=== PATIENT | male | born 1945 | race Caucasian/White ===

== ENCOUNTER 2016-05-03 15:50 | Observation (INO) | payer OTHER, MEDICARE ==
[~2016-05-03] VITALS: Ht 172.7 cm; Wt 98.0 kg
[~2016-05-03 15:50] MED LIST: ASPI81TA28 PO; ATOR10TA88 PO; CMBIN INH; GLIM2TAB PO; IBUP-1050 PO; LISI-725 PO; METF-383 PO; PRLSR20 PO
[2016-05-03] MEDS ORDERED: CLONIDINE HCL 0.1 MG TAB PO ONE (16:15)
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
[2016-05-03 16:49] LABS: BASO % 0.2 %; BASO ABS # 0.02 K/uL (0-0.2); COMPLETE YES; HEMATOCRIT 41.6 % (42-52); IG% 0.5 %; LYMPH % 19.6 %; LYMPH ABS # 1.94 K/uL (1.2-3.4); MEAN CELL VOLUME 91.8 fL (80-100); MEAN CORPUSCULAR HGB CONC 34.9 g/dl (32-36); MEAN PLATELET VOLUME 9.6 fL (7.4-10.4); MONO % 8.9 %; NEUT % 69.8 %; PLATELET COUNT 283 K/uL (130-400); RED BLOOD COUNT 4.53 M/uL (4.7-6.1)
--- NOTE | 2016-05-03 16:49 | DIAGNOSTIC IMAGING REPORT ---
CT HEAD WITHOUT CONTRAST (CT) CLINICAL HISTORY: Dizziness, hypertension. DIFFICULT WALKING COMPARISON STUDY: MRI the brain dated 06/10/2012 TECHNIQUE: Axial CT of the brain is performed from the vertex to the skull base. IV contrast was not administered for this examination. CT DOSE: 810.83 mGy.cm FINDINGS: No intra or extra-axial mass lesions are visualized. There is no CT evidence of acute cortical infarction. There is no evidence of midline shift. There is no acute hemorrhage. No calvarial fractures are visualized. There are patchy white matter hypodensities likely on a small vessel basis. There is an old left cerebellar infarct. There is an old infarct involving the anterior limb of the left internal capsule. There is an old right thalamic lacunar infarct. There is no evidence of pathologic ventricular dilatation. There is no evidence of acute sinusitis. There is deformity and calcification of the right globe. IMPRESSION: No acute intracranial findings Electronically signed by: Rhys Davidson M.D. 05/03/2016 4:47 PM Dictated Date/Time: 05/03/2016 4:46 PM
[2016-05-03 17:21] LABS: BLOOD UREA NITROGEN 25 mg/dl (7-18); BUN/CREATININE RATIO 13.9 (10-20); CALCIUM 9.7 mg/dl (8.5-10.1); CARBON DIOXIDE 25 mmol/L (21-32); CHLORIDE 102 mmol/L (98-107); GLUCOSE 55 mg/dl (70-99); SODIUM 138 mmol/L (136-145)
[2016-05-03] MEDS ORDERED: GADAVIST IV PRN (17:30)
--- NOTE | 2016-05-03 17:36 | DIAGNOSTIC IMAGING REPORT ---
MRI OF THE BRAIN WITHOUT AND WITH IV CONTRAST CLINICAL HISTORY: Dizziness, hypertension, difficulty walking. COMPARISON STUDY: CT scan dated 05/03/2016 TECHNIQUE: MRI of the brain was performed from the vertex to the skull base utilizing various T1 and T2 weighted sequences. Following the IV administration of 9 mL of Gadavist contrast, additional enhanced images were obtained. FINDINGS: Sagittal T1, axial diffusion, proton density and T2 weighted axial, coronal FLAIR, and pre and post axial T1-weighted images were acquired. These were supplemented with post gadolinium coronal T1 weighted images. No intra or extra-axial mass lesions are visualized. Axial diffusion-weighted images reveal no evidence of acute or subacute infarction. There is no evidence of ventricular dilatation. Proton density T2-weighted and FLAIR images reveal moderate scattered foci of increased T2 signal within the white matter, likely on a small vessel basis. There are scattered lacunar infarcts. There are foci of increased T2 signal within the lorie, likely on a chronic ischemic basis. There is an old left cerebellar infarct. There is an old lacunar infarct within the right thalamus There is a left maxillary sinus retention cyst. There is a deformity the right globe which is likely chronic. There are no abnormal flow voids. There is no evidence of pathologic enhancement. IMPRESSION: 1. No acute intracranial findings 2. White matter disease and scattered prior areas of infarction 3. No evidence of intracranial mass 4. No evidence of acute or subacute infarction. Electronically signed by: Rhys Davidson M.D. 05/03/2016 5:34 PM Dictated Date/Time: 05/03/2016 5:30 PM
--- NOTE | 2016-05-03 17:59 | DIAGNOSTIC IMAGING REPORT ---
CHEST ONE VIEW PORTABLE CLINICAL HISTORY: Hypertension, dizziness. Difficulty walking. COMPARISON STUDY: 02/12/2010 FINDINGS: The chest has an emphysematous configuration. The heart is the upper limits of normal in size. There is aortic tortuosity. There is enlargement central pulmonary arteries suggesting pulmonary arterial hypertension. There is no focal pulmonary consolidation. There are no pleural effusions.[ IMPRESSION: No active disease in the chest. Electronically signed by: Rhys Davidson M.D. 05/03/2016 5:57 PM Dictated Date/Time: 05/03/2016 5:57 PM
[2016-05-03] MEDS ORDERED: TRAZ50TA35 PO (18:28)
[2016-05-03] MEDS: SODIUM CHLORIDE 0.9% 1000ML 1,000 ML IV SCH ×2 (19:29→20:31)
[2016-05-03] MEDS ORDERED: NURSING VERBAL MED ORDER ONE (19:30)
[2016-05-03] MEDS ORDERED: SODIUM CHLORIDE 0.9% 1000ML 1,000 ML IV SCH (20:30)
[2016-05-03 21:06] LABS: MAGNESIUM 1.7 mg/dl (1.8-2.4); THYROID STIMULATING HORMONE 1.51 uIu/ml (0.300-4.500)
[2016-05-03] MEDS ORDERED: DEXTROSE 50% 50 ML SYR IV ONE (21:15)
[2016-05-03] MEDS ORDERED: MECLIZINE HCL 12.5 MG TAB PO ONE (21:46)
[2016-05-03] MEDS ORDERED: HYDROmorphone INJ 0.5 MG/0.5 ML SYR IV PRN (22:00)
[2016-05-03] MEDS ORDERED: GLUCOSE 40% GEL 15 GM TUBE PO PRN (22:00)
[2016-05-03] MEDS ORDERED: GLUCOSE 10 TABS/TUBE PO PRN (22:00)
[2016-05-03] MEDS ORDERED: DIAZEPAM 5MG TAB PO PRN (22:00)
[2016-05-03] MEDS ORDERED: GLUCAGON FOR INJ 1 MG VIAL SQ PRN (22:00)
[2016-05-03] MEDS ORDERED: ONDANSETRON INJ 2 MG/ML 2 ML VIAL IV PRN (22:00)
[2016-05-03] MEDS ORDERED: TRAMADOL HCL 50 MG TAB PO PRN (22:00)
[2016-05-03] MEDS ORDERED: ACETAMINOPHEN 325 MG TAB PO PRN (22:00)
[2016-05-03] MEDS ORDERED: DEXTROSE 50% 50 ML SYR IV PRN (22:00)
[2016-05-03] MEDS ORDERED: SODIUM CHLORIDE 0.9% 1000ML 1,000 ML IV ONE (22:15)
[2016-05-03 22:54] VITALS: BP 158/75; TEMP 36.8; O2SAT 92; Ht 172.7 cm; Wt 98.0 kg
[2016-05-03] MEDS ORDERED: MAGNESIUM SULFATE 1GM / D5W 1 GM in PREMIXED IN D5W 100 ML IV ONE (23:00)
[2016-05-03] MEDS ORDERED: IV FLUIDS COMPLETED PRN (23:00)
[2016-05-04] MEDS: SODIUM CHLORIDE 0.9% 1000ML 1,000 ML IV SCH (00:01)
[2016-05-04 00:08] VITALS: BP 162/77; PULSE 65; TEMP 36.5; O2SAT 92
[2016-05-04 01:49] VITALS: BP 136/76; PULSE 69
[2016-05-04 05:57] LABS: BASO % 0.2 %; BASO ABS # 0.02 K/uL (0-0.2); COMPLETE YES; EOS % 1.7 %; HEMATOCRIT 37.6 % (42-52); IG% 0.5 %; LYMPH % 25.2 %; LYMPH ABS # 2.02 K/uL (1.2-3.4); MEAN CORPUSCULAR HEMOGLOBIN 31.5 pg (25-34); MEAN CORPUSCULAR HGB CONC 34.6 g/dl (32-36); MEAN PLATELET VOLUME 9.1 fL (7.4-10.4); MONO % 13.6 %; NEUT % 58.8 %; PLATELET COUNT 232 K/uL (130-400); RED BLOOD COUNT 4.13 M/uL (4.7-6.1); WHITE BLOOD COUNT 8.03 K/uL (4.8-10.8)
[2016-05-04 06:03] LABS: PROTHROMBIN TIME (PATIENT) 11.1 SECONDS (9.0-12.0)
[2016-05-04] MEDS: HEPARIN SOD 5000 UNIT/0.5 ML CARP SQ SCH ×3 (06:25→20:47)
[2016-05-04 06:26] LABS: CREATININE 1.6 mg/dl (0.60-1.40); POTASSIUM 4.9 mmol/L (3.5-5.1)
[2016-05-04 07:25] VITALS: BP 131/70; PULSE 65; TEMP 36.4; O2SAT 91
[2016-05-04] MEDS ORDERED: DEXTROSE 50% 50 ML SYR IV ONE (07:45)
[2016-05-04 08:00] VITALS: O2SAT 91
[2016-05-04] MEDS: INSULIN ASPART 100 UNITS/ML 3 ML PEN SC SCH ×4 (08:41→20:43)
[2016-05-04] MEDS: PANTOprazole SOD 40 MG TAB PO SCH (08:43)
[2016-05-04] MEDS: ASPIRIN 81 MG ECTAB PO SCH (08:43)
[2016-05-04] MEDS: ATORVASTATIN 10 MG TAB PO SCH (08:43)
--- NOTE | 2016-05-04 09:33 | HISTORY & PHYSICAL EXAMINATION ---
DATE OF ADMISSION: 05/03/2016 PRIMARY CARE DOCTOR: Dr. Jamil. Hx obtained from px, px granddaughter and records. CHIEF COMPLAINT: Dizziness. HISTORY OF PRESENT ILLNESS: Medical history significant for hypertension, history of CVA, DM2 on oral meds, CRI (baseline creatinine 1.7 - 1.9), PVD sp surgery. Recent confinement January 2010 for complicated pneumonia. One week history of cold symptoms, congestion ff by few days history of dizziness described as whirling. worse with head movement. no hearing loss, tinnitus, headache. Some nausea. no vomiting. No chest pain, no shortness of breath. Intractable symptoms at the Emergency Room. SBP initially 200 at the ER currently 100 after clonidine admin. MEDICAL HISTORY: As above. SURGERIES: Carotid artery, AAA repair. HOME MEDICATIONS: Include aspirin, Lipitor, Amaryl, Zestril, Glucophage, Prilosec, trazodone. ALLERGIES: No known drug allergies. FAMILY HISTORY: History of hypertension and cancer. PERSONAL SOCIAL HISTORY: past tobacco use. No chronic intake of alcoholic beverages. REVIEW OF SYSTEMS: As per HPI, all other ROS negative. PHYSICAL EXAMINATION: VITAL SIGNS: Blood pressure initially 200/86 later 107/63, pulse rate 77, RR 16, temperature 36.8, sats 92 on room air. GENERAL: Noted to be slightly anxious, obese, no respiratory distress. SKIN : normal color HEAD, EYES, EARS, NOSE, AND THROAT: partial alopecia, pink palpebral conjunctivae. Dry mucosa. NECK: Short neck. LUNGS: Decreased breath sounds. HEART: Regular rate and rhythm. ABDOMEN: Soft. EXTREMITIES: No edema. no tenderness NEUROLOGIC: No gross focality. LABORATORY DATA: Hemoglobin 14, white cell count 10, platelets 280, sodium 140, chloride 100, CO2 of 20, BUN 25, creatinine 1.8, glucose was noted to be 55. MRI showed scattered areas of old infarction. February 2016 hemoglobin A1c was 6.2. ASSESSMENT AND PLAN: 1. Vertigo recent URTI, no sepsis. 2. Hypertensive urgency, improved after clonidine admin at the ER. 3. CRI, borderline hyperkalemia. 4. History of peripheral vascular disease, status post surgery 5. hx CVA 6. past tobacco abuse. 7. DM2 on oral meds, well controlled as of recent outpx HgA1c px hypoglycemic at the ER OBS F Symptomatic management for vertigo. IVF, Hold ALVIN inhibitor for now RE borderline potassium. hold home oral hypoglycemic, ISS BG goal 140-180, Dextrose prn hypoglycemia PT, OT eval. DVT prophylaxis, heparin subQ. DNR. Patient's daughter requesting for updates. Miss Michelle Michel at . MTDD
[2016-05-04 15:08] VITALS: BP 149/74; PULSE 68; TEMP 36.4; O2SAT 91
[2016-05-04] MEDS ORDERED: LISINOPRIL 20 MG TAB PO ONE (16:35)
--- NOTE | 2016-05-04 16:36 | Progress Note ---
Medicine Progress Note Date & Time of Visit: May 04, 2016 at 16:28. Subjective patient states he feels that his dizziness is improving no other neuro deficits denies headache, chest pain, dyspnea, palpitations no other symptoms Objective Last 8 Hrs Date Time Temp Pulse Resp B/P Pulse Ox O2 Delivery O2 Flow Rate FiO2 05/04/16 15:08 36.4 68 18 149/74 91 Room Air Physical Exam: General- oriented x 3, not in distress, speaks in sentences with no effort Head- atraumatic Eyes- EOMI, anicteric Neck- supple, no JVD Lungs- clear to auscultation bilaterally Heart- regular rhythm; no murmurs Abdomen- normal bowel sounds, soft, nontender Extremities- no pretibial edema, no calf tenderness Neuro- alert, oriented x 3; no gross deficits Skin- warm & dry Laboratory Results: Last 24 Hours Test 05/03/16 16:35 05/03/16 22:03 05/03/16 23:49 05/04/16 05:45 Influenza Type A Antigen Neg for Influ A Influenza Type B Antigen Neg for Influ B Bedside Glucose 84 mg/dl 65 mg/dl White Blood Count 8.03 K/uL Red Blood Count 4.13 M/uL Hemoglobin 13.0 g/dL Hematocrit 37.6 % Mean Corpuscular Volume 91.0 fL Mean Corpuscular Hemoglobin 31.5 pg Mean Corpuscular Hemoglobin Concent 34.6 g/dl Platelet Count 232 K/uL Mean Platelet Volume 9.1 fL Neutrophils (%) (Auto) 58.8 % Lymphocytes (%) (Auto) 25.2 % Monocytes (%) (Auto) 13.6 % Eosinophils (%) (Auto) 1.7 % Basophils (%) (Auto) 0.2 % Neutrophils # (Auto) 4.72 K/uL Lymphocytes # (Auto) 2.02 K/uL Monocytes # (Auto) 1.09 K/uL Eosinophils # (Auto) 0.14 K/uL Basophils # (Auto) 0.02 K/uL RDW Standard Deviation 39.8 fL RDW Coefficient of Variation 12.0 % Immature Granulocyte % (Auto) 0.5 % Immature Granulocyte # (Auto) 0.04 K/uL Prothrombin Time 11.1 SECONDS Prothromb Time International Ratio 1.0 Sodium Level 140 mmol/L Potassium Level 4.9 mmol/L Chloride Level 105 mmol/L Carbon Dioxide Level 27 mmol/L Anion Gap 8.0 mmol/L Blood Urea Nitrogen 24 mg/dl Creatinine 1.60 mg/dl Est Creatinine Clear Calc Drug Dose 49.4 ml/min Estimated GFR () 50.2 Estimated GFR (Non- 43.3 BUN/Creatinine Ratio 15.0 Random Glucose 68 mg/dl Calcium Level 9.0 mg/dl Magnesium Level 2.0 mg/dl Assessment & Plan 70 year old male with DM, HTN, CVA, CKD, PVD presenting with dizziness VERTIGO POSSIBLE LABYRINTHITIS - improving - MRI brain no CVA - PRN meclizine advised to avoid quick turning of the head HYPERTENSIVE URGENCY - resolved - usual Lisinopril 20mg daily ordered CKD - at baseline crea 1.7-1.9 DM - hold oral meds - on ISS CVA PVD - stable - on Aspirin, Statin DVT prophylaxis SCDS Disposition pending possible d/c home in AM Patient's daughter requesting for updates. Miss Michelle Michel at . Current Inpatient Medications: Current Inpatient Medications Medications (Trade) Dose Ordered Sig/Messi Route Start Time Stop Time Status Last Admin Dose Admin Gadobutrol (Gadavist) 9 mmol UD PRN IV 05/03/16 17:30 05/07/16 17:29 Heparin Sodium (Porcine) (Heparin Sq 5000 Unit/0.5ml) 5,000 unit Q8 SQ 05/04/16 06:30 06/03/16 06:29 05/04/16 14:33 5,000 UNIT Acetaminophen (Tylenol Tab) 650 mg Q4H PRN PO 05/03/16 22:00 06/02/16 21:59 Insulin Aspart (novoLOG ASPART) SLIDING SCALE If C... ACHS SC 05/04/16 06:30 06/03/16 06:59 Glucose (Glucose 40% Gel) 15-30 GRAMS 15 GRAMS... UD PRN PO 05/03/16 22:00 06/02/16 21:59 Glucose (Glucose Chew Tab) 4-8 Tablets 4 Tabl... UD PRN PO 05/03/16 22:00 06/02/16 21:59 Dextrose (Dextrose 50% 50ML Syringe) 25-50ML OF 50% DW IV FOR... UD PRN IV 1/20/17 22:00 06/02/16 21:59 Glucagon (Glucagon Inj) 1 mg UD PRN SQ 05/03/16 22:00 06/02/16 21:59 Hydromorphone HCl (Dilaudid Inj) 0.5 mg Q3H PRN IV 05/03/16 22:00 05/17/16 21:59 Tramadol HCl (Ultram Tab) 25 mg Q6H PRN PO 05/03/16 22:00 06/02/16 21:59 Meclizine HCl (Antivert Tab) 12.5 mg Q6H PRN PO 05/03/16 22:00 06/02/16 21:59 Diazepam (Valium Tab) 2.5 mg Q6H PRN PO 05/03/16 22:00 06/02/16 21:59 Ondansetron HCl (Zofran Inj) 4 mg Q6H PRN IV 05/03/16 22:00 06/02/16 21:59 Aspirin (Ecotrin Tab) 81 mg DAILY PO 05/04/16 08:00 06/03/16 08:59 05/04/16 08:43 81 MG Atorvastatin Calcium (Lipitor Tab) 10 mg DAILY PO 05/04/16 08:00 06/03/16 08:59 05/04/16 08:43 10 MG Trazodone HCl (Desyrel Tab) 50 mg HS PO 05/04/16 21:00 06/03/16 20:59 Pantoprazole Sodium (Protonix Tab) 40 mg DAILY PO 05/04/16 08:00 06/03/16 08:59 05/04/16 08:43 40 MG Miscellaneous (Iv Fluids Completed) 1 ea PRN PRN N/A 05/03/16 23:00 05/03/17 22:59 Lisinopril (Zestril Tab) 20 mg DAILY PO 05/05/16 08:00 06/04/16 07:59 UNV Lisinopril (Zestril Tab) 20 mg 1617 ONCE PO 05/04/16 16:17 05/04/16 16:18 UNV
[2016-05-04] MEDS: TRAZODONE HCL 50 MG TAB PO SCH (20:43)
[2016-05-04] MEDS: MECLIZINE HCL 12.5 MG TAB PO PRN (21:07)
[2016-05-05 00:01] VITALS: BP 174/67; PULSE 67; TEMP 36.5; O2SAT 92
[2016-05-05] MEDS ORDERED: LORAZEPAM 0.5 MG TAB PO ONE ×2 (02:00→23:15)
[2016-05-05] MEDS: HEPARIN SOD 5000 UNIT/0.5 ML CARP SQ SCH ×3 (05:32→21:01)
[2016-05-05] MEDS: MECLIZINE HCL 12.5 MG TAB PO PRN ×2 (05:40→17:56)
[2016-05-05 06:16] LABS: BASO % 0.3 %; BASO ABS # 0.02 K/uL (0-0.2); COMPLETE YES; EOS % 3.5 %; IG% 0.4 %; LYMPH % 27.8 %; LYMPH ABS # 2.16 K/uL (1.2-3.4); MEAN CELL VOLUME 91.1 fL (80-100); MEAN CORPUSCULAR HEMOGLOBIN 31.5 pg (25-34); MEAN CORPUSCULAR HGB CONC 34.6 g/dl (32-36); MEAN PLATELET VOLUME 9.5 fL (7.4-10.4); MONO % 13.6 %; NEUT % 54.4 %; PLATELET COUNT 248 K/uL (130-400); RED BLOOD COUNT 4.28 M/uL (4.7-6.1); WHITE BLOOD COUNT 7.78 K/uL (4.8-10.8)
[2016-05-05] MEDS: INSULIN ASPART 100 UNITS/ML 3 ML PEN SC SCH ×4 (06:30→20:21)
[2016-05-05 06:49] LABS: BUN/CREATININE RATIO 15.8 (10-20); CALCIUM 9.1 mg/dl (8.5-10.1); CREATININE 1.5 mg/dl (0.60-1.40); POTASSIUM 4.5 mmol/L (3.5-5.1)
[2016-05-05 07:25] VITALS: BP 135/79; PULSE 66; TEMP 36.4; O2SAT 92
[2016-05-05] MEDS: ATORVASTATIN 10 MG TAB PO SCH (07:43)
[2016-05-05] MEDS: PANTOprazole SOD 40 MG TAB PO SCH (07:43)
[2016-05-05] MEDS: LISINOPRIL 20 MG TAB PO SCH (07:43)
[2016-05-05] MEDS: ASPIRIN 81 MG ECTAB PO SCH (07:43)
[2016-05-05] MEDS ORDERED: ONDANSETRON INJ 6 MG in DEXTROSE 5% 50ML 50 ML IV PRN (15:00)
--- NOTE | 2016-05-05 15:00 | Progress Note ---
Medicine Progress Note Date & Time of Visit: May 05, 2016 at 14:57. Subjective states his dizziness is improved but still significant improves with meclizine no chest pain, dyspnea, palpitations, lightheadedness no other symptoms Objective Last 8 Hrs Date Time Temp Pulse Resp B/P Pulse Ox O2 Delivery O2 Flow Rate FiO2 05/05/16 08:00 Room Air 05/05/16 07:25 36.4 66 18 135/79 92 Room Air Physical Exam: General- oriented x 3, not in distress, speaks in sentences with no effort Eyes- anicteric Neck- no JVD Lungs- clear to auscultation bilaterally, no rales/wheeze Heart- regular rhythm; no murmurs, normal rate Abdomen- normal bowel sounds, soft, nontender Extremities- no pretibial edema, no calf tenderness Neuro- alert, oriented x 3; no gross deficits Skin- warm & dry Laboratory Results: Last 24 Hours Test 05/04/16 16:28 05/04/16 20:05 05/05/16 05:29 05/05/16 07:34 Bedside Glucose 114 mg/dl 143 mg/dl 85 mg/dl White Blood Count 7.78 K/uL Red Blood Count 4.28 M/uL Hemoglobin 13.5 g/dL Hematocrit 39.0 % Mean Corpuscular Volume 91.1 fL Mean Corpuscular Hemoglobin 31.5 pg Mean Corpuscular Hemoglobin Concent 34.6 g/dl Platelet Count 248 K/uL Mean Platelet Volume 9.5 fL Neutrophils (%) (Auto) 54.4 % Lymphocytes (%) (Auto) 27.8 % Monocytes (%) (Auto) 13.6 % Eosinophils (%) (Auto) 3.5 % Basophils (%) (Auto) 0.3 % Neutrophils # (Auto) 4.24 K/uL Lymphocytes # (Auto) 2.16 K/uL Monocytes # (Auto) 1.06 K/uL Eosinophils # (Auto) 0.27 K/uL Basophils # (Auto) 0.02 K/uL RDW Standard Deviation 40.8 fL RDW Coefficient of Variation 12.1 % Immature Granulocyte % (Auto) 0.4 % Immature Granulocyte # (Auto) 0.03 K/uL Sodium Level 140 mmol/L Potassium Level 4.5 mmol/L Chloride Level 104 mmol/L Carbon Dioxide Level 26 mmol/L Anion Gap 10.0 mmol/L Blood Urea Nitrogen 24 mg/dl Creatinine 1.50 mg/dl Est Creatinine Clear Calc Drug Dose 52.7 ml/min Estimated GFR () 54.3 Estimated GFR (Non- 46.8 BUN/Creatinine Ratio 15.8 Random Glucose 80 mg/dl Calcium Level 9.1 mg/dl Assessment & Plan 70 year old male with DM, HTN, CVA, CKD, PVD presenting with dizziness VERTIGO POSSIBLE LABYRINTHITIS - improving gradually - MRI brain no CVA - PRN meclizine add PRN Zofran advised to avoid quick turning of the head HYPERTENSIVE URGENCY - resolved - usual Lisinopril 20mg daily resumed BP stable CKD - at baseline crea 1.7-1.9 DM - hold oral meds - on ISS CVA PVD - stable - on Aspirin, Statin DVT prophylaxis SCDS Disposition pending possible d/c home in AM Patient's daughter requesting for updates. Miss Michelle Michel at . Current Inpatient Medications: Current Inpatient Medications Medications (Trade) Dose Ordered Sig/Messi Route Start Time Stop Time Status Last Admin Dose Admin Gadobutrol (Gadavist) 9 mmol UD PRN IV 05/03/16 17:30 05/07/16 17:29 Heparin Sodium (Porcine) (Heparin Sq 5000 Unit/0.5ml) 5,000 unit Q8 SQ 05/04/16 06:30 06/03/16 06:29 05/05/16 13:42 5,000 UNIT Acetaminophen (Tylenol Tab) 650 mg Q4H PRN PO 05/03/16 22:00 06/02/16 21:59 Insulin Aspart (novoLOG ASPART) SLIDING SCALE If C... ACHS SC 05/04/16 06:30 06/03/16 06:59 Glucose (Glucose 40% Gel) 15-30 GRAMS 15 GRAMS... UD PRN PO 05/03/16 22:00 06/02/16 21:59 Glucose (Glucose Chew Tab) 4-8 Tablets 4 Tabl... UD PRN PO 05/03/16 22:00 06/02/16 21:59 Dextrose (Dextrose 50% 50ML Syringe) 25-50ML OF 50% DW IV FOR... UD PRN IV 05/03/16 22:00 06/02/16 21:59 Glucagon (Glucagon Inj) 1 mg UD PRN SQ 05/03/16 22:00 06/02/16 21:59 Hydromorphone HCl (Dilaudid Inj) 0.5 mg Q3H PRN IV 05/03/16 22:00 05/17/16 21:59 Tramadol HCl (Ultram Tab) 25 mg Q6H PRN PO 05/03/16 22:00 06/02/16 21:59 Meclizine HCl (Antivert Tab) 12.5 mg Q6H PRN PO 05/03/16 22:00 06/02/16 21:59 05/05/16 05:40 12.5 MG Diazepam (Valium Tab) 2.5 mg Q6H PRN PO 05/03/16 22:00 06/02/16 21:59 Ondansetron HCl (Zofran Inj) 4 mg Q6H PRN IV 05/03/16 22:00 06/02/16 21:59 Aspirin (Ecotrin Tab) 81 mg DAILY PO 05/04/16 08:00 06/03/16 08:59 05/05/16 07:43 81 MG Atorvastatin Calcium (Lipitor Tab) 10 mg DAILY PO 05/04/16 08:00 06/03/16 08:59 05/05/16 07:43 10 MG Trazodone HCl (Desyrel Tab) 50 mg HS PO 05/04/16 21:00 06/03/16 20:59 05/04/16 20:43 50 MG Pantoprazole Sodium (Protonix Tab) 40 mg DAILY PO 05/04/16 08:00 06/03/16 08:59 05/05/16 07:43 40 MG Miscellaneous (Iv Fluids Completed) 1 ea PRN PRN N/A 05/03/16 23:00 05/03/17 22:59 Lisinopril (Zestril Tab) 20 mg DAILY PO 05/05/16 08:00 06/04/16 07:59 05/05/16 07:43 20 MG
[2016-05-05 15:36] VITALS: BP 126/70; PULSE 74; TEMP 36.2; O2SAT 91
[2016-05-05] MEDS: TRAZODONE HCL 50 MG TAB PO SCH (20:59)
[2016-05-06 00:12] VITALS: BP 157/76; PULSE 80; TEMP 36.7; O2SAT 93
[2016-05-06] MEDS: HEPARIN SOD 5000 UNIT/0.5 ML CARP SQ SCH (05:15)
[2016-05-06 07:44] VITALS: BP 135/80; PULSE 79; TEMP 36.4; O2SAT 94
[2016-05-06] MEDS: MECLIZINE HCL 12.5 MG TAB PO PRN (08:15)
[2016-05-06] MEDS: PANTOprazole SOD 40 MG TAB PO SCH (08:15)
[2016-05-06] MEDS: LISINOPRIL 20 MG TAB PO SCH (08:15)
[2016-05-06] MEDS: ATORVASTATIN 10 MG TAB PO SCH (08:16)
[2016-05-06] MEDS: INSULIN ASPART 100 UNITS/ML 3 ML PEN SC SCH ×2 (08:16→12:35)
[2016-05-06] MEDS: ASPIRIN 81 MG ECTAB PO SCH (08:16)
[2016-05-06 08:30] VITALS: O2SAT 94
--- NOTE | 2016-05-06 14:31 | Progress Note ---
Medicine Progress Note Date & Time of Visit: May 06, 2016 at 14:27. Subjective patient states he feels better overall dizziness is much better denies headache, chest pain, dyspnea, palpitations states he is ready and would like to go home today Objective Last 8 Hrs Date Time Temp Pulse Resp B/P Pulse Ox O2 Delivery O2 Flow Rate FiO2 05/06/16 08:30 94 Room Air 05/06/16 07:44 36.4 79 18 135/80 94 Room Air Physical Exam: General- oriented x 3, not in distress, speaks in sentences with no effort Lungs- clear breath sounds bilaterally, no rales/wheeze Heart- regular rhythm; no murmurs, normal rate Abdomen- normal bowel sounds, soft, nontender Extremities- no pretibial edema, no calf tenderness Neuro- alert, oriented x 3; no gross deficits Skin- warm & dry Laboratory Results: Last 24 Hours Test 05/05/16 16:38 05/05/16 19:58 Bedside Glucose 105 mg/dl 143 mg/dl Assessment & Plan 70 year old male with DM, HTN, CVA, CKD, PVD presenting with dizziness. VERTIGO POSSIBLE LABYRINTHITIS - preceded with upper respiratory tract infection symptoms - MRI brain no CVA - PRN meclizine given - PT/OT consulted gradually improved PRN Meclizine ff up with PCP in 3-5 days HYPERTENSIVE URGENCY - resolved - usual Lisinopril 20mg daily resumed BP stable monitor as outpatient CKD - at baseline crea 1.7-1.9 DM - resume usual oral medications CVA PVD - stable - on Aspirin, Statin DVT prophylaxis SCDS given Disposition d/c home today ff up with PCP in 3-5 days patient decline home health services at this time Current Inpatient Medications: Current Inpatient Medications Medications (Trade) Dose Ordered Sig/Messi Route Start Time Stop Time Status Last Admin Dose Admin Gadobutrol (Gadavist) 9 mmol UD PRN IV 05/03/16 17:30 05/07/16 17:29 Heparin Sodium (Porcine) (Heparin Sq 5000 Unit/0.5ml) 5,000 unit Q8 SQ 05/04/16 06:30 06/03/16 06:29 05/05/16 13:42 5,000 UNIT Acetaminophen (Tylenol Tab) 650 mg Q4H PRN PO 05/03/16 22:00 06/02/16 21:59 Insulin Aspart (novoLOG ASPART) SLIDING SCALE If C... ACHS SC 05/04/16 06:30 06/03/16 06:59 Glucose (Glucose 40% Gel) 15-30 GRAMS 15 GRAMS... UD PRN PO 05/03/16 22:00 06/02/16 21:59 Glucose (Glucose Chew Tab) 4-8 Tablets 4 Tabl... UD PRN PO 05/03/16 22:00 06/02/16 21:59 Dextrose (Dextrose 50% 50ML Syringe) 25-50ML OF 50% DW IV FOR... UD PRN IV 05/03/16 22:00 06/02/16 21:59 Glucagon (Glucagon Inj) 1 mg UD PRN SQ 05/03/16 22:00 06/02/16 21:59 Hydromorphone HCl (Dilaudid Inj) 0.5 mg Q3H PRN IV 05/03/16 22:00 05/17/16 21:59 Tramadol HCl (Ultram Tab) 25 mg Q6H PRN PO 05/03/16 22:00 06/02/16 21:59 Meclizine HCl (Antivert Tab) 12.5 mg Q6H PRN PO 05/03/16 22:00 06/02/16 21:59 05/06/16 08:15 12.5 MG Diazepam (Valium Tab) 2.5 mg Q6H PRN PO 05/03/16 22:00 06/02/16 21:59 Ondansetron HCl (Zofran Inj) 4 mg Q6H PRN IV 05/03/16 22:00 06/02/16 21:59 Aspirin (Ecotrin Tab) 81 mg DAILY PO 05/04/16 08:00 06/03/16 08:59 05/06/16 08:16 81 MG Atorvastatin Calcium (Lipitor Tab) 10 mg DAILY PO 05/04/16 08:00 06/03/16 08:59 05/06/16 08:16 10 MG Trazodone HCl (Desyrel Tab) 50 mg HS PO 05/04/16 21:00 06/03/16 20:59 05/05/16 20:59 50 MG Pantoprazole Sodium (Protonix Tab) 40 mg DAILY PO 05/04/16 08:00 06/03/16 08:59 05/06/16 08:15 40 MG Miscellaneous (Iv Fluids Completed) 1 ea PRN PRN N/A 05/03/16 23:00 05/03/17 22:59 Lisinopril 20 mg 20 mg DAILY PO 05/05/16 08:00 06/04/16 07:59 05/06/16 08:15 20 MG Ondansetron HCl/ Dextrose (Zofran Inj/D5 50ml) 53 ml @ 200 mls/hr Q8H PRN IV 05/05/16 15:00 06/04/16 14:59
[2016-05-06] MEDS ORDERED: ANT25 PO (14:37)
--- NOTE | 2016-05-06 14:47 | Discharge Instructions ---
Discharge Instructions Admission Reason for Admission: Vertigo Discharge Discharge Diagnosis / Problem: VERTIGO Discharge Goals Goal(s): Diagnostic testing, Therapeutic intervention Activity Recommendations Activity Limitations: as noted below (NO HEAVY EXERTION UNTIL RE-EVALUATED BY PRIMARY CARE PHYSICIAN) Driving or Machine Use: NO DRIVING UNTIL RE-EVALUATED BY PRIMARY CARE PHYSICIAN . Instructions / Follow-Up Instructions / Follow-Up PLEASE CALL YOUR PRIMARY CARE PHYSICIAN IF WITH RECURRENCE OR WORSENING OF SYMPTOMS. AVOID SUDDEN HEAD MOVEMENTS. ENSURE ADEQUATE DAILY FLUID INTAKE. FOLLOW UP WITH DR. LEWIS (ASSOCIATE OF DR. NAGY) ON 05/09/16 AT 9 :10AM. Current Hospital Diet Patient's current hospital diet: Diabetes Type 2 Diet, Low Potassium Diet (2g K) Discharge Diet Recommended Diet: AHA Diet (Heart Healthy), Diabetes Type 2 Diet Pending Studies Studies pending at discharge: no Medical Emergencies . Who to Call and When: Medical Emergencies: If at any time you feel your situation is an emergency, please call 911 immediately. . Non-Emergent Contact Non-Emergency issues call your: Primary Care Provider . Past History Medical & Surgical History: (1) HTN (hypertension) (2) PVD (peripheral vascular disease) (3) TIA (transient ischemic attack) (4) Cerebrovascular disease, arteriosclerotic, post-stroke (5) COPD, moderate (6) CKD (chronic kidney disease), stage III (7) DM type 2 (diabetes mellitus, type 2) (8) AAA (abdominal aortic aneurysm) (9) CAD (coronary artery disease) (10) History of Helicobacter pylori infection (11) PUD (peptic ulcer disease) (12) Blind right eye (13) S/P AAA repair (14) S/P carotid endarterectomy (15) H/O aorto-femoral bypass (16) History of incision and drainage (17) H/O colonoscopy with polypectomy (18) S/p thoracoscopy . "Provider Documentation" section prepared by Aman Cooper. VTE Core Measure Inpt VTE Proph given/why not?: Unfractionated heparin SQ
--- NOTE | 2016-05-06 14:51 | Discharge Summary ---
Discharge Summary Admission Date: May 03, 2016 at 21:27 Discharge Date: May 06, 2016 Discharge Disposition: Home Principal Diagnosis: VERTIGO POSSIBLE LABYRINTHITIS Secondary Diagnoses/Problems: PLEASE REFER TO HOSPITAL COURSE BELOW. Procedures: BRAIN MRI: 1. No acute intracranial findings 2. White matter disease and scattered prior areas of infarction 3. No evidence of intracranial mass 4. No evidence of acute or subacute infarction. Pending Studies/Follow-Up: PLEASE REFER TO HOSPITAL COURSE BELOW. Medication Reconciliation New Medications: Meclizine HCl (Meclizine HCl) 25 Mg Tab 12.5 MG PO Q6H PRN for dizziness, #15 TAB 2 Refills Continued Medications: Aspirin (Aspirin Ec) 81 Mg Tab 81 MG PO DAILY Atorvastatin (Lipitor) 10 Mg Tab 10 MG PO DAILY, TAB Glimepiride (Amaryl) 2 Mg Tab 2 MG PO QAM, TAB Lisinopril (Zestril) 20 Mg Tab 20 MG PO DAILY, TAB Metformin Hcl (Glucophage) 850 Mg Tab 850 MG PO BID, TAB Omeprazole (Prilosec) 20 Mg Capcr 20 MG PO DAILY, CAP Trazodone Hcl (Trazodone) 50 Mg Tab 50 MG PO HS, TAB Admission Information HPI (per Admitting provider): PRIMARY CARE DOCTOR: Dr. Nagy. Hx obtained from px, px granddaughter and records. CHIEF COMPLAINT: Dizziness. HISTORY OF PRESENT ILLNESS: Medical history significant for hypertension, history of CVA, DM2 on oral meds, CRI (baseline creatinine 1.7 - 1.9), PVD sp surgery. Recent confinement January 2010 for complicated pneumonia. One week history of cold symptoms, congestion ff by few days history of dizziness described as whirling. worse with head movement. no hearing loss, tinnitus, headache. Some nausea. no vomiting. No chest pain, no shortness of breath. Intractable symptoms at the Emergency Room. SBP initially 200 at the ER currently 100 after clonidine admin. Physical Exam (per Admitting): VITAL SIGNS: Blood pressure initially 200/86 later 107/63, pulse rate 77, RR 16, temperature 36.8, sats 92 on room air. GENERAL: Noted to be slightly anxious, obese, no respiratory distress. SKIN : normal color HEAD, EYES, EARS, NOSE, AND THROAT: partial alopecia, pink palpebral conjunctivae. Dry mucosa. NECK: Short neck. LUNGS: Decreased breath sounds. HEART: Regular rate and rhythm. ABDOMEN: Soft. EXTREMITIES: No edema. no tenderness NEUROLOGIC: No gross focality. Hospital Course 70 year old male with DM, HTN, CVA, CKD, PVD presenting with dizziness. VERTIGO POSSIBLE LABYRINTHITIS - preceded with upper respiratory tract infection symptoms - MRI brain no CVA - PRN meclizine given - PT/OT consulted gradually improved PRN Meclizine ff up with PCP in 3-5 days HYPERTENSIVE URGENCY - resolved - usual Lisinopril 20mg daily resumed BP stable monitor as outpatient CKD - at baseline crea 1.7-1.9 DM - resume usual oral medications CVA PVD - stable - on Aspirin, Statin DVT prophylaxis SCDS given Disposition d/c home ff up with PCP in 3-5 days patient decline home health services at this time Total time spent on discharge = 30 MINUTES This includes examination of the patient, discharge planning, medication reconciliation, and communication with other providers. Discharge Instructions Discharge Instructions Admission Reason for Admission: Vertigo Discharge Discharge Diagnosis / Problem: VERTIGO Discharge Goals Goal(s): Diagnostic testing, Therapeutic intervention Activity Recommendations Activity Limitations: as noted below (NO HEAVY EXERTION UNTIL RE-EVALUATED BY PRIMARY CARE PHYSICIAN) Driving or Machine Use: NO DRIVING UNTIL RE-EVALUATED BY PRIMARY CARE PHYSICIAN . Instructions / Follow-Up Instructions / Follow-Up PLEASE CALL YOUR PRIMARY CARE PHYSICIAN IF WITH RECURRENCE OR WORSENING OF SYMPTOMS. AVOID SUDDEN HEAD MOVEMENTS. ENSURE ADEQUATE DAILY FLUID INTAKE. FOLLOW UP WITH DR. LEWIS (ASSOCIATE OF DR. NAGY) ON 05/09/16 AT 9 :10AM. Current Hospital Diet Patient's current hospital diet: Diabetes Type 2 Diet, Low Potassium Diet (2g K) Discharge Diet Recommended Diet: AHA Diet (Heart Healthy), Diabetes Type 2 Diet Pending Studies Studies pending at discharge: no Medical Emergencies . Who to Call and When: Medical Emergencies: If at any time you feel your situation is an emergency, please call 911 immediately. . Non-Emergent Contact Non-Emergency issues call your: Primary Care Provider . Past History Medical & Surgical History: (1) HTN (hypertension) (2) PVD (peripheral vascular disease) (3) TIA (transient ischemic attack) (4) Cerebrovascular disease, arteriosclerotic, post-stroke (5) COPD, moderate (6) CKD (chronic kidney disease), stage III (7) DM type 2 (diabetes mellitus, type 2) (8) AAA (abdominal aortic aneurysm) (9) CAD (coronary artery disease) (10) History of Helicobacter pylori infection (11) PUD (peptic ulcer disease) (12) Blind right eye (13) S/P AAA repair (14) S/P carotid endarterectomy (15) H/O aorto-femoral bypass (16) History of incision and drainage (17) H/O colonoscopy with polypectomy (18) S/p thoracoscopy . "Provider Documentation" section prepared by Aman Cooper. VTE Core Measure Inpt VTE Proph given/why not?: Unfractionated heparin SQ
[2016-05-06] MEDS ORDERED: MECLIZINE HCL 12.5 MG TAB PO SCH (15:00)
[2016-05-06 15:19] VITALS: BP 168/63; PULSE 77; TEMP 36.9; O2SAT 94
[2016-05-06 15:37] VITALS: BP 168/63; PULSE 77; TEMP 36.9; O2SAT 94
[2016-11-12] MEDS ORDERED: ATOR-24 PO (10:26)
[2016-11-12] MEDS ORDERED: ASPI-428 PO (10:26)
[2016-11-12] MEDS ORDERED: MECL1TAB40 PO (10:26)
[2016-11-12] MEDS ORDERED: MELA10TA2 PO (10:26)
[2016-11-12] MEDS ORDERED: TRAZ1TAB16 PO (10:26)
== END 2016-05-06 16:30 | disposition home or self-care (01) ==
LOC: ENRESERVDT → ENRESERVTM → C.EDB 15:51 → C.4E 21:27
PROVIDERS: ADMIT Internal Medicine; ATTEND Internal Medicine
DX: R42 Dizziness and giddiness (principal); I12.9 Hypertensive chronic kidney disease with stage 1 through stage 4 chronic kidney disease, or unspecified chronic kidney disease; E11.649 Type 2 diabetes mellitus with hypoglycemia without coma; E87.5 Hyperkalemia; I73.9 Peripheral vascular disease, unspecified; I25.10 Atherosclerotic heart disease of native coronary artery without angina pectoris; I95.9 Hypotension, unspecified; J06.9 Acute upper respiratory infection, unspecified; N18.3 Chronic kidney disease, stage 3 (moderate); J43.9 Emphysema, unspecified; Z66 Do not resuscitate; Z86.73 Personal history of transient ischemic attack (TIA), and cerebral infarction without residual deficits; Z87.891 Personal history of nicotine dependence

== ENCOUNTER → 2016-11-21 | Day surgery (SDC) | payer OTHER, MEDICARE ==
[2016-11-12 10:29] VITALS: Ht 175.3 cm
[~2016-11-21] VITALS: Ht 175.3 cm
[~2016-11-21] MED LIST changes: +ASPI-428 PO; +ATOR-24 PO; -CMBIN INH; -IBUP-1050 PO; +LIDOCAINE HCL 2% 2 ML VIAL (20MG/ML) ONE; +MECL1TAB40 PO; +MELA10TA2 PO; +MIDAZOLAM HCL 1 MG/ML 2ML VIAL ONE; +PROPOFOL IV EMULSION 10 MG/ML 20 ML VIAL IV ONE; +SODIUM CHLORIDE 0.9% 500ML 500 ML IV ONE; +TRAZ1TAB16 PO
--- NOTE | 2016-11-21 09:41 | Endo History and Physical ---
History & Physical Date of Service: Nov 21, 2016. Chief Complaint: history of polyps Referring Physician: Dr. Isaak Jamil History of Present Illness History of polyps, for surveillance Past Medical History Diabetes, ASHD, High Cholesterol, Heart Disease, Hypertension, COPD, CVA/TIA, Other Past Surgical History Hx Cardiac Surgery: Yes (LT/RT CAROTID ENDARTERECTOMY) Hx Internal Defibrillator: No Hx Pacemaker: No Hx Abdominal Surgery: Yes (AAA REPAIR) Hx of Implantable Prosthesis: No Hx Post-Op Nausea and Vomiting: No Hx Cancer Surgery: No Hx Thoracic Surgery: Yes (CHEST TUBE 2010 S/P PNEUMONIA) Hx Orthopedic: No Hx Urinary Tract Surgery: No Family History None Social History Smoking Status: Former Smoker Hx Substance Use: No Hx Alcohol Use: Yes (QUIT 2001) Allergies Coded Allergies: No Known Allergies (Verified , 11/12/16) Current Medications Reported Home Medications Medications Dose Route/Sig Max Daily Dose Days Date Category Desyrel (Trazodone Hcl) 50 Mg Tab 50 Mg PO HS 11/12/16 Reported Meclizine Hcl 12.5 Mg Tab 1 Tab PO Q6H 11/12/16 Reported Ecotrin Low Strength (Aspirin) 81 Mg Tab 1 Tab PO QAM 11/12/16 Reported Lipitor (Atorvastatin Calcium) 10 Mg Tab 10 Mg PO QAM 09/17/13 Reported Prilosec (Omeprazole) 20 Mg Capcr 20 Mg PO QAM 09/17/13 Reported Glucophage (Metformin Hcl) 850 Mg Tab 850 Mg PO BID 09/17/13 Reported Amaryl (Glimepiride) 2 Mg Tab 2 Mg PO QAM 09/17/13 Reported Zestril (Lisinopril) 20 Mg Tab 20 Mg PO QAM 09/17/13 Reported Melatonin 10 Mg Tab 1 Tab PO HS 11/12/16 Reported Vital Signs Weight (Kilograms): 0 Height (Feet): 5 Height (Inches): 9 Date Time Temp Pulse Resp B/P (MAP) Pulse Ox O2 Delivery O2 Flow Rate FiO2 11/21/16 09:14 37 90 20 197/97 (130) 92 Room Air Physical Exam General Appearance: WD/WN, no apparent distress Respiratory/Chest: Auscultation: breath sounds normal, no wheezing Cardiovascular: Heart Auscultation: RRR, no murmurs Abdomen: Inspection & Palpation: soft, no tenderness, guarding & rebound Assessment and Plan Colonoscopy today.
--- NOTE | 2016-11-21 10:20 | GI REPORT ---
Procedure Date: 11/21/2016 9:42 AM Procedure: Colonoscopy Indications: High risk colon cancer surveillance: Personal history of colonic polyps Medicines: Propofol per Anesthesia Complications: No immediate complications. Estimated blood loss: None. Estimated Blood Loss: Estimated blood loss: none. Procedure: Pre-Anesthesia Assessment: - Prior to the procedure, a History and Physical was performed, and patient medications, allergies and sensitivities were reviewed. The patient's tolerance of previous anesthesia was reviewed. - ASA Grade Assessment: III - A patient with severe systemic disease. After I obtained informed consent, the scope was passed under direct vision. Throughout the procedure, the patient's blood pressure, pulse, and oxygen saturations were monitored continuously. The Scope was introduced through the anus and advanced to the terminal ileum, with identification of the appendiceal orifice and IC valve. The colonoscopy was performed with ease. The patient tolerated the procedure well. The quality of the bowel preparation was adequate to identify polyps. The bowel preparation used was split dose MIralax. Findings: A 2 mm polyp was found in the ascending colon. The polyp was sessile. The polyp was removed with a cold snare. Resection and retrieval were complete. Verification of patient identification for the specimen was done by the physician and nurse using the patient's name, date and medical record number. Impression: - One 2 mm polyp in the ascending colon, removed with a cold snare. Resected and retrieved. - The colon was otherwise normal to the terminal ileum with retroflexed views of the colon and terminal ileum. Recommendation: - Repeat colonoscopy in 3 - 5 years for surveillance based on pathology results. - Discharge patient to home (with escort). Luis Goldman M.D. Luis Goldman MD 11/21/2016 10:20:05 AM This report has been signed electronically. Note Initiated On: 11/21/2016 9:42 AM I attest to the content of the Intraoperative Record and orders documented therein, exceptions below
--- NOTE | 2016-11-21 10:21 | Discharge Instructions ---
Endoscopy Patient Instructions Date / Procedure(s) Performed Nov 21, 2016. Colonoscopy Allergy Information Coded Allergies: No Known Allergies (Verified , 11/12/16) Discharge Date / Findings Nov 21, 2016. Small polyp removed Medication Instructions Stopped Medication(s): stopped all meds on Friday Restart Stopped Medication(s): Restart all medications today Provider Instructions Activity Restrictions - No exercising or heavy lifting for 24 hours. - Do not drink alcohol the day of the procedure. - Do not drive a car or operate machinery until the day after the procedure. - Do not make any important decisions or sign important papers in 24 hours after the procedure. Following Day: - Return to full activity which may include returning to work/school. Diet Start your diet with liquids and light foods (jello, soup, juice, toast). Then eat your usual diet if not nauseated. Treatment For Common After Affects For mild abdominal pain, bloating, or excessive gas: - Rest - Eat lightly - Lie on right side Follow-Up Information Follow-up with Dr. Isaak Jamil as scheduled Anesthesia Information What You Should Know You have had a procedure that required some medicine to reduce anxiety and discomfort. This treatment is called moderate sedation. After receiving the treatment, you may be sleepy, but you will be able to breathe on your own. The effects of the treatment may last for several hours. Follow these instructions along with Activity/Diet recommendations noted above: * Do NOT do anything where dizziness or clumsiness would be dangerous. * Rest quietly at home today, then you can be up and about tomorrow. * Have a responsible person stay with you the rest of today. * You may have had an I.V. today. If so, you may take the dressing off later today. Recommendations Call your doctor if: * Trouble breathing * Continuous vomiting for more than 24 hours * Temperature above 101 degrees * Severe abdominal pain or bloating * Pain not relieved by pain medicine ordered * There is increased drainage or redness from any incision * A large amount of rectal bleeding greater than 2-3 tablespoons. (If you had a polyp/s removed or have hemorrhoids, a small amount of blood - from the rectum is to be expected.) * You have any unanswered questions or concerns. IN THE EVENT OF A SERIOUS EMERGENCY, GO TO THE NEAREST EMERGENCY ROOM Your discharge instructions were prepared by provider Luis Goldman. Patient Instructions Signature Page Kulwant Michel Patient (or Guardian) Signature/Date: I have read and understand the instructions given to me by my caregivers. Caregiver/RN/Doctor Signature/Date: The above-named patient and/or guardian has received patient instructions on this date. + Original Patient Signature Page (only) stays with chart. Please make copy for patient.
[2016-11-21 10:43] VITALS: BP 162/92; PULSE 69; O2SAT 94
--- NOTE | 2016-11-21 11:02 | Anesthesiology Progress Note ---
Anesthesia Post Op Note Date & Time Nov 21, 2016 at 11:02 Vital Signs Pain Intensity: 0 Vital Signs Past 12 Hours Date Time Temp Pulse Resp B/P (MAP) Pulse Ox O2 Delivery O2 Flow Rate FiO2 11/21/16 10:43 69 16 162/92 (115) 94 Room Air 11/21/16 10:28 70 16 168/65 (99) 92 Room Air 11/21/16 10:13 68 12 132/61 (84) 93 Nasal Cannula 3 11/21/16 09:14 37 90 20 197/97 (130) 92 Room Air Notes Mental Status: alert / awake / arousable, participated in evaluation Pt Amnestic to Procedure: Yes Nausea / Vomiting: adequately controlled Pain: adequately controlled Airway Patency, RR, SpO2: stable & adequate BP & HR: stable & adequate Hydration State: stable & adequate Anesthetic Complications: no major complications apparent
== END | disposition home or self-care (01) ==
LOC: C.GI 08:41
PROVIDERS: ATTEND Internal Medicine Gastroenterology
DX: Z12.11 Encounter for screening for malignant neoplasm of colon (principal); D12.2 Benign neoplasm of ascending colon; Z86.010 Personal history of colon polyps; E11.9 Type 2 diabetes mellitus without complications; I25.10 Atherosclerotic heart disease of native coronary artery without angina pectoris; I10 Essential (primary) hypertension; J44.9 Chronic obstructive pulmonary disease, unspecified; Z86.73 Personal history of transient ischemic attack (TIA), and cerebral infarction without residual deficits; Z87.891 Personal history of nicotine dependence; Z79.82 Long term (current) use of aspirin; Z79.84 Long term (current) use of oral hypoglycemic drugs; Z79.899 Other long term (current) drug therapy

== ENCOUNTER 2017-02-05 21:50 | Emergency (ER) | payer OTHER, MEDICARE ==
[~2017-02-05] VITALS: Ht 177.8 cm; Wt 102.4 kg
[~2017-02-05 21:50] MED LIST changes: -ASPI81TA28 PO; -ATOR-24 PO; +ATOR10TA82 PO; -ATOR10TA88 PO; -LIDOCAINE HCL 2% 2 ML VIAL (20MG/ML) ONE; -MIDAZOLAM HCL 1 MG/ML 2ML VIAL ONE; -PROPOFOL IV EMULSION 10 MG/ML 20 ML VIAL IV ONE; -SODIUM CHLORIDE 0.9% 500ML 500 ML IV ONE; +TRAZ-119 PO; -TRAZ1TAB16 PO
[2017-02-05 21:54] VITALS: TEMP 36.8; Ht 177.8 cm; Wt 102.4 kg
[2017-02-05] MEDS ORDERED: ATOR-24 PO (22:36)
[2017-02-05] MEDS ORDERED: TRAM-10 PO (22:36)
[2017-02-05] MEDS ORDERED: IBUP-1050 PO (22:36)
[2017-02-05] MEDS ORDERED: TRAZ50TA35 PO (22:36)
[2017-02-05] MEDS ORDERED: MoRPHine SULFATE 10 MG/ML CARP/VIAL IV STA (22:38)
[2017-02-05 23:12] LABS: BASO % 0.1 %; BASO ABS # 0.02 K/uL (0-0.2); COMPLETE YES; EOS % 0.6 %; IG% 0.8 %; LYMPH % 12.5 %; LYMPH ABS # 1.77 K/uL (1.2-3.4); MEAN CELL VOLUME 91.6 fL (80-100); MEAN CORPUSCULAR HEMOGLOBIN 32.4 pg (25-34); MEAN CORPUSCULAR HGB CONC 35.4 g/dl (32-36); MEAN PLATELET VOLUME 9.8 fL (7.4-10.4); MONO % 13.4 %; NEUT % 72.6 %; PLATELET COUNT 326 K/uL (130-400); RED BLOOD COUNT 5.24 M/uL (4.7-6.1); WHITE BLOOD COUNT 14.14 K/uL (4.8-10.8)
[2017-02-05 23:40] LABS: CALCIUM 9.9 mg/dl (8.5-10.1); CREATININE 1.75 mg/dl (0.60-1.40); POTASSIUM 4.4 mmol/L (3.5-5.1)
[2017-02-05 23:45] LABS: ALB/GLOB RATIO 0.8 (0.9-2)
[2017-02-05 23:55] VITALS: O2SAT 91
--- NOTE | 2017-02-06 00:40 | EMERGENCY ROOM VISIT NOTE ---
ED Visit Note First contact with patient: 22:03 I have seen and examined this patient with Bisi Elam and generally agree with the treatment plan as discussed. Problem List Medical Problems: (1) AAA (abdominal aortic aneurysm) Permanent Comment: s/p repair Status: Chronic (2) Blind right eye Status: Chronic (3) CAD (coronary artery disease) Status: Chronic (4) Cerebrovascular disease, arteriosclerotic, post-stroke Status: Chronic (5) CKD (chronic kidney disease), stage III Status: Chronic (6) COPD, moderate Status: Chronic (7) DM type 2 (diabetes mellitus, type 2) Status: Chronic (8) Dysphagia Status: Chronic (9) Hemiplegia Status: Chronic (10) History of Helicobacter pylori infection Status: Chronic (11) Hypertension Status: Chronic (12) PNA (pneumonia) Status: Resolved (13) PUD (peptic ulcer disease) Status: Chronic (14) PVD (peripheral vascular disease) Status: Chronic (15) Stroke Status: Resolved (16) TIA (transient ischemic attack) Status: Chronic Surgical Problems: (1) H/O aorto-femoral bypass Status: Chronic (2) H/O colonoscopy with polypectomy Status: Chronic (3) History of incision and drainage Permanent Comment: evacuation of the left neck postop hematoma () Status: Chronic (4) S/P AAA repair Status: Chronic (5) S/P carotid endarterectomy Permanent Comment: bilateral Status: Chronic (6) S/p thoracoscopy Permanent Comment: Right video assisted thorascopic surgery evacuation of pleural fluid biopsy right lower lobe partial decortication 02/07/10 Status: Chronic Current/Historical Medications Scheduled Aspirin (Ecotrin Low Strength), 1 TAB PO QAM Atorvastatin (Lipitor), 40 MG PO DAILY Glimepiride (Amaryl), 2 MG PO QAM Lisinopril (Zestril), 20 MG PO QAM Metformin Hcl (Glucophage), 850 MG PO QAM Omeprazole (Prilosec), 20 MG PO BID Trazodone Hcl (Trazodone), 50 MG PO HS Scheduled PRN Ibuprofen (Advil), 200 MG PO Q4 PRN for Headache or Pain Meclizine Hcl (Meclizine Hcl), 1 TAB PO Q6H PRN for Dizziness or Vertigo Tramadol (Ultram), 50 MG PO Q6 PRN for Pain Allergies Coded Allergies: No Known Allergies (Verified , 11/12/16) Vital Signs Date Time Temp Pulse Resp B/P (MAP) Pulse Ox O2 Delivery O2 Flow Rate FiO2 02/05/17 23:59 94 02/05/17 23:55 91 Nasal Cannula 6.0 02/05/17 23:54 93 18 127/86 86 Room Air 02/05/17 21:54 36.8 77 20 151/84 97 Room Air Laboratory Results 02/05/17 22:50 Red Blood Count 5.24, Mean Corpuscular Volume 91.6, Mean Corpuscular Hemoglobin 32.4, Mean Corpuscular Hemoglobin Concent 35.4, Mean Platelet Volume 9.8, Neutrophils (%) (Auto) 72.6, Lymphocytes (%) (Auto) 12.5, Monocytes (%) (Auto) 13.4, Eosinophils (%) (Auto) 0.6, Basophils (%) (Auto) 0.1, Neutrophils # (Auto ) 10.25, Lymphocytes # (Auto) 1.77, Monocytes # (Auto) 1.90, Eosinophils # (Auto ) 0.09, Basophils # (Auto) 0.02 02/05/17 22:50 Test 02/05/17 22:50 White Blood Count 14.14 K/uL (4.8-10.8) Red Blood Count 5.24 M/uL (4.7-6.1) Hemoglobin 17.0 g/dL (14.0-18.0) Hematocrit 48.0 % (42-52) Mean Corpuscular Volume 91.6 fL (80-100) Mean Corpuscular Hemoglobin 32.4 pg (25-34) Mean Corpuscular Hemoglobin Concent 35.4 g/dl (32-36) Platelet Count 326 K/uL (130-400) Mean Platelet Volume 9.8 fL (7.4-10.4) Neutrophils (%) (Auto) 72.6 % Lymphocytes (%) (Auto) 12.5 % Monocytes (%) (Auto) 13.4 % Eosinophils (%) (Auto) 0.6 % Basophils (%) (Auto) 0.1 % Neutrophils # (Auto) 10.25 K/uL (1.4-6.5) Lymphocytes # (Auto) 1.77 K/uL (1.2-3.4) Monocytes # (Auto) 1.90 K/uL (0.11-0.59) Eosinophils # (Auto) 0.09 K/uL (0-0.5) Basophils # (Auto) 0.02 K/uL (0-0.2) RDW Standard Deviation 41.3 fL (36.4-46.3) RDW Coefficient of Variation 12.4 % (11.5-14.5) Immature Granulocyte % (Auto) 0.8 % Immature Granulocyte # (Auto) 0.11 K/uL (0.00-0.02) Anion Gap 9.0 mmol/L (3-11) Est Creatinine Clear Calc Drug Dose 47.1 ml/min Estimated GFR () 44.7 Estimated GFR (Non- 38.6 BUN/Creatinine Ratio 18.0 (10-20) Calcium Level 9.9 mg/dl (8.5-10.1) Total Bilirubin 1.3 mg/dl (0.2-1) Aspartate Amino Transf (AST/SGOT) 17 U/L (15-37) Alanine Aminotransferase (ALT/SGPT) 20 U/L (12-78) Alkaline Phosphatase 114 U/L (45-117) Troponin I 0.039 ng/ml (0-0.045) Total Protein 9.4 gm/dl (6.4-8.2) Albumin 4.3 gm/dl (3.4-5.0) Globulin 5.1 gm/dl (2.5-4.0) Albumin/Globulin Ratio 0.8 (0.9-2) Medications Administered Medications (Trade) Dose Ordered Sig/Messi Route Start Time Stop Time Status Last Admin Dose Admin Morphine Sulfate (MoRPHine SULFATE INJ) 6 mg NOW STAT IV 02/05/17 22:38 02/05/17 22:39 DC 02/05/17 23:42 6 MG Departure Information Referrals Isaak Jamil, D.O. (PCP) Patient Instructions My [facility]
[2017-02-06] MEDS ORDERED: OXYCODONE IR HOME PACK PO ONE (00:45)
[2017-02-06] MEDS ORDERED: LIDODERM (LIDOCAINE) PATCH 5% TD STA (00:45)
[2017-02-06] MEDS ORDERED: OXYC1TAB3 PO (01:06)
--- NOTE | 2017-02-06 01:10 | EMERGENCY ROOM VISIT NOTE ---
History First contact with patient: 22:03 Chief Complaint: NECK PAIN Stated Complaint: NECK PAIN,DIZZINESS History of Present Illness The patient is a 71 year old male who presents to the Emergency Room with complaints of left-sided neck pain. The patient states that he woke up 3 days ago with pain in the left side of the neck. He denies any obvious injury, but believes he may have slept on the neck in an uncomfortable position. He states he has very limited range of motion of the neck due to pain. He denies any recent illness or fevers/chills. He reports some dizziness which he states is chronic for him and he takes medication for this daily. He denies any trauma. He denies any associated headache, nausea/vomiting or changes in vision. He denies any chest pain or shortness of breath. The patient denies any history of neck problems. He is a diabetic. He has used a heating pad at home, but states he feels this has actually worsened his symptoms. The patient reports a history of loss of vision in his right eye due to trauma as a child. Review of Systems A complete 10 point review of systems was reviewed with the patient with pertinent positives and negatives as per history of present illness. All else were negative. Past Medical/Surgical History Medical Problems: (1) AAA (abdominal aortic aneurysm) (2) Blind right eye (3) CAD (coronary artery disease) (4) Cancer (5) Cerebrovascular disease, arteriosclerotic, post-stroke (6) CKD (chronic kidney disease), stage III (7) COPD, moderate (8) DM type 2 (diabetes mellitus, type 2) (9) Dysphagia (10) Hemiplegia (11) History of Helicobacter pylori infection (12) Hypertension (13) PNA (pneumonia) (14) PUD (peptic ulcer disease) (15) PVD (peripheral vascular disease) (16) Stroke (17) TIA (transient ischemic attack) Surgical Problems: (1) H/O aorto-femoral bypass (2) H/O colonoscopy with polypectomy (3) History of incision and drainage (4) S/P AAA repair (5) S/P carotid endarterectomy (6) S/p thoracoscopy Family History Diabetes mellitus MOTHER FH: CAD (coronary artery disease) FATHER BROTHER FH: cancer Hypertension Social History Smoking Status: Former Smoker Alcohol Use: none Marital Status: Housing Status: lives alone Occupation Status: disabled Current/Historical Medications Scheduled Aspirin (Ecotrin Low Strength), 1 TAB PO QAM Atorvastatin (Lipitor), 40 MG PO DAILY Glimepiride (Amaryl), 2 MG PO QAM Lisinopril (Zestril), 20 MG PO QAM Metformin Hcl (Glucophage), 850 MG PO QAM Omeprazole (Prilosec), 20 MG PO BID Trazodone Hcl (Trazodone), 50 MG PO HS Scheduled PRN Ibuprofen (Advil), 200 MG PO Q4 PRN for Headache or Pain Meclizine Hcl (Meclizine Hcl), 1 TAB PO Q6H PRN for Dizziness or Vertigo Oxycodone Ir (Roxicodone Ir), 1 TAB PO Q4H PRN for Pain Tramadol (Ultram), 50 MG PO Q6 PRN for Pain Physical Exam Vital Signs Date Time Temp Pulse Resp B/P (MAP) Pulse Ox O2 Delivery O2 Flow Rate FiO2 02/06/17 01:32 91 18 175/99 90 02/05/17 23:59 94 02/05/17 23:55 91 Nasal Cannula 6.0 02/05/17 23:54 93 18 127/86 86 Room Air 02/05/17 21:54 36.8 77 20 151/84 97 Room Air Physical Exam VITALS: Vitals are noted on the nurse's note and reviewed by myself. Vital signs stable. GENERAL: This is a 71-year-old male, in no acute distress, nondiaphoretic, well- developed well-nourished. HEAD: Normocephalic atraumatic. EARS: External auditory canals clear, tympanic membranes pearly frank without erythema or effusion bilaterally. EYES: Left pupil equal, round and reactive to light and accommodation. The right cornea is hazy and the right eye is deviated laterally. EOMs intact. MOUTH: Mucous membranes moist. Tonsils are not enlarged. Pharynx without erythema or exudate. NECK: Supple without nuchal rigidity. There is tenderness to palpation from the left cervical paraspinous muscles to the left sternocleidomastoid muscle. There is no erythema or induration. Patient has limited range of motion secondary to discomfort. HEART: Regular rate and rhythm without murmurs gallops or rubs. LUNGS: Clear to auscultation bilaterally without wheezes, rales or rhonchi. MUSCULOSKELETAL: Full range of motion throughout. Strength 5/5 throughout. NEURO: Patient was alert and oriented to person place and time. Normal sensation to light and sharp touch. No focal neurological deficits. Medical Decision & Procedures ER Provider Diagnostic Interpretation: CT C SPINE: No evidence of fracture or malalignment. C5 to C6 left paracentral disc protrusion causes mild canal narrowing but may contact the ventral surface of the cord. C6 to C7, posterior disc/osteophyte bridge causes moderate canal stenosis and left sided uncovertebral osteophytes cause mild right greater than left foraminal narrowing. Ligamentous calcification posterior to the dens. Vascular Calcification. Emphysema. CT HEAD: No acute intracranial finding or significant interval change. Chronic left cerebellar infarct. Chronic lacunar infarct right thalamus. White matter hypodensities, most likely representing small vessel ischemic change. Global cerebral volume loss. Right phthisis bulbi. Left maxillary sinus partially calcified rounded lesion inferiorly, partially imaged, but likely retention cyst. Radiologist: Lance Medina MD Laboratory Results 02/05/17 22:50 Red Blood Count 5.24, Mean Corpuscular Volume 91.6, Mean Corpuscular Hemoglobin 32.4, Mean Corpuscular Hemoglobin Concent 35.4, Mean Platelet Volume 9.8, Neutrophils (%) (Auto) 72.6, Lymphocytes (%) (Auto) 12.5, Monocytes (%) (Auto) 13.4, Eosinophils (%) (Auto) 0.6, Basophils (%) (Auto) 0.1, Neutrophils # (Auto ) 10.25, Lymphocytes # (Auto) 1.77, Monocytes # (Auto) 1.90, Eosinophils # (Auto ) 0.09, Basophils # (Auto) 0.02 02/05/17 22:50 Test 02/05/17 22:50 White Blood Count 14.14 K/uL (4.8-10.8) Red Blood Count 5.24 M/uL (4.7-6.1) Hemoglobin 17.0 g/dL (14.0-18.0) Hematocrit 48.0 % (42-52) Mean Corpuscular Volume 91.6 fL (80-100) Mean Corpuscular Hemoglobin 32.4 pg (25-34) Mean Corpuscular Hemoglobin Concent 35.4 g/dl (32-36) Platelet Count 326 K/uL (130-400) Mean Platelet Volume 9.8 fL (7.4-10.4) Neutrophils (%) (Auto) 72.6 % Lymphocytes (%) (Auto) 12.5 % Monocytes (%) (Auto) 13.4 % Eosinophils (%) (Auto) 0.6 % Basophils (%) (Auto) 0.1 % Neutrophils # (Auto) 10.25 K/uL (1.4-6.5) Lymphocytes # (Auto) 1.77 K/uL (1.2-3.4) Monocytes # (Auto) 1.90 K/uL (0.11-0.59) Eosinophils # (Auto) 0.09 K/uL (0-0.5) Basophils # (Auto) 0.02 K/uL (0-0.2) RDW Standard Deviation 41.3 fL (36.4-46.3) RDW Coefficient of Variation 12.4 % (11.5-14.5) Immature Granulocyte % (Auto) 0.8 % Immature Granulocyte # (Auto) 0.11 K/uL (0.00-0.02) Anion Gap 9.0 mmol/L (3-11) Est Creatinine Clear Calc Drug Dose 47.1 ml/min Estimated GFR () 44.7 Estimated GFR (Non- 38.6 BUN/Creatinine Ratio 18.0 (10-20) Calcium Level 9.9 mg/dl (8.5-10.1) Total Bilirubin 1.3 mg/dl (0.2-1) Aspartate Amino Transf (AST/SGOT) 17 U/L (15-37) Alanine Aminotransferase (ALT/SGPT) 20 U/L (12-78) Alkaline Phosphatase 114 U/L (45-117) Troponin I 0.039 ng/ml (0-0.045) Total Protein 9.4 gm/dl (6.4-8.2) Albumin 4.3 gm/dl (3.4-5.0) Globulin 5.1 gm/dl (2.5-4.0) Albumin/Globulin Ratio 0.8 (0.9-2) Medications Administered Medications (Trade) Dose Ordered Sig/Messi Route Start Time Stop Time Status Last Admin Dose Admin Morphine Sulfate (MoRPHine SULFATE INJ) 6 mg NOW STAT IV 02/05/17 22:38 02/05/17 22:39 DC 02/05/17 23:42 6 MG Lidocaine (Lidoderm Patch 5%) 1 patch NOW STAT TD 02/06/17 00:45 02/06/17 00:46 DC 02/06/17 01:12 1 PATCH Oxycodone HCl (Roxicodone Immediate Rel 5MG Home Pack) 1 homepack UD ONCE PO 02/06/17 00:45 02/06/17 00:46 DC 02/06/17 01:10 1 HOMEPACK Medical Decision Differential diagnosis includes cervical radiculopathy, infection, muscular strain, CVA, TIA, among others. The patient is a 71-year-old male who presents today complaining of left-sided neck pain. Patient does have reproducible pain with palpation of the left paraspinous muscles. Labs revealed leukocytosis, possibly secondary to stress as there is no sign of infection on exam and patient is afebrile. Patient is slightly hyponatremic. Bilirubin is mildly elevated. Creatinine is just slightly elevated from patient's baseline. A CT of the head and neck was obtained and read by matheusrad. The head showed no acute findings. CT of the neck did show some degenerative disc disease and left-sided protrusion which is likely the cause of the patient's discomfort. He was treated with IV morphine with very good relief of his pain. On reevaluation, patient stated this was the best he has felt all week and requested discharge home. He will be given a short course of pain medication but was encouraged to follow-up very closely with his primary care provider and orthopedic spine surgery for further evaluation. The patient was independently evaluated by Dr. Manley, ED attending physician , who agreed with my assessment and treatment plan. Based on the patient's presentation and work up, I feel the patient is stable for outpatient treatment. The patient was educated to return to the emergency department for any worsening of their current condition or new/concerning symptoms. He will follow up with his PCP this week. [place] Drug Monitoring Program Search Results: patient reviewed within database, no issues identified Medication Reconcilliation Current Medication List: was personally reviewed by me Blood Pressure Screening Patient's blood pressure: Elevated blood pressure Blood pressure disposition: Elevated BP felt to be situational Impression Primary Impression: Cervical radiculopathy Departure Information Dispostion Home / Self-Care Condition GOOD Prescriptions Oxycodone Ir (Roxicodone Ir) 5 Mg Tab 1 TAB PO Q4H Y for Pain, #10 TAB For Initial Treatment Prov: Bisi Elam .RAVEN 02/06/17 Referrals Isaak Jamil D.O. (PCP) Kulwant Brand, DO Patient Instructions My [facility] Additional Instructions You have been treated in the Emergency Department for Neck Pain. You have received pain medicine in the emergency department which impairs your ability to operate a vehicle. It is illegal for you to drive after receiving these medicines. You have been prescribed Oxy IR to be used for pain control. This is a narcotic medication. You cannot drive or consume alcohol while on this medicine. This medicine should only be used for pain that cannot be controlled with over-the- counter pain medicines. You should be given by taking a half tablet at a time, and may increase to 1 tablet every 4-6 hours as needed. Follow-up with your primary care provider within 2-3 days. Follow-up with Dr. Brand, who is an orthopedic party supply specialist. Return to the Emergency Department if your current symptoms worsen despite treatment course outlined above, or if you develop any of the following symptoms : intractable pain despite aforementioned treatment course, numbness or weakness of the arm, chest pain, shortness of breath or any other new/ concerning symptoms.
[2017-02-06 01:32] VITALS: BP 175/99; PULSE 91; O2SAT 90
--- NOTE | 2017-02-06 06:36 | DIAGNOSTIC IMAGING REPORT ---
CERVICAL SPINE W/O CT DOSE: 1103.92 mGy.cm HISTORY: Pain. Neuropathy. headache, left neck pain TECHNIQUE: Multiaxial CT images of the cervical spine were performed and reformatted in the sagittal and coronal plane without the use of contrast. A dose lowering technique was utilized adhering to the principles of ALARA. COMPARISON: None. FINDINGS: Normal stature of the vertebral bodies. Mild degenerative disc changes throughout. Posterior elements are intact. Posterior bulging disc centrally at C3-C4. Mild disc bulge posteriorly C4-C5. Broad-based bulging disc C6-C7 and C7-T1. Bulk of the neuroforamina are patent bilaterally. IMPRESSION: 1. Mild degenerative intervertebral disc change. 2. Mild multilevel bulging disc components. 3. No acute process. The above report was generated using voice recognition software. It may contain grammatical, syntax or spelling errors. Electronically signed by: Ivan Lagos M.D. 02/06/2017 6:34 AM Dictated Date/Time: 02/06/2017 6:32 AM
--- NOTE | 2017-02-06 07:08 | DIAGNOSTIC IMAGING REPORT ---
CT SCAN OF THE BRAIN WITHOUT IV CONTRAST CLINICAL HISTORY: Headache. COMPARISON STUDY: CT of the brain dated 05/03/2016. TECHNIQUE: Unenhanced axial CT scan of the brain is performed from the vertex to the skull base. FINDINGS: Brain parenchyma: There are age-related involutional changes noting [id number] patchy subcortical and periventricular microangiopathic change. There is a chronic left cerebellar infarct. A chronic lacunar infarct is seen in the right thalamus. There is no hemorrhage, mass effect, or evidence of acute territorial ischemia by CT criteria. Loza-white matter is preserved. No extra-axial fluid collection is seen. Ventricles, sulci, cisterns: Prominent secondary to involutional change. Intracranial vasculature: There is atherosclerotic calcification of the cavernous carotid and vertebral arteries. Calvarium: Unremarkable. Sinuses and mastoids: There is a 2.2 cm retention cyst containing calcific debris seen in the left maxillary antrum. Trace mucosal thickening is seen in the right maxillary antrum. The remaining visualized paranasal sinuses are clear. The mastoid air cells are well pneumatized. Orbits: The bony orbits are grossly intact. There is chronic deformity and calcification of the right ocular globe. The right ocular lens is not visualized. IMPRESSION: There is no hemorrhage, mass effect, or evidence of acute territorial ischemia by CT criteria. Electronically signed by: Jesus Skelton M.D. 02/06/2017 7:07 AM Dictated Date/Time: 02/06/2017 7:03 AM
== END 2017-02-06 01:32 | disposition home or self-care (01) ==
LOC: C.EDB 21:52 → C.EDC 02-06 01:32
DX: M54.12 Radiculopathy, cervical region (principal); R42 Dizziness and giddiness; E11.9 Type 2 diabetes mellitus without complications; I25.10 Atherosclerotic heart disease of native coronary artery without angina pectoris; I10 Essential (primary) hypertension; J44.9 Chronic obstructive pulmonary disease, unspecified; Z86.73 Personal history of transient ischemic attack (TIA), and cerebral infarction without residual deficits; Z87.891 Personal history of nicotine dependence; Z79.82 Long term (current) use of aspirin; N18.3 Chronic kidney disease, stage 3 (moderate); Z79.899 Other long term (current) drug therapy

== ENCOUNTER 2018-11-07 19:29 | Inpatient (IN) ==
[2018-11-07] MEDS ORDERED: SODIUM CHLORIDE 0.9% 1000ML 1,000 ML IV ONE (19:34)
--- OUTSIDE RECORDS SUMMARY | 2018-11-07 19:34 | External Medical Summary | Continuity of Care Document ---
:1945 Author Name Bobbi Pavon Address Unavailable Unavailable , Care Team Providers Name Role Phone Carmen Christianson M.D. Unavailable [email or web address] HEADLEY Unavailable Unavailable Unavailable Unavailable Unavailable Problems Visual Impairment: - One Eye: Profound I mpairment; Other Eye: Normal Vision (369.69) Type 2 diabetes mellitus (250.00) (E11.9) Empyema (510.9) (J86.9) Benign paroxysmal positional vertigo (386.11) (H81.10) Hypertension (401.9) (I10) Cerebral atherosclerosis (437.0) (I67.2) Chronic obstructive pulmonary disease (496) (J44.9) Peripheral vascular disease (443.9) (I73.9) Vertigo (780.4) (R42) Dyslipidemia (272.4) (E78.5) Dysphagia (787.20) (R13.10) Costochondritis (733.6) (M94.0) Transient ischemic attack (435.9) (G45.9) Stroke syndrome Allergies and Adverse Reactions No Known Drug Allergies (Allergy) Medications Lisinopril 20 MG Oral Tablet; TAKE 1 TABLET DAILY. Refills: 0 Aspirin Low Dose 81 MG TABS; TAKE 1 TABLET DAILY. Refills: 0 Glimepiride 2 MG Oral Tablet; Take 1 tablet daily Refills: 0 Atorvastatin Calcium 10 MG Oral Tablet; TAKE 1 TABLET DAILY. Quantity: 90 Refills: 1 metFORMIN HCl - 500 MG Oral Tablet; Take 1 tablet daily Refills: 0 Ibuprofen 200 MG Oral Tablet Refills: 0 Omeprazole 20 MG Oral Capsule Delayed Release; TAKE 1 CAPSUL E DAILY. Quantity: 90 Refills: 3 Procedures History of Bypass Graft Using Vein Statu s: Completed History of Abdominal Aortic Aneurysm Repair For Dilation Or Status: Completed Occlusion History of Bypass Graft Using Vein Statu s: Completed History of Thoracoscopy (Therapeutic) St atus: Completed History of Colonoscopy (Fiberoptic) Stat us: Completed History of Diagnostic Esophagogastroduodenoscopy Status: Completed Immunizations Immunizations not documented Plan of Treatment Planned Observations Planned Goals not documented Results No Known Results Results not documented Encounters Appointment; Anthony Christianson M.D. 04-Aug-2012 14:45 Encounter Diagnosis: Problem not documented
[2018-11-07 20:04] LABS: Basophils # (auto) 0.03 K/uL (0-0.2); Basophils % (auto) 0.3 %; Eosinophils # (auto) 0.06 K/uL (0-0.5); Eosinophils % (auto) 0.6 %; Hematocrit (blood only) 44.5 % (42-52); Hemoglobin 15.5 g/dL (14.0-18.0); Immature Granulocytes # (auto) 0.07 K/uL (0.00-0.02); Immature Granulocytes % (auto) 0.7 %; Lymphocytes # (auto) 1.24 K/uL (1.2-3.4); Lymphocytes % (auto) 11.6 %; Mean Corpuscular Hgb Conc 34.8 g/dL (32-36); Mean Corpuscular Volume 90.8 fL (80-100); Mean Platelet Volume 10.3 fL (7.4-10.4); Monocytes # (auto) 0.91 K/uL (0.11-0.59); Monocytes % (auto) 8.5 %; Neutrophils # (auto) 8.39 K/uL (1.4-6.5); Neutrophils % (auto) 78.3 %; Platelet Count 270 K/uL (130-400); RDW Standard Deviation 39.8 fL (36.4-46.3)
[2018-11-07 20:11] LABS: iSTAT Creatinine 2.2 mg/dl (0.6-1.3); iSTAT Hemoglobin 16.3 g/dl (14.0-18.0); iSTAT Ionized Calcium 1.18 mmol/l (1.12-1.32); iSTAT Potassium 4.5 mEq/L (3.3-5.0)
--- NOTE | 2018-11-07 20:15 | XRay Report ---
XR chest 1V portable HISTORY: Atypical Chest Pain COMPARISON: Chest 05/03/2016. FINDINGS: No pneumothorax. No pleural effusions. The heart remains normal in size. There is a mildly tortuous thoracic aorta. No evidence for pulmonary edema. Mild emphysema. Increased markings at the l jesus bases. This may be due to vascular crowding from the emphysema. IMPRESSION: 1. Mild emphysema. 2. Increased markings at the lung bases favors vascular crowding from the emphysema. Otherwise, no fo renny lung consolidations to suggest pneumonia. Electronically signed by: Ethan Gilmore M.D. 11/07/2018 8:13 PM
--- NOTE | 2018-11-07 20:27 | CT Scan Report ---
HEAD CT NONCONTRAST CT DOSE: 614.27 mGy.cm HISTORY: Altered mental status. TECHNIQUE: Multiaxial CT images of the head were performed without the use of intravenous contrast. A utomated exposure control was utilized for this study. A dose lowering technique was utilized adheri ng to the principles of ALARA. Comparison: Head CT 02/05/2017. Findings: The paranasal sinuses and mastoid air cells are clear. Right globe calcifications are again noted. The calvarium and skull base are intact. There is no mass, hematoma, midline shift, acute inf arct. White matter hypodensity is nonspecific but suggestive of microvascular ischemic change. The ve ntricles and sulci demonstrate mild age-related involutional changes. Old small infarct within the le ft cerebellar hemisphere remains unchanged. There is also an old lacunar infarct within the right dorinda lamus, unchanged. Impression: No significant change compared to the prior study. No acute intracranial abnormality. Electronically signed by: Ethan Gilmore M.D. 11/07/2018 8:25 PM
[2018-11-07 20:35] LABS: Albumin Globulin Ratio 0.9 (0.9-2); Albumin Level 3.7 gm/dl (3.4-5.0); BUN Creatinine Ratio 13.4 (10-20); Bilirubin Direct 0.2 mg/dl (0-0.2); Bilirubin,Total 0.6 mg/dl (0.2-1); Calcium 9.7 mg/dl (8.5-10.1); Creatinine Clr Calc Pharmacy 30.1 ml/min; Est GFR (African American) 29.5; Est GFR (Non-African American) 25.5; Globulin 4.3 gm/dl (2.5-4.0); Magnesium 1.8 mg/dl (1.8-2.4); Phosphorus 3.5 mg/dl (2.5-4.9); Potassium 4.5 mmol/L (3.5-5.1); Troponin I 0.038 ng/ml (0-0.045)
[2018-11-07 20:49] LABS: Beta-Hydroxybutyrate 1.54 mg/dl (0.2-2.81)
[2018-11-07 20:50] LABS: Appearance Urine Clear (Clear); Bacteria Urine Automated Negative (Negative); Bilirubin Urine Negative (Negative); Blood Urine 1+ (Negative); Cast Urine Automated 0 /lpf (0-5); Color Urine Yellow; Epithelial Cell Urine Auto 0-5 /lpf (0-5); Glucose Urine UA 3+ (Negative); Ketones Urine Negative (Negative); Leukocyte Esterase Urine Negative (Negative); Nitrite Urine Negative (Negative); Protein Urine 1+ (Negative); RBC Urine Automated 0-4 /hpf (0-4); Specific Gravity Urine 1.031 (1.000-1.030); Urobilinogen Urine Negative (Negative); WBC Urine Automated 0 /hpf (0-5)
[2018-11-07] MEDS ORDERED: SODIUM CHLORIDE 0.9% 1000ML 1,000 ML IV STA (22:01)
[2018-11-07] MEDS ORDERED: INSULIN ASPART 100 UNITS/ML 3 ML PEN SC STA (22:06)
--- NOTE | 2018-11-07 22:12 | Emergency Department Note ---
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 Per the nursing staff, the patient had called EMS because she had noticed that patient has been acting weird all day. They state that the patient was outside all day. They report that the patient had high blood sugar and high blood pressure. They report that the daughter stated that the patient was not speaking clearly and was not walking straight. The patient states that he has had similar episodes like this in the past. He states that he feels like he is intoxicated, but is not. The patient denies any alcohol use today. He states that he has a history of diabetes mellitus that was diagnosed 3 years ago. He states that he had a stroke in 2001. The patient states that he feeling normal currently. Home Medications Home Medications Medication Instructions Recorded Confirmed Type aspirin [Aspir-81] 81 mg PO DAILY 11/07/18 11/07/18 History atorvastatin 40 mg PO DAILY 11/07/18 11/07/18 History doxycycline hyclate 100 mg PO DAILY 11/07/18 11/07/18 History empagliflozin [Jardiance] 25 mg PO DAILY 11/07/18 11/07/18 History glimepiride 2 mg PO QAM 11/07/18 11/07/18 History ibuprofen 200 mg PO Q4H PRN 11/07/18 11/07/18 History metformin 850 mg PO DAILY 11/07/18 11/07/18 History pantoprazole 40 mg PO DAILYBB 11/07/18 11/07/18 History trazodone 50 mg PO HS 11/07/18 11/07/18 History Allergies Allergy/AdvReac Type Severity Reaction Status Date / Time No Known Allergies Allergy Unknown Verified 11/07/18 20:02 Past Med/Surg History Medical History Diabetes (Chronic) Social History Preferred Language: Bulgarian Feels Safe at Home: Yes Smoking Status: Former smoker Review of Systems See HPI for pertinent positives & negatives. and A total of 10 systems reviewed and were otherwise negative Physical Exam Vital Signs Vital Signs - 24 hr 11/07/18 19:30 11/07/18 19:35 11/07/18 20:00 Temperature 37.0 C Temperature Source Oral Sepsis Recent Fever Within 48 Hours No Sepsis New/Unexplained Change in Mental Status Yes Sepsis Action Taken by Nursing No Action Required Oxygen Flow Rate - Titration 2 Pulse Oximetry Post Tiitration 93 Pulse Rate 102 H Pulse Rate [Apical] 98 H Respiratory Rate 26 H 20 Respiratory Depth Normal Blood Pressure 231/119 H Blood Pressure [Right Arm] 198/103 H Blood Pressure Mean 156 Blood Pressure Mean [Right Arm] 134 Pulse Oximetry 87 L 87 L 91 Oxygen Delivery Method Room Air Nasal Cannula Oxygen Flow Rate 0 2 11/07/18 20:42 11/07/18 21:00 11/07/18 22:01 Temperature Temperature Source Sepsis Recent Fever Within 48 Hours Sepsis New/Unexplained Change in Mental Status Sepsis Action Taken by Nursing Oxygen Flow Rate - Titration Pulse Oximetry Post Tiitration Pulse Rate Pulse Rate [Apical] 91 H 92 H 92 H Respiratory Rate 19 19 16 Respiratory Depth Blood Pressure Blood Pressure [Right Arm] 229/115 H 211/127 H 230/112 H Blood Pressure Mean Blood Pressure Mean [Right Arm] 153 155 151 Pulse Oximetry 91 93 95 Oxygen Delivery Method Nasal Cannula Nasal Cannula Nasal Cannula Oxygen Flow Rate 2 2 2 11/07/18 22:31 11/07/18 23:23 11/08/18 00:30 Temperature Temperature Source Sepsis Recent Fever Within 48 Hours Sepsis New/Unexplained Change in Mental Status Sepsis Action Taken by Nursing Oxygen Flow Rate - Titration Pulse Oximetry Post Tiitration Pulse Rate Pulse Rate [Apical] 92 H 95 H 82 Respiratory Rate 22 23 18 Respiratory Depth Blood Pressure Blood Pressure [Right Arm] 219/113 H 237/131 H 217/120 H Blood Pressure Mean Blood Pressure Mean [Right Arm] 148 166 152 Pulse Oximetry 94 93 93 Oxygen Delivery Method Nasal Cannula Nasal Cannula Nasal Cannula Oxygen Flow Rate 2 2 2 GENERAL: Awake, alert, fatigued and drowsy appearing, no distress HENT: Normocephalic, atraumatic. TM's normal. Oropharynx with dry mucous membranes and otherwise unremarkable. EYES: EOMI. Normal conjunctiva. Sclera non-icteric. Chronic mild injection of the right sclera. NECK: Supple. No nuchal rigidity. FROM. No JVD or bruit. RESPIRATORY: CTAB CARDIAC: RRR. ABDOMEN: Soft, non distended. No tenderness to palpation. No rebound or guarding. No masses. RECTAL: Deferred. MUSCULOSKELETAL: Unremarkable. No edema. No discoloration. Gross motor strength symmetric. NEURO: Normal sensorium. No sensory or motor deficits noted. Subtle word finding difficulties, but otherwise speech is fluent. Cerebellar function intact, including finger to nose, alternating palms. 5/5 strength and SILT x4 extremities. SKIN: No rash or jaundice noted. LYMPH: No adenopathy Course 1950: The patient was evaluated in room C6, and a complete history and physical examination were performed. 2210: Case was discussed with Dr. Freed, [facility] hospitalist, who will evaluate the patient for admission. Administered Medications Sodium Chloride (Nss 1000ml) 1,000 mls @ 250 mls/hr IV .Q4H STA Stop: 11/08/18 02:00 Last Admin: 11/07/18 22:14 Dose: 250 mls/hr Documented by: [id number] Nitroglycerin (Nitro-Bid 2%) 1 inch EXT Q6H ROBERT Stop: 12/08/18 00:38 Last Admin: 11/08/18 00:49 Dose: 1 inch Documented by: [id number] Discontinued Medications Sodium Chloride (Nss 1000ml) 1,000 mls @ 999 mls/hr IV .Q1H1M ONE Stop: 11/07/18 20:34 Last Infusion: 11/07/18 20:59 Dose: 0 mls/hr Documented by: [id number] Admin: 11/07/18 19:59 Dose: 999 mls/hr Documented by: [id number] Lorazepam (Ativan) 1 mg in 2 mls @ 2 mls/min IV NOW STA Stop: 11/08/18 00:40 Last Admin: 11/08/18 00:47 Dose: 1 mls/min Documented by: [id number] Insulin Aspart (Novolog Flexpen) 8 units SC NOW STA Stop: 11/07/18 22:07 Last Admin: 11/07/18 22:14 Dose: 8 units Documented by: [id number] Cosigned by: [id number] Insulin Human Regular (Novolin R U-100 Per Unit) 4 units IV NOW STA Stop: 11/08/18 00:40 Last Admin: 11/08/18 00:51 Dose: 4 units Documented by: [id number] Cosigned by: [id number] Labetalol HCl (Normodyne) 10 mg IV NOW STA Stop: 11/07/18 23:34 Last Admin: 11/07/18 23:38 Dose: 10 mg Documented by: [id number] Cosigned by: [id number] Medical Decision Making Differential Diagnosis Differential diagnosis: Etiologies such as metabolic, infection, hypo/hyperglycemia, electrolyte abnormalities, cardiac sources, intracerebral event, toxicologic, neurologic, stroke, as well as others were entertained. Medical Records Attestation: I reviewed the patient's medical records. Home Medications Current Medication List: was personally reviewed by me Laboratory Data Attestation: I reviewed the patient's lab results. Result diagrams: 11/07/18 19:49 11/07/18 19:49 Lab Results 11/07/18 11/07/18 11/07/18 Range/Units 19:36 19:49 19:49 WBC 10.70 (4.8-10.8) K/uL RBC 4.90 (4.7-6.1) M/uL Hgb 15.5 (14.0-18.0) g/dL POC Hgb (14.0-18.0) g/dl Hct 44.5 (42-52) % POC Hct (42-52) % MCV 90.8 (80-100) fL MCH 31.6 (25-34) pg MCHC 34.8 (32-36) g/dL RDW Std Deviation 39.8 (36.4-46.3) fL RDW Coeff of Sadaf 12.0 (11.5-14.5) % Plt Count 270 (130-400) K/uL MPV 10.3 (7.4-10.4) fL Immature Gran % (Auto) 0.7 % Neut % (Auto) 78.3 % Lymph % (Auto) 11.6 % [place] % (Auto) 8.5 % Eos % (Auto) 0.6 % Baso % (Auto) 0.3 % Immature Gran # (Auto) 0.07 H (0.00-0.02) K/uL Neut # (Auto) 8.39 H (1.4-6.5) K/uL Lymph # (Auto) 1.24 (1.2-3.4) K/uL [place] # (Auto) 0.91 H (0.11-0.59) K/uL Eos # (Auto) 0.06 (0-0.5) K/uL Baso # (Auto) 0.03 (0-0.2) K/uL POC Sodium (135-144) mEq/L Sodium 135 L (136-145) mmol/L POC Potassium (3.3-5.0) mEq/L Potassium 4.5 (3.5-5.1) mmol/L POC Chloride (101-112) mEq/L Chloride 98 (98-107) mmol/L Carbon Dioxide 29 (21-32) mmol/L POC Total CO2 (24-31) mEq/l Anion Gap 8.0 (3-11) POC Anion Gap (16-25) mmol/L POC BUN (7-18) mg/dl BUN 33 H (7-18) mg/dl Creatinine 2.44 H (0.6-1.4) mg/dl POC Creatinine (0.6-1.3) mg/dl Est Cr Clr Drug Dosing 30.1 ml/min Est GFR ( Amer) 29.5 Est GFR (Non-Af Amer) 25.5 BUN/Creatinine Ratio 13.4 (10-20) Glucose 496 H* (70-99) mg/dl POC Glucose 495 H* (70-99) POC Glucose (other) (70-99) mg/dl Osmolality (280-300) mOsm/kg Calcium 9.7 (8.5-10.1) mg/dl POC Ioniz Calcium Mary (1.12-1.32) mmol/l Phosphorus 3.5 (2.5-4.9) mg/dl Magnesium 1.8 (1.8-2.4) mg/dl Total Bilirubin 0.6 (0.2-1) mg/dl Direct Bilirubin 0.2 (0-0.2) mg/dl AST 14 L (15-37) U/L ALT 23 (12-78) U/L Alkaline Phosphatase 165 H (45-117) U/L Troponin I 0.038 (0-0.045) ng/ml Total Protein 8.0 (6.4-8.2) gm/dl Albumin 3.7 (3.4-5.0) gm/dl Globulin 4.3 H (2.5-4.0) gm/dl Albumin/Globulin Ratio 0.9 (0.9-2) Lipase 196 (73-393) U/L Beta-Hydroxybutyric Acd 1.54 (0.2-2.81) mg/dl TSH 1.150 (0.300-4.500) uIu/ml Urine Color Urine Appearance (Clear) Urine pH (4.5-7.5) Ur Specific [place] (1.000-1.030) Urine Protein (Negative) Urine Glucose (UA) (Negative) Urine Ketones (Negative) Urine Blood (Negative) Urine Nitrite (Negative) Urine Bilirubin (Negative) Urine Urobilinogen (Negative) Ur Leukocyte Esterase (Negative) Urine WBC (Auto) (0-5) /hpf Urine RBC (Auto) (0-4) /hpf U Hyaline Cast (Auto) (0-5) /lpf U Epithel Cells (Auto) (0-5) /lpf Urine Bacteria (Auto) (Negative) Ethyl Alcohol mg/dL (0-3) mg/dl 11/07/18 11/07/18 11/07/18 Range/Units 19:49 19:54 19:54 WBC (4.8-10.8) K/uL RBC (4.7-6.1) M/uL Hgb (14.0-18.0) g/dL POC Hgb 16.3 (14.0-18.0) g/dl Hct (42-52) % POC Hct 48 (42-52) % MCV (80-100) fL MCH (25-34) pg MCHC (32-36) g/dL RDW Std Deviation (36.4-46.3) fL RDW Coeff of Sadaf (11.5-14.5) % Plt Count (130-400) K/uL MPV (7.4-10.4) fL Immature Gran % (Auto) % Neut % (Auto) % Lymph % (Auto) % [place] % (Auto) % Eos % (Auto) % Baso % (Auto) % Immature Gran # (Auto) (0.00-0.02) K/uL Neut # (Auto) (1.4-6.5) K/uL Lymph # (Auto) (1.2-3.4) K/uL [place] # (Auto) (0.11-0.59) K/uL Eos # (Auto) (0-0.5) K/uL Baso # (Auto) (0-0.2) K/uL POC Sodium 135 (135-144) mEq/L Sodium (136-145) mmol/L POC Potassium 4.5 (3.3-5.0) mEq/L Potassium (3.5-5.1) mmol/L POC Chloride 96 L (101-112) mEq/L Chloride (98-107) mmol/L Carbon Dioxide (21-32) mmol/L POC Total CO2 26 (24-31) mEq/l Anion Gap (3-11) POC Anion Gap 19.0 (16-25) mmol/L POC BUN 35 H (7-18) mg/dl BUN (7-18) mg/dl Creatinine (0.6-1.4) mg/dl POC Creatinine 2.2 H (0.6-1.3) mg/dl Est Cr Clr Drug Dosing ml/min Est GFR ( Amer) Est GFR (Non-Af Amer) BUN/Creatinine Ratio (10-20) Glucose (70-99) mg/dl POC Glucose (70-99) POC Glucose (other) 513 H* (70-99) mg/dl Osmolality 319 H (280-300) mOsm/kg Calcium (8.5-10.1) mg/dl POC Ioniz Calcium Mary 1.18 (1.12-1.32) mmol/l Phosphorus (2.5-4.9) mg/dl Magnesium (1.8-2.4) mg/dl Total Bilirubin (0.2-1) mg/dl Direct Bilirubin (0-0.2) mg/dl AST (15-37) U/L ALT (12-78) U/L Alkaline Phosphatase (45-117) U/L Troponin I (0-0.045) ng/ml Total Protein (6.4-8.2) gm/dl Albumin (3.4-5.0) gm/dl Globulin (2.5-4.0) gm/dl Albumin/Globulin Ratio (0.9-2) Lipase (73-393) U/L Beta-Hydroxybutyric Acd (0.2-2.81) mg/dl TSH (0.300-4.500) uIu/ml Urine Color Urine Appearance (Clear) Urine pH (4.5-7.5) Ur Specific [place] (1.000-1.030) Urine Protein (Negative) Urine Glucose (UA) (Negative) Urine Ketones (Negative) Urine Blood (Negative) Urine Nitrite (Negative) Urine Bilirubin (Negative) Urine Urobilinogen (Negative) Ur Leukocyte Esterase (Negative) Urine WBC (Auto) (0-5) /hpf Urine RBC (Auto) (0-4) /hpf U Hyaline Cast (Auto) (0-5) /lpf U Epithel Cells (Auto) (0-5) /lpf Urine Bacteria (Auto) (Negative) Ethyl Alcohol mg/dL < 3.0 (0-3) mg/dl 11/07/18 11/07/18 11/07/18 Range/Units 20:35 21:57 23:21 WBC (4.8-10.8) K/uL RBC (4.7-6.1) M/uL Hgb (14.0-18.0) g/dL POC Hgb (14.0-18.0) g/dl Hct (42-52) % POC Hct (42-52) % MCV (80-100) fL MCH (25-34) pg MCHC (32-36) g/dL RDW Std Deviation (36.4-46.3) fL RDW Coeff of Sadaf (11.5-14.5) % Plt Count (130-400) K/uL MPV (7.4-10.4) fL Immature Gran % (Auto) % Neut % (Auto) % Lymph % (Auto) % [place] % (Auto) % Eos % (Auto) % Baso % (Auto) % Immature Gran # (Auto) (0.00-0.02) K/uL Neut # (Auto) (1.4-6.5) K/uL Lymph # (Auto) (1.2-3.4) K/uL [place] # (Auto) (0.11-0.59) K/uL Eos # (Auto) (0-0.5) K/uL Baso # (Auto) (0-0.2) K/uL POC Sodium (135-144) mEq/L Sodium (136-145) mmol/L POC Potassium (3.3-5.0) mEq/L Potassium (3.5-5.1) mmol/L POC Chloride (101-112) mEq/L Chloride (98-107) mmol/L Carbon Dioxide (21-32) mmol/L POC Total CO2 (24-31) mEq/l Anion Gap (3-11) POC Anion Gap (16-25) mmol/L POC BUN (7-18) mg/dl BUN (7-18) mg/dl Creatinine (0.6-1.4) mg/dl POC Creatinine (0.6-1.3) mg/dl Est Cr Clr Drug Dosing ml/min Est GFR ( Amer) Est GFR (Non-Af Amer) BUN/Creatinine Ratio (10-20) Glucose (70-99) mg/dl POC Glucose 388 H* 364 H* (70-99) POC Glucose (other) (70-99) mg/dl Osmolality (280-300) mOsm/kg Calcium (8.5-10.1) mg/dl POC Ioniz Calcium Mary (1.12-1.32) mmol/l Phosphorus (2.5-4.9) mg/dl Magnesium (1.8-2.4) mg/dl Total Bilirubin (0.2-1) mg/dl Direct Bilirubin (0-0.2) mg/dl AST (15-37) U/L ALT (12-78) U/L Alkaline Phosphatase (45-117) U/L Troponin I (0-0.045) ng/ml Total Protein (6.4-8.2) gm/dl Albumin (3.4-5.0) gm/dl Globulin (2.5-4.0) gm/dl Albumin/Globulin Ratio (0.9-2) Lipase (73-393) U/L Beta-Hydroxybutyric Acd (0.2-2.81) mg/dl TSH (0.300-4.500) uIu/ml Urine Color Yellow Urine Appearance Clear (Clear) Urine pH 5.0 (4.5-7.5) Ur Specific [place] 1.031 H (1.000-1.030) Urine Protein 1+ H (Negative) Urine Glucose (UA) 3+ H (Negative) Urine Ketones Negative (Negative) Urine Blood 1+ H (Negative) Urine Nitrite Negative (Negative) Urine Bilirubin Negative (Negative) Urine Urobilinogen Negative (Negative) Ur Leukocyte Esterase Negative (Negative) Urine WBC (Auto) 0 (0-5) /hpf Urine RBC (Auto) 0-4 (0-4) /hpf U Hyaline Cast (Auto) 0 (0-5) /lpf U Epithel Cells (Auto) 0-5 (0-5) /lpf Urine Bacteria (Auto) Negative (Negative) Ethyl Alcohol mg/dL (0-3) mg/dl 11/08/18 Range/Units 00:50 WBC (4.8-10.8) K/uL RBC (4.7-6.1) M/uL Hgb (14.0-18.0) g/dL POC Hgb (14.0-18.0) g/dl Hct (42-52) % POC Hct (42-52) % MCV (80-100) fL MCH (25-34) pg MCHC (32-36) g/dL RDW Std Deviation (36.4-46.3) fL RDW Coeff of Sadaf (11.5-14.5) % Plt Count (130-400) K/uL MPV (7.4-10.4) fL Immature Gran % (Auto) % Neut % (Auto) % Lymph % (Auto) % [place] % (Auto) % Eos % (Auto) % Baso % (Auto) % Immature Gran # (Auto) (0.00-0.02) K/uL Neut # (Auto) (1.4-6.5) K/uL Lymph # (Auto) (1.2-3.4) K/uL [place] # (Auto) (0.11-0.59) K/uL Eos # (Auto) (0-0.5) K/uL Baso # (Auto) (0-0.2) K/uL POC Sodium (135-144) mEq/L Sodium (136-145) mmol/L POC Potassium (3.3-5.0) mEq/L Potassium (3.5-5.1) mmol/L POC Chloride (101-112) mEq/L Chloride (98-107) mmol/L Carbon Dioxide (21-32) mmol/L POC Total CO2 (24-31) mEq/l Anion Gap (3-11) POC Anion Gap (16-25) mmol/L POC BUN (7-18) mg/dl BUN (7-18) mg/dl Creatinine (0.6-1.4) mg/dl POC Creatinine (0.6-1.3) mg/dl Est Cr Clr Drug Dosing ml/min Est GFR ( Amer) Est GFR (Non-Af Amer) BUN/Creatinine Ratio (10-20) Glucose (70-99) mg/dl POC Glucose 308 H* (70-99) POC Glucose (other) (70-99) mg/dl Osmolality (280-300) mOsm/kg Calcium (8.5-10.1) mg/dl POC Ioniz Calcium Mary (1.12-1.32) mmol/l Phosphorus (2.5-4.9) mg/dl Magnesium (1.8-2.4) mg/dl Total Bilirubin (0.2-1) mg/dl Direct Bilirubin (0-0.2) mg/dl AST (15-37) U/L ALT (12-78) U/L Alkaline Phosphatase (45-117) U/L Troponin I (0-0.045) ng/ml Total Protein (6.4-8.2) gm/dl Albumin (3.4-5.0) gm/dl Globulin (2.5-4.0) gm/dl Albumin/Globulin Ratio (0.9-2) Lipase (73-393) U/L Beta-Hydroxybutyric Acd (0.2-2.81) mg/dl TSH (0.300-4.500) uIu/ml Urine Color Urine Appearance (Clear) Urine pH (4.5-7.5) Ur Specific [place] (1.000-1.030) Urine Protein (Negative) Urine Glucose (UA) (Negative) Urine Ketones (Negative) Urine Blood (Negative) Urine Nitrite (Negative) Urine Bilirubin (Negative) Urine Urobilinogen (Negative) Ur Leukocyte Esterase (Negative) Urine WBC (Auto) (0-5) /hpf Urine RBC (Auto) (0-4) /hpf U Hyaline Cast (Auto) (0-5) /lpf U Epithel Cells (Auto) (0-5) /lpf Urine Bacteria (Auto) (Negative) Ethyl Alcohol mg/dL (0-3) mg/dl Imaging Data Radiologist's Impression: Radiology results as stated below per my review and the radiologist's interpretation: XR chest 1V portable HISTORY: Atypical Chest Pain COMPARISON: Chest 05/03/2016. FINDINGS: No pneumothorax. No pleural effusions. The heart remains normal in size. There is a mildly tortuous thoracic aorta. No evidence for pulmonary edema. Mild emphysema. Increased markings at the lung bases. This may be due to vascular crowding from the emphysema. IMPRESSION: 1. Mild emphysema. 2. Increased markings at the lung bases favors vascular crowding from the emphysema. Otherwise, no focal lung consolidations to suggest pneumonia. Electronically signed by: Ethan Gilmore M.D. 11/07/2018 8:[address]AST CT DOSE: 614.27 mGy.cm HISTORY: Altered mental status. TECHNIQUE: Multiaxial CT images of the head were performed without the use of intravenous contrast. Automated exposure control was utilized for this study. A dose lowering technique was utilized adhering to the principles of ALARA. Comparison: Head CT 02/05/2017. Findings: The paranasal sinuses and mastoid air cells are clear. Right globe calcifications are again noted. The calvarium and skull base are intact. There is no mass, hematoma, midline shift, acute infarct. White matter hypodensity is nonspecific but suggestive of microvascular ischemic change. The ventricles and sulci demonstrate mild age-related involutional changes. Old small infarct within the left cerebellar hemisphere remains unchanged. There is also an old lacunar infarct within the right thalamus, unchanged. Impression: No significant change compared to the prior study. No acute intracranial abnormality. Electronically signed by: Ethan Gilmore M.D. 11/07/2018 8:25 PM ECG Data Attestation: I personally reviewed and interpreted this ECG as follows: Indication: weakness Rate (beats per minute): 101 Rhythm: sinus tachycardia Findings: + other (normal axis); no acute ischemic change Blood Pressure Blood Pressure Findings: Elevated blood pressure MDM Narrative The patient is a pleasant 73-year-old gentleman with a past medical history of CVA, diabetes, AAA repair who presents emergency department for confusion and report of difficulty with ambulation and slurred speech after he was seen at a family reunion earlier today at 10m however he refused medical care at that time but upon returning home, which he was able to do and was an hour drive, a neighbor was asked to look after him and apparently observed him stumbling into his home and found the patient's car still on and in reverse (though unclear why the car did not move) per hpi. I did receive the med command call from EMS upon their encounter with the patient who was refusing to be transported however given his glucose was in the 500s with found hypertension with systolic blood pressure in the 230s over 110s it was explained the patient was required to come in to exclude any medical process that could be impairing his judgment. Patient ultimately was agreeable and is cooperative and pleasant in the emergency department. On exam patient appears clinically dry. He does exhibit some slight word finding difficulty but otherwise shows no focal neuro deficits with fluent speech and symmetric motor strength. The patient does exhibit some components of medical decision-making capacity able to express that we would be concerned about heart attack or stroke though he is limited in his full understanding and ability to communicate our concerns as when discussing how he left his car on he is unable to repeat back to me this particular concern and goes on about how the car works and has been trying to get it fixed. The patient's ex- did arrive at the bedside and further endorses the patient is not at his baseline and we agree that he does not appear to be thinking clearly. She is in close contact with the with her daughter who would be the next of kin and will be decision-maker. EKG without overt acute ischemia. Chest x-ray without focal infiltrates. CT head negative for ICH or gross infarct. WBC, H/H, platelets wnl. Glucose 480s and Chemistry without acidosis. OSM 318. Glc improved to 380s with IVF hydration alone. LFTs and electrolytes unremarkable. Troponin wnl at 0.038. Cr. 2.4 up from 1.7 preiously. UA negative for infection. Etoh negative. Given the patient's altered mental status/encephalopathy which may be related to his hypertension versus his uncontrolled diabetes with the additional possibility of stroke (though he is outside of the window for TPA, and less likely a endovascular candidate given unclear onset of symptoms/lkw and challenge in obtaining vascular studies due to his acute on chronic renal kendra lure), unable to admit the patient for further management. Case was discussed with Dr. Freed, [facility] hospitalist, who will evaluate the patient for admission. Impression & Plan Altered mental status, Hypertensive urgency, Hyperglycemia due to type 2 diabetes mellitus Discharge Plan Visit Data Chief Complaint: Neuro Symptoms/Deficit Stated Complaint: HTN, HYPERGYLCEMIA, ED Provider: Colin Mullins Discharge Problem: Altered mental status, Hypertensive urgency, Hyperglycemia due to type 2 diabetes mellitus Forms Stand Alone Forms: My [facility] Prescriptions Prescriptions: No Action atorvastatin 40 mg Tablet 40 mg PO DAILY RF: 0 trazodone 50 mg Tablet 50 mg PO HS RF: 0 metformin 850 mg Tablet 850 mg PO DAILY RF: 0 aspirin [Aspir-81] 81 mg Tablet,Delayed Release (Dr/Ec) 81 mg PO DAILY RF: 0 glimepiride 2 mg Tablet 2 mg PO QAM RF: 0 pantoprazole 40 mg Tablet,Delayed Release (Dr/Ec) 40 mg PO DAILYBB RF: 0 ibuprofen 200 mg Tablet 200 mg PO Q4H PRN (Reason: Pain) RF: 0 doxycycline hyclate 100 mg Tablet 100 mg PO DAILY RF: 0 Jardiance 25 mg Tablet 25 mg PO DAILY RF: 0 Referrals Referrals: Isaak Jamil DO [Primary Care Provider] - Discharge Problem: Altered mental status Qualifiers: Altered mental status type: disorientation Qualified Code(s): R41.0 - Disorientation, unspecified Hyperglycemia due to type 2 diabetes mellitus Qualifiers: Diabetes mellitus emt intermediate insulin use: without emt intermediate use Qualified Code(s): E11.65 - Type 2 diabetes mellitus with hyperglycemia The scribe's documentation has been prepared under my direction and personally reviewed by me in its entirety. I confirm that the note above accurately reflects all work, treatment, procedures, and medical decision making performed by me.
[2018-11-07] MEDS ORDERED: LABETALOL HCL IV 5 MG/ML 20ML IV STA (23:33)
[2018-11-08] MEDS ORDERED: LORazepam 1 MG/2 ML VIAL IV STA (00:39)
[2018-11-08] MEDS ORDERED: NovoLIN-R INSULIN PER UNIT CHARGE IV STA (00:39)
[2018-11-08] MEDS: NITROGLYCERIN 2% OINTMENT 30GM TUBE EXT SCH ×3 (00:49→11:31)
[2018-11-08] MEDS ORDERED: ACETAMINOPHEN 325 MG TAB PO PRN (01:59)
[2018-11-08] MEDS ORDERED: POLYETHYLENE (MIRALAX) 17 GM PACK PO PRN (01:59)
[2018-11-08] MEDS ORDERED: ONDANSETRON INJ 2 MG/ML 2 ML VIAL IV PRN (01:59)
[2018-11-08] MEDS ORDERED: INSULIN GLARGINE SOLOSTAR 100 UNITS/ML 3 ML PEN SC SCH (01:59)
[2018-11-08] MEDS ORDERED: PHARMACIST DISCHARGE MED REC CONSULT PRN (01:59)
[2018-11-08] MEDS ORDERED: NITROGLYCERIN SL 0.4 MG/TAB TAB SL PRN (01:59)
[2018-11-08] MEDS ORDERED: PHARMACY GLYCEMIC MGMT CONSULT PRN (02:05)
[2018-11-08] MEDS: SODIUM CHLORIDE 0.9% 1000ML 1,000 ML IV SCH ×3 (02:13→21:56)
[2018-11-08] MEDS ORDERED: GLUCAGON FOR INJ 1 MG VIAL SQ PRN (02:15)
[2018-11-08] MEDS ORDERED: GLUCOSE 40% GEL 15 GM TUBE PO PRN (02:15)
[2018-11-08] MEDS ORDERED: GLUCOSE 10 TABS/TUBE PO PRN (02:15)
[2018-11-08] MEDS ORDERED: DEXTROSE 50% 50 ML SYRINGE IV PRN (02:15)
[2018-11-08] MEDS ORDERED: CARBOHYDRATES FOR HYPOGLYCEMIA PO PRN (02:15)
[2018-11-08] MEDS ORDERED: INSULIN GLARGINE SOLOSTAR 100 UNITS/ML 3 ML PEN SC ONE ×3 (02:15→21:00)
[2018-11-08] MEDS ORDERED: INSULIN ASPART 100 UNITS/ML 3 ML PEN SC SCH (04:00)
[2018-11-08] MEDS: LABETALOL HCL IV 5 MG/ML 20ML IV PRN ×2 (04:20→11:37)
[2018-11-08] MEDS: INSULIN ASPART 100 UNITS/ML 3 ML PEN SC SCH ×6 (04:21→21:54)
--- NOTE | 2018-11-08 04:54 | History and Physical Report ---
DATE OF ADMISSION: 11/08/2018 CHIEF COMPLAINT: Stroke-like symptoms. 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 The patient was having a family get together, his daughter took him to the [employer] together. The patient seemed somewhat imbalanced and somewhat slurred speech and somewhat confused, but he did not want to come to the hospital. It was around 10:00 a.m. in the morning on 11/07/2018. During the family get together, he did not talk to anyone. Then he drove back himself for a 1-hour drive and his daughter called the neighbor to check on him. It looked like he kept his car door open and the car engine was still running and his front door was open and he seemed confused. Then he was brought in here. His ex- is in the room. The patient currently is alert and awake, oriented to name and place and he knows that it is October, knows his date of .But he is adamantly refusing to stay in the hospital. Says he is doing fine and wanted to go home even though his daughter talked on the phone and his ex- talked to him he still wanted to go home, but because his blood pressure was very high with systolic blood pressure in 230s, because of his possible confusion and possible stroke, there was question of competence and his daughter who is the power of insurance attorney wants to keep him in the hospital. Patient denies any headache, no blurred visions. Denies any earache, sore throat, or difficulty swallowing. Denies any chest pain or shortness of breath, has some occasional cough, no nausea, no abdominal pain. He says his bowels are moving all right and he is micturating fine. No swelling in the legs. Apparently, the patient was with his ex- last for a picnic and states there were some imbalance issues, he was doing okay at that time. His sugars were also running high in the ER. He does not check his blood pressure or sugars at home. ALLERGIES: No known drug allergies. PAST MEDICAL HISTORY: As mentioned above. PAST SURGICAL HISTORY: Abdominal aortic aneurysm repair, left carotid endarterectomy, colonoscopy with polypectomy of hyperplastic polyp, EGDs, incision and drainage of the left neck postoperative hematoma, thoracoscopy with lung biopsy, aortofemoral venous bypass. MEDICATIONS: The patient is on doxycycline 100 mg p.o. daily, glimepiride 2 mg p.o. daily, metformin 850 mg p.o. daily, Protonix 40 mg p.o. daily, Jardiance 25 mg p.o. daily, atorvastatin 40 mg p.o. daily, trazodone 50 mg p.o. at bedtime, aspirin 81 mg p.o. daily, ibuprofen 200 mg every 4-6 hours p.r.n. FAMILY HISTORY: Significant for mother of accident at 66. Father had SC. SOCIAL HISTORY: Lives alone, retired and disabled, . Former smoker, quit in 2005, smoked 1 pack a day for 45 years, heavy drinker in the past, quit in 2001. No drug use. REVIEW OF SYMPTOMS: As per HPI. Rest of review of systems negative. PHYSICAL EXAMINATION: GENERAL: The patient is obese, not in acute distress currently. VITAL SIGNS: Temperature 37, pulse 82, respiratory rate 18, blood pressure 217/120, oxygen 93% on 2 liters. HEENT: No pallor, no icterus. Right eye is wet and no vision. NECK: No JVD, no neck masses, no carotid bruits. CARDIOVASCULAR: S1, S2 heard, regular rate and rhythm, no murmur, no gallop. RESPIRATORY SYSTEM: Normal AP diameter. No accessory muscle use. No wheezing, no crackles. ABDOMEN: Soft, bowel sounds present, nontender. No distention. CENTRAL NERVOUS SYSTEM: Alert and awake, oriented to name and place and today's month. Remote memory intact. Power 5/5 in all extremities. Sensation is intact, position sense intact. No pronator drift. Coordination of movements normal. Yspavq-hb-zzek test normal. EXTREMITIES: No edema, no erythema. LABORATORY DATA: WBC 10.7, hemoglobin 15.5, hematocrit 44.5, platelets 270. Sodium 135, potassium 4.5, chloride 98, CO2 of 29, BUN 36, creatinine 2.4, serum glucose 406 when he came in, currently 364, osmolality 319, calcium 9.7, phosphorus 3.5, magnesium 1.8, total bilirubin 0.6, direct bilirubin 0.2, AST 14, ALT 23, alkaline phosphatase 165. Troponin I 0.038. Lipase 196. Beta hydroxybutyric acid 1.54. TSH 1.15. Urinalysis positive for +3 glucose. Ethyl alcohol less than 3. IMAGING DATA: CT of the head, no significant change compared to prior study, no acute intracranial abnormalities seen. Chest x-ray, mild emphysema. EKG: Sinus tachycardia at a rate of 101, possible left atrial enlargement, no significant change. ASSESSMENT AND PLAN: This is a 73-year-old male who presents with stroke-like symptoms. 1. Stroke-like symptoms. Patient has history of CVA in the past, history of diabetes and blood pressure is running high. The patient is refusing to stay, but question of competence. Daughter is the medical power of insurance attorney and wants him to stay in the hospital. We will give IV Ativan. CT of the head was negative. We will do stroke workup with MRI scan and echocardiogram, carotid Doppler. PT and OT. Continue home aspirin and home Lipitor for now and follow fasting lipid profile in the a.m. Neuro consult in the a.m. Closely monitor in the tele floor. Symptoms started around 10:00 a.m., out of the window for TPA. Currently, patient's speech is clear and he is alert and oriented. 2. Hypertensive urgency. The patient's systolic blood pressure is in the 230s. Not on any blood pressure medication at home. We will allow for permissive hypertension. We will place him on nitro paste and IV labetalol p.r.n. for systolic blood pressure greater than 180. Follow echocardiogram. Monitor the blood pressure. 3. History of diabetes. Will hold his home p.o. medications of glimepiride, metformin, and Jardiance. Sugars running high. We will give him one small dose of IV insulin. We will place him on Lantus and sliding scale. Follow the HbA1c level. Follow the blood sugars. pharmacy consult and diabetic education consult. 4.TIMOTHY on CKD 3 . Baseline Cr 1.5. Presented with Cr 2.4. On IV fluids. Follow labs in am. 5. History of cerebrovascular accident in the past, on statin and aspirin. 6. Gastroesophageal reflux disease, on Protonix. 7. History of tobacco abuse, history of chronic obstructive pulmonary disease but not on any inhalers. We will monitor. 8. History of abdominal aortic aneurysm repair, history of carotid endarterectomy, on aspirin and statin. 9. Deep vein thrombosis prophylaxis, sequential compression devices for now. 10. Disposition: Closely monitor in tele floor. Level 1 full code. MTDD
[2018-11-08] MEDS: PANTOprazole 40 MG TAB PO SCH ×2 (05:50→11:33)
[2018-11-08 07:00] LABS: Basophils # (auto) 0.03 K/uL (0-0.2); Basophils % (auto) 0.3 %; Eosinophils # (auto) 0.11 K/uL (0-0.5); Eosinophils % (auto) 1.1 %; Hematocrit (blood only) 40.2 % (42-52); Hemoglobin 13.8 g/dL (14.0-18.0); Immature Granulocytes # (auto) 0.05 K/uL (0.00-0.02); Immature Granulocytes % (auto) 0.5 %; Lymphocytes # (auto) 1.65 K/uL (1.2-3.4); Lymphocytes % (auto) 16.3 %; Mean Corpuscular Hgb Conc 34.3 g/dL (32-36); Mean Corpuscular Volume 90.5 fL (80-100); Mean Platelet Volume 10.1 fL (7.4-10.4); Monocytes # (auto) 0.88 K/uL (0.11-0.59); Monocytes % (auto) 8.7 %; Neutrophils # (auto) 7.39 K/uL (1.4-6.5); Neutrophils % (auto) 73.1 %; Platelet Count 219 K/uL (130-400); RDW Coefficient of Variation 11.9 % (11.5-14.5); RDW Standard Deviation 39.3 fL (36.4-46.3); Red Blood Count 4.44 M/uL (4.7-6.1); White Blood Count 10.11 K/uL (4.8-10.8)
[2018-11-08 07:42] LABS: BUN Creatinine Ratio 18.2 (10-20); Calcium 8.4 mg/dl (8.5-10.1); Creatinine Clr Calc Pharmacy 48.9 ml/min; Est GFR (African American) 53.1; Est GFR (Non-African American) 45.9; Potassium 3.7 mmol/L (3.5-5.1)
[2018-11-08] MEDS: ASPIRIN 81 MG ECTAB PO SCH ×3 (08:13→11:32)
[2018-11-08] MEDS: ATORVASTATIN 40 MG TAB PO SCH ×3 (08:13→11:32)
[2018-11-08] MEDS: DOXYCYCLINE HYCLATE 100 MG CAP PO SCH ×3 (08:13→11:33)
--- NOTE | 2018-11-08 08:30 | Hospitalist Progress Note ---
Date of Service November 08, 2018 Assessment & Plan (1) Hypertensive urgency: Patient is a 73-year-old male with past medical history of diabetes type 2, hyperlipidemia, hypertension, COPD, history of CVA, GERD, right eye blindness from childhood trauma, tobacco abuse, status post abdominal aortic aneurysm repair, comes with strokelike symptoms-somewhat imbalance, slurred speech, confusion. STROKE LIKE SYMPTOMS, PROBABLY TIA vs Stroke Per daughter, patient was at [facility] when he started behaving wierd- Fumbling, not talking much, gait imbalance, left his car door open, was found naked at home by neighbor after returning back from [facility]- didnt make much sense. Baseline: No dementia per daughter. Independent with ADLs with no issues, drives -Prior hx of stroke, HTN -Unable to evaluate as sedated due to IV Ativan -On aspirin, Statin as at home. Will consider Plavix. Awaiting MRI -Work up- CT head- No significant change, MRI ordered, Echo ordered, Lipid panel- LDL 38. -Consult neurology as concerned about TIA, rule out stroke HTN URGENCY Systolic blood pressure in 230s on admission, now improving. Not on any blood pressure medications at home. Unable Nitro paste and IV labetalol as needed ordered - Permissive HTN till Stroke ruled out Echocardiogram ordered Monitor blood pressure TIMOTHY on CKD III - Improving Baseline creatinine 1.5, presented with creatinine 2.4, now trending down -Continue with IV Fluids- decreased rate -Monitor trend Diabetes mellitus type 2 Hold home medications of glimepiride, metformin, Jardiance Insulin sliding scale, Lantus started Hemoglobin A1c Pharmacy consulted for glycemic control Diabetic education consult placed History of CVA in the past with no residual deficits Continue with statin and aspirin GERD Continue with Protonix Tobacco abuse disorder COPD No signs of exacerbation next linecontinue with inhalers as needed History of abdominal aortic aneurysm repair History of carotid endarterectomy Continue with aspirin and statin DVT prophylaxis SCDs Full code Disposition Medical management in progress To be determined PT/OT ordered Updated daughter on phone and took detailed history Subjective Patient is sedated likely secondary to IV Ativan he received overnight. Per RN, no other overnight events On 2 L of oxygen Physical Exam Physical Exam: GENERAL- Sedated secondary to Ativan LUNGS- Air entry bilaterally decreased. No wheezing HEART- Regular rate and rhythm. No murmurs ABDOMEN- Soft, non tender, non distended, Bowel sounds heard. EXTREMITIES- Good peripheral pulses, no edema NEUROMUSCULAR-unable to evaluatecurrently sedated due to Ativan Results & Data Vital Signs (Past 12 Hours) Vital Signs Temp Pulse Pulse Pulse Resp BP BP 11/08/18 07:11 36.4 C L 73 21 187/82 H 11/08/18 03:26 36.9 C 79 18 212/106 H 11/08/18 02:00 36.9 C 86 17 214/101 H 11/08/18 01:59 11/08/18 01:45 85 20 235/121 H 11/08/18 01:00 81 19 225/106 H 11/08/18 00:30 82 18 217/120 H 11/07/18 23:23 95 H 23 237/131 H 11/07/18 22:31 92 H 22 219/113 H 11/07/18 22:01 92 H 16 230/112 H 11/07/18 21:00 92 H 19 211/127 H 11/07/18 20:42 91 H 19 229/115 H Pulse Ox Pulse Ox 11/08/18 07:11 92 11/08/18 03:26 98 11/08/18 02:00 95 11/08/18 01:59 92 11/08/18 01:45 91 11/08/18 01:00 92 11/08/18 00:30 93 11/07/18 23:23 93 11/07/18 22:31 94 11/07/18 22:01 95 11/07/18 21:00 93 11/07/18 20:42 91
--- NOTE | 2018-11-08 13:32 | Pharmacy Report ---
Glycemic Control Consultation - Date of Service November 08, 2018 - Scope Scope: Glycemic Pharmacist consulted by Dr Freed on 11/08/18 for glycemic control and to write orders per [facility] inpatient glycemic control protocol - Objective Weight: 91.4 kg Accuchecks BSG (last 24hrs): 11/07/18 11/07/18 11/07/18 19:36 19:49 19:54 Glucose 496 H* POC Glucose 495 H* POC Glucose (other) 513 H* 11/07/18 11/07/18 11/08/18 21:57 23:21 00:50 Glucose POC Glucose 388 H* 364 H* 308 H* POC Glucose (other) 11/08/18 11/08/18 11/08/18 02:08 04:09 06:16 Glucose 242 H POC Glucose 263 H 273 H POC Glucose (other) 11/08/18 11/08/18 07:09 11:16 Glucose POC Glucose 230 H 198 H POC Glucose (other) Laboratory Data (last 24hrs): 11/07/18 11/07/18 11/08/18 19:49 19:49 06:16 Potassium 4.5 3.7 D Carbon Dioxide 29 27 Anion Gap 8.0 7.0 Creatinine 2.44 H 1.50 H D Est Cr Clr Drug Dosing 30.1 48.9 Osmolality 319 H Beta-Hydroxybutyric Acd 1.54 HbA1c: Pending for 11/09/18 - Recent Pertinent Medications Outpatient Anti-diabetic Regimen: * Amaryl 2mg PO daily * Metformin 850mg Daily - Assessment & Plan Assessment & Plan: ASSESSMENT: * 73yo T2DM male admitted for HTN urgency, r/o stroke * Degree of outpatient glycemic control unknown - A1c pending for tomorrow * Pt is maintained on oral antidiabetic agents as an outpatient * Oral agents are not recommended for inpatient use d/t drug interactions, changing PO intake, and difficulty titrating for acute hyper/hypoglycemia. ADA recommends re-initiating outpatient oral agents 1-2 days prior to discharge if/when appropriate if they were held on admission. * Will hold oral agents for admission and utilize SQ basal bolus insulin regimen which is the recommended regimen for inpatient glycemic control. * Will initiate weight based insulin dosing for insulin sarika patient and titrate based on BSG trends. * Pt very lethargic, no verbal response. No PO intake today - will dose insulin conservatively PLAN FOR INPATIENT GLYCEMIC CONTROL: * Holding outpatient oral diabetes medications * Basal insulin * Lantus 15 units SQ x 1 dose given this morning * BSGs elevated today but trending downwards, conservative dose of Lantus for HS if needed for hyperglycemia * Lantus 5 units this evening if BSG >180 mg/dl * Bolus insulin * NovoLog per scale ACHS & Q4hrs overnight * Goal Range: Low 120 mg/dL - High 160 mg/dL * Correction Factor: 20 mg/dL/unit * Nutritional / Prandial insulin per carb ratio of 1 unit per 7 grams CHO consumed * Please note that the plan above was derived based on current level of insulin resistance and hospital stress. These recommendations are appropriate for inpatient admission only. Plan of care upon discharge will need to be reassessed to avoid potential outpatient hypo/hyperglycemia. Thank you.
--- NOTE | 2018-11-08 14:00 | Magnetic Resonance Report ---
MRI OF THE BRAIN WITHOUT IV CONTRAST CLINICAL HISTORY: Dizziness and confusion. COMPARISON STUDY: CT of the brain dated 11/07/2018. MRI of the brain dated 05/03/2016. TECHNIQUE: MRI of the brain was performed utilizing various T1 and T2-weighted sequences in the axial , sagittal, and coronal planes. IV contrast was not administered for this examination. FINDINGS: Brain parenchyma: There is age-related involutional change noting mild subcortical and periventricula r microangiopathic disease. Small chronic infarcts are noted in the brainstem, cerebellum, and bilate ral thalami. There is no hemorrhage or mass effect. There is no restricted diffusion to suggest acute ischemia. Loza-white matter differentiation is preserved. No extra-axial fluid collection is seen. T he cerebellar tonsils are normal in configuration. Ventricles, sulci, and cisterns: Prominent secondary to involutional change. Pituitary and sella: Partially empty sella is incidentally noted. Intracranial vasculature: Normal flow voids are maintained at the skull base. Orbits: The bony orbits are grossly intact. Chronic calcification and deformity of the right globe is similar to previous. The left globe is normal as imaged. Sinuses and mastoids: Clear. Calvarium: Unremarkable. Cervical cord: Partially visualized cervical spinal cord is normal in morphology and signal intensity . IMPRESSION: No acute intracranial abnormality. Electronically signed by: Jesus Skelton M.D. 11/08/2018 1:59 PM
--- NOTE | 2018-11-08 14:11 | Ultrasound Report ---
ULTRASOUND OF THE CAROTID ARTERIES CLINICAL HISTORY: Dizziness. Confusion. COMPARISON STUDY: No priors. TECHNIQUE: Real-time, grayscale, and color Doppler sonography of the carotid arteries is performed. I mages are reviewed in the transverse and longitudinal planes. FINDINGS: Blood pressures were assessed due to the presence of IV catheters. The carotid arteries are patent bilaterally and demonstrate antegrade flow. There is mild to moderate atherosclerotic plaque seen bilaterally. Normal doppler arterial waveforms are seen throughout. [facility] measurements are listed below. Common carotid peak systolic velocity (cm/sec): RIGHT: 78 LEFT: 97 ICA proximal peak systolic velocity (cm/sec): RIGHT: 73 LEFT: 76 ICA mid peak systolic velocity (cm/sec): RIGHT: 58 LEFT: 71 ICA distal peak systolic velocity (cm/sec): RIGHT: 67 LEFT: 62 ICA/CC peak systolic ratio: RIGHT: 0.9 LEFT: 0.8 Antegrade flow was shown in the vertebral arteries. The external carotid arteries are patent. IMPRESSION: 1. Atherosclerotic plaque with no sonographic evidence of hemodynamically significant stenosis in the right or left carotid arterial system. 2. Antegrade flow is shown in the vertebral arteries. Electronically signed by: Jesus Skelton M.D. 11/08/2018 2:10 PM
--- NOTE | 2018-11-08 15:45 | Consultation Report ---
DATE OF CONSULTATION: 11/08/2018 REASON FOR CONSULTATION: Confusion, dysarthria, gait instability. HISTORY OF PRESENT ILLNESS: A 73-year-old male with diabetes, hyperlipidemia, hypertension, COPD, history of a right hemispheric stroke with no residual left hemiparesis, reflux, childhood blindness in the right eye. The patient was in his usual state of health, was at a family reunion, was acting strangely, fumbling, not talking much and had gait instability. He drove home an hour and apparently left his car home, left his car door open, was found naked at home by a neighbor. . The patient does not really recall much of that, although does recall being at the reunion. He indicates that he has been in his usual state of health. He has had some ongoing weight loss. Did not have any chest pain, palpitation, headache. None of his medicines were new or changed in dose. He does not routinely monitor his home blood sugar. His labs on admission were most notable for CBC showing a left shift, blood sugar of approximately 500 on admission and severe hypertension, 230/112. The patient was agitated overnight, needed to be sedated, but fortunately he was awake enough to interview. He had no real complaints. CT of the head noncontrast shows bilateral chronic ischemic changes. Carotid ultrasound showed atherosclerotic plaque without high-grade stenosis, antegrade flow in the vert. EKG, sinus tachycardia, possible left atrial enlargement. PAST MEDICAL HISTORY: As above. Additionally, COPD, tobacco abuse. PAST SURGICAL HISTORY: Abdominal aortic aneurysm repair, bilateral carotid endarterectomy, thoracoscopy with lung biopsy, aortofemoral venous bypass. MEDICATIONS: On admission, doxycycline, glimepiride, metformin, Protonix, Jardiance, atorvastatin, trazodone, aspirin, ibuprofen. No recent changes in medications. FAMILY HISTORY: Mother at an accident, 66. Father had an NM. SOCIAL HISTORY: The patient lives alone, does his own bill paying, stopped smoking in 2005. No recent drug use. PHYSICAL EXAMINATION: GENERAL: The patient is mildly sleepy, but arousable, mildly dysarthric consistent with his sleepiness, oriented x3, no right/left confusion. NECK: There are no carotid bruits. HEART: No heart murmurs. Heart is regular rate and rhythm. MUSCULOSKELETAL: No evidence of spinal injury or tenderness is noted. NEUROLOGIC: His head is normocephalic, atraumatic. There is a corneal opacity on the right. The left pupil is miotic, but reactive. I could not reliably visualize the optic nerve. The motility was abnormal consistent with the blindness in the right eye. Deng are full in the left eye. There is a slight flattening of the left nasolabial fold and tongue is midline. Motor 5/5, no drift. Normal rapid alternating movements. Increased reflexes on the left. Absent ankle jerks, downgoing toes. Vibration appreciated at the knees and upper level of the calf level to temperature. Hfdgeg-nm-zpmp and ecin-ee-eepq are normal. Gait was not tested. IMPRESSION: Transient ischemic attack versus effect of multiple metabolic abnormalities including hyperglycemia and severe hypertension. PLAN: MRI brain, carotid ultrasound, echo, telemetric monitoring, gradual reduction in blood pressure. No change in antiplatelet therapy at present, depending on the results of the imaging. MERCEDEZ
[2018-11-08] MEDS: AMLODIPINE BESYLATE 5 MG TAB PO SCH (16:44)
[2018-11-08] MEDS: LISINOPRIL 10 MG TAB PO SCH (19:33)
[2018-11-08] MEDS ORDERED: TRAZODONE HCL 50 MG TAB PO SCH (21:00)
[2018-11-08] MEDS ORDERED: PNEUMOCOCCAL ADMINISTRATION CHARGE ONE (22:00)
[2018-11-08] MEDS ORDERED: PNEUMOCOCCAL POLYSACCHARIDES 25 MCG/0.5 ML VIAL/SYR IM ONE (22:00)
[2018-11-08] MEDS: HydrALAZINE HCL 20 MG/ML VIAL IV PRN (23:26)
[2018-11-09] MEDS: INSULIN ASPART 100 UNITS/ML 3 ML PEN SC SCH ×5 (00:11→16:58)
[2018-11-09 06:16] LABS: Estimated Average Glucose 303 mg/dl; Hemoglobin A1C 12.2 % (4.5-5.6)
[2018-11-09 06:59] LABS: Basophils # (auto) 0.03 K/uL (0-0.2); Basophils % (auto) 0.2 %; Eosinophils # (auto) 0.53 K/uL (0-0.5); Eosinophils % (auto) 4.3 %; Hematocrit (blood only) 42.4 % (42-52); Hemoglobin 14.6 g/dL (14.0-18.0); Immature Granulocytes # (auto) 0.06 K/uL (0.00-0.02); Immature Granulocytes % (auto) 0.5 %; Lymphocytes # (auto) 1.96 K/uL (1.2-3.4); Mean Corpuscular Hgb Conc 34.4 g/dL (32-36); Mean Corpuscular Volume 93.2 fL (80-100); Mean Platelet Volume 10.2 fL (7.4-10.4); Monocytes # (auto) 1.06 K/uL (0.11-0.59); Monocytes % (auto) 8.7 %; Neutrophils # (auto) 8.59 K/uL (1.4-6.5); Neutrophils % (auto) 70.3 %; Platelet Count 256 K/uL (130-400); RDW Coefficient of Variation 12.2 % (11.5-14.5); RDW Standard Deviation 41.7 fL (36.4-46.3); Red Blood Count 4.55 M/uL (4.7-6.1); White Blood Count 12.23 K/uL (4.8-10.8)
[2018-11-09 07:30] LABS: Calcium 8.6 mg/dl (8.5-10.1); Creatinine Clr Calc Pharmacy 57.8 ml/min; Est GFR (Non-African American) 56.1; Potassium 3.7 mmol/L (3.5-5.1)
[2018-11-09] MEDS: ATORVASTATIN 40 MG TAB PO SCH (08:05)
[2018-11-09] MEDS: LISINOPRIL 10 MG TAB PO SCH (08:05)
[2018-11-09] MEDS: ASPIRIN 81 MG ECTAB PO SCH (08:05)
[2018-11-09] MEDS: DOXYCYCLINE HYCLATE 100 MG CAP PO SCH (08:05)
[2018-11-09] MEDS: AMLODIPINE BESYLATE 5 MG TAB PO SCH (08:05)
[2018-11-09] MEDS ORDERED: INSULIN GLARGINE SOLOSTAR 100 UNITS/ML 3 ML PEN SC SCH (09:00)
[2018-11-09] MEDS: HydrALAZINE HCL 20 MG/ML VIAL IV PRN ×2 (09:20→15:51)
--- NOTE | 2018-11-09 13:17 | Hospitalist Progress Note ---
Date of Service November 09, 2018 Assessment & Plan (1) Hypertensive urgency: Patient is a 73-year-old male with past medical history of diabetes type 2, hyperlipidemia, hypertension, COPD, history of CVA, GERD, right eye blindness from childhood trauma, tobacco abuse, status post abdominal aortic aneurysm repair, comes with strokelike symptoms-somewhat imbalance, slurred speech, confusion. STROKE LIKE SYMPTOMS D/D - TIA vs possibly a combination of metabolic/hypertensive encephalopathy Per daughter, patient was at [facility] when he started behaving wierd- Fumbling, not talking much, gait imbalance, left his car door open, was found naked at home by neighbor after returning back from [facility]. BGS was 495 on admission, BP up to 203/99 Baseline: No dementia per daughter. Independent with ADLs with no issues, drives -Prior hx of stroke, HTN -MRI Brain- Stroke ruled out -On aspirin, Statin as at home. -Work up- CT head- No significant change, US carotid- Neg for significant stenosis, Echo- EF 55-60% , Gd I diastolic dysfunction, Mild MR, moderate to severe LVH HTN URGENCY Systolic blood pressure in 230s on admission, now improving. BP 164/72 Not on any blood pressure medications at home. Nitro paste and IV labetalol as needed ordered - Newly started on Lisinopril 10 mg, amlodipine 10 mg daily. IV hydralazine PRN Echocardiogram shows moderate to severe LVH Monitor BP TIMOTHY on CKD III - Resolved Baseline creatinine 1.5, presented with creatinine 2.4, now trending down to 1.27 -Ok to discontinue IV Fluids Diabetes mellitus type 2, Uncontolled Hold home medications of glimepiride, metformin, Jardiance Insulin sliding scale, Lantus started Hemoglobin A1c - 12.2 Pharmacy consulted for glycemic control Diabetic education consult placed History of CVA in the past with no residual deficits Continue with statin and aspirin -Slight flattening of left naso labial fold GERD Continue with Protonix Tobacco abuse disorder Counseling done COPD No signs of exacerbation next linecontinue with inhalers as needed History of abdominal aortic aneurysm repair History of carotid endarterectomy Continue with aspirin and statin DVT prophylaxis SCDs Full code Disposition Likely discharge today evening after neurology re evaluation and PT/OT -Updated daughter over phone Subjective Patient is awake, alert, oriented x3 today. Vaguely remembers the events which brought him to ED Denies any headache, nausea, vomiting, localized weakness. No slurred speech, fever, chills Physical Exam Physical Exam: GENERAL-awake, alert, oriented x3, not in acute distress LUNGS- Air entry bilaterally decreased. No wheezing HEART- Regular rate and rhythm. No murmurs ABDOMEN- Soft, non tender, non distended, Bowel sounds heard. EXTREMITIES- Good peripheral pulses, no edema NEUROMUSCULAR-awake, alert, oriented x3. Power5/5 all extremities, does have mild flattening of left nasolabial fold likely from his prior stroke Results & Data Vital Signs (Past 12 Hours) Vital Signs Temp Pulse Pulse Resp BP BP Pulse Ox 11/09/18 12:32 11/09/18 11:49 36.9 C 88 20 164/72 H 90 11/09/18 10:01 164/73 H 11/09/18 09:20 194/87 H 211/100 H 11/09/18 08:00 101 H 11/09/18 07:21 37.0 C 69 20 162/75 H 96 11/09/18 03:45 36.5 C 84 18 178/83 H 97 Pulse Ox Pulse Ox Pulse Ox 11/09/18 12:32 90 88 L 90 11/09/18 11:49 11/09/18 10:01 11/09/18 09:20 11/09/18 08:00 11/09/18 07:21 11/09/18 03:45
--- NOTE | 2018-11-09 13:40 | Pharmacy Report ---
Pharmacy Glycemic Short Note 2 - Date of Service November 09, 2018 - Glycemic Short BSG Results (Last 24 hours): 11/08/18 11/08/18 11/08/18 16:37 20:50 23:55 Glucose POC Glucose 234 H 207 H 192 H 11/09/18 11/09/18 11/09/18 03:54 06:22 07:06 Glucose 154 H POC Glucose 166 H 140 H 11/09/18 11:24 Glucose POC Glucose 165 H OUTPATIENT ANTIDIABETIC REGIMEN: * Amaryl, Metformin, Jardiance ASSESSMENT: * Mr. Michel's BSGs are much improved since initiation of insulin. Today's A1C of 12.2% certainly warrants initiation of insulin. Spoke w Dr. Barnes, he is to be d/c'd this evening after neurology signs off. Please see my d/c recs below PLAN FOR DISCHARGE: * Given his marcovascular co-morbidities I would continue his metformin, he currently takes 850mg QD. I would titrate up as tolerated to a max daily dose of 2550mg. Potentially start with 500mg BIDM or 1g BIDM * Continue his Jardiance given it's proven benefits in CKD and HF * Add Lantus 20u QAM * discontinue his amaryl 2mg QAM
[2018-11-09] MEDS: SODIUM CHLORIDE 0.9% 1000ML 1,000 ML IV SCH (15:16)
--- NOTE | 2018-11-09 16:09 | Discharge Summary ---
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 The patient was having a family get together, his daughter took him to the get together. The patient seemed somewhat imbalanced and somewhat slurred speech and somewhat confused, but he did not want to come to the hospital. It was around 10:00 a.m. in the morning on 11/07/2018. During the family get together, he did not talk to anyone. Then he drove back himself for a 1-hour drive and his daughter called the neighbor to check on him. It looked like he kept his car door open and the car engine was still running and his front door was open and he seemed confused. Then he was brought in here. His ex- is in the room. The patient currently is alert and awake, oriented to name and place and he knows that it is October, knows his date of .But he is adamantly refusing to stay in the hospital. Says he is doing fine and wanted to go home even though his daughter talked on the phone and his ex- talked to him he still wanted to go home, but because his blood pressure was very high with systolic blood pressure in 230s, because of his possible confusion and possible stroke, there was question of competence and his daughter who is the power of sketch liner wants to keep him in the hospital. Patient denies any headache, no blurred visions. Denies any earache, sore throat, or difficulty swallowing. Denies any chest pain or shortness of breath, has some occasional cough, no nausea, no abdominal pain. He says his bowels are moving all right and he is micturating fine. No swelling in the legs. Apparently, the patient was with his ex- last for a picnic and states there were some imbalance issues, he was doing okay at that time. His sugars were also running high in the ER. He does not check his blood pressure or sugars at home. Principal Diagnosis 1. Confusion, possibly a combination of metabolic/hypertensive encephalopathy, stroke ruled out 2. Hypertensive urgency 3. Acute kidney injury on chronic kidney disease 3 4. Uncontrolled diabetes mellitus Secondary diagnoses on discharge 1. History of CVA 2. GERD 3. Tobacco abuse disorder 4. COPD 5. History of abdominal aortic aneurysm repair 6. History of carotid endarterectomy Discharge Exam GENERAL-awake, alert, oriented x3, not in acute distress LUNGS- Air entry bilaterally decreased. No wheezing HEART- Regular rate and rhythm. No murmurs ABDOMEN- Soft, non tender, non distended, Bowel sounds heard. EXTREMITIES- Good peripheral pulses, no edema NEUROMUSCULAR-awake, alert, oriented x3. Power5/5 all extremities, does have mild flattening of left nasolabial fold likely from his prior stroke Discharge Data Allergies Allergy/AdvReac Type Severity Reaction Status Date / Time No Known Allergies Allergy Unknown Verified 11/07/18 20:02 Consultations 11/07/18 22:01 ED Decision to Admit Stat 11/08/18 01:59 Consult Case Management - Discharge Planning Routine Consult Case Management - Discharge Planning Routine 11/08/18 08:00 Consult Neurology Routine 11/08/18 10:58 Consult Neurology Routine Ordered Studies 11/07/18 19:59 CT head/brain wo con Stat 11/08/18 01:59 US carotid doppler BI Routine 11/08/18 06:07 MR brain wo con Urgent Hospital Course (1) Hypertensive urgency: Patient is a 73-year-old male with past medical history of diabetes type 2, hyperlipidemia, hypertension, COPD, history of CVA, GERD, right eye blindness from childhood trauma, tobacco abuse, status post abdominal aortic aneurysm repair, comes with strokelike symptoms-somewhat imbalance, slurred speech, confusion. STROKE LIKE SYMPTOMS Possibly a combination of Metabolic/hypertensive encephalopathy Discussed with neurology- less likely to be TIA. Stroke ruled out by negative MRI Per daughter, patient was at [facility] when he started behaving wierd- Fumbling, not talking much, gait imbalance, left his car door open, was found naked at home by neighbor after returning back from [facility]. BGS was 495 on admission, BP up to 203/99 Baseline: No dementia per daughter. Independent with ADLs with no issues, drives -Prior hx of stroke, HTN -On aspirin, Statin as at home. -Work up- MRI brain- No stroke, CT head- No significant change, US carotid- Neg for significant stenosis, Echo- EF 55-60% , Gd I diastolic dysfunction, Mild MR, moderate to severe LVH, Tele - No events. HTN URGENCY - BP improved Systolic blood pressure in 230s on admission, now improving. BP 164/72 Not on any blood pressure medications at home. - Newly started on Lisinopril 10 mg--> Increase to 20 mg daily as BP still high, amlodipine 10 mg daily. IV hydralazine PRN Echocardiogram shows moderate to severe LVH as above Monitor BP closely outpatient TIMOTHY on CKD III - Resolved Baseline creatinine 1.5, presented with creatinine 2.4, now trending down to 1.27 -Discontinued IV Fluids Diabetes mellitus type 2, Uncontrolled Hold home medications of glimepiride, metformin, Jardiance -To be discharged on - Lantus 20 units q AM, Increase Metformn from 850 mg twice daily to 1 g twice daily. Discontinue Amaryl. Continue with Jardiance Hemoglobin A1c - 12.2 Pharmacy consulted for glycemic control Diabetic education consult placed-insulin teaching done -Monitor blood glucose closely outpatient History of CVA in the past with no residual deficits Continue with statin and aspirin -Slight flattening of left naso labial fold GERD Continue with Protonix Tobacco abuse disorder Counseling done COPD No signs of exacerbation next linecontinue with inhalers as needed History of abdominal aortic aneurysm repair History of carotid endarterectomy Continue with aspirin and statin DVT prophylaxis SCDs Full code Disposition Likely discharge today evening after neurology re evaluation and PT/OT -Updated daughter over phone Total Time Total Time Spent Total Time Spent (In Minutes): 40 minutes Discharge Plan Discharge Items Patient Disposition: Home - Self-Care Reason For Visit: STROKE LIKE SYMPTOMS Discharge Diagnosis: 1. Stroke likely symptoms likely secondary to uncontrolled BP / Hyperglycemia 2. Uncontrolled diabetes mellitus 3. Hypertensive urgency Discharge Goals: Improve disease control Specific Goals: Blood pressure and sugar control Activity: Resume your previous activity Non-emergency contact: Primary Care Provider Call non-emergency contact if: your symptoms worsen Follow-up/Referrals: Isaak Jamil DO [Primary Care Provider] - 11/13/18 1:05 pm Diet: Carb Consistent or DM2, Low Fat and Low Sodium (2gm) Addtl Provider Instructions: You were admitted to the hospital for strokelike symptoms. Tests done during this hospitalization includes MRI brainstroke ruled out, echocardiogram, CT scan head, ultrasound carotid duplex which did not show any new significant abnormalities. Your diabetes was found to be very uncontrolled with hemoglobin A1c of 12.2. You will be newly started on insulin during this admission. MEDICATION CHANGES 1. New Medication-insulin Lantus 20 units in the morning as instructed 2. Increase metformin to thousand milligrams twice a day from 850 mg daily 3. Discontinue Amaryl 4. New medicationlisinopril 20 mg daily for blood pressure control 5. New medicationamlodipine 10 mg daily for blood pressure control MONITOR AT HOME 1. Blood glucose monitoring as instructed by certified adapted physical educator 2. Blood pressure monitoring Do write down the readings of both in a diary and take it to your primary care physician office during next appointment Prescriptions: New amlodipine [Norvasc] 10 mg tablet 10 mg PO QAM 30 Days Qty: 30 RF: 0 lisinopril 10 mg Tablet 20 mg PO QAM 30 Days Qty: 60 RF: 0 Lantus Solostar U-100 Insulin 100 unit/mL (3 mL) Insulin Pen 20 unit SC DAILY 30 Days Qty: 6 RF: 0 Accu-Chek Guide strip .ROUTE .MEDSUPPLY Qty: 100 RF: 0 lancets [Accu-Chek Fastclix Lancet Drum] misc .ROUTE .MEDSUPPLY Qty: 100 RF: 0 pen needle, diabetic [Pen Needle] 32 gauge x 5/32" needle .ROUTE .MEDSUPPLY Qty: 100 RF: 0 Continued atorvastatin 40 mg Tablet 40 mg PO DAILY RF: 0 trazodone 50 mg Tablet 50 mg PO HS RF: 0 metformin 850 mg Tablet 850 mg PO DAILY RF: 0 aspirin [Aspir-81] 81 mg Tablet,Delayed Release (Dr/Ec) 81 mg PO DAILY RF: 0 glimepiride 2 mg Tablet 2 mg PO QAM RF: 0 pantoprazole 40 mg Tablet,Delayed Release (Dr/Ec) 40 mg PO DAILYBB RF: 0 ibuprofen 200 mg Tablet 200 mg PO Q4H PRN (Reason: Pain) RF: 0 doxycycline hyclate 100 mg Tablet 100 mg PO DAILY RF: 0 Jardiance 25 mg Tablet 25 mg PO DAILY RF: 0 Stand-Alone Forms: [employer] [facility]/Other Patient Handouts: Log Blood Sugar, Diabetes Heart Disease, Diabetes Grid Trimmer Complications, Hyperglycemia, Hypoglycemia, Diabetes Resources, Diabetes Type 2 Coping, Blood Sugar Check, Insulin Injected, Diabetes Type 2 Oral Meds, Insulin Types, Diabetes Healthy Meals, Diabetes Carbs, Diabetes Exercise Benefits, Diabetes Activity Tips, Diabetes Driving Issues, Diabetes Manage A1C Test, Diabetes Meal Planning Discharge Orders: Discharge Order (Routine); Ordered 11/09/18 Ordered By: Mariangel Barnes Admission Data Admit Date/Time: 11/08/18 00:39 Attending Provider: Mariangel Barnes Admit Provider: Александр Freed Primary Care Provider: Isaak Jamil Other Providers: Александр Freed ; Jesisca Ayala ; Kulwant Griffith ; Jessica Biggs ; Gennaro Hill Service: Telemetry
[2018-11-09] MEDS ORDERED: STROKE PATIENT DISCHARGE STA (17:00)
--- NOTE | 2018-11-09 19:36 | Procedure Note ---
EEG Procedure Note Date of Service November 09, 2018 Start / End Times Start Time: 1008 End Time: 1028 Referring Physician Jessica Biggs MD History Confusional state with hypertension and hyperglycemia Home Medication List Home Medications Medication Instructions Recorded Confirmed Type Jardiance 25 mg PO DAILY 11/07/18 11/07/18 History aspirin [Aspir-81] 81 mg PO DAILY 11/07/18 11/07/18 History atorvastatin 40 mg PO DAILY 11/07/18 11/07/18 History doxycycline hyclate 100 mg PO DAILY 11/07/18 11/07/18 History glimepiride 2 mg PO QAM 11/07/18 11/07/18 History ibuprofen 200 mg PO Q4H PRN 11/07/18 11/07/18 History metformin 850 mg PO DAILY 11/07/18 11/07/18 History pantoprazole 40 mg PO DAILYBB 11/07/18 11/07/18 History trazodone 50 mg PO HS 11/07/18 11/07/18 History amlodipine [Norvasc] 10 mg PO QAM 30 Days #30 tab 11/09/18 Rx blood sugar diagnostic [Accu-Chek #100 ea 11/09/18 Rx Guide] insulin glargine [Lantus Solostar 20 unit SC DAILY 30 Days #6 ml 11/09/18 Rx U-100 Insulin] lancets [Accu-Chek Fastclix Lancet #100 ea 11/09/18 Rx Drum] lisinopril 20 mg PO QAM 30 Days #60 tab 11/09/18 Rx pen needle, diabetic [Pen Needle] #100 ea 11/09/18 Rx Inpatient Medication List Discontinued Medications Amlodipine Besylate (Norvasc) 10 mg PO QAM [facility] Stop: 12/08/18 15:44 Last Admin: 11/09/18 08:05 Dose: 10 mg Documented by: [id number] Admin: 11/08/18 16:44 Dose: 10 mg Documented by: [id number] Aspirin (Ecotrin Ectab) 81 mg PO DAILY [facility] Stop: 12/08/18 08:59 Last Admin: 11/09/18 08:05 Dose: 81 mg Documented by: [id number] Admin: 11/08/18 11:32 Dose: 81 mg Documented by: [id number] Atorvastatin Calcium (Lipitor) 40 mg PO DAILY [facility] Stop: 12/08/18 08:59 Last Admin: 11/09/18 08:05 Dose: 40 mg Documented by: [id number] Admin: 11/08/18 11:32 Dose: 40 mg Documented by: [id number] Doxycycline Hyclate (Vibramycin) 100 mg PO DAILY [facility] Stop: 12/08/18 08:59 Last Admin: 11/09/18 08:05 Dose: 100 mg Documented by: [id number] Admin: 11/08/18 11:33 Dose: 100 mg Documented by: [id number] Hydralazine HCl (Hydralazine Hcl) 10 mg IV Q8 PRN PRN Reason: FOR SBP >180 Stop: 12/08/18 15:44 Last Admin: 11/09/18 15:51 Dose: 10 mg Documented by: [id number] Admin: 11/09/18 09:20 Dose: 10 mg Documented by: [id number] Admin: 11/08/18 23:26 Dose: 10 mg Documented by: [id number] Sodium Chloride (Nss 1000ml) 1,000 mls @ 999 mls/hr IV .Q1H1M ONE Stop: 11/07/18 20:34 Last Infusion: 11/07/18 20:59 Dose: 0 mls/hr Documented by: [id number] Admin: 11/07/18 19:59 Dose: 999 mls/hr Documented by: [id number] Sodium Chloride (Nss 1000ml) 1,000 mls @ 250 mls/hr IV .Q4H STA Stop: 11/08/18 02:00 Last Infusion: 11/08/18 02:17 Dose: 0 mls/hr Documented by: [id number] Admin: 11/07/18 22:14 Dose: 250 mls/hr Documented by: [id number] Sodium Chloride (Nss 1000ml) 1,000 mls @ 80 mls/hr IV .[id number] [facility] Stop: 12/08/18 00:44 Last Admin: 11/09/18 15:16 Dose: Not Given Documented by: [id number] Infusion: 11/09/18 13:35 Dose: 0 mls/hr Documented by: [id number] Admin: 11/08/18 21:56 Dose: 125 mls/hr Documented by: [id number] Infusion: 11/08/18 17:12 Dose: 125 mls/hr Documented by: [id number] Admin: 11/08/18 09:12 Dose: 125 mls/hr Documented by: [id number] Infusion: 11/08/18 09:12 Dose: 125 mls/hr Documented by: [id number] Admin: 11/08/18 02:13 Dose: 125 mls/hr Documented by: [id number] Lorazepam (Ativan) 1 mg in 2 mls @ 2 mls/min IV NOW STA Stop: 11/08/18 00:40 Last Admin: 11/08/18 00:47 Dose: 1 mls/min Documented by: [id number] Insulin Aspart (Novolog Flexpen) 8 units SC NOW STA Stop: 11/07/18 22:07 Last Admin: 11/07/18 22:14 Dose: 8 units Documented by: [id number] Cosigned by: [id number] Insulin Aspart (Novolog Flexpen) 0 units SC ACHS [facility] Stop: 12/08/18 07:29 Last Admin: 11/09/18 16:58 Dose: 2 units Documented by: [id number] Cosigned by: [id number] Admin: 11/09/18 12:06 Dose: 7 units Documented by: [id number] Cosigned by: [id number] Admin: 11/09/18 08:02 Dose: 1 units Documented by: [id number] Cosigned by: [id number] Admin: 11/08/18 21:54 Dose: 3 units Documented by: [id number] Cosigned by: [id number] Admin: 11/08/18 16:46 Dose: 8 units Documented by: [id number] Cosigned by: [id number] Admin: 11/08/18 11:30 Dose: 2 units Documented by: [id number] Cosigned by: [id number] Admin: 11/08/18 08:11 Dose: 4 units Documented by: [id number] Cosigned by: [id number] Insulin Aspart (Novolog Flexpen) 0 units SC 0400 [facility] Stop: 11/08/18 04:01 Last Admin: 11/08/18 04:35 Dose: 5 units Documented by: [id number] Cosigned by: [id number] Insulin Aspart (Novolog Flexpen) 0 units SC TODAY@0000,0400 [facility] Stop: 11/09/18 04:01 Last Admin: 11/09/18 04:43 Dose: 1 units Documented by: [id number] Cosigned by: [id number] Admin: 11/09/18 00:11 Dose: 2 units Documented by: [id number] Cosigned by: [id number] Insulin Glargine (Lantus Solostar Pen) 15 units SC NOW ONE Stop: 11/08/18 02:16 Last Admin: 11/08/18 03:04 Dose: 15 units Documented by: [id number] Cosigned by: [id number] Insulin Glargine (Lantus Solostar Pen) 20 units SC DAILY [facility] Stop: 12/09/18 08:59 Last Admin: 11/09/18 08:04 Dose: 20 units Documented by: [id number] Cosigned by: [id number] Insulin Glargine (Lantus Solostar Pen) 0 units SC HS ONE; Protocol Stop: 11/08/18 21:01 Last Admin: 11/08/18 21:54 Dose: 5 units Documented by: [id number] Cosigned by: [id number] Insulin Human Regular (Novolin R U-100 Per Unit) 4 units IV NOW STA Stop: 11/08/18 00:40 Last Admin: 11/08/18 00:51 Dose: 4 units Documented by: [id number] Cosigned by: [id number] Labetalol HCl (Normodyne) 10 mg IV NOW STA Stop: 11/07/18 23:34 Last Admin: 11/07/18 23:38 Dose: 10 mg Documented by: [id number] Cosigned by: [id number] Labetalol HCl (Normodyne) 10 mg IV Q4H PRN PRN Reason: Hypertension Stop: 12/08/18 00:38 Last Admin: 11/08/18 11:37 Dose: 10 mg Documented by: [id number] Cosigned by: [id number] Admin: 11/08/18 04:20 Dose: 10 mg Documented by: [id number] Cosigned by: [id number] Lisinopril (Zestril) 10 mg PO QAM [facility] Stop: 12/08/18 18:59 Last Admin: 11/09/18 08:05 Dose: 10 mg Documented by: [id number] Admin: 11/08/18 19:33 Dose: 10 mg Documented by: [id number] Nitroglycerin (Nitro-Bid 2%) 1 inch EXT Q6H [facility] Stop: 12/08/18 00:38 Last Admin: 11/08/18 11:31 Dose: 1 inch Documented by: [id number] Admin: 11/08/18 05:54 Dose: 1 inch Documented by: [id number] Admin: 11/08/18 00:49 Dose: 1 inch Documented by: [id number] Pantoprazole Sodium (Protonix) 40 mg PO DAILYBB [facility] Stop: 12/08/18 06:29 Last Admin: 11/08/18 11:33 Dose: 40 mg Documented by: [id number] Admin: 11/08/18 05:50 Dose: Not Given Documented by: [id number] Pneumococcal Polyvalent Vaccine (Pneumovax-23) 25 mcg IM .ONCE ONE Stop: 11/08/18 22:01 Last Admin: 11/09/18 17:07 Dose: 25 mcg Documented by: [id number] Trazodone HCl (Desyrel) 50 mg PO HS [facility] Stop: 12/08/18 20:59 Last Admin: 11/08/18 21:53 Dose: 50 mg Documented by: [id number] Description This is a 21 electrode EEG with a single channel dedicated to limited EKG. The electrodes were placed in accordance with the International 10-20 system. This EEG was done as a bedside recording with simultaneous video analysis during which the patient appeared to be drowsy most of the time Under these conditions there is evidence for a background rhythm in the upper theta range of up to 7 Hz and maximum frequency and about 230 V maximum amplitude. This activity is maximum and posterior head regions and bilaterally symmetrical. Polymorphic mid frequency moderate voltage theta activity in the lower range is seen over the central regions in a symmetrical fashion. Occasional isolated waveforms in the delta range are seen. Beta activity is seen bifrontally. Photic stimulation provokes a modest driving response without any p hotoparoxysmal or photo myogenic components At no time during the waking tracing is or evidence for potentially epileptogenic activity states Interpretation Mildly diffusely abnormal EEG with evidence of excessive slow-wave activity in theta range and an absence of normal alpha rhythm. Clinical Correlation This is a mildly abnormal EEG revealing a highly nonspecific nonlateralizing encephalopathy without accompanying potentially epileptogenic pattern and could correlate with any 1 of a number of issues including a toxic metabolic encephalopathy, hypertensive encephalopathy etc. there is no evidence for nonconvulsive status epilepticus or any other paroxysmal disorder Kulwant Griffith MD
== END 2018-11-09 19:18 | disposition home or self-care (01) | DRG 682 ==
LOC: ED 19:29 → 2S 11-08 00:39
DX: N17.9 Acute kidney failure, unspecified; H54.7 Unspecified visual loss; E78.5 Hyperlipidemia, unspecified; I10 Essential (primary) hypertension; G93.41 Metabolic encephalopathy; Z86.73 Personal history of transient ischemic attack (TIA), and cerebral infarction without residual deficits; Z87.891 Personal history of nicotine dependence; K21.9 Gastro-esophageal reflux disease without esophagitis; E11.9 Type 2 diabetes mellitus without complications; J44.9 Chronic obstructive pulmonary disease, unspecified; I16.0 Hypertensive urgency; Z79.82 Long term (current) use of aspirin; I67.4 Hypertensive encephalopathy

== ENCOUNTER 2018-12-15 10:12 | Inpatient (IN) ==
[2018-12-15 10:43] LABS: Basophils # (auto) 0.06 K/uL (0-0.2); Basophils % (auto) 0.5 %; Eosinophils # (auto) 0.09 K/uL (0-0.5); Eosinophils % (auto) 0.7 %; Hematocrit (blood only) 38.4 % (42-52); Hemoglobin 13.1 g/dL (14.0-18.0); Immature Granulocytes # (auto) 0.07 K/uL (0.00-0.02); Immature Granulocytes % (auto) 0.6 %; Lymphocytes # (auto) 1.44 K/uL (1.2-3.4); Lymphocytes % (auto) 11.4 %; Mean Corpuscular Hemoglobin 31.2 pg (25-34); Mean Corpuscular Hgb Conc 34.1 g/dL (32-36); Mean Corpuscular Volume 91.4 fL (80-100); Mean Platelet Volume 10.3 fL (7.4-10.4); Monocytes # (auto) 1.14 K/uL (0.11-0.59); Neutrophils # (auto) 9.83 K/uL (1.4-6.5); Neutrophils % (auto) 77.8 %; Platelet Count 285 K/uL (130-400); RDW Coefficient of Variation 12.7 % (11.5-14.5); RDW Standard Deviation 42.3 fL (36.4-46.3); White Blood Count 12.63 K/uL (4.8-10.8)
[2018-12-15] MEDS ORDERED: SODIUM CHLORIDE 0.9% 1000ML 1,000 ML IV SCH ×2 (10:45→16:03)
--- NOTE | 2018-12-15 11:05 | XRay Report ---
SINGLE VIEW CHEST CLINICAL HISTORY: Lightheadedness. Dizziness. FINDINGS: An AP, portable, upright chest radiograph is compared to study dated 11/07/2018 and correlat ed with chest CT dated 02/02/2010. The examination is degraded by portable technique, apical lordotic positioning, and patient rotation. The heart is mildly enlarged and there is atherosclerotic calcifi cation of the thoracic aorta. Advanced emphysema and chronic interstitial thickening are similar to p revious. Chronic opacities at the right lung base are unchanged. There is no evidence of airspace con solidation or large pleural effusion. No pneumothorax is seen. The skeletal structures are osteopenic . The bony thorax is grossly intact. IMPRESSION: Cardiomegaly and emphysema with no acute cardiopulmonary abnormality. Electronically signed by: Jesus Skelton M.D. 12/15/2018 11:03 AM
[2018-12-15 11:09] LABS: Prothrombin Time 10.3 Seconds (9.0-12.0)
[2018-12-15 11:17] LABS: Alanine Aminotransferase 20 U/L (12-78); Albumin Globulin Ratio 1.1 (0.9-2); Albumin Level 3.9 gm/dl (3.4-5.0); Alkaline Phosphatase 106 U/L (45-117); Aspartate Aminotransferase 14 U/L (15-37); BUN Creatinine Ratio 15.3 (10-20); Bilirubin,Total 0.7 mg/dl (0.2-1); Blood Urea Nitrogen 70 mg/dl (7-18); Calcium 9.1 mg/dl (8.5-10.1); Carbon Dioxide 25 mmol/L (21-32); Chloride 98 mmol/L (98-107); Creatinine Clr Calc Pharmacy 15.9 ml/min; Est GFR (African American) 13.7; Est GFR (Non-African American) 11.8; Globulin 3.7 gm/dl (2.5-4.0); Glucose 237 mg/dl (70-99); Potassium 5.1 mmol/L (3.5-5.1); Sodium 133 mmol/L (136-145); Total Protein 7.6 gm/dl (6.4-8.2); Troponin I < 0.015 ng/ml (0-0.045)
--- NOTE | 2018-12-15 12:24 | Emergency Department Note ---
Entered by Jasbir Calderón acting as a scribe for History of Present Illness General Chief complaint: Dizziness Time Seen by Provider: 12/15/18 10:18 Source: patient History of Present Illness Provider complaint: Dizziness Onset (ago): hour(s) (Just prior to arrival) Location: head Pain Consistency: + intermittent Relieved By: + none Exacerbated By: + none Associated symptoms: + other (Positive hypotension) The patient is a 73 year old male who presents to the Emergency Room with complaints of constant dizziness that started this morning while at a follow up doctors appointment. The patient states that one week ago he had a nose bleed that was constant until 4 days ago when he had a Rhino Rocket inserted here in the ED. The patient notes that over the weekend he knocked out the Rhino Rocket by accident but he still went to his follow up appointment today. The patient states that while at the appointment he developed his dizziness. Moreover, the patient was hypotensive at the office and staff was concerned that he was dehydrated. As a result he was sent to the ED for a further work up. The jey jennings's nose is not actively bleeding. Home Medications Home Medications Medication Instructions Recorded Confirmed Type atorvastatin 40 mg PO QPM 11/07/18 12/15/18 History metformin 850 mg PO QAM 11/07/18 12/15/18 History pantoprazole 40 mg PO DAILYBB 11/07/18 12/15/18 History empagliflozin [Jardiance] 25 mg PO DAILY 12/12/18 12/15/18 History glimepiride 2 mg PO QAM 12/12/18 12/15/18 History hydroxyzine HCl 25 mg PO QAM 12/12/18 12/15/18 History amoxicillin 500 mg PO BID 10 Days #20 cap 12/13/18 12/15/18 Rx hydrocodone-acetaminophen [[place]] 1 tab PO Q6H PRN #10 tab 12/13/18 12/15/18 Rx amlodipine 10 mg PO QAM 12/15/18 12/15/18 History insulin glargine [Basaglar KwikPen 20 unit SUBCUT DAILY 12/15/18 12/15/18 History U-100 Insulin] lisinopril 10 mg PO BID 12/15/18 12/15/18 History zolpidem 5 mg PO HS 12/15/18 12/15/18 History Allergies Allergy/AdvReac Type Severity Reaction Status Date / Time No Known Allergies Allergy Verified 12/15/18 11:19 Past Med/Surg History Medical History Diabetes (Chronic) Family History Other Family history non-contributory Social History Preferred Language: Mosotho Communication Ability: Effective Beliefs That Will Affect Care: None Current Living Situation: Alone Other Information That Helps Us Care for You: No Feels Safe at Home: Yes Safety Concerns: Feels Safe At This Time Smoking Status: Former smoker Hx Alcohol Use: No (unknown pt responsive to stimuli only) Hx Substance Use: No (unknown pt responsive to stimuli only) Review of Systems See HPI for pertinent positives & negatives. and A total of 10 systems reviewed and were otherwise negative Physical Exam Vital Signs Vital Signs - 24 hr 12/15/18 10:31 12/15/18 10:41 12/15/18 11:53 Temperature 36.5 C Temperature Source Oral Sepsis Recent Fever Within 48 Hours No Sepsis New/Unexplained Change in Mental Status No Sepsis Action Taken by Nursing No Action Required Pulse Rate - Lying 72 Pulse Rate - Sitting 78 Pulse Rate - Standing 90 Pulse Rate 81 Pulse Rate [Finger] 71 Respiratory Rate 18 20 Respiratory Effort / Characteristics Non-Labored Respiratory Depth Normal Respiratory Pattern Blood Pressure - Lying 116/54 L Blood Pressure - Sitting 118/51 L Blood Pressure- Standing 75/57 L Blood Pressure 120/49 L Blood Pressure [Right Arm] 124/58 L Blood Pressure Mean 72 Blood Pressure Mean [Right Arm] 80 Pulse Oximetry 92 92 97 Oxygen Delivery Method Room Air Room Air Nasal Cannula Oxygen Flow Rate 2 12/15/18 12:03 Temperature Temperature Source Sepsis Recent Fever Within 48 Hours Sepsis New/Unexplained Change in Mental Status Sepsis Action Taken by Nursing Pulse Rate - Lying Pulse Rate - Sitting Pulse Rate - Standing Pulse Rate Pulse Rate [Finger] Respiratory Rate Respiratory Effort / Characteristics Non-Labored Spontaneous Respiratory Depth Normal Respiratory Pattern Regular Blood Pressure - Lying Blood Pressure - Sitting Blood Pressure- Standing Blood Pressure Blood Pressure [Right Arm] Blood Pressure Mean Blood Pressure Mean [Right Arm] Pulse Oximetry Oxygen Delivery Method Nasal Cannula Oxygen Flow Rate 2 CONSTITUTIONAL/VITAL SIGNS: Reviewed / noted above. GENERAL: Non-toxic in appearance. INTEGUMENTARY: Warm, dry, and [place]. HEAD: Normocephalic. EYES: without scleral icterus or trauma. ENT/OROPHARYNX: clear and moist. Dry blood in left nares, no active bleeding. LYMPHADENOPATHY/NECK: Is supple without lymphadenopathy or meningismus. RESPIRATORY: Lungs clear and equal. CARDIOVASCULAR: Regular rate and rhythm. GI/ABDOMEN: Soft and nontender. No organomegaly or pulsatile mass. No rebound or guarding. Normal bowel sounds. EXTREMITIES: Warm and well perfused. BACK: No CVA tenderness. NEUROLOGICAL: Intact without focal deficits. PSYCHIATRIC: normal affect. MUSCULOSKELETAL: Normally developed with good muscle tone. Course 1026: Past medical records reviewed. The patient was evaluated in room B11B, and a complete history and physical examination were performed. 1143: I reevaluated and updated the patient on results. We also discussed the treatment plan and he is agreeable. 1210: I spoke to Dr. Arianne Oliver [facility] Hospitalist about the patient's case. She is going to accept the patient for further evaluation. Consultations Consultation #1: I spoke to Dr. Arianne Oliver [facility] Hospitalist about the patient's case. She is going to accept the patient for further evaluation. Time: 12:23 Administered Medications Discontinued Medications Sodium Chloride (Nss 1000ml) 1,000 mls @ 999 mls/hr IV .Q1H1M ROBERT Stop: 12/15/18 11:45 Last Infusion: 12/15/18 11:51 Dose: 0 mls/hr Documented by: [id number] Admin: 12/15/18 10:45 Dose: 999 mls/hr Documented by: [id number] Medical Decision Making Differential Diagnosis Differential diagnosis includes etiologies such as benign positional vertigo, dehydration, hypovolemia, anemia, tumor, infection, hypoglycemia, electrolyte abnormalities, cardiac sources, intracerebral event, toxicologic, neurologic, as well as others were entertained. Medical Records Attestation: I reviewed the patient's medical records. Home Medications Current Medication List: was personally reviewed by me Laboratory Data Attestation: I reviewed the patient's lab results. Result diagrams: 12/15/18 09:51 12/15/18 09:51 Lab Results 12/15/18 12/15/18 12/15/18 Range/Units 09:51 09:51 09:51 WBC 12.63 H (4.8-10.8) K/uL RBC 4.20 L (4.7-6.1) M/uL Hgb 13.1 L (14.0-18.0) g/dL Hct 38.4 L (42-52) % MCV 91.4 (80-100) fL MCH 31.2 (25-34) pg MCHC 34.1 (32-36) g/dL RDW Std Deviation 42.3 (36.4-46.3) fL RDW Coeff of Sadaf 12.7 (11.5-14.5) % Plt Count 285 (130-400) K/uL MPV 10.3 (7.4-10.4) fL Immature Gran % (Auto) 0.6 % Neut % (Auto) 77.8 % Lymph % (Auto) 11.4 % Garland % (Auto) 9.0 % Eos % (Auto) 0.7 % Baso % (Auto) 0.5 % Immature Gran # (Auto) 0.07 H (0.00-0.02) K/uL Neut # (Auto) 9.83 H (1.4-6.5) K/uL Lymph # (Auto) 1.44 (1.2-3.4) K/uL Garland # (Auto) 1.14 H (0.11-0.59) K/uL Eos # (Auto) 0.09 (0-0.5) K/uL Baso # (Auto) 0.06 (0-0.2) K/uL PT 10.3 (9.0-12.0) Seconds INR 1.0 (0.9-1.1) Sodium 133 L (136-145) mmol/L Potassium 5.1 (3.5-5.1) mmol/L Chloride 98 (98-107) mmol/L Carbon Dioxide 25 (21-32) mmol/L Anion Gap 10.0 (3-11) BUN 70 H (7-18) mg/dl Creatinine 4.60 H* (0.6-1.4) mg/dl Est Cr Clr Drug Dosing 15.9 ml/min Est GFR ( Amer) 13.7 Est GFR (Non-Af Amer) 11.8 BUN/Creatinine Ratio 15.3 (10-20) Glucose 237 H (70-99) mg/dl Calcium 9.1 (8.5-10.1) mg/dl Total Bilirubin 0.7 (0.2-1) mg/dl AST 14 L (15-37) U/L ALT 20 (12-78) U/L Alkaline Phosphatase 106 (45-117) U/L Troponin I < 0.015 (0-0.045) ng/ml Total Protein 7.6 (6.4-8.2) gm/dl Albumin 3.9 (3.4-5.0) gm/dl Globulin 3.7 (2.5-4.0) gm/dl Albumin/Globulin Ratio 1.1 (0.9-2) 12/15/18 Range/Units 09:51 WBC (4.8-10.8) K/uL RBC (4.7-6.1) M/uL Hgb (14.0-18.0) g/dL Hct (42-52) % MCV (80-100) fL MCH (25-34) pg MCHC (32-36) g/dL RDW Std Deviation (36.4-46.3) fL RDW Coeff of Sadaf (11.5-14.5) % Plt Count (130-400) K/uL MPV (7.4-10.4) fL Immature Gran % (Auto) % Neut % (Auto) % Lymph % (Auto) % Garland % (Auto) % Eos % (Auto) % Baso % (Auto) % Immature Gran # (Auto) (0.00-0.02) K/uL Neut # (Auto) (1.4-6.5) K/uL Lymph # (Auto) (1.2-3.4) K/uL Garland # (Auto) (0.11-0.59) K/uL Eos # (Auto) (0-0.5) K/uL Baso # (Auto) (0-0.2) K/uL PT (9.0-12.0) Seconds INR (0.9-1.1) Sodium (136-145) mmol/L Potassium (3.5-5.1) mmol/L Chloride (98-107) mmol/L Carbon Dioxide (21-32) mmol/L Anion Gap (3-11) BUN (7-18) mg/dl Creatinine (0.6-1.4) mg/dl Est Cr Clr Drug Dosing ml/min Est GFR ( Amer) Est GFR (Non-Af Amer) BUN/Creatinine Ratio (10-20) Glucose (70-99) mg/dl Calcium (8.5-10.1) mg/dl Total Bilirubin (0.2-1) mg/dl AST (15-37) U/L ALT (12-78) U/L Alkaline Phosphatase (45-117) U/L Troponin I Cancelled (0-0.045) ng/ml Total Protein (6.4-8.2) gm/dl Albumin (3.4-5.0) gm/dl Globulin (2.5-4.0) gm/dl Albumin/Globulin Ratio (0.9-2) Imaging Data Radiologist's Impression: Radiology results as stated below per my review and the radiologist's interpretation: SINGLE VIEW CHEST CLINICAL HISTORY: Lightheadedness. Dizziness. FINDINGS: An AP, portable, upright chest radiograph is compared to study dated 11/07/2018 and correlated with chest CT dated 02/02/2010. The examination is degraded by portable technique, apical lordotic positioning, and patient rotation. The heart is mildly enlarged and there is atherosclerotic renny cification of the thoracic aorta. Advanced emphysema and chronic interstitial thickening are similar to previous. Chronic opacities at the right lung base are unchanged. There is no evidence of airspace consolidation or large pleural effusion. No pneumothorax is seen. The skeletal structures are osteopenic. The bony thorax is grossly intact. IMPRESSION: Cardiomegaly and emphysema with no acute cardiopulmonary abnormality. Electronically signed by: Jesus Skelton M.D. 12/15/2018 11:03 AM Blood Pressure Blood Pressure Findings: Low blood pressure Blood Pressure Disposition: Referred to patients primary care provider MDM Narrative The patient is a 73-year-old male who presents to the ED with a chief complaint of low blood pressure. The patient states that he has had some recent nosebleeds. He states that he followed up with [facility] for routine outpatient follow-up and his blood pressure was noted to be low. He does report lightheadedness with standing. The patient has positive orthostatic vital signs here with his blood pressure dropping to 75/57 with standing. Twelve-lead EKG shows a normal sinus rhythm without ischemic changes at a rate of 76. Patient's BUN is 70 and the creatinine is 4.6. This is above his baseline of around 2 4 creatinine. Chemistry panel was unremarkable. The patient was treated with 2 L normal saline IV. He remained stable in the emergency department with normal blood pressures with lying down. EMS also provided the patient with some IV Zofran for nausea. The patient will be seen by the hospitalist for further evaluation and care. Impression & Plan Acute renal failure, Orthostatic hypotension, Dehydration Discharge Plan Visit Data Chief Complaint: Dizziness Other Complaint: Hypotension Nausea ED Provider: Darwin Reyez Discharge Problem: Acute renal failure, Orthostatic hypotension, Dehydration Patient Disposition: Being Evaluated by Hospitalist Forms Stand Alone Forms: My [facility] Prescriptions Prescriptions: No Action glimepiride 2 mg Tablet 2 mg PO QAM RF: 0 hydroxyzine HCl 25 mg tablet 25 mg PO QAM RF: 0 Jardiance 25 mg tablet 25 mg PO DAILY RF: 0 hydrocodone-acetaminophen [[place]] 5-325 mg tablet 1 tab PO Q6H PRN (Reason: pain) Qty: 10 RF: 0 amoxicillin 500 mg capsule 500 mg PO BID 10 Days Qty: 20 RF: 0 amlodipine 10 mg tablet 10 mg PO QAM RF: 0 zolpidem 5 mg tablet 5 mg PO HS RF: 0 lisinopril 10 mg tablet 10 mg PO BID RF: 0 Basaglar KwikPen U-100 Insulin 100 unit/mL (3 mL) insulin pen 20 unit subcut DAILY RF: 0 atorvastatin 40 mg Tablet 40 mg PO QPM RF: 0 metformin 850 mg Tablet 850 mg PO QAM RF: 0 pantoprazole 40 mg Tablet,Delayed Release (Dr/Ec) 40 mg PO DAILYBB RF: 0 Referrals Referrals: Breann Orr MD [Primary Care Provider] - Discharge Problem: Acute renal failure Qualifiers: Acute renal failure type: unspecified Qualified Code(s): N17.9 - Acute kidney failure, unspecified The scribe's documentation has been prepared under my direction and personally reviewed by me in its entirety. I confirm that the note above accurately reflects all work, treatment, procedures, and medical decision making performed by me.
[2018-12-15] MEDS ORDERED: POLYETHYLENE (MIRALAX) 17 GM PACK PO PRN (16:03)
[2018-12-15] MEDS ORDERED: DEXTROSE 50% 50 ML SYRINGE IV PRN (16:03)
[2018-12-15] MEDS ORDERED: CARBOHYDRATES FOR HYPOGLYCEMIA PO PRN (16:03)
[2018-12-15] MEDS ORDERED: GLUCAGON FOR INJ 1 MG VIAL SQ PRN (16:03)
[2018-12-15] MEDS ORDERED: GLUCOSE 40% GEL 15 GM TUBE PO PRN (16:03)
[2018-12-15] MEDS ORDERED: ACETAMINOPHEN 325 MG TAB PO PRN (16:03)
[2018-12-15] MEDS ORDERED: GLUCOSE 10 TABS/TUBE PO PRN (16:03)
[2018-12-15] MEDS ORDERED: PHARMACY GLYCEMIC MGMT CONSULT PRN (16:13)
[2018-12-15] MEDS: INSULIN ASPART 100 UNITS/ML 3 ML PEN SC SCH ×2 (17:50→20:48)
[2018-12-15] MEDS: ATORVASTATIN 40 MG TAB PO SCH (20:37)
[2018-12-15] MEDS: ZOLPIDEM TARTRATE 5 MG TAB PO PRN (23:33)
--- NOTE | 2018-12-16 00:22 | History & Physical Report ---
Date of Service December 16, 2018 Assessment & Plan (1) Orthostatic hypotension: Admits to inpatient on telemetry Vital signs every 4 hours Follow closely CBC CMP Monitor electrolytes and replenish as needed Orthostatics every 8 hours Physical therapy Hold antihypertensive medication while patient hypotensive Continue searching for possible causes of hypotension Patient does not appear septic but has elevated white blood cell count ENT consult placed Patient was on amoxicillin p.o. twice daily for 10 days for prophylaxis We will start empirically Zosyn for elevated blood blood cells. DVT prophylaxis contraindicated since patient had recent nosebleed. SCDs for now Full code Present on Admission?: Yes (2) Acute renal failure: Avoid nephrotoxic agents Gentle IV fluid hydration Recheck creatinine creatinine and GFR BUN in a.m. for acute kidney insufficiency and dehydration Watch carefully for volume overload Present on Admission?: Yes (3) Epistaxis: Epistaxis appears to be stable now, patient will still need ENT follow-up. Present on Admission?: Yes (4) Dehydration: As above Present on Admission?: Yes (5) Hypertension: Hold antihypertensive agents while patient blood pressure is around 100/60. Restart as soon as blood pressure returns to normal or above 120/80 Present on Admission?: Yes History of Present Illness Chief Complaint: Patient is 8 years old male past medical history of epistaxis, hypertension, COPD, diabetes type 2, abdominal aortic aneurysm, coronary artery disease, peptic ulcer disease, who presents to the emergency with a complaint of constant dizziness that started for couple of days and per patient narrative it was exacerbated by epistaxis that occurred several times in the past week and last one being 4 days ago when he had placed a Rhino Rocket in the emergency room. Patient said that accidentally he dislodged with a Rhino Rocket last night. Patient states he says that he is increasingly dizzy and and dehydrated. Patient denies fever chills headache current bleeding from the nose chest pain abdominal pain frequency urgency hemoptysis hematuria melena. Labs were reviewed and it shows white blood cell of 12.63, red blood cell of 4.2, hemoglobin 13.1, hematocrit 38.4, platelets 285, PT of 10.3, INR 1 sodium 133, potassium 5.1, chloride of 98, anion gap of 10, BUN of 70, creatinine 4.6, GFR of 11.8 glucose of 116, bilirubin of 0.7, AST of 14, ALT of 20, alkaline phosphatase of 106, albumin 3.9. Chest x-ray shows cardiomegaly and emphysema with no acute cardiopulmonary abnormality. Decision was made to admit patient to the to the floor on telemetry for dehydration and acute kidney insufficiency. Primary Care Provider: Breann Orr MD Allergies Allergy/AdvReac Type Severity Reaction Status Date / Time No Known Allergies Allergy Verified 12/15/18 11:19 Home Medications Home Medications Medication Instructions Recorded Confirmed Type atorvastatin 40 mg PO QPM 11/07/18 12/15/18 History metformin 850 mg PO QAM 11/07/18 12/15/18 History pantoprazole 40 mg PO DAILYBB 11/07/18 12/15/18 History empagliflozin [[place]ard[place]] 25 mg PO DAILY 12/12/18 12/15/18 History glimepiride 2 mg PO QAM 12/12/18 12/15/18 History hydroxyzine HCl 25 mg PO QAM 12/12/18 12/15/18 History amoxicillin 500 mg PO BID 10 Days #20 cap 12/13/18 12/15/18 Rx hydrocodone-acetaminophen [[place]] 1 tab PO Q6H PRN #10 tab 12/13/18 12/15/18 Rx amlodipine 10 mg PO QAM 12/15/18 12/15/18 History insulin glargine [Basaglar KwikPen 20 unit SUBCUT DAILY 12/15/18 12/15/18 History U-100 Insulin] lisinopril 10 mg PO BID 12/15/18 12/15/18 History zolpidem 5 mg PO HS 12/15/18 12/15/18 History Past Med/Surg History Medical History Diabetes (Chronic) Family History Other Family history non-contributory Social History Preferred Language: British Communication Ability: Effective Beliefs That Will Affect Care: None Current Living Situation: Alone Other Information That Helps Us Care for You: No Feels Safe at Home: Yes Safety Concerns: Feels Safe At This Time Smoking Status: Former smoker Hx Alcohol Use: No (unknown pt responsive to stimuli only) Hx Substance Use: No (unknown pt responsive to stimuli only) Review of Systems Review of Systems: All systems reviewed & are unremarkable except as noted in HPI & below Physical Exam Constitutional: WD/WN, vitals as above well developed Eyes: PERRL, conjunctivae normal, anicteric sclerae ENMT: Nose: + nasal discharge (Some dark discharge from the nose dry and appears to be old blood. No new bleeding noted noted from the nose. Rrocket absent) and + dry nasal mucous membranes Cardiovascular: Heart Sounds: normal S1 and normal S2 Palpation: normal PMI Vessels: popliteal pulses present Extremities: + edema Gastrointestinal (Abdomen): normal bowel sounds, soft, nontender, no hepatosplenomegaly Musculoskeletal: no cyanosis or clubbing, extremities motor strength 5/5 Skin: + dry skin Neurologic: patellar DTR's 2+ bilat, sensation intact Psychiatric: A+Ox3, euthymic affect Lymphatic: no cervical or axillary lymphadenopathy Results & Data Vital Signs (Past 12 Hours) Vital Signs Temp Pulse Pulse Resp BP BP Pulse Ox 12/15/18 20:18 36.6 C 76 18 106/61 90 12/15/18 15:00 56 L 12 114/50 L 99 12/15/18 14:29 65 18 121/51 L 100 12/15/18 13:24 93 12/15/18 13:22 75 16 114/61 87 L Code Status & VTE Plan Code Status Full code VTE Prophylaxis Plan VTE Prophylaxis will be ordered: No PG Care Time/CCT Total # of Minutes Spent Total Time Spent with Patient: Total time spent is greater than 50% in coordination of care (as documented) at patient's floor/unit and/or counseling patient: (1) Acute renal failure Acute renal failure type: unspecified Qualified Code(s): N17.9 - Acute kidney failure, unspecified
[2018-12-16] MEDS ORDERED: PIPERACILL/TAZOBAC CONSULT ACTIVE PRN (00:23)
[2018-12-16] MEDS ORDERED: PIPERACILLIN/TAZOBACTAM 3.375 GM in DEXTROSE 5% 100 ML IV ONE (00:30)
[2018-12-16] MEDS ORDERED: SODIUM CHLORIDE 0.9% 1000ML 1,000 ML IV SCH (00:30)
[2018-12-16] MEDS ORDERED: INSULIN ASPART 100 UNITS/ML 3 ML PEN SC SCH (02:00)
[2018-12-16] MEDS ORDERED: Nursing to Pharmacy Communication ONE (02:03)
[2018-12-16] MEDS ORDERED: PIPERACILLIN/TAZOBACTAM 3.375 GM in DEXTROSE 5% 100 ML IV SCH ×2 (06:00→10:00)
[2018-12-16 07:49] LABS: Basophils # (auto) 0.03 K/uL (0-0.2); Basophils % (auto) 0.4 %; Eosinophils # (auto) 0.17 K/uL (0-0.5); Eosinophils % (auto) 2.1 %; Hematocrit (blood only) 32.1 % (42-52); Immature Granulocytes # (auto) 0.05 K/uL (0.00-0.02); Immature Granulocytes % (auto) 0.6 %; Lymphocytes # (auto) 1.82 K/uL (1.2-3.4); Lymphocytes % (auto) 22.3 %; Mean Corpuscular Hgb Conc 34.3 g/dL (32-36); Mean Corpuscular Volume 93.3 fL (80-100); Mean Platelet Volume 9.2 fL (7.4-10.4); Monocytes # (auto) 0.68 K/uL (0.11-0.59); Monocytes % (auto) 8.3 %; Neutrophils # (auto) 5.41 K/uL (1.4-6.5); Neutrophils % (auto) 66.3 %; Platelet Count 228 K/uL (130-400); RDW Coefficient of Variation 12.7 % (11.5-14.5); RDW Standard Deviation 43.6 fL (36.4-46.3); Red Blood Count 3.44 M/uL (4.7-6.1); White Blood Count 8.16 K/uL (4.8-10.8)
[2018-12-16 08:20] LABS: BUN Creatinine Ratio 18.9 (10-20); Calcium 8.1 mg/dl (8.5-10.1); Creatinine Clr Calc Pharmacy 20.4 ml/min; Est GFR (African American) 18.3; Est GFR (Non-African American) 15.8; Potassium 5.3 mmol/L (3.5-5.1)
[2018-12-16 08:32] LABS: Albumin Globulin Ratio 0.9 (0.9-2); Bilirubin,Total 0.6 mg/dl (0.2-1); Globulin 3.3 gm/dl (2.5-4.0); Total Protein 6.3 gm/dl (6.4-8.2)
[2018-12-16] MEDS: INSULIN ASPART 100 UNITS/ML 3 ML PEN SC SCH ×4 (08:33→20:57)
[2018-12-16] MEDS ORDERED: INSULIN GLARGINE SOLOSTAR 100 UNITS/ML 3 ML PEN SC SCH (09:00)
[2018-12-16 09:11] LABS: Estimated Average Glucose 232 mg/dl; Hemoglobin A1C 9.7 % (4.5-5.6)
--- NOTE | 2018-12-16 15:22 | Pharmacy Report ---
Glycemic Control Consultation - Date of Service December 16, 2018 - Scope Scope: Glycemic Pharmacist consulted by Dr Acuña on 12/16 for glycemic control and to write orders per [facility] inpatient glycemic control protocol - Objective Weight: 89.6 kg Accuchecks BSG (last 24hrs): 12/15/18 12/15/18 12/16/18 16:54 20:37 01:54 Glucose POC Glucose 81 116 H 88 12/16/18 12/16/18 12/16/18 07:23 07:42 11:46 Glucose 90 POC Glucose 94 133 H Laboratory Data (last 24hrs): 12/16/18 07:23 Potassium 5.3 H Carbon Dioxide 25 Anion Gap 6.0 Creatinine 3.63 H D Est Cr Clr Drug Dosing 20.4 HbA1c: Hemoglobin A1c 9.7 % (4.5-5.6) H 12/16/18 07:23 - Recent Pertinent Medications Outpatient Anti-diabetic Regimen: * Jardiance 25 daily, glimepiride 2 mg daily, metformin 850 daily, basaglar 20 units daily * A1c = 9.7 % [12/16/18] Risk Factors for Insulin Resistance: * Diet: T2DM - Assessment & Plan Assessment & Plan: ASSESSMENT: * 73 year old male admitted with dizziness/nose bleed. PMHx significant for htn, COPD, CAD. Of note, patient legally blind. Type2 diabetic - per coding educator notes, has home nurse that helps to draw up insulin * A1C improving from 05/2018 visit from 12.2 to 9.7& * BSGs on admission on lower end [phone] - will hold on basal insulin this AM on 12/16, may add scale for HS if BSGs trending up PLAN FOR INPATIENT GLYCEMIC CONTROL: * Holding outpatient oral diabetes medications * Basal insulin * Lantus HS per scale (0 for BSG <120, 10 for BSG 120-180, 15 for BSG >180) * Bolus insulin * NovoLog per scale ACHS or Q6hrs while NPO * Goal Range: Low 110 mg/dL - High 140 mg/dL * Correction Factor: 25 mg/dL/unit * Nutritional / Prandial insulin per carb ratio of 1 unit per 9 grams CHO consumed * Please note that the plan above was derived based on current level of insulin resistance and hospital stress. These recommendations are appropriate for inpatient admission only. Plan of care upon discharge will need to be reassessed to avoid potential outpatient hypo/hyperglycemia. Thank you.
--- NOTE | 2018-12-16 16:16 | History & Physical Bridge Note ---
Date of Service December 16, 2018 History & Physical Bridge Note Patient seen and examined this morning. No further nose bleeding. His hgb did fall from 13 -> 11 though. His Cr is normally ~1.3, now 3.6, though improved. Unclear cause other than possible mild dehydration or even ATN from low BP. - Trend hgb - Trend Ct - ENT consult not presently needed in the hospital as his nose bleed has stopped; will get quick outpatient follow up for the nose bleeding.
[2018-12-16] MEDS: ZOLPIDEM TARTRATE 5 MG TAB PO PRN (20:55)
[2018-12-16] MEDS: ATORVASTATIN 40 MG TAB PO SCH (20:57)
[2018-12-16] MEDS: INSULIN GLARGINE SOLOSTAR 100 UNITS/ML 3 ML PEN SC SCH (20:58)
[2018-12-17 08:33] LABS: Basophils # (auto) 0.04 K/uL (0-0.2); Basophils % (auto) 0.6 %; Eosinophils # (auto) 0.21 K/uL (0-0.5); Eosinophils % (auto) 3.1 %; Hematocrit (blood only) 34.7 % (42-52); Hemoglobin 11.9 g/dL (14.0-18.0); Immature Granulocytes # (auto) 0.04 K/uL (0.00-0.02); Immature Granulocytes % (auto) 0.6 %; Lymphocytes # (auto) 1.26 K/uL (1.2-3.4); Lymphocytes % (auto) 18.4 %; Mean Corpuscular Hemoglobin 31.6 pg (25-34); Mean Corpuscular Hgb Conc 34.3 g/dL (32-36); Mean Platelet Volume 9.7 fL (7.4-10.4); Monocytes # (auto) 0.73 K/uL (0.11-0.59); Monocytes % (auto) 10.7 %; Neutrophils # (auto) 4.57 K/uL (1.4-6.5); Neutrophils % (auto) 66.6 %; Platelet Count 252 K/uL (130-400); RDW Coefficient of Variation 12.6 % (11.5-14.5); RDW Standard Deviation 42.8 fL (36.4-46.3); Red Blood Count 3.77 M/uL (4.7-6.1); White Blood Count 6.85 K/uL (4.8-10.8)
[2018-12-17 09:06] LABS: Albumin Level 3.5 gm/dl (3.4-5.0); BUN Creatinine Ratio 24.4 (10-20); Creatinine Clr Calc Pharmacy 35.4 ml/min; Est GFR (African American) 35.6; Est GFR (Non-African American) 30.7; Potassium 5.1 mmol/L (3.5-5.1)
[2018-12-17 09:09] LABS: Bilirubin,Total 0.6 mg/dl (0.2-1); Globulin 3.6 gm/dl (2.5-4.0); Total Protein 7.1 gm/dl (6.4-8.2)
[2018-12-17] MEDS: INSULIN ASPART 100 UNITS/ML 3 ML PEN SC SCH ×4 (09:55→21:14)
--- NOTE | 2018-12-17 15:52 | Hospitalist Progress Note ---
Date of Service December 17, 2018 Assessment & Plan (1) Dizziness: Per admission H&P, this was largely his presenting complaint along with weakness and nose bleed. - Mentioned to PT/OT during evals on 12/17 - Unclear etiology as his orthostatics are normal and he is now hypertensive instead of having any orthostatic hypotension (2) Acute renal failure: Baseline Cr ~1.3, with eGFR of 55. - On presentation, his Cr was 4.6. Likely pre-renal as his Cr has come down quickly with IV fluids - Avoid nephrotoxic agents (3) Epistaxis: Had several days of epistaxis prior to presentation. - Appears to be stable now - Patient has outpatient ENT follow-up scheduled (4) Dehydration: As above (5) Hypertension: BP as low as 100/60 on admission. - Held BP meds initially. - By 12/17, BP is 170/70. - Restarted amlodipine at lower dose given his low BP on presentation. - Will consider holding ACEi (6) DM type 2 (diabetes mellitus, type 2): A1c was 9.7% this admission; >12% on a prior read. His hyperglycemia is certainly worsening his dehydration and likely contributing to his TIMOTHY. - Sliding scale insulin - Glycemic pharmacist consult (7) CAD (coronary artery disease): No chest pain at present. - Continue statin - Hold ASA for nose bleeding (8) Cerebrovascular disease, arteriosclerotic, post-stroke: No residual strokes. - Continue statin - Hold ASA for nose bleeding (9) DVT prophylaxis: SCDs - Holding chemoprophylaxis for epistaxis Subjective No further nose bleeds in the last few days. Still feels better. Review of Systems Review of Systems: All systems reviewed & are unremarkable except as noted in HPI & below Physical Exam Constitutional: WD/WN, vitals as above Eyes: EOM intact bilaterally; no conjunctival abnormality ENMT: external ear and nose normal, oropharynx normal Neck: trachea midline, no thyromegaly normal visual inspection Respiratory: normal respiratory effort, lungs clear to auscultation no respiratory distress Cardiovascular: RRR, no murmur, no edema Gastrointestinal (Abdomen): Inspection/Auscultation: abdomen normal to inspection; abdomen not distended Musculoskeletal: no cyanosis or clubbing, extremities motor strength 5/5 Skin: no rashes, warm and dry Neurologic: moves all extremities and awake Psychiatric: Orientation: alert, oriented to person and cooperative Results & Data Vital Signs (Past 12 Hours) Vital Signs Temp Pulse Resp BP BP Pulse Ox 12/17/18 15:11 36.7 C 82 20 172/70 H 93 12/17/18 11:44 36.4 C L 70 18 160/72 H 94 12/17/18 07:26 36.6 C 82 18 161/75 H 94 PG Care Time/CCT Total # of Minutes Spent Total Time Spent with Patient: Total time spent is greater than 50% in coordination of care (as documented) at patient's floor/unit and/or counseling patient: (1) Acute renal failure Acute renal failure type: unspecified Qualified Code(s): N17.9 - Acute kidney failure, unspecified
[2018-12-17] MEDS: AMLODIPINE BESYLATE 5 MG TAB PO SCH (17:01)
[2018-12-17] MEDS: ATORVASTATIN 40 MG TAB PO SCH (21:10)
[2018-12-17] MEDS: SODIUM CHLORIDE 0.65% NA SOLN 45 ML (OCEAN) NAE SCH (21:12)
[2018-12-17] MEDS: INSULIN GLARGINE SOLOSTAR 100 UNITS/ML 3 ML PEN SC SCH (21:15)
[2018-12-17] MEDS: ZOLPIDEM TARTRATE 5 MG TAB PO PRN (22:29)
[2018-12-18 07:44] LABS: Basophils # (auto) 0.03 K/uL (0-0.2); Basophils % (auto) 0.3 %; Eosinophils # (auto) 0.23 K/uL (0-0.5); Eosinophils % (auto) 2.6 %; Hematocrit (blood only) 34.9 % (42-52); Hemoglobin 12.2 g/dL (14.0-18.0); Immature Granulocytes # (auto) 0.04 K/uL (0.00-0.02); Immature Granulocytes % (auto) 0.5 %; Lymphocytes # (auto) 2.19 K/uL (1.2-3.4); Lymphocytes % (auto) 24.8 %; Mean Corpuscular Hemoglobin 32.3 pg (25-34); Mean Corpuscular Volume 92.3 fL (80-100); Mean Platelet Volume 9.6 fL (7.4-10.4); Monocytes % (auto) 10.2 %; Neutrophils # (auto) 5.43 K/uL (1.4-6.5); Neutrophils % (auto) 61.6 %; Platelet Count 274 K/uL (130-400); RDW Coefficient of Variation 12.6 % (11.5-14.5); RDW Standard Deviation 42.7 fL (36.4-46.3); Red Blood Count 3.78 M/uL (4.7-6.1); White Blood Count 8.82 K/uL (4.8-10.8)
[2018-12-18] MEDS: INSULIN ASPART 100 UNITS/ML 3 ML PEN SC SCH ×2 (08:07→12:09)
[2018-12-18] MEDS: AMLODIPINE BESYLATE 5 MG TAB PO SCH (08:08)
[2018-12-18] MEDS: SODIUM CHLORIDE 0.65% NA SOLN 45 ML (OCEAN) NAE SCH ×2 (08:08→14:21)
[2018-12-18 08:13] LABS: BUN Creatinine Ratio 22.5 (10-20); Calcium 9.3 mg/dl (8.5-10.1); Creatinine Clr Calc Pharmacy 41.7 ml/min; Est GFR (African American) 44.1; Est GFR (Non-African American) 38.1; Potassium 4.9 mmol/L (3.5-5.1)
--- NOTE | 2018-12-18 09:03 | Pharmacy Report ---
Pharmacy Glycemic Short Note 2 - Date of Service December 18, 2018 - Glycemic Short BSG Results (Last 24 hours): 12/17/18 12/17/18 12/17/18 08:02 11:33 16:18 Glucose 100 H POC Glucose 113 H 102 H 12/17/18 12/18/18 12/18/18 20:47 07:05 07:12 Glucose 92 POC Glucose 152 H 98 Outpatient Anti-diabetic Regimen: * Jardiance 25 daily, glimepiride 2 mg daily, metformin 850 daily, basaglar 20 units daily (only takes 2-3x/wk when administered by ex- or home RN) * A1c = 9.7 % 12/16/18 Risk Factors for Insulin Resistance: * Diet: T2DM ASSESSMENT: 12/18/18 * Blood sugars at goal, patient required 24 units of insulin yesterday, 10 units basal. Fasting BSG 98mg/dl. * Decrease Lantus dose slightly to prevent hypoglycemia. No other changes nec essary. * Continue to hold home oral medications, ARF - SCr improving 4.6 --> 1.75mg/dl today. Baseline 1.27mg/dl. 12/16/18 * 73 year old male admitted with dizziness/nose bleed. PMHx significant for htn, COPD, CAD. Of note, patient legally blind. Type2 diabetic - per certified adaptive physical educator notes, has home nurse that helps to draw up insulin * A1C improving from 05/2018 visit from 12.2 to 9.7& * BSGs on admission on lower end [phone] - will hold on basal insulin this AM on 12/16, may add scale for HS if BSGs trending up PLAN FOR INPATIENT GLYCEMIC CONTROL: * Holding outpatient oral diabetes medications * Basal insulin -decrease * Lantus HS per scale (0units for BSG <120, 7units for BSG 120-180, 10units for BSG >180) * Bolus insulin * NovoLog per scale ACHS or Q6hrs while NPO * Goal Range: Low 110 mg/dL - High 140 mg/dL * Correction Factor: 25 mg/dL/unit * Nutritional / Prandial insulin per carb ratio of 1 unit per 9 grams CHO consumed PLAN FOR DISCHARGE: * A1c 9.7% - patient only requiring 24 unit of insulin daily as inpatient, patient only taking his insulin (glargine 20 units) 2-3x/wk at home when he has someone to administer it for him. Consider recommending that caregivers draw up doses and keep in refrigerator for days that he is unable to have them there for him to administer to himself? Unsure if this is an option with patient's blindness. * Monitor renal function to avoid ADR with oral antidiabetic medications (metformin, glimepiride, and januvia).
[2018-12-18 11:31] VITALS: O2SAT 94
[2018-12-18 16:21] VITALS: BP 125/70; PULSE 75; TEMP 98.2
--- NOTE | 2018-12-18 18:07 | Discharge Summary ---
Date of Service December 18, 2018 Principal Diagnosis Dizziness, epistaxis, TIMOTHY Discharge Exam Constitutional WD/WN, vitals as above Eyes EOM intact bilaterally; no conjunctival abnormality ENMT external ear and nose normal, oropharynx normal Neck trachea midline, no thyromegaly normal visual inspection Respiratory normal respiratory effort, lungs clear to auscultation no respiratory distress Cardiovascular RRR, no murmur, no edema Gastrointestinal (Abdomen) Inspection/Auscultation: abdomen normal to inspection; abdomen not distended Musculoskeletal no cyanosis or clubbing, extremities motor strength 5/5 Skin no rashes, warm and dry Neurologic moves all extremities and awake Psychiatric Orientation: alert, oriented to person and cooperative Discharge Data Allergies Allergy/AdvReac Type Severity Reaction Status Date / Time No Known Allergies Allergy Verified 12/15/18 11:19 Consultations 12/15/18 11:42 ED Decision to Admit Stat Hospital Course (1) Dizziness: Per admission H&P, this was largely his presenting complaint along with weakness and nose bleed. - Mentioned to PT/OT during evals on 12/17 - Unclear etiology as his orthostatics are normal and he is now hypertensive instead of having any orthostatic hypotension - On the day of discharge, the patient noted that he has been dizzy for over a decade, does not expect us to fix it, and does not want to do PT to help with his dizziness. I said this was his choice, but that home PT could maybe lessen the dizziness. He was unsure if he would allow home PT to come, even though it was arranged by the director case. He will determine this when they come on Friday, I guess. (2) Acute renal failure: Baseline Cr ~1.3, with eGFR of 55. - On presentation, his Cr was 4.6. Likely pre-renal as his Cr has come down quickly with IV fluids. - By discharge, his Cr was down to 1.75. He can get a follow up BMP with his PCP at the next visit. Unclear cause other than the dehydration as above. Counseled good PO intake. (3) Epistaxis: Had several days of epistaxis prior to presentation. - Did not have any bleeding in the hospital. - Patient has outpatient ENT follow-up scheduled for Friday. His ex- Anahi will take him. I discussed the date, time, and address with her. Encouraged saline nasal sprays, though he did not like them and seemed unwilling to do this at home. (4) Dehydration: As above (5) Hypertension: BP as low as 100/60 on admission. - Held BP meds initially. - By 12/17, BP was 170/70. - Restarted amlodipine at lower dose given his low BP on presentation. His BP was normal all throughout the day on the lower dose. BP was ~135/55. - Held his ACEi on discharge to allow further time for his kidneys to heal. He can be restarted by his PCP if needed. (6) DM type 2 (diabetes mellitus, type 2): A1c was 9.7% this admission; >12% on a prior read. His hyperglycemia is certainly worsening his dehydration and likely contributing to his TIMOTHY. - Sliding scale insulin - Glycemic pharmacist consult -> On discharge, he can return to his home regimen. He seems to be doing better with his sugars as his A1c fell considerably. Will need to work with his PCP. (7) CAD (coronary artery disease): No chest pain at present. - Continue statin - Hold ASA for nose bleeding until seen by ENT. (8) Cerebrovascular disease, arteriosclerotic, post-stroke: No residual strokes. - Continue statin - Hold ASA for nose bleeding (9) DVT prophylaxis: SCDs - Holding chemoprophylaxis for epistaxis Total Time Total Time Spent Total Time Spent (In Minutes): 35 Discharge Plan Discharge Items Patient Disposition: Home - Home Health Services Reason For Visit: ACUTE TO CHRONIC RENAL FAILURE, SEVERE DEHYDRATION Discharge Diagnosis: Dehydration, dizziness, kidney injury Discharge Goals: Decrease discomfort, Diagnostic testing and Improve function Activity: Resume your previous activity Non-emergency contact: Primary Care Provider and Surgeon Call non-emergency contact if: your symptoms worsen Follow-up/Referrals: Breann Orr MD [Primary Care Provider] - 12/21/18 11:30 am (Please, follow up at [facility] with Dr. Orr on FridayDecember 21 at 11:30 am. *If you need to change this appointment, call the office at [phone].) Gissel Kohli MD [Surgeon] - 12/21/18 2:00 pm (Please, follow up with Eye, Ears, Nose, and Throat Specialist (ENT), Dr. Kohli, on FridayDecember 21 at 2:00 pm. *The office is located at [facility] in [place]. If you need to change this appointment, call the office at [phone].) Diet: Carb Consistent or DM2 Addtl Provider Instructions: You were admitted for two issues: 1) Dizziness, and 2) Nose bleed. Your nose bleed went away on its own. We encourage you to keep using the nasal spray to help keep your nostrils moist. This will help prevent more nose bleeding. Hold your aspirin for now until you see the ENT doctor on Friday. For your dizziness, we did some physical therapy and your blood pressure stayed stable, but you still felt dizzy. This has been ongoing for years, and we would like you to see the ENT doctor about this as well as work with the PT folks who will come to your home. Because your blood pressure was a bit low, we have held one of your blood pressure medications. Please only take this one until you see your PCP next week. He will order a kidney function test as well to help be sure your kidneys are back on track. Prescriptions: New sodium chloride [Saline Mist] 0.65 % Aerosol,Tatum 2 spry WOODROW TID Qty: 50 RF: 0 amlodipine 5 mg tablet 5 mg PO DAILY Qty: 30 RF: 0 Continued glimepiride 2 mg Tablet 2 mg PO QAM RF: 0 hydroxyzine HCl 25 mg tablet 25 mg PO QAM RF: 0 Jardiance 25 mg tablet 25 mg PO DAILY RF: 0 hydrocodone-acetaminophen [[place]] 5-325 mg tablet 1 tab PO Q6H PRN (Reason: pain) Qty: 10 RF: 0 zolpidem 5 mg tablet 5 mg PO HS RF: 0 Basaglar KwikPen U-100 Insulin 100 unit/mL (3 mL) insulin pen 20 unit subcut DAILY RF: 0 atorvastatin 40 mg Tablet 40 mg PO QPM RF: 0 metformin 850 mg Tablet 850 mg PO QAM RF: 0 pantoprazole 40 mg Tablet,Delayed Release (Dr/Ec) 40 mg PO DAILYBB RF: 0 Discontinued amoxicillin 500 mg capsule 500 mg PO BID 10 Days Qty: 20 RF: 0 lisinopril 10 mg tablet 10 mg PO BID RF: 0 Stand-Alone Forms: [facility] Discharge Orders: Discharge Order (Routine); Ordered 12/18/18 Ordered By: Puneet Valente Admission Data Admit Date/Time: 12/15/18 14:55 Attending Provider: Puneet Valente Admit Provider: Margarita Acuña Primary Care Provider: Breann Orr Other Providers: Puneet Valente ; [facility] Service: Telemetry Medical Other Interventions: Discharge Summary Assessment (RN) Last Done: 12/18/18 16:41 DC Date/Time DO NOT enter until pt leaves facility: 12/18/18 17:27
== END 2018-12-18 17:27 | disposition home health service (06) | DRG 684 ==
LOC: ED 10:12 → 2N 14:55 → SUATTDRO 14:55 → 2N 15:19

== ENCOUNTER 2019-02-20 14:25 | Inpatient (IN) ==
[2019-02-20] MEDS ORDERED: SODIUM CHLORIDE 0.9% 500 ML IV SCH (15:00)
--- NOTE | 2019-02-20 15:09 | XRay Report ---
XR chest 1V portable CLINICAL HISTORY: Hypoxia COMPARISON STUDY: 12/15/2018 FINDINGS: The cardiac and mediastinal contours remain stable. There is suspected underlying pulmonary emphysema. There are subtle right basilar airspace opacities, pneumonia versus atelectasis. Clinical and radiographic follow-up is recommended.[ IMPRESSION: Subtle right basilar opacities, atelectasis versus pneumonia. Clinical and radiographic f ollow-up is recommended Electronically signed by: Rhys Davidson M.D. 02/20/2019 3:08 PM
[2019-02-20 15:21] LABS: Hematocrit (blood only) 54.4 % (42-52); Hemoglobin 18.9 g/dL (14.0-18.0); Mean Corpuscular Hemoglobin 31.4 pg (25-34); Mean Corpuscular Hgb Conc 34.7 g/dL (32-36); Mean Corpuscular Volume 90.5 fL (80-100); Mean Platelet Volume 10.7 fL (7.4-10.4); Platelet Count 296 K/uL (130-400); RDW Coefficient of Variation 12.7 % (11.5-14.5); RDW Standard Deviation 41.6 fL (36.4-46.3); Red Blood Count 6.01 M/uL (4.7-6.1)
[2019-02-20] MEDS ORDERED: PIPERACILL/TAZOBAC CONSULT ACTIVE PRN ×2 (15:29→18:59)
[2019-02-20] MEDS ORDERED: PIPERACILLIN/TAZOBACTAM 4.5 GM/120 ML BAG IV ONE (15:29)
[2019-02-20 15:30] LABS: INR 1.1 (0.9-1.1); Prothrombin Time 11.4 Seconds (9.0-12.0)
[2019-02-20 15:40] LABS: Albumin Level 3.9 gm/dl (3.4-5.0); BUN Creatinine Ratio 23.1 (10-20); Calcium 9.5 mg/dl (8.5-10.1); Creatinine Clr Calc Pharmacy 18.8 ml/min; Est GFR (African American) 18.7; Est GFR (Non-African American) 16.1; Magnesium 2.5 mg/dl (1.8-2.4); Potassium 4.5 mmol/L (3.5-5.1)
--- NOTE | 2019-02-20 15:48 | CT Scan Report ---
CT head/brain wo con CLINICAL HISTORY: Head pain status post trauma. Confusion. COMPARISON STUDY: Head CT dated 11/07/2018, MRI the brain dated 11/08/2018 TECHNIQUE: Axial CT of the brain is performed from the vertex to the skull base. IV contrast was not administered for this examination. A dose lowering technique was utilized adhering to the principles of ALARA. CT DOSE: FINDINGS: No intra or extra-axial mass lesions are visualized. There is no CT evidence of acute cortical infarc tion. There is no evidence of midline shift. There is no acute hemorrhage. No calvarial fractures ar e visualized. There are patchy white matter hypodensities likely on a small vessel basis. 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 There is mild ventricular prominence a finding which is felt to be secondary to volume loss There is a chronic left max sinus retention cyst. There is calcification of the right globe. IMPRESSION: No acute intracranial findings Electronically signed by: Rhys Davidson M.D. 02/20/2019 3:47 PM
--- NOTE | 2019-02-20 15:52 | CT Scan Report ---
CT OF THE CERVICAL SPINE CLINICAL HISTORY: Neck pain status post trauma COMPARISON STUDY: January 2017 CT DOSE: TECHNIQUE: CT scan of the cervical spine was performed from the skull base to the thoracic inlet. Jennifer ges are reviewed in the axial, sagittal, and coronal planes. IV contrast was not administered for thi s examination. A dose lowering technique was utilized adhering to the principles of ALARA. FINDINGS: The visualized portions of the lung apices reveal no evidence of pneumothorax. There are tiny droplets of air below the foramen magnum, likely representing iatrogenic venous gas. The prevertebral soft tissues are normal. No fractures or subluxations are visualized. There are multilevel degenerative changes IMPRESSION: No evidence of acute fracture or traumatic subluxation. Electronically signed by: Rhys Davidson M.D. 02/20/2019 3:51 PM
--- NOTE | 2019-02-20 16:02 | CT Scan Report ---
CT SCAN OF THE ABDOMEN AND PELVIS WITHOUT CONTRAST CLINICAL HISTORY: Left lower quadrant abdominal pain COMPARISON STUDY: January 2010 TECHNIQUE: CT scan of the abdomen and pelvis was performed from the lung bases to the proximal femurs . Images are reviewed in the axial, sagittal, and coronal planes. IV contrast was not administered fo r this examination. A dose lowering technique was utilized adhering to the principles of ALARA. CT DOSE: 2647.96 mGy.cm FINDINGS: Lower chest: There are basilar atelectatic changes. Liver: There is mild hepatic steatosis. Gallbladder: Mildly distended. No calculi identified. Spleen: Normal in size and attenuation. Pancreas: Unremarkable. Adrenal glands: Unremarkable. Kidneys: There is left renal atrophy. There are bilateral vascular calcifications. There is no hydron ephrosis. No ureteral calculi or bladder calculi are visualized. Bowel: There are no transition zones indicate bowel obstruction. There is no evidence of acute divert iculitis. There is no evidence of acute appendicitis. Peritoneum: There is no intraperitoneal free air or abdominal ascites. Vasculature: There is a 4.1 cm abdominal aortic aneurysm extending to the level of the renal arteries . There are extensive atheromatous changes present within the superior mesenteric artery and left grayson al artery. There is soft tissue thickening surrounding the infrarenal abdominal aorta, a finding slig htly progressive when compared the prior study. 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 Adenopathy: None. Pelvic viscera: The bladder, and pelvic viscera are unremarkable. Skeletal structures: No destructive osseous lesions are seen. IMPRESSION: 1. No evidence of bowel obstruction. No evidence of free air 2. Interval development of left renal atrophy 3. No evidence of renal obstruction. No ureteral or bladder calculi identified 4. Extensive vascular atherosclerotic disease 5. 41 mm abdominal aortic aneurysm 6. Slight progression in the soft tissue thickening surrounding infrarenal abdominal aorta. The findi ngs are likely secondary to either a chronic aortitis or retroperitoneal fibrosis. 7. No evidence of acute diverticulitis. Evidence of acute appendicitis. Electronically signed by: Rhys Davidson M.D. 02/20/2019 4:00 PM
--- NOTE | 2019-02-20 16:02 | XRay Report ---
XR hip LT 2V w pelvis CLINICAL HISTORY: Left hip pain status post trauma COMPARISON: None. DISCUSSION: There are moderately extensive vascular calcifications present. No acute fractures or dis locations are visualized. IMPRESSION: No acute fractures or dislocations identified. Electronically signed by: Rhys Davidson M.D. 02/20/2019 4:01 PM
--- NOTE | 2019-02-20 16:03 | XRay Report ---
XR femur LT 2V routine CLINICAL HISTORY: Left femur pain status post trauma COMPARISON: None. DISCUSSION: No acute fractures or dislocations are visualized. There are moderate vascular calcificat ions. IMPRESSION: No acute fractures or dislocations identified. Electronically signed by: Rhys Davidson M.D. 02/20/2019 4:02 PM
[2019-02-20] MEDS ORDERED: SODIUM CHLORIDE 0.9% 1000ML 500 ML IV ONE (16:08)
[2019-02-20 16:13] LABS: Albumin Globulin Ratio 0.8 (0.9-2); Bilirubin,Total 1.2 mg/dl (0.2-1); Globulin 4.6 gm/dl (2.5-4.0); Total Protein 8.5 gm/dl (6.4-8.2); Troponin I 0.144 ng/ml (0-0.045)
[2019-02-20] MEDS ORDERED: BACITRACIN OINT 15 GM TUBE EXT ONE (16:23)
[2019-02-20 16:27] LABS: Partial Thromboplastin Time 26.2 Seconds (21.0-31.0)
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
[2019-02-20 16:29] LABS: Basophils # (auto) 0.01 K/uL (0-0.2); Immature Granulocytes # (auto) 0.11 K/uL (0.00-0.02); Immature Granulocytes % (auto) 0.5 %; Lymphocytes # (auto) 1.86 K/uL (1.2-3.4); Lymphocytes % (auto) 8.3 %; Monocytes # (auto) 1.27 K/uL (0.11-0.59); Monocytes % (auto) 5.7 %; Neutrophils # (auto) 19.15 K/uL (1.4-6.5); Neutrophils % (auto) 85.5 %
--- NOTE | 2019-02-20 17:03 | Emergency Department Note ---
Entered by Nhi Nevarez acting as a scribe for History of Present Illness General Chief complaint: Fall Stated complaint: lethargic/confuses Source: patient and family (ex-, daughter) Mode of arrival: EMS Limitations: no limitations History of Present Illness Provider complaint: Fall Onset (ago): day(s) (last night) Location: foot (toe) and left Pain Consistency: + other (episode) Quality: + other (fall) Associated symptoms: + headaches (now resolved) and + other (Additional symptoms: back pain (now resolved). Denies: toe pain, abdominal pain, hematochezia, melena, hip pain); no chest pain and no shortness of breath Treatments prior to arrival: none The patient is a 73 year old male with a history of type 2 diabetes, hypertension, CAD, cancer, PVD, TIA, CVA, COPD, stage III CKD, AAA repair, PUD, and a bilateral carotid endarterectomy who presents to the Emergency Room with complaints of an episode of a fall occurring last night. The patient's family reports that the patient lives alone in a trailer and that they found him today wedged between his bed and the trailer wall. They state that they last checked on the patient 5 days ago and that they believe he fell last night. They note t hat it did not appear like the patient ate and drank any time recently. They add that the patient's left great toe nail was ripped off. The patient reports that he does not remember falling. He currently does not endorse any pain, although he mentions that he had a headache about a week ago and that his back hurt a while ago. He denies any toe pain, chest pain or discomfort, shortness of breath, abdominal pain, hematochezia, melena, and hip pain. He indicates that he last urinated 12 hours ago. He also states that he has been taking his medications as prescribed, although he did not take them this morning. Per family, the patient's stroke in 2001 mildly affected his left side, but he can still walk and drive. They deny any history of heart failure and note that the patient's PCP is Dr. Orr. Home Medications Home Medications Medication Instructions Recorded Confirmed Type atorvastatin 40 mg PO QPM 11/07/18 02/20/19 History metformin 850 mg PO QAM 11/07/18 02/20/19 History pantoprazole 40 mg PO DAILYBB 11/07/18 02/20/19 History Jardiance 25 mg PO DAILY 12/12/18 02/20/19 History glimepiride 2 mg PO QAM 12/12/18 02/20/19 History hydroxyzine HCl 25 mg PO QAM 12/12/18 02/20/19 History Basagldae VasquezPen U-100 Insulin 20 unit SUBCUT DAILY 12/15/18 02/20/19 History zolpidem 5 mg PO HS 12/15/18 02/20/19 History amlodipine 5 mg tablet 5 mg PO DAILY #30 tab 02/04/19 02/20/19 Rx sodium chloride [Saline Mist] 2 spry WOODROW TID PRN 02/20/19 02/20/19 History Allergies Allergy/AdvReac Type Severity Reaction Status Date / Time No Known Allergies Allergy Verified 12/15/18 11:19 Past Med/Surg History Medical History Sleep disturbance (Chronic) Cancer Hypertension (Chronic) PVD (peripheral vascular disease) (Chronic) TIA (transient ischemic attack) (Chronic) Cerebrovascular disease, arteriosclerotic, post-stroke (Chronic) Dysphagia (Chronic) Hemiplegia (Chronic) COPD, moderate (Chronic) CKD (chronic kidney disease), stage III (Chronic) DM type 2 (diabetes mellitus, type 2) (Chronic) AAA (abdominal aortic aneurysm) (Chronic) "s/p repair" CAD (coronary artery disease) (Chronic) History of Helicobacter pylori infection (Chronic) PUD (peptic ulcer disease) (Chronic) Blind right eye (Chronic) Diabetes (Chronic) Surgical History S/P AAA repair (Chronic) S/P carotid endarterectomy (Chronic) "bilateral" H/O aorto-femoral bypass (Chronic) History of incision and drainage (Chronic) "evacuation of the left neck postop hematoma ()" H/O colonoscopy with polypectomy (Chronic) Family History Other Family history non-contributory Social History Preferred Language: Bruneian Communication Ability: Effective Visual Impairment: Partially Limited Beliefs That Will Affect Care: None marital status: Current Living Situation: Alone current occupational status: retired Feels Safe at Home: Yes Smoking Status: Former smoker Hx Alcohol Use: No (unknown pt responsive to stimuli only) Hx Substance Use: No (unknown pt responsive to stimuli only) Review of Systems See HPI for pertinent positives & negatives. and A total of 10 systems reviewed and were otherwise negative Physical Exam Vital Signs Vital Signs - 24 hr 02/20/19 14:32 02/20/19 14:35 02/20/19 14:36 Temperature 36.5 C Temperature Source Oral Sepsis Recent Fever Within 48 Hours No Sepsis Action Taken by Nursing No Action Required Oxygen Flow Rate - Titration Pulse Oximetry Post Tiitration Pulse Rate 94 H 89 93 H Pulse Rate [Apical] Pulse Rate from SpO2 Sensor 89 Pulse Rhythm Respiratory Rate 21 20 16 Respiratory Effort / Characteristics Non-Labored Spontaneous Respiratory Depth Normal Respiratory Pattern Regular Blood Pressure 191/105 H 191/105 H Blood Pressure [Right Arm] Blood Pressure Mean 133 133 Blood Pressure Mean [Right Arm] Pulse Oximetry 90 89 L Oxygen Delivery Method Room Air Oxygen Flow Rate 02/20/19 14:45 02/20/19 15:00 02/20/19 15:12 Temperature Temperature Source Sepsis Recent Fever Within 48 Hours Sepsis Action Taken by Nursing Oxygen Flow Rate - Titration 3 Pulse Oximetry Post Tiitration 91 Pulse Rate 96 H 100 H 91 H Pulse Rate [Apical] Pulse Rate from SpO2 Sensor 95 H 102 H Pulse Rhythm Regular Respiratory Rate 16 16 16 Respiratory Effort / Characteristics Respiratory Depth Respiratory Pattern Blood Pressure 168/116 H Blood Pressure [Right Arm] Blood Pressure Mean 133 Blood Pressure Mean [Right Arm] Pulse Oximetry 90 88 L 86 L Oxygen Delivery Method Nasal Cannula Oxygen Flow Rate 0 02/20/19 15:13 02/20/19 15:14 02/20/19 15:15 Temperature Temperature Source Sepsis Recent Fever Within 48 Hours Sepsis Action Taken by Nursing Oxygen Flow Rate - Titration Pulse Oximetry Post Tiitration Pulse Rate 94 H 91 H Pulse Rate [Apical] 91 H Pulse Rate from SpO2 Sensor 94 H 92 H Pulse Rhythm Respiratory Rate 16 20 18 Respiratory Effort / Characteristics Non-Labored Spontaneous Respiratory Depth Normal Respiratory Pattern Regular Blood Pressure 199/114 H 194/109 H Blood Pressure [Right Arm] 194/109 H Blood Pressure Mean 142 137 Blood Pressure Mean [Right Arm] 137 Pulse Oximetry 97 96 97 Oxygen Delivery Method Nasal Cannula Oxygen Flow Rate 2 02/20/19 15:17 Temperature Temperature Source Sepsis Recent Fever Within 48 Hours Sepsis Action Taken by Nursing Oxygen Flow Rate - Titration Pulse Oximetry Post Tiitration Pulse Rate 86 Pulse Rate [Apical] Pulse Rate from SpO2 Sensor 87 Pulse Rhythm Respiratory Rate 18 Respiratory Effort / Characteristics Respiratory Depth Respiratory Pattern Blood Pressure Blood Pressure [Right Arm] Blood Pressure Mean Blood Pressure Mean [Right Arm] Pulse Oximetry 97 Oxygen Delivery Method Oxygen Flow Rate Constitutional: Vital signs reviewed. Eyes: Conjunctiva are noninjected. Right eye is enucleated. Left pupils is equal round reactive to light. ENT: Pharynx is clear without erythema or exudate. Mucous membranes are moist. Neck supple without meningeal signs. Respiratory: Clear to auscultation bilaterally. Breath sounds are equal bilaterally. Cardiovascular: Regular rate and rhythm. No rubs or gallops. GI: Soft and nondistended. Bowel sounds are present. Left lower abdominal tenderness. Musculoskeletal: Point tenderness to the midfemur without swelling or deformity. Abrasions to both knees and left ankle. Avulsion of the left great toe toenail. No midline tenderness to the cervical spine. No rib tenderness. Integumentary: No cyanosis. Neurological: The patient is awake and alert. No focal deficits. Psychiatric: Normal affect. Course 1438: The patient was evaluated in room A12B, and a complete history and physical examination were performed. 1410: I reassessed the patient and his SpO2 was 86% on room air, so he was placed on supplemental oxygen. I discussed his test results with him and his family. I will order additional fluids. 1613: I reviewed the patient's case with Dr. Minor - [place], Herbie Adams. Dr. Minor will evaluate the patient for further management. 1645: I reassessed the patient. He is being evaluated by Herbie Adams at this time. Consultations Consultation #1: I reviewed the patient's case with Dr. Iván Johnston, Herbie Adams. Dr. Minor will evaluate the patient for further management. Time: 16:13 Administered Medications Discontinued Medications Sodium Chloride (Nss) 500 mls @ 999 mls/hr IV .Q31M ROBERT Stop: 02/20/19 15:30 Last Infusion: 02/20/19 15:41 Dose: 0 mls/hr Documented by: [id number] Admin: 02/20/19 15:10 Dose: 999 mls/hr Documented by: [id number] Piperacillin Sod/Tazobactam Sod (Zosyn) 4.5 gm in 120 mls @ 240 mls/hr IV NOW ONE Stop: 02/20/19 15:58 Last Admin: 02/20/19 16:28 Dose: 240 mls/hr Documented by: [id number] Sodium Chloride (Nss 1000ml) 500 mls @ 999 mls/hr IV .Q31M ONE Stop: 02/20/19 16:38 Last Admin: 02/20/19 16:28 Dose: 999 mls/hr Documented by: [id number] Medical Decision Making Differential Diagnosis Differential diagnosis includes: TIMOTHY, dehydration, ICH, rhabdomyolysis, fall, pneumonia, UTI. Medical Records Attestation: I reviewed the patient's medical records. I did perform a limited focused review of portions of the patient's old chart on the electronic medical record. The patient was admitted on December 15 for dizziness and weakness, although his dizziness had been ongoing for over a decade. His creatinine was 4.06 upon admission. Home Medications Current Medication List: was personally reviewed by me Laboratory Data Attestation: I reviewed the patient's lab results. Result diagrams: 02/20/19 15:11 02/20/19 15:11 Lab Results 02/20/19 02/20/19 02/20/19 Range/Units 15:11 15:11 15:11 WBC 22.40 H (4.8-10.8) K/uL RBC 6.01 (4.7-6.1) M/uL Hgb 18.9 H (14.0-18.0) g/dL Hct 54.4 H (42-52) % MCV 90.5 (80-100) fL MCH 31.4 (25-34) pg MCHC 34.7 (32-36) g/dL RDW Std Deviation 41.6 (36.4-46.3) fL RDW Coeff of Sadaf 12.7 (11.5-14.5) % Plt Count 296 (130-400) K/uL MPV 10.7 H (7.4-10.4) fL Immature Gran % (Auto) 0.5 % Neut % (Auto) 85.5 % Lymph % (Auto) 8.3 % Barren % (Auto) 5.7 % Eos % (Auto) 0.0 % Baso % (Auto) 0.0 % Immature Gran # (Auto) 0.11 H (0.00-0.02) K/uL Neut # (Auto) 19.15 H (1.4-6.5) K/uL Lymph # (Auto) 1.86 (1.2-3.4) K/uL Barren # (Auto) 1.27 H (0.11-0.59) K/uL Eos # (Auto) 0.00 (0-0.5) K/uL Baso # (Auto) 0.01 (0-0.2) K/uL PT 11.4 (9.0-12.0) Seconds INR 1.1 (0.9-1.1) APTT (21.0-31.0) Seconds PTT Ratio Sodium 133 L (136-145) mmol/L Potassium 4.5 (3.5-5.1) mmol/L Chloride 91 L (98-107) mmol/L Carbon Dioxide 26 (21-32) mmol/L Anion Gap 16.0 H (3-11) BUN 82 H (7-18) mg/dl Creatinine 3.56 H (0.6-1.4) mg/dl Est Cr Clr Drug Dosing 18.8 ml/min Est GFR ( Amer) 18.7 Est GFR (Non-Af Amer) 16.1 BUN/Creatinine Ratio 23.1 H (10-20) Glucose 240 H (70-99) mg/dl POC Glucose (70-99) Calcium 9.5 (8.5-10.1) mg/dl Magnesium 2.5 H (1.8-2.4) mg/dl Total Bilirubin 1.2 H (0.2-1) mg/dl AST 382 H (15-37) U/L ALT 155 H (12-78) U/L Alkaline Phosphatase 160 H (45-117) U/L Total Creatine Kinase 8352 H (39-308) U/L Troponin I 0.144 H* (0-0.045) ng/ml Total Protein 8.5 H (6.4-8.2) gm/dl Albumin 3.9 (3.4-5.0) gm/dl Globulin 4.6 H (2.5-4.0) gm/dl Albumin/Globulin Ratio 0.8 L (0.9-2) 02/20/19 02/20/19 Range/Units 15:11 15:15 WBC (4.8-10.8) K/uL RBC (4.7-6.1) M/uL Hgb (14.0-18.0) g/dL Hct (42-52) % MCV (80-100) fL MCH (25-34) pg MCHC (32-36) g/dL RDW Std Deviation (36.4-46.3) fL RDW Coeff of Sadaf (11.5-14.5) % Plt Count (130-400) K/uL MPV (7.4-10.4) fL Immature Gran % (Auto) % Neut % (Auto) % Lymph % (Auto) % Barren % (Auto) % Eos % (Auto) % Baso % (Auto) % Immature Gran # (Auto) (0.00-0.02) K/uL Neut # (Auto) (1.4-6.5) K/uL Lymph # (Auto) (1.2-3.4) K/uL Barren # (Auto) (0.11-0.59) K/uL Eos # (Auto) (0-0.5) K/uL Baso # (Auto) (0-0.2) K/uL PT (9.0-12.0) Seconds INR (0.9-1.1) APTT 26.2 (21.0-31.0) Seconds PTT Ratio 1.0 Sodium (136-145) mmol/L Potassium (3.5-5.1) mmol/L Chloride (98-107) mmol/L Carbon Dioxide (21-32) mmol/L Anion Gap (3-11) BUN (7-18) mg/dl Creatinine (0.6-1.4) mg/dl Est Cr Clr Drug Dosing ml/min Est GFR ( Amer) Est GFR (Non-Af Amer) BUN/Creatinine Ratio (10-20) Glucose (70-99) mg/dl POC Glucose 228 H (70-99) Calcium (8.5-10.1) mg/dl Magnesium (1.8-2.4) mg/dl Total Bilirubin (0.2-1) mg/dl AST (15-37) U/L ALT (12-78) U/L Alkaline Phosphatase (45-117) U/L Total Creatine Kinase (39-308) U/L Troponin I (0-0.045) ng/ml Total Protein (6.4-8.2) gm/dl Albumin (3.4-5.0) gm/dl Globulin (2.5-4.0) gm/dl Albumin/Globulin Ratio (0.9-2) Imaging Data Radiologist's Impression: Radiology results as stated below per my review and the radiologist's interpretation: XR chest 1V portable CLINICAL HISTORY: Hypoxia COMPARISON STUDY: 12/15/2018 FINDINGS: The cardiac and mediastinal contours remain stable. There is suspected underlying pulmonary emphysema. There are subtle right basilar airspace opacities, pneumonia versus atelectasis. Clinical and radiographic follow-up is recommended.[ IMPRESSION: Subtle right basilar opacities, atelectasis versus pneumonia. Clinical and radiographic follow-up is recommended Electronically signed by: Rhys Davidson M.D. 02/20/2019 3:08 PM XR hip LT 2V w pelvis CLINICAL HISTORY: Left hip pain status post trauma COMPARISON: None. DISCUSSION: There are moderately extensive vascular calcifications present. No acute fractures or dislocations are visualized. IMPRESSION: No acute fractures or dislocations identified. Electronically signed by: Rhys Davidson M.D. 02/20/2019 4:01 PM XR femur LT 2V routine CLINICAL HISTORY: Left femur pain status post trauma COMPARISON: None. DISCUSSION: No acute fractures or dislocations are visualized. There are moderate vascular calcifications. IMPRESSION: No acute fractures or dislocations identified. Electronically signed by: Rhys Davidson M.D. 02/20/2019 4:[address] SCAN OF THE ABDOMEN AND PELVIS WITHOUT CONTRAST CLINICAL HISTORY: Left lower quadrant abdominal pain COMPARISON STUDY: January 2010 TECHNIQUE: CT scan of the abdomen and pelvis was performed from the lung bases to the proximal femurs. Images are reviewed in the axial, sagittal, and coronal planes. IV contrast was not administered for this examination. A dose lowering technique was utilized adhering to the principles of ALARA. CT DOSE: 2647.96 mGy.cm FINDINGS: Lower chest: There are basilar atelectatic changes. Liver: There is mild hepatic steatosis. Gallbladder: Mildly distended. No calculi identified. Spleen: Normal in size and attenuation. Pancreas: Unremarkable. Adrenal glands: Unremarkable. Kidneys: There is left renal atrophy. There are bilateral vascular calcifications. There is no hydronephrosis. No ureteral calculi or bladder calculi are visualized. Bowel: There are no transition zones indicate bowel obstruction. There is no evidence of acute diverticulitis. There is no evidence of acute appendicitis. Peritoneum: There is no intraperitoneal free air or abdominal ascites. Vasculature: There is a 4.1 cm abdominal aortic aneurysm extending to the level of the renal arteries. There are extensive atheromatous changes present within the superior mesenteric artery and left renal artery. There is soft tissue thickening surrounding the infrarenal abdominal aorta, a finding slightly progressive when compared the prior study. 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 Adenopathy: None. Pelvic viscera: The bladder, and pelvic viscera are unremarkable. Skeletal structures: No destructive osseous lesions are seen. IMPRESSION: 1. No evidence of bowel obstruction. No evidence of free air 2. Interval development of left renal atrophy 3. No evidence of renal obstruction. No ureteral or bladder calculi identified 4. Extensive vascular atherosclerotic disease 5. 41 mm abdominal aortic aneurysm 6. Slight progression in the soft tissue thickening surrounding infrarenal abdominal aorta. The findings are likely secondary to either a chronic aortitis or retroperitoneal fibrosis. 7. No evidence of acute diverticulitis. Evidence of acute appendicitis. Electronically signed by: Rhys Davidson M.D. 02/20/2019 4:[address] OF THE CERVICAL SPINE CLINICAL HISTORY: Neck pain status post trauma COMPARISON STUDY: January 2017 CT DOSE: TECHNIQUE: CT scan of the cervical spine was performed from the skull base to the thoracic inlet. Images are reviewed in the axial, sagittal, and coronal planes. IV contrast was not administered for this examination. A dose lowering technique was utilized adhering to the principles of ALARA. FINDINGS: The visualized portions of the lung apices reveal no evidence of pneumothorax. There are tiny droplets of air below the foramen magnum, likely representing iatrogenic venous gas. The prevertebral soft tissues are normal. No fractures or subluxations are visualized. There are multilevel degenerative changes IMPRESSION: No evidence of acute fracture or traumatic subluxation. Electronically signed by: Rhys Davidson M.D. 02/20/2019 3:[address] head/brain wo con CLINICAL HISTORY: Head pain status post trauma. Confusion. COMPARISON STUDY: Head CT dated 11/07/2018, MRI the brain dated 11/08/2018 TECHNIQUE: Axial CT of the brain is performed from the vertex to the skull base. IV contrast was not administered for this examination. A dose lowering technique was utilized adhering to the principles of ALARA. CT DOSE: FINDINGS: No intra or extra-axial mass lesions are visualized. There is no CT evidence of acute cortical infarction. There is no evidence of midline shift. There is no acute hemorrhage. No calvarial fractures are visualized. There are patchy white matter hypodensities likely on a small vessel basis. There is an old right thalamic lacunar infarct. There is mild ventricular prominence a finding which is felt to be secondary to volume loss There is a chronic left max sinus retention cyst. There is calcification of the right globe. IMPRESSION: No acute intracranial findings Electronically signed by: Rhys Davidson M.D. 02/20/2019 3:47 PM ECG Data Attestation: I personally reviewed and interpreted this ECG as follows: Indication: + other (fall) Rate (beats per minute): 96 Rhythm: + normal sinus ECG ST segments: + T-wave inversions (Lateral, high lateral); no ST elevation ECG Findings: + Other (QRS is 94); no PVCs Comparison ECG Date: from (02/14/19) Change: the following changes noted (T-wave inversions are new) Blood Pressure Blood Pressure Findings: Elevated blood pressure Blood Pressure Disposition: further management by hospitalist Head Trauma GCS Score: 15 MDM Narrative I did evaluate the patient as noted above. The patient has baseline confusion and memory issues. He does not remember falling but he was found between the bed in the trailer wall by his family today. They believe he was likely there for a number of hours as he normally has a routine where he turns on the TV in the morning and it was not on. Judging by his physical examination he does have abrasions that look like they are hours old. He does appear clinically dehydrated and has a history of TIMOTHY on his last admission. IV access was established. I did start him on IV fluids with normal saline 500 cc. I did not wish to fluid overload him or caused him flash pulmonary edema. The patient was placed on a continuous automobile drivers. He has hypoxemia with a pulse ox in the 80s on room air. He was given supplemental oxygen via nasal cannula. I did order and personally review the patient's 12-lead EKG as described above. He does have T wave inversions in the lateral and high lateral leads which are new since December. He continues to deny having any chest discomfort or shortness of breath. I did order and personally reviewed the images of the patient's chest and other x-rays as described above. He does have a right lower lobe infiltrate. He has no fracture dislocation. I did order a urine analysis but he has not been able to provide us with a sample. I did give him another bolus of normal saline IV at 500 cc. He was also given oral hydration. I did order blood cultures as well as Zosyn IV. I did order and review the patient's blood work as noted in the electronic medical record. His white count is over 22,000. Lactate is elevated. Creatinine is over 3 consistent with TIMOTHY. Potassium is normal. Hemoglobin is 19 consistent with hemoconcentration. Creatinine is over 8000. Troponin is 0.14. It is unclear whether or not he had an end STEMI or this may be partially secondary to his TIMOTHY and rhabdomyolysis. He is hyperglycemic and his LFTs are elevated. I did order a CT of the head, cervical spine, abdomen and pelvis. I did review the images myself as well as the radiology report as described above. There is no evidence of acute process. I did reassess the patient and discussed test results with him and his family. He will be admitted for fluid hydration, repeat cardiac enzymes, cardiac consultation and continued care. I did discuss the case with the hospitalist and welfare case worker. Impression & Plan Hypoxia, RLL pneumonia, Rhabdomyolysis, TIMOTHY (acute kidney injury), Elevated troponin, Abnormal ECG, Acute dehydration, Fall, Head injury, Injury of left leg, Avulsion of toenail of left foot, Hyperglycemia, Abnormal LFTs Critical Care Time Critical Care Time: Yes Total Critical Care Time: 35 I have personally spent approximately 35 minutes of critical care time in the direct management of this patient. This includes bedside care, interpretation of diagnostic studies, and testing, discussion with consultants, patient, and family members, and other required patient management activities. This 35 minutes is in excess of all separately billable procedures. Discharge Plan Visit Data Chief Complaint: Fall Stated Complaint: lethargic/confuses ED Provider: Yuan Delacruz Discharge Problem: Hypoxia, RLL pneumonia, Rhabdomyolysis, TIMOTHY (acute kidney injury), Elevated troponin, Abnormal ECG, Acute dehydration, Fall, Head injury, Injury of left leg, Avulsion of toenail of left foot, Hyperglycemia, Abnormal LFTs Patient Disposition: Admitted As Inpatient Forms Stand Alone Forms: My [facility] Prescriptions Prescriptions: No Action amlodipine 5 mg tablet 5 mg PO DAILY Qty: 30 RF: 0 glimepiride 2 mg Tablet 2 mg PO QAM RF: 0 hydroxyzine HCl 25 mg tablet 25 mg PO QAM RF: 0 Jardiance 25 mg tablet 25 mg PO DAILY RF: 0 zolpidem 5 mg tablet 5 mg PO HS RF: 0 Basaglar KwikPen U-100 Insulin 100 unit/mL (3 mL) insulin pen 20 unit subcut DAILY RF: 0 atorvastatin 40 mg Tablet 40 mg PO QPM RF: 0 metformin 850 mg Tablet 850 mg PO QAM RF: 0 pantoprazole 40 mg Tablet,Delayed Release (Dr/Ec) 40 mg PO DAILYBB RF: 0 sodium chloride [Saline Mist] 0.65 % aerosol,spray 2 spry WOODROW TID PRN (Reason: Nasal Congestion) RF: 0 Referrals Referrals: Breann Orr MD [Primary Care Provider] - Discharge Problem: RLL pneumonia Qualifiers: Pneumonia type: due to unspecified organism Qualified Code(s): J18.1 - Lobar pneumonia, unspecified organism Rhabdomyolysis Qualifiers: Rhabdomyolysis type: non-traumatic Qualified Code(s): M62.82 - Rhabdomyolysis Fall Qualifiers: Encounter type: initial encounter Qualified Code(s): W19.XXXA - Unspecified fal l, initial encounter Head injury Qualifiers: Encounter type: initial encounter Qualified Code(s): S09.90XA - Unspecified injury of head, initial encounter Injury of left leg Qualifiers: Encounter type: initial encounter Qualified Code(s): S89.92XA - Unspecified injury of left lower leg, initial encounter The scribe's documentation has been prepared under my direction and personally reviewed by me in its entirety. I confirm that the note above accurately reflects all work, treatment, procedures, and medical decision making performed by me.
[2019-02-20] MEDS ORDERED: GLUCOSE 40% GEL 15 GM TUBE PO PRN (18:59)
[2019-02-20] MEDS ORDERED: PHARMACIST DISCHARGE MED REC CONSULT PRN (18:59)
[2019-02-20] MEDS ORDERED: DEXTROSE 50% 50 ML SYRINGE IV PRN (18:59)
[2019-02-20] MEDS ORDERED: GLUCAGON FOR INJ 1 MG VIAL SQ PRN (18:59)
[2019-02-20] MEDS ORDERED: ACETAMINOPHEN 325 MG TAB PO PRN (18:59)
[2019-02-20] MEDS ORDERED: GLUCOSE 10 TABS/TUBE PO PRN (18:59)
[2019-02-20] MEDS ORDERED: CARBOHYDRATES FOR HYPOGLYCEMIA PO PRN (18:59)
[2019-02-20] MEDS ORDERED: SODIUM CHLORIDE 0.65% NA SOLN 45 ML (OCEAN) NAE PRN (18:59)
[2019-02-20] MEDS ORDERED: PIPERACILLIN/TAZOBACTAM 4.5 GM in DEXTROSE 5% 100 ML IV SCH (18:59)
[2019-02-20] MEDS ORDERED: ONDANSETRON INJ 2 MG/ML 2 ML VIAL IV PRN (18:59)
[2019-02-20] MEDS: SODIUM CHLORIDE 0.9% 1000ML 1,000 ML IV SCH (19:23)
[2019-02-20 19:52] LABS: Alanine Aminotransferase 141 U/L (12-78); Albumin Level 3.5 gm/dl (3.4-5.0); Alkaline Phosphatase 137 U/L (45-117); Aspartate Aminotransferase 321 U/L (15-37); Bilirubin Direct 0.4 mg/dl (0-0.2); Bilirubin,Total 1.3 mg/dl (0.2-1); Total Protein 7.7 gm/dl (6.4-8.2); Troponin I 0.152 ng/ml (0-0.045)
[2019-02-20] MEDS: INSULIN ASPART 100 UNITS/ML 3 ML PEN SC SCH (20:53)
[2019-02-20] MEDS: ZOLPIDEM TARTRATE 5 MG TAB PO SCH (20:56)
[2019-02-20] MEDS: BACITRACIN OINT 15 GM TUBE EXT SCH (20:56)
[2019-02-20] MEDS ORDERED: ATORVASTATIN 40 MG TAB PO SCH (21:00)
[2019-02-20] MEDS: HEPARIN SOD 5,000 UNIT/0.5 ML VIAL SQ SCH (21:19)
[2019-02-20] MEDS ORDERED: QUETIAPINE FUMARATE 25 MG TABLET PO STA (21:37)
[2019-02-20] MEDS ORDERED: PNEUMOCOCCAL POLYSACCHARIDES 25 MCG/0.5 ML VIAL/SYR IM ONE (22:00)
[2019-02-20] MEDS ORDERED: INFLUENZA ADMINISTRATION CHARGE ONE (22:00)
[2019-02-20] MEDS ORDERED: PNEUMOCOCCAL ADMINISTRATION CHARGE ONE (22:00)
[2019-02-20] MEDS ORDERED: INFLUENZA VACCINE HIGH DOSE 65+ 0.5 ML SYR IM ONE (22:00)
[2019-02-20] MEDS: PIPERACILLIN/TAZOBACTAM 3.375 GM in DEXTROSE 5% 100 ML IV SCH (23:18)
[2019-02-21 00:23] LABS: Blood Urea Nitrogen 91 mg/dl (7-18); Calcium 8.9 mg/dl (8.5-10.1); Chloride 99 mmol/L (98-107); Chol HDL Ratio 5; Cholesterol 152 mg/dl (0-200); Creatinine Clr Calc Pharmacy 17.6 ml/min; Est GFR (African American) 17.3; Glucose 233 mg/dl (70-99); HDL Cholesterol 29 mg/dl; LDL Cholesterol Calculated 62 mg/dl; Sodium 137 mmol/L (136-145); Triglycerides 303 mg/dl (0-150); VLDL Cholesterol 61 mg/dl
[2019-02-21 00:24] LABS: Globulin 4.2 gm/dl (2.5-4.0); Potassium 5.2 mmol/L (3.5-5.1)
[2019-02-21 00:25] LABS: Albumin Globulin Ratio 0.8 (0.9-2)
[2019-02-21 03:05] LABS: Hematocrit (blood only) 47.2 % (42-52); Mean Corpuscular Hemoglobin 32.1 pg (25-34); Mean Corpuscular Volume 89.2 fL (80-100); Mean Platelet Volume 10.3 fL (7.4-10.4); Platelet Count 235 K/uL (130-400); RDW Coefficient of Variation 12.5 % (11.5-14.5); RDW Standard Deviation 40.3 fL (36.4-46.3); Red Blood Count 5.29 M/uL (4.7-6.1); White Blood Count 19.46 K/uL (4.8-10.8)
[2019-02-21] MEDS: SODIUM CHLORIDE 0.9% 1000ML 1,000 ML IV SCH ×3 (03:20→19:13)
[2019-02-21] MEDS: PANTOprazole 40 MG TAB PO SCH (05:34)
[2019-02-21] MEDS: HEPARIN SOD 5,000 UNIT/0.5 ML VIAL SQ SCH ×3 (05:34→20:47)
--- NOTE | 2019-02-21 08:25 | Neurology Consultation ---
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 # Altered mental status: likely multifactorial in the setting of TIMOTHY on CKD, uremia (BUN 91), suspected pneumonia, multiple electrolyte abnormalities, rhabdomyolysis, transaminitis and profound hypertension. He does have significant SVID and prior infarcts that in the setting of illness/metabolic abnormalities, could cause recrudescence of old stroke symptoms (particularly the old thalamic stroke could cause confusion). - obtain MRI brain when able to r/o new stroke, though think this is less likely a cause of his AMS given multiple other metabolic/infectious abnormalities - obtain an ammonia level - treat underlying metabolic/infectious conditions and monitor for improvement - delirium precautions, lights on during day/off at night, frequent reorientation, out of bed as tolerated/safe, avoid sedating medications/anticholinergics/opiates/benzos - if no improvement in symptoms after resolution of above abnormalities, would consider EEG +/- LP at that time - family's concern of worsening dementia symptoms would be better addressed in the outpatient setting when his acute issues have resolved. Can send B12 and TSH now as part of workup and to r/o any other potential cause of worsening mental status Thank you for this interesting consult. Please text or call with questions. 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 Unknown last seen well (family saw him on 02/15, landlord saw him on 02/18 or 02/19). In the ED, he was found to have leukocytosis w/ neutrophilic predominance, Plts 235, INR 1.1, Na 137, K 5.2, AG 20, Cr 3.79, BUN 91, glucose 233, lactate 3.2, Mg 2.5, mildly elevated bilirubin, AST 321, ALT 141, CPK 8352, troponin 0.133, LDL 62. CTH showed no hemorrhage or hypodensity, SVID (per my read). CXR notable for RLL pneumonia. He was noted to be profoundly hypertensive with systolics in the 190s. Per family report, he has been increasingly confused since his stroke-like episode in October 2018. At that time, MRI brain did not show any acute infarct, did show moderate SVID and chronic L cerebellar infarct. He is unable to provide any further history as last thing he remembers was being at home. Denied any chest pain, SOB, fevers, chills, new numbness or weakness. Allergies Allergy/AdvReac Type Severity Reaction Status Date / Time No Known Allergies Allergy Verified 12/15/18 11:19 Home Medications Home Medications Medication Instructions Recorded Confirmed Type atorvastatin 40 mg PO QPM 11/07/18 02/20/19 History metformin 850 mg PO QAM 11/07/18 02/20/19 History pantoprazole 40 mg PO DAILYBB 11/07/18 02/20/19 History Jardiance 25 mg PO DAILY 12/12/18 02/20/19 History glimepiride 2 mg PO QAM 12/12/18 02/20/19 History hydroxyzine HCl 25 mg PO QAM 12/12/18 02/20/19 History Basaglar KwikPen U-100 Insulin 20 unit SUBCUT DAILY 12/15/18 02/20/19 History zolpidem 5 mg PO HS 12/15/18 02/20/19 History amlodipine 5 mg tablet 5 mg PO DAILY #30 tab 02/04/19 02/20/19 Rx sodium chloride [Saline Mist] 2 spry WOODROW TID PRN 02/20/19 02/20/19 History Patient History Medical History Sleep disturbance (Chronic) Cancer Hypertension (Chronic) PVD (peripheral vascular disease) (Chronic) TIA (transient ischemic attack) (Chronic) Cerebrovascular disease, arteriosclerotic, post-stroke (Chronic) Dysphagia (Chronic) Hemiplegia (Chronic) COPD, moderate (Chronic) CKD (chronic kidney disease), stage III (Chronic) DM type 2 (diabetes mellitus, type 2) (Chronic) AAA (abdominal aortic aneurysm) (Chronic) "s/p repair" CAD (coronary artery disease) (Chronic) History of Helicobacter pylori infection (Chronic) PUD (peptic ulcer disease) (Chronic) Blind right eye (Chronic) Diabetes (Chronic) Surgical History S/P AAA repair (Chronic) S/P carotid endarterectomy (Chronic) "bilateral" H/O aorto-femoral bypass (Chronic) History of incision and drainage (Chronic) "evacuation of the left neck postop hematoma ()" H/O colonoscopy with polypectomy (Chronic) Family History Other Family history non-contributory Social History Preferred Language: Ghanaian Communication Ability: Effective Visual Impairment: Partially Limited Beliefs That Will Affect Care: None marital status: Current Living Situation: Alone current occupational status: retired Other Information That Helps Us Care for You: No Feels Safe at Home: Yes Safety Concerns: Feels Safe At This Time Smoking Status: Former smoker Hx Alcohol Use: No (unknown pt responsive to stimuli only) Hx Substance Use: No (unknown pt responsive to stimuli only) Review of Systems Review of Systems: Unobtainable due to cognitive status Physical Exam Physical Exam: General Exam: GEN: NAD, lying in bed. HEENT: No conjunctival injection, no rhinorrhea. CV: RRR, no peripheral edema PULM: Nonlabored respirations on room air. Neuro Exam: MS: Awake and Alert. Oriented to self and being in a hospital, not month or year. Speech fluent though sparse, no dysarthria or paraphasic errors. Language intact including naming, comprehension, repetition. Cognition and memory grossly impaired. Inattentive. No clear neglect. CN: Visual mirza full in left eye (baseline blindness in right eye). No optic disc edema on fundoscopic exam. PERRLA OS. EOMI without nystagmus. Facial se nsation intact to LT. Flattening of left nasolabial fold. Hearing intact to conversation. Uvula midline with symmetric palatal elevation. Shoulder shrug normal. Tongue midline. MOTOR: Normal bulk and tone. + pronator drift in LUE. BUEs antigravity with drift noted in LUE. BLEs antigravity with slow drift to bed (>5 seconds). REFLEXES: 1+ at biceps, triceps, brachioradialis, unable to assess patellar reflexes 2/2 wounds and absent Achilles bilaterally.Toes mute bilaterally. SENSORY: Intact to LT without extinction to double simultaneous stimuli. Pinprick intact throughout. Vibration diminished in the BLEs up to the hips. COORDINATION: No dysmetria or ataxia on [id number] bilaterally. Slow speed, decreased amplitude of Alysha bilaterally. GAIT: Unable to assess 2/2 mental and clinical status. Results & Data Vital Signs (Past 12 Hours) Vital Signs Temp Pulse Pulse Resp BP BP Pulse Ox 02/21/19 07:59 36.4 C L 88 18 186/95 H 93 02/21/19 04:30 184/90 H 02/21/19 04:00 36.2 C L 84 19 217/109 H 210/106 H 94 02/21/19 00:29 87 02/20/19 23:52 182/102 H 02/20/19 23:50 223/98 H 02/20/19 23:00 36.4 C L 89 20 235/120 H 96 02/20/19 21:52 95 H PG Care Time/CCT Total # of Minutes Spent Total Time Spent with Patient: Total time spent is greater than 50% in coordination of care (as documented) at patient's floor/unit and/or counseling patient: (1) Rhabdomyolysis Rhabdomyolysis type: non-traumatic Qualified Code(s): M62.82 - Rhabdomyolysis (2) Altered mental status Altered mental status type: disorientation Qualified Code(s): R41.0 - Disorientation, unspecified (3) RLL pneumonia Pneumonia type: due to unspecified organism Qualified Code(s): J18.1 - Lobar pneumonia, unspecified organism
[2019-02-21] MEDS: INSULIN ASPART 100 UNITS/ML 3 ML PEN SC SCH ×4 (08:58→20:46)
[2019-02-21] MEDS: BACITRACIN OINT 15 GM TUBE EXT SCH ×2 (08:58→20:45)
[2019-02-21] MEDS: INSULIN GLARGINE SOLOSTAR 100 UNITS/ML 3 ML PEN SQ SCH (08:59)
[2019-02-21] MEDS: ASPIRIN 81 MG ECTAB PO SCH (08:59)
[2019-02-21] MEDS ORDERED: AMLODIPINE BESYLATE 5 MG TAB PO SCH (09:00)
[2019-02-21 10:02] LABS: Basophils # (auto) 0.02 K/uL (0-0.2); Basophils % (auto) 0.1 %; Hematocrit (blood only) 44.1 % (42-52); Hemoglobin 15.4 g/dL (14.0-18.0); Immature Granulocytes # (auto) 0.07 K/uL (0.00-0.02); Immature Granulocytes % (auto) 0.4 %; Lymphocytes # (auto) 0.99 K/uL (1.2-3.4); Lymphocytes % (auto) 5.9 %; Mean Corpuscular Hemoglobin 31.7 pg (25-34); Mean Corpuscular Hgb Conc 34.9 g/dL (32-36); Mean Corpuscular Volume 90.7 fL (80-100); Mean Platelet Volume 10.2 fL (7.4-10.4); Monocytes # (auto) 2.08 K/uL (0.11-0.59); Monocytes % (auto) 12.4 %; Neutrophils # (auto) 13.57 K/uL (1.4-6.5); Neutrophils % (auto) 81.2 %; Platelet Count 227 K/uL (130-400); RDW Coefficient of Variation 12.7 % (11.5-14.5); RDW Standard Deviation 41.7 fL (36.4-46.3); Red Blood Count 4.86 M/uL (4.7-6.1); White Blood Count 16.73 K/uL (4.8-10.8)
[2019-02-21 10:30] LABS: Albumin Level 3.1 gm/dl (3.4-5.0); BUN Creatinine Ratio 25.1 (10-20); Calcium 8.1 mg/dl (8.5-10.1); Creatinine Clr Calc Pharmacy 19.4 ml/min; Est GFR (African American) 19.4; Est GFR (Non-African American) 16.8
[2019-02-21 10:32] LABS: Albumin Globulin Ratio 0.8 (0.9-2); Bilirubin,Total 1.3 mg/dl (0.2-1); Globulin 3.9 gm/dl (2.5-4.0)
--- NOTE | 2019-02-21 11:20 | Hospitalist Progress Note ---
Date of Service February 21, 2019 Assessment & Plan (1) Status post fall: 73 year old male with past medical history of HTN, DMII, AAA, CAD s/p CABG, acute renal failure with baseline (cr. 1.3) lives alone with last visit from family 5 days prior, but pamella came by 1-2 days prior, found to have elevated white count with concern for pneumonia, elevated transaminases, elevated downtrending troponin, elevated CK, and elevated Cr. S/P fall unclear cause, down for approx. 1 day. - Hip, Femur, and Cervical spine imaging negative for fracture - CT head: No acute intracranial findings - patient has no memory of the event - PT OT order placed - Care management order placed AMS concern for TIA vs. encephalopathy - patients mentation has improved, was oriented and had goal directed conversation - family not present today, but ex-'s name is Anahi and Daughter's name is Michelle and they may provide collateral information to establish patients baseline - consulted neurology and appreciate recs - consider MRI tomorrow - continue to monitor BMP w/ AM labs - given concern for delirium ordered Seroquel PRN for agitation overnight Concern for pneumonia CXR right basilar opacity - Zosyn started, pharmacy consulted for dosing given cr. clearance of 20 - currently afebrile and normal heart rate, oxygen saturation 94 % on 2L this morning - WBC downtrending - continue to monitor Temp, and WBC w/ AM labs Elevated transaminase level - normal prior to admission, could be secondary to Rhabdomyolysis vs. HTN w/ end organ damage, less likely due to severe hypotension due to dehydration; rule out hepatitis - AST: 321 ALT: 141 - no reported alcohol use, GGT ordered with AM labs - Hep B, C serology ordered - continue to monitor w/ AM CMP DMII - ISS while inpatient - ordered A1C Acute on chronic kidney disease in setting of rhabdomyolysis - baseline Cr. 1.3, has been >4 in the past - currently cr. 3.45 and downtrending over the day - continue fluids, continue to monitor - ordered intake and output and daily weight Rhabdomyolysis - elevated CK, downtrending - continue fluids HTN - >200 systolic improved through the day - increased Amlodipine to 10 mg daily - Started Hydralazine prn for BP >170 DVT: Heparin Code: DNR Diet: minced Fluids: 125mL/hr NS (2) Elevated transaminase level: (3) Hypoxia: (4) Rhabdomyolysis: (5) RLL pneumonia: (6) TIMOTHY (acute kidney injury): (7) Elevated troponin: (8) Abnormal ECG: (9) Acute dehydration: (10) Head injury: (11) Injury of left leg: (12) Avulsion of toenail of left foot: (13) Hyperglycemia: (14) Abnormal LFTs: (15) DVT prophylaxis: (16) Acute renal failure: (17) Dehydration: (18) Sleep disturbance: (19) Altered mental status: (20) Hypertensive urgency: (21) Hyperglycemia due to type 2 diabetes mellitus: Supervising Physician Co-Signing Physician Notes Patient seen and examined with PGY-1 Dr. Velasquez. Agree with history, exam findings, assessment and plan of care as outlined. In brief, Mr. Michel is a 73 year old male with hx of prior TIA, CAD, CKD, DM, with prior AAA repair, CEA, and aortofemoral bypass surgery admitted after being found in his home confused and his home in general disarray. He reports vague upper abdominal pain. Not worse with food or drink. Denies nausea. Denies diarrhea. Denies dyspnea. VS reviewed. Hypertensive. No tenderness over the epigastric region or the RUQ. 1. altered mental status. Unclear on baseline, but answers questions appropriately today, although slowly. Checking labs for underlying organic etiology. There may be some component of dehydration given his renal function (see below). ?new CVA vs recrudescence of prior area of stroke. Unable to have IV dye for CTA that was originally ordered. Consider MRI brain if he is able to lie in the MRI machine without getting agitated. 2. TIMOTHY, prerenal. Cr 3.79. NS at maint rate. Monitor Cr and lytes. Monitor I/O's. 3. Elevated CK. May be contributing to his TIMOTHY. CK trending down. Continue with fluids. 4. Elevated lactate. [place] down 3.2-->1.5 5. Elevated LFTs. This is new this admission. Maybe due to low perfusion prior to admission vs acute hepatitis (prior hep C negative) vs ETOH consumption. CT Abd/Pelvis with mild hepatic steatosis and a mildly distended gallbladder. However, clinically seems less likely to be related to gallbladder given lack of RUQ tenderness today. 6. ?PNA. Consolidation on CXR. On Zosyn. He did not urinate until about lunch time today and the urine was not sent. Do not think this will make a difference since he was already on antibiotics. Blood cx negative. 7. Hx of agitation/delirium. Received seroquel overnight for severe agitation. Delirium precautions in an attempt to keep patient oriented. Has PRN 1:1. PT and OT have been consulted. May need short term SNF placement. Dispo: Pending clinical improvement. Subjective Doing okay today. He does not have any memory of falling. He stated that he lives alone in a trailer in [place], [place]. 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 He has not drank alcohol since 2001, does not pick mushrooms, and has not been recently exposed to any chemicals. He does not use any recreational drugs. Review of Systems Constitutional: no fever and no chills Respiratory: no cough denies shortness of breath Cardiovascular: + chest pain; no palpitations Gastrointestinal: no nausea and no vomiting Neurologic: no headache(s) Physical Exam Physical Exam: Constitutional: lying in bed, when moving appeared to be in pain Neuro: CN II-XII intact, right eye partially blind MSK: 5/5 symmetric bilaterally in the upper and lower extremity CV: RRR, s1 s2 nl, no m/r/g Resp: CTAB Abd: soft nTTP skin: warm moist intact Ext: calf nTTP, Homans negative Results & Data Vital Signs (Past 12 Hours) Vital Signs Temp Pulse Pulse Resp BP BP Pulse Ox 02/21/19 10:29 87 02/21/19 07:59 36.4 C L 88 18 186/95 H 93 02/21/19 04:30 184/90 H 02/21/19 04:00 36.2 C L 84 19 217/109 H 210/106 H 94 02/21/19 00:29 87 02/20/19 23:52 182/102 H 02/20/19 23:50 223/98 H Resident Activity Tracking Resident Involvement: Resident Care Provided Care Provided: Adult Hospital Medicine (1) Hyperglycemia due to type 2 diabetes mellitus 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 insulin use: without mcfp use Qualified Code(s): E11.65 - Type 2 diabetes mellitus with hyperglycemia (2) Acute renal failure Acute renal failure type: unspecified Qualified Code(s): N17.9 - Acute kidney failure, unspecified (3) Rhabdomyolysis Rhabdomyolysis type: non-traumatic Qualified Code(s): M62.82 - Rhabdomyolysis (4) Altered mental status Altered mental status type: disorientation Qualified Code(s): R41.0 - Disorientation, unspecified (5) Head injury Encounter type: initial encounter Qualified Code(s): S09.90XA - Unspecified injury of head, initial encounter (6) RLL pneumonia Pneumonia type: due to unspecified organism Qualified Code(s): J18.1 - Lobar pneumonia, unspecified organism (7) Injury of left leg Encounter type: initial encounter Qualified Code(s): S89.92XA - Unspecified injury of left lower leg, initial encounter
[2019-02-21] MEDS ORDERED: AMLODIPINE BESYLATE 5 MG TAB PO ONE (12:30)
[2019-02-21] MEDS: PIPERACILLIN/TAZOBACTAM 3.375 GM in DEXTROSE 5% 100 ML IV SCH ×2 (12:50→23:42)
[2019-02-21 12:52] LABS: Albumin Level 3.1 gm/dl (3.4-5.0); BUN Creatinine Ratio 26.3 (10-20); Calcium 7.9 mg/dl (8.5-10.1); Creatinine Clr Calc Pharmacy 20.1 ml/min; Est GFR (African American) 20.3; Est GFR (Non-African American) 17.5; Potassium 4.3 mmol/L (3.5-5.1)
[2019-02-21 13:09] LABS: Albumin Globulin Ratio 0.8 (0.9-2); Bilirubin,Total 1.2 mg/dl (0.2-1); Globulin 3.8 gm/dl (2.5-4.0); Thyroid Stimulating Hormone 1.14 uIu/ml (0.300-4.500); Total Protein 6.9 gm/dl (6.4-8.2); Troponin I 0.103 ng/ml (0-0.045)
[2019-02-21] MEDS ORDERED: CONSULT PHARMACY STA (14:57)
[2019-02-21] MEDS ORDERED: QUETIAPINE FUMARATE 25 MG TABLET PO PRN (17:50)
[2019-02-21] MEDS: ZOLPIDEM TARTRATE 5 MG TAB PO SCH (20:49)
[2019-02-22] MEDS: HydrALAZINE 10 MG TAB PO PRN ×3 (00:03→16:42)
[2019-02-22] MEDS: SODIUM CHLORIDE 0.9% 1000ML 1,000 ML IV SCH ×3 (03:34→19:40)
[2019-02-22] MEDS: HEPARIN SOD 5,000 UNIT/0.5 ML VIAL SQ SCH ×3 (05:30→21:28)
[2019-02-22] MEDS: PANTOprazole 40 MG TAB PO SCH (05:30)
[2019-02-22 06:04] LABS: Hematocrit (blood only) 41.1 % (42-52); Hemoglobin 14.3 g/dL (14.0-18.0); Mean Corpuscular Hemoglobin 31.6 pg (25-34); Mean Corpuscular Hgb Conc 34.8 g/dL (32-36); Mean Corpuscular Volume 90.7 fL (80-100); Mean Platelet Volume 10.5 fL (7.4-10.4); Platelet Count 218 K/uL (130-400); RDW Coefficient of Variation 12.6 % (11.5-14.5); RDW Standard Deviation 41.9 fL (36.4-46.3); Red Blood Count 4.53 M/uL (4.7-6.1); White Blood Count 16.47 K/uL (4.8-10.8)
[2019-02-22 06:47] LABS: Albumin Level 2.8 gm/dl (3.4-5.0); BUN Creatinine Ratio 29.1 (10-20); Calcium 8.1 mg/dl (8.5-10.1); Creatinine Clr Calc Pharmacy 23.4 ml/min; Est GFR (African American) 24.5; Est GFR (Non-African American) 21.1
[2019-02-22 06:54] LABS: Albumin Globulin Ratio 0.8 (0.9-2); Bilirubin,Total 0.9 mg/dl (0.2-1); Globulin 3.6 gm/dl (2.5-4.0); Phosphorus 4.2 mg/dl (2.5-4.9); Potassium 3.6 mmol/L (3.5-5.1); Total Protein 6.4 gm/dl (6.4-8.2)
[2019-02-22 07:31] LABS: Estimated Average Glucose 166 mg/dl; Hemoglobin A1C 7.4 % (4.5-5.6)
[2019-02-22] MEDS: AMLODIPINE BESYLATE 5 MG TAB PO SCH (08:11)
[2019-02-22] MEDS: ASPIRIN 81 MG ECTAB PO SCH (08:11)
[2019-02-22] MEDS: BACITRACIN OINT 15 GM TUBE EXT SCH ×2 (08:15→21:28)
[2019-02-22] MEDS: INSULIN GLARGINE SOLOSTAR 100 UNITS/ML 3 ML PEN SQ SCH (08:16)
[2019-02-22] MEDS: INSULIN ASPART 100 UNITS/ML 3 ML PEN SC SCH ×4 (08:19→21:29)
[2019-02-22 08:47] LABS: Hepatitis B Surface Antigen Neg (Neg)
[2019-02-22] MEDS ORDERED: PIPERACILLIN/TAZOBACTAM 3.375 GM in DEXTROSE 5% 100 ML IV SCH (09:00)
[2019-02-22 09:16] LABS: Hepatitis C IgG 13Yrs+Old_Rflx Neg (Neg)
--- NOTE | 2019-02-22 13:32 | Hospitalist Progress Note ---
Date of Service February 22, 2019 Assessment & Plan (1) Status post fall: 73 year old male with past medical history of HTN, DMII, AAA, CAD s/p CABG, acute renal failure with baseline (cr. 1.3) lives alone with last visit from family 5 days prior, but mailman came by 1-2 days prior, found to have elevated white count with concern for pneumonia, elevated transaminases, elevated downtrending troponin, elevated CK, and elevated Cr. S/P fall unclear cause, down for approx. 1 day. - Hip, Femur, and Cervical spine imaging negative for fracture - CT head: No acute intracranial findings - patient has no memory of the event - PT OT order placed - Care management order placed AMS concern for TIA vs. encephalopathy - patients mentation has improved, was oriented and had goal directed conversation - family not present today, but ex-'s name is Anahi and Daughter's name is Michelle and they may provide collateral information to establish patients baseline - consulted neurology: consider MRI/EEG - continue to monitor BMP w/ AM labs - given concern for delirium ordered Seroquel PRN for agitation overnight Concern for pneumonia CXR right basilar opacity - discontinued Zosyn, started on Unasyn - pharmacy consulted for dosing given cr. clearance of 20 - currently afebrile and normal heart rate, oxygen saturation 95 % on room air this morning - WBC downtrending - continue to monitor Temp, and WBC w/ AM labs Elevated transaminase level - normal prior to admission, could be secondary to Rhabdomyolysis vs. HTN w/ end organ damage, less likely due to severe hypotension due to dehydration; rule out hepatitis - AST: 321 ALT: 141 - no reported alcohol use, GGT ordered with AM labs - Hep B, C serology ordered - continue to monitor w/ AM CMP DMII - ISS while inpatient Acute on chronic kidney disease in setting of rhabdomyolysis - baseline Cr. 1.3, has been >4 in the past - currently cr. 3.45 and downtrending over the day - continue fluids, continue to monitor - ordered intake and output and daily weight Rhabdomyolysis - elevated CK, downtrending - continue fluids HTN - >200 systolic improved through the day - increased Amlodipine to 10 mg daily - Started Hydralazine prn for BP >170 DVT: Heparin Code: DNR Diet: minced (2) Elevated transaminase level: (3) Hypoxia: (4) Rhabdomyolysis: (5) RLL pneumonia: (6) TIMOTHY (acute kidney injury): (7) Elevated troponin: (8) Abnormal ECG: (9) Acute dehydration: (10) Head injury: (11) Injury of left leg: (12) Avulsion of toenail of left foot: (13) Hyperglycemia: (14) Abnormal LFTs: (15) DVT prophylaxis: (16) Acute renal failure: (17) Dehydration: (18) Sleep disturbance: (19) Altered mental status: (20) Hypertensive urgency: (21) Hyperglycemia due to type 2 diabetes mellitus: Supervising Physician Co-Signing Physician Notes I personally examined the patient and verified all alvarez points of history and exam, discussed case, and agree with decision making with Dr Moffett. Feeling better. Breathing better. No significant shortness of breath. Does admit to being weak on his feet. Vitals noted, in general he is awake and alert and pleasant. He is not really sure where he is at but is aware he is in hospital, does not really know what happened leading up to it. HEENT normocephalic atraumatic mucous membranes moist. 98% on 1/2 L. Lungs quiet but clear no rales rhonchi or wheezes with good effort. Skin shows no rashes no pallor or icterus. 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 Fallconcern of stroke led to the fall seems reasonable. MRI brain. Secondary risk reduction as possible. Altered mental statusappears to be delirium (metabolic encephalopathy related to pneumonia and/or rhabdomyolysis/dehydration) versus dementia, versus elements of both. Continue to treat underlying causes for delirium, continue supportive care and reorientation. Pneumoniagiven that he was down and may have had a stroke certainly we have concern about aspiration pneumonia. He does not seem to carry much risk for nosocomial pathogens, agree with de-escalating Zosyn to Unasyn. Continue supportive care otherwise. Dispositionright now he is stable on medical, anticipate the need for transfer to SNF level of rehab for ongoing supportive care and safety given his mental status and weakness. Subjective Doing okay today. He does not have any memory of falling. He stated that he lives alone in a trailer, and daughter and ex- sporadically contact him but not sure how often they would be available or around him. Review of Systems Constitutional: no fever, no chills and no sweats Respiratory: no cough, no dyspnea and no wheezing Cardiovascular: no chest pain, no palpitations and no edema Gastrointestinal: no nausea, no vomiting and no change in bowel habits Physical Exam Respiratory: normal respiratory effort, lungs clear to auscultation Cardiovascular: RRR, no murmur, no edema Neurologic: patellar DTR's 2+ bilat, sensation intact and PERRL, EOMI, accommodation nl, no face palsy, no dysarthria no focal motor deficits Psychiatric: Orientation: alert, oriented to person and cooperative; + not oriented to place and + not oriented to time Results & Data Vital Signs (Past 12 Hours) Vital Signs Temp Pulse Pulse Resp BP BP Pulse Ox 02/22/19 11:20 36.6 C 75 16 174/80 H 95 02/22/19 09:26 81 178/79 H 02/22/19 07:17 71 02/22/19 07:00 36.9 C 70 16 195/92 H 93 02/22/19 03:09 36.7 C 77 18 189/87 H 95 Laboratory Results 02/22/19 02/22/19 02/22/19 Range/Units 11:13 07:25 05:32 WBC (4.8-10.8) K/uL RBC (4.7-6.1) M/uL Hgb (14.0-18.0) g/dL Hct (42-52) % MCV (80-100) fL MCH (25-34) pg MCHC (32-36) g/dL RDW Std Deviation (36.4-46.3) fL RDW Coeff of Sadaf (11.5-14.5) % Plt Count (130-400) K/uL MPV (7.4-10.4) fL Sodium (136-145) mmol/L Potassium (3.5-5.1) mmol/L Chloride (98-107) mmol/L Carbon Dioxide (21-32) mmol/L Anion Gap (3-11) BUN (7-18) mg/dl Creatinine (0.6-1.4) mg/dl Est Cr Clr Drug Dosing ml/min Est GFR ( Amer) Est GFR (Non-Af Amer) BUN/Creatinine Ratio (10-20) Glucose (70-99) mg/dl POC Glucose 252 H 158 H (70-99) Estimat Average Glucose mg/dl Hemoglobin A1c (4.5-5.6) % Lactate (0.4-2.0) mmol/L Calcium (8.5-10.1) mg/dl Phosphorus (2.5-4.9) mg/dl Magnesium (1.8-2.4) mg/dl Total Bilirubin (0.2-1) mg/dl GGT Pending AST (15-37) U/L ALT (12-78) U/L Alkaline Phosphatase (45-117) U/L Total Protein (6.4-8.2) gm/dl Albumin (3.4-5.0) gm/dl Globulin (2.5-4.0) gm/dl Albumin/Globulin Ratio (0.9-2) Hepatitis A IgM Ab Hep Bs Antigen (Neg) Hep B Core IgM Ab Hepatitis C Antibody (Neg) 02/22/19 02/22/19 02/22/19 Range/Units 05:32 05:32 05:32 WBC (4.8-10.8) K/uL RBC (4.7-6.1) M/uL Hgb (14.0-18.0) g/dL Hct (42-52) % MCV (80-100) fL MCH (25-34) pg MCHC (32-36) g/dL RDW Std Deviation (36.4-46.3) fL RDW Coeff of Sadaf (11.5-14.5) % Plt Count (130-400) K/uL MPV (7.4-10.4) fL Sodium 138 (136-145) mmol/L Potassium 3.6 D (3.5-5.1) mmol/L Chloride 102 (98-107) mmol/L Carbon Dioxide 26 (21-32) mmol/L Anion Gap 10.0 (3-11) BUN 83 H (7-18) mg/dl Creatinine 2.85 H D (0.6-1.4) mg/dl Est Cr Clr Drug Dosing 23.4 ml/min Est GFR ( Amer) 24.5 Est GFR (Non-Af Amer) 21.1 BUN/Creatinine Ratio 29.1 H (10-20) Glucose 152 H (70-99) mg/dl POC Glucose (70-99) Estimat Average Glucose mg/dl Hemoglobin A1c (4.5-5.6) % Lactate (0.4-2.0) mmol/L Calcium 8.1 L (8.5-10.1) mg/dl Phosphorus 4.2 (2.5-4.9) mg/dl Magnesium 2.0 (1.8-2.4) mg/dl Total Bilirubin 0.9 (0.2-1) mg/dl GGT AST 150 H (15-37) U/L ALT 101 H (12-78) U/L Alkaline Phosphatase 101 (45-117) U/L Total Protein 6.4 (6.4-8.2) gm/dl Albumin 2.8 L (3.4-5.0) gm/dl Globulin 3.6 (2.5-4.0) gm/dl Albumin/Globulin Ratio 0.8 L (0.9-2) Hepatitis A IgM Ab Pending Hep Bs Antigen Neg (Neg) Hep B Core IgM Ab Pending Hepatitis C Antibody Neg (Neg) 02/22/19 02/21/19 02/21/19 Range/Units 05:32 20:30 16:47 WBC 16.47 H (4.8-10.8) K/uL RBC 4.53 L (4.7-6.1) M/uL Hgb 14.3 (14.0-18.0) g/dL Hct 41.1 L (42-52) % MCV 90.7 (80-100) fL MCH 31.6 (25-34) pg MCHC 34.8 (32-36) g/dL RDW Std Deviation 41.9 (36.4-46.3) fL RDW Coeff of Sadaf 12.6 (11.5-14.5) % Plt Count 218 (130-400) K/uL MPV 10.5 H (7.4-10.4) fL Sodium (136-145) mmol/L Potassium (3.5-5.1) mmol/L Chloride (98-107) mmol/L Carbon Dioxide (21-32) mmol/L Anion Gap (3-11) BUN (7-18) mg/dl Creatinine (0.6-1.4) mg/dl Est Cr Clr Drug Dosing ml/min Est GFR ( Amer) Est GFR (Non-Af Amer) BUN/Creatinine Ratio (10-20) Glucose (70-99) mg/dl POC Glucose 183 H 210 H (70-99) Estimat Average Glucose mg/dl Hemoglobin A1c (4.5-5.6) % Lactate (0.4-2.0) mmol/L Calcium (8.5-10.1) mg/dl Phosphorus (2.5-4.9) mg/dl Magnesium (1.8-2.4) mg/dl Total Bilirubin (0.2-1) mg/dl GGT AST (15-37) U/L ALT (12-78) U/L Alkaline Phosphatase (45-117) U/L Total Protein (6.4-8.2) gm/dl Albumin (3.4-5.0) gm/dl Globulin (2.5-4.0) gm/dl Albumin/Globulin Ratio (0.9-2) Hepatitis A IgM Ab Hep Bs Antigen (Neg) Hep B Core IgM Ab Hepatitis C Antibody (Neg) 02/21/19 02/21/19 Range/Units 15:06 02:56 WBC (4.8-10.8) K/uL RBC (4.7-6.1) M/uL Hgb (14.0-18.0) g/dL Hct (42-52) % MCV (80-100) fL MCH (25-34) pg MCHC (32-36) g/dL RDW Std Deviation (36.4-46.3) fL RDW Coeff of Sadaf (11.5-14.5) % Plt Count (130-400) K/uL MPV (7.4-10.4) fL Sodium (136-145) mmol/L Potassium (3.5-5.1) mmol/L Chloride (98-107) mmol/L Carbon Dioxide (21-32) mmol/L Anion Gap (3-11) BUN (7-18) mg/dl Creatinine (0.6-1.4) mg/dl Est Cr Clr Drug Dosing ml/min Est GFR ( Amer) Est GFR (Non-Af Amer) BUN/Creatinine Ratio (10-20) Glucose (70-99) mg/dl POC Glucose (70-99) Estimat Average Glucose 166 mg/dl Hemoglobin A1c 7.4 H (4.5-5.6) % Lactate 1.5 (0.4-2.0) mmol/L Calcium (8.5-10.1) mg/dl Phosphorus (2.5-4.9) mg/dl Magnesium (1.8-2.4) mg/dl Total Bilirubin (0.2-1) mg/dl GGT AST (15-37) U/L ALT (12-78) U/L Alkaline Phosphatase (45-117) U/L Total Protein (6.4-8.2) gm/dl Albumin (3.4-5.0) gm/dl Globulin (2.5-4.0) gm/dl Albumin/Globulin Ratio (0.9-2) Hepatitis A IgM Ab Hep Bs Antigen (Neg) Hep B Core IgM Ab Hepatitis C Antibody (Neg) Medications Administered Current Inpatient Medications [facility] Bes[facility] [place]: 03/24/19 08:59 Last Admin: 02/22/19 08:11 Dose: 10 mg Documented by: Aspirin (Ecotrin Ectab) [facility] [place] Stop: 03/23/19 08:59 Last Admin: 02/22/19 08:11 Dose: 81 mg Documented by: Bacitracin (Bacitracin) 1 appln EXT BID [facility] Stop: 03/22/19 20:59 Last Admin: 02/22/19 08:15 Dose: 1 appln Documented by: Dextrose (Dextrose 50%) 25 - 50 ml IV UD PRN; Protocol PRN Reason: Hypoglycemia Protocol Stop: 03/22/19 18:58 Glucagon (Glucagen) 1 mg SQ UD PRN; Protocol PRN Reason: Hypoglycemia Protocol Stop: 03/22/19 18:58 Glucose (Glucose 40%) 15 - 30 gm PO UD PRN; Protocol PRN Reason: Hypoglycemia Protocol Stop: 03/22/19 18:58 Glucose (Dex4 Glucose) 4 - 8 tabs PO UD PRN; Protocol PRN Reason: Hypoglycemia Protocol Stop: 03/22/19 18:58 Heparin Sodium (Porcine) (Heparin Sodium (Porcine)) 5,000 units SQ Q8 [facility] Stop: 03/22/19 21:59 Last Admin: 02/22/19 05:30 Dose: 5,000 units Documented by: Hydralazine HCl (Apresoline) 10 mg PO Q6H PRN PRN Reason: Hypertension Stop: 03/23/19 18:46 Last Admin: 02/22/19 08:11 Dose: 10 mg Documented by: Sodium Chloride (Nss 1000ml) 1,000 mls @ 125 mls/hr IV .Q8H [facility] Stop: 03/22/19 18:58 Last Admin: 02/22/19 11:40 Dose: 125 mls/hr Documented by: Ampicillin Sodium/Sulbactam Sodium 3,000 mg/ Sodium Chloride 108 mls @ 200 mls/hr IV Q12H [facility]; Protocol Stop: 03/01/19 15:59 Insulin Aspart (Novolog Flexpen) 0 units SC ACHS [facility] Stop: 03/22/19 20:59 Last Admin: 02/22/19 12:10 Dose: 8 units Documented by: Insulin Glargine (Lantus Solostar Pen) 10 units SQ DAILY [facility] Stop: 03/23/19 08:59 Last Admin: 02/22/19 08:16 Dose: 10 units Documented by: Miscellaneous (Carbohydrates For Hypoglycemia) 15 - 30 gm PO UD PRN PRN Reason: Hypoglycemia Protocol Stop: 03/22/19 18:58 Miscellaneous Information (Pharmacist Discharge Med Rec Consult) 1 ea N/A UD PRN PRN Reason: Consult Stop: 03/22/19 18:58 Ondansetron HCl (Zofran) 4 mg IV Q4H PRN PRN Reason: Nausea And Vomiting Stop: 03/22/19 18:58 Pantoprazole Sodium (Protonix) 40 mg PO DAILYBB [facility] Stop: 03/23/19 06:29 Last Admin: 02/22/19 05:30 Dose: 40 mg Documented by: Quetiapine Fumarate (Seroquel) 25 mg PO BID PRN PRN Reason: Agitation Stop: 03/23/19 17:49 Sodium Chloride (Trilla Nasal) 2 sprays [place] TID PRN PRN Reason: Nasal Congestion Stop: 03/22/19 18:58 Zolpidem Tartrate (Ambien) 5 mg PO HS [facility] Stop: 03/22/19 20:59 Last Admin: 02/21/19 20:49 Dose: 5 mg Documented by: Resident Activity Tracking Resident Involvement: Resident Care Provided Care Provided: Adult Hospital Medicine (1) Hyperglycemia due to type 2 diabetes mellitus Diabetes mellitus exterminator termite insulin use: without exterminator termite use Qualified Code(s): E11.65 - Type 2 diabetes mellitus with hyperglycemia (2) Acute renal failure Acute renal failure type: unspecified Qualified Code(s): N17.9 - Acute kidney failure, unspecified (3) Rhabdomyolysis Rhabdomyolysis type: non-traumatic Qualified Code(s): M62.82 - Rhabdomyolysis (4) Altered mental status Altered mental status type: disorientation Qualified Code(s): R41.0 - Disorientation, unspecified (5) Head injury Encounter type: initial encounter Qualified Code(s): S09.90XA - Unspecified injury of head, initial encounter (6) RLL pneumonia Pneumonia type: due to unspecified organism Qualified Code(s): J18.1 - Lobar pneumonia, unspecified organism (7) Injury of left leg Encounter type: initial encounter Qualified Code(s): S89.92XA - Unspecified injury of left lower leg, initial encounter
[2019-02-22] MEDS: AMPICILLIN/SULBACTAM SOD 3,000 MG in 0.9 % SODIUM CHLORIDE 100 ML IV SCH (16:05)
--- NOTE | 2019-02-22 18:30 | Billing Data ---
Coding Level of Care Code 44169 Subseq Hosp Care Lvl 3
[2019-02-22] MEDS: ZOLPIDEM TARTRATE 5 MG TAB PO SCH (21:28)
--- NOTE | 2019-02-22 22:09 | Magnetic Resonance Report ---
MRI OF THE BRAIN WITHOUT CONTRAST CLINICAL HISTORY: s/p fall, unknown time down COMPARISON STUDY: MRI of the brain November 08, 2018. Head CT February 20, 2019. TECHNIQUE: Utilizing a 1.5 Beth magnet and dedicated coil, multiplanar, multiecho imaging of the bra in was performed without IV contrast. FINDINGS: There are no foci of restricted diffusion to suggest acute infarct. No acute intracranial h emorrhage, midline shift or mass effect is present. Moderate atrophy is noted. There are multiple old lacunar infarcts within the bilateral cerebellar hemispheres. Suspected pontine infarcts are noted. These are chronic. Bilateral thalamic lacunar infarcts are unchanged. Ventricular system is stable. T he basilar cisterns are patent. There are no extra axial collections. Moderate white matter T2 hyperi ntense foci suggest small vessel disease. This is similar to MRI of November 08, 2018. Calvarial signal i s maintained. No intracranial masses are identified on this unenhanced exam. IMPRESSION: 1. No acute intracranial findings. 2. No significant change since MRI of November 08, 2018. Multiple lacunar infarcts with moderate atrophy and small vessel disease. Electronically signed by: Dewey Diaz M.D. 02/22/2019 10:07 PM
[2019-02-23] MEDS: HydrALAZINE 10 MG TAB PO PRN ×3 (00:04→17:29)
[2019-02-23] MEDS: AMPICILLIN/SULBACTAM SOD 3,000 MG in 0.9 % SODIUM CHLORIDE 100 ML IV SCH (03:50)
[2019-02-23 04:45] LABS: Hepatitis A Antibody IgM NON-REACTIVE (NON-REACTIVE); Hepatitis B Core Antibody IgM NON-REACTIVE (NON-REACTIVE)
[2019-02-23] MEDS: SODIUM CHLORIDE 0.9% 1000ML 1,000 ML IV SCH ×3 (05:07→19:40)
[2019-02-23] MEDS: HEPARIN SOD 5,000 UNIT/0.5 ML VIAL SQ SCH ×3 (06:01→21:10)
[2019-02-23] MEDS: PANTOprazole 40 MG TAB PO SCH (06:02)
[2019-02-23 06:47] LABS: Hematocrit (blood only) 39.9 % (42-52); Hemoglobin 13.8 g/dL (14.0-18.0); Mean Corpuscular Hemoglobin 31.2 pg (25-34); Mean Corpuscular Hgb Conc 34.6 g/dL (32-36); Mean Corpuscular Volume 90.3 fL (80-100); Mean Platelet Volume 10.4 fL (7.4-10.4); Platelet Count 235 K/uL (130-400); RDW Coefficient of Variation 12.5 % (11.5-14.5); RDW Standard Deviation 41.6 fL (36.4-46.3); Red Blood Count 4.42 M/uL (4.7-6.1); White Blood Count 10.83 K/uL (4.8-10.8)
[2019-02-23] MEDS ORDERED: LISINOPRIL 20 MG TAB PO STA (07:00)
[2019-02-23 07:29] LABS: Albumin Globulin Ratio 0.7 (0.9-2); Albumin Level 2.8 gm/dl (3.4-5.0); BUN Creatinine Ratio 27.4 (10-20); Bilirubin,Total 0.8 mg/dl (0.2-1); Calcium 8.7 mg/dl (8.5-10.1); Creatinine Clr Calc Pharmacy 30.8 ml/min; Est GFR (Non-African American) 29.3; Globulin 3.8 gm/dl (2.5-4.0); Potassium 3.8 mmol/L (3.5-5.1); Total Protein 6.6 gm/dl (6.4-8.2)
[2019-02-23] MEDS: ASPIRIN 81 MG ECTAB PO SCH (07:34)
[2019-02-23] MEDS: AMLODIPINE BESYLATE 5 MG TAB PO SCH (07:34)
[2019-02-23] MEDS: BACITRACIN OINT 15 GM TUBE EXT SCH ×2 (07:34→21:04)
[2019-02-23] MEDS: INSULIN GLARGINE SOLOSTAR 100 UNITS/ML 3 ML PEN SQ SCH (08:50)
[2019-02-23] MEDS: INSULIN ASPART 100 UNITS/ML 3 ML PEN SC SCH ×4 (08:50→21:10)
[2019-02-23] MEDS: carvediloL 6.25 MG TAB PO SCH ×2 (08:50→21:04)
--- NOTE | 2019-02-23 10:41 | Electroencephalogram ---
EEG Procedure Note Date of Service February 23, 2019 Start / End Times Start Time: 8:13 AM End Time: 8:33 AM Referring Physician Darrian Moffett MD History Altered mental status, delirium, rule out seizures Home Medication List Home Medications Medication Instructions Recorded Confirmed Type atorvastatin 40 mg PO QPM 11/07/18 02/20/19 History metformin 850 mg PO QAM 11/07/18 02/20/19 History pantoprazole 40 mg PO DAILYBB 11/07/18 02/20/19 History Jardiance 25 mg PO DAILY 12/12/18 02/20/19 History glimepiride 2 mg PO QAM 12/12/18 02/20/19 History hydroxyzine HCl 25 mg PO QAM 12/12/18 02/20/19 History Basaglar KwikPen U-100 Insulin 20 unit SUBCUT DAILY 12/15/18 02/20/19 History zolpidem 5 mg PO HS 12/15/18 02/20/19 History amlodipine 5 mg tablet 5 mg PO DAILY #30 tab 02/04/19 02/20/19 Rx sodium chloride [Saline Mist] 2 spry [place] TID PRN 02/20/19 02/20/19 History Inpatient Medication List Amlodipine Besylate (Norvasc) 10 mg PO QAM [facility] Stop: 03/24/19 08:59 Last Admin: 02/23/19 07:34 Dose: 10 mg Documented by: [id number] Admin: 02/22/19 08:11 Dose: 10 mg Documented by: [id number] Aspirin (Ecotrin Ectab) 81 mg PO QAM [facility] Stop: 03/23/19 08:59 Last Admin: 02/23/19 07:34 Dose: 81 mg Documented by: [id number] Admin: 02/22/19 08:11 Dose: 81 mg Documented by: [id number] Admin: 02/21/19 08:59 Dose: 81 mg Documented by: [id number] Bacitracin (Bacitracin) 1 appln EXT BID [facility] Stop: 03/22/19 20:59 Last Admin: 02/23/19 07:34 Dose: 1 appln Documented by: [id number] Admin: 02/22/19 21:28 Dose: 1 appln Documented by: [id number] Admin: 02/22/19 08:15 Dose: 1 appln Documented by: [id number] Admin: 02/21/19 20:45 Dose: 1 appln Documented by: [id number] Admin: 02/21/19 08:58 Dose: 1 appln Documented by: [id number] Admin: 02/20/19 20:56 Dose: 1 appln Documented by: [id number] Carvedilol (Coreg) 6.25 mg PO BID [facility] Stop: 03/25/19 08:59 Last Admin: 02/23/19 08:50 Dose: 6.25 mg Documented by: [id number] Heparin Sodium (Porcine) (Heparin Sodium (Porcine)) 5,000 units SQ Q8 [facility] Stop: 03/22/19 21:59 Last Admin: 02/23/19 06:01 Dose: 5,000 units Documented by: [id number] Cosigned by: [id number] Admin: 02/22/19 21:28 Dose: 5,000 units Documented by: [id number] Cosigned by: [id number] Admin: 02/22/19 14:28 Dose: 5,000 units Documented by: [id number] Cosigned by: [id number] Admin: 02/22/19 05:30 Dose: 5,000 units Documented by: [id number] Cosigned by: [id number] Admin: 02/21/19 20:47 Dose: 5,000 units Documented by: [id number] Cosigned by: [id number] Admin: 02/21/19 12:47 Dose: 5,000 units Documented by: [id number] Cosigned by: [id number] Admin: 02/21/19 05:34 Dose: 5,000 units Documented by: [id number] Cosigned by: [id number] Admin: 02/20/19 21:19 Dose: 5,000 units Documented by: [id number] Cosigned by: [id number] Hydralazine HCl (Apresoline) 10 mg PO Q6H PRN PRN Reason: Hypertension Stop: 03/23/19 18:46 Last Admin: 02/23/19 07:34 Dose: 10 mg Documented by: [id number] Admin: 02/23/19 00:04 Dose: 10 mg Documented by: [id number] Admin: 02/22/19 16:42 Dose: 10 mg Documented by: [id number] Admin: 02/22/19 08:11 Dose: 10 mg Documented by: [id number] Admin: 02/22/19 00:03 Dose: 10 mg Documented by: [id number] Sodium Chloride (Nss 1000ml) 1,000 mls @ 125 mls/hr IV .Q8H [facility] Stop: 03/22/19 18:58 Last Admin: 02/23/19 05:07 Dose: 125 mls/hr Documented by: [id number] Infusion: 02/23/19 04:56 Dose: 125 mls/hr Documented by: [id number] Infusion: 02/22/19 22:01 Dose: 125 mls/hr Documented by: [id number] Infusion: 02/22/19 20:45 Dose: 0 mls/hr Documented by: [id number] Admin: 02/22/19 19:40 Dose: 125 mls/hr Documented by: [id number] Infusion: 02/22/19 19:40 Dose: 125 mls/hr Documented by: [id number] Admin: 02/22/19 11:40 Dose: 125 mls/hr Documented by: [id number] Infusion: 02/22/19 11:34 Dose: 125 mls/hr Documented by: [id number] Admin: 02/22/19 03:34 Dose: 125 mls/hr Documented by: [id number] Infusion: 02/22/19 03:13 Dose: 125 mls/hr Documented by: [id number] Admin: 02/21/19 19:13 Dose: 125 mls/hr Documented by: [id number] Infusion: 02/21/19 18:28 Dose: 125 mls/hr Documented by: [id number] Admin: 02/21/19 10:28 Dose: 125 mls/hr Documented by: [id number] Infusion: 02/21/19 10:28 Dose: 125 mls/hr Documented by: [id number] Admin: 02/21/19 03:20 Dose: 125 mls/hr Documented by: [id number] Infusion: 02/21/19 03:20 Dose: 125 mls/hr Documented by: [id number] Infusion: 02/20/19 22:18 Dose: 125 mls/hr Documented by: [id number] Infusion: 02/20/19 21:28 Dose: 0 mls/hr Documented by: [id number] Admin: 02/20/19 19:23 Dose: 125 mls/hr Documented by: [id number] Ampicillin Sodium/Sulbactam Sodium 3,000 mg/ Sodium Chloride 108 mls @ 200 mls/hr IV Q12H [facility]; Protocol Stop: 03/01/19 15:59 Last Infusion: 02/23/19 04:25 Dose: 0 mls/hr Documented by: [id number] Admin: 02/23/19 03:50 Dose: 200 mls/hr Documented by: [id number] Infusion: 02/22/19 16:38 Dose: 0 mls/hr Documented by: [id number] Admin: 02/22/19 16:05 Dose: 200 mls/hr Documented by: [id number] Insulin Aspart (Novolog Flexpen) 0 units SC ACHS [facility] Stop: 03/22/19 20:59 Last Admin: 02/23/19 08:50 Dose: Not Given Documented by: [id number] Cosigned by: [id number] Admin: 02/22/19 21:29 Dose: 1 units Documented by: [id number] Cosigned by: [id number] Admin: 02/22/19 17:23 Dose: Not Given Documented by: [id number] Cosigned by: [id number] Admin: 02/22/19 12:10 Dose: 8 units Documented by: [id number] Cosigned by: [id number] Admin: 02/22/19 08:19 Dose: 5 units Documented by: [id number] Cosigned by: [id number] Admin: 02/21/19 20:46 Dose: 1 units Documented by: [id number] Cosigned by: [id number] Admin: 02/21/19 18:07 Dose: 6 units Documented by: [id number] Cosigned by: [id number] Admin: 02/21/19 12:49 Dose: 4 units Documented by: [id number] Cosigned by: [id number] Admin: 02/21/19 08:58 Dose: 1 units Documented by: [id number] Cosigned by: [id number] Admin: 02/20/19 20:53 Dose: 3 units Documented by: [id number] Cosigned by: [id number] Insulin Glargine (Lantus Solostar Pen) 10 units SQ DAILY [facility] Stop: 03/23/19 08:59 Last Admin: 02/23/19 08:50 Dose: 10 units Documented by: [id number] Cosigned by: [id number] Admin: 02/22/19 08:16 Dose: 10 units Documented by: [id number] Cosigned by: [id number] Admin: 02/21/19 08:59 Dose: 10 units Documented by: [id number] Cosigned by: [id number] Pantoprazole Sodium (Protonix) 40 mg PO DAILYBB [facility] Stop: 03/23/19 06:29 Last Admin: 02/23/19 06:02 Dose: 40 mg Documented by: [id number] Admin: 02/22/19 05:30 Dose: 40 mg Documented by: [id number] Admin: 02/21/19 05:34 Dose: 40 mg Documented by: [id number] Zolpidem Tartrate (Ambien) 5 mg PO HS [facility] Stop: 03/22/19 20:59 Last Admin: 02/22/19 21:28 Dose: 5 mg Documented by: [id number] Admin: 02/21/19 20:49 Dose: 5 mg Documented by: [id number] Admin: 02/20/19 20:56 Dose: 5 mg Documented by: [id number] Discontinued Medications Amlodipine Besylate (Norvasc) 5 mg PO DAILY [facility] Stop: 03/23/19 08:59 Last Admin: 02/21/19 08:59 Dose: 5 mg Documented by: [id number] Amlodipine Besylate (Norvasc) 5 mg PO NOW ONE Stop: 02/21/19 12:31 Last Admin: 02/21/19 12:47 Dose: 5 mg Documented by: [id number] Bacitracin (Bacitracin) 1 appln EXT NOW ONE Stop: 02/20/19 16:24 Last Admin: 02/20/19 16:52 Dose: 1 appln Documented by: [id number] Sodium Chloride (Nss) 500 mls @ 999 mls/hr IV .Q31M [facility] Stop: 02/20/19 15:30 Last Infusion: 02/20/19 15:41 Dose: 0 mls/hr Documented by: [id number] Admin: 02/20/19 15:10 Dose: 999 mls/hr Documented by: [id number] Piperacillin Sod/Tazobactam Sod (Zosyn) 4.5 gm in 120 mls @ 240 mls/hr IV NOW ONE Stop: 02/20/19 15:58 Last Infusion: 02/20/19 16:58 Dose: 0 mls/hr Documented by: [id number] Admin: 02/20/19 16:28 Dose: 240 mls/hr Documented by: [id number] Sodium Chloride (Nss 1000ml) 500 mls @ 999 mls/hr IV .Q31M [facility] Stop: 02/20/19 16:38 Last Infusion: 02/20/19 16:59 Dose: 0 mls/hr Documented by: [id number] Admin: 02/20/19 16:28 Dose: 999 mls/hr Documented by: [id number] Piperacillin Sod/Tazobactam (Sod 3.375 gm/ Dextrose) 115 mls @ 28.75 mls/hr IV Q12H [facility]; Protocol Stop: 02/28/19 00:00 Last Infusion: 02/22/19 04:01 Dose: 0 mls/hr Documented by: [id number] Admin: 02/21/19 23:42 Dose: 28.8 mls/hr Documented by: [id number] Infusion: 02/21/19 16:56 Dose: 0 mls/hr Documented by: [id number] Admin: 02/21/19 12:50 Dose: 29 mls/hr Documented by: [id number] Infusion: 02/21/19 03:11 Dose: 0 mls/hr Documented by: [id number] Admin: 02/20/19 23:18 Dose: 28.8 mls/hr Documented by: [id number] Piperacillin Sod/Tazobactam (Sod 3.375 gm/ Dextrose) 115 mls @ 28.75 mls/hr IV Q8H [facility]; Protocol Stop: 02/28/19 00:00 Last Infusion: 02/22/19 13:09 Dose: 0 mls/hr Documented by: [id number] Admin: 02/22/19 09:09 Dose: 28.8 mls/hr Documented by: [id number] Influenza Virus Vaccine (Fluzone High-Dose Pf) 0.5 ml IM .ONCE ONE Stop: 02/20/19 22:01 Last Admin: 02/21/19 08:57 Dose: Not Given Documented by: [id number] Lisinopril (Zestril) 20 mg PO NOW STA Stop: 02/23/19 07:01 Last Admin: 02/23/19 07:34 Dose: 20 mg Documented by: [id number] Pneumococcal Polyvalent Vaccine (Pneumovax-23) 25 mcg IM .ONCE ONE Stop: 02/20/19 22:01 Last Admin: 02/21/19 08:57 Dose: Not Given Documented by: [id number] Quetiapine Fumarate (Seroquel) 25 mg PO ONCE [facility] Stop: 02/20/19 21:38 Last Admin: 02/20/19 23:11 Dose: Not Given Documented by: [id number] Description This is a 21 electrode EEG with a single channel dedicated to limited EKG. The electrodes were placed in accordance with the International 10-20 system. There predominant background rhythm consists of a mix of generalized polymorphic theta activity superimposed on an 11 Hz posterior dominant rhythm. Photic stimulation is unremarkable. Hyperventilation is not performed. There is no focal or lateralized slowing. No epileptiform abnormalities observed. Interpretation This awake, drowsy EEG reveals findings suggestive of a nonspecific mild to moderate encephalopathy. Clinical Correlation Mild to moderate nonspecific encephalopathy. No evidence for subclinical seizure activity. [facility] EEG Procedure Codes Indication for Procedure (1) Altered mental status: (2) Delirium: Neurology Neurology: 59441 EEG include record awake & drowsy
[2019-02-23] MEDS ORDERED: AMPICILLIN/SULBACTAM SOD 3,000 MG in 0.9 % SODIUM CHLORIDE 100 ML IV SCH (11:00)
[2019-02-23] MEDS: AMOXICILLIN/CLAVULANATE 875 MG TAB PO SCH (16:23)
--- NOTE | 2019-02-23 17:28 | Hospitalist Progress Note ---
Date of Service February 23, 2019 Assessment & Plan (1) Status post fall: 73 year old male with past medical history of HTN, DMII, AAA, CAD s/p CABG, acute renal failure with baseline (cr. 1.3) lives alone with last visit from family 5 days prior, but mailman came by 1-2 days prior, found to have elevated white count with concern for pneumonia, elevated transaminases, elevated downtrending troponin, elevated CK, and elevated Cr. S/P fall unclear cause, down for approx. 1 day. - Hip, Femur, and Cervical spine imaging negative for fracture - CT head: No acute intracranial findings - MRI did not demonstrate any acute intracranial abnormalities - patient has no memory of the event - PT OT order placed - Care management order placed AMS concern for TIA vs. encephalopathy - patients mentation has improved, was oriented and had goal directed conversation - family not present today, but ex-'s name is Anahi and Daughter's name is Michelle and they may provide collateral information to establish patients baseline - consulted neurology: MRI did not demonstrate any acute intracranial abnormalities - continue to monitor BMP w/ AM labs - given concern for delirium ordered Seroquel PRN for agitation overnight Concern for pneumonia CXR right basilar opacity - switched to PO Augmentin - pharmacy consulted for dosing given cr. clearance of 20 - currently afebrile and normal heart rate, oxygen saturation 95 % on room air this morning - WBC downtrending Elevated transaminase level - normal prior to admission, could be secondary to Rhabdomyolysis vs. HTN w/ end organ damage, less likely due to severe hypotension due to dehydration; rule out hepatitis - AST: 321 ALT: 141 - no reported alcohol use, GGT ordered with AM labs - Hep B, C serology ordered - continue to monitor DMII - ISS while inpatient Acute on chronic kidney disease in setting of rhabdomyolysis - baseline Cr. 1.3, has been >4 in the past - currently cr. 2.17 and downtrending over the day - continue fluids, continue to monitor - ordered intake and output and daily weight Rhabdomyolysis - elevated CK, downtrending - continue fluids HTN - >200 systolic improved through the day - increased Amlodipine to 10 mg daily - Started Hydralazine prn for BP >170 DVT: Heparin Code: DNR Diet: minced (2) Elevated transaminase level: (3) Hypoxia: (4) Rhabdomyolysis: (5) RLL pneumonia: (6) TIMOTHY (acute kidney injury): (7) Elevated troponin: (8) Abnormal ECG: (9) Acute dehydration: (10) Head injury: (11) Injury of left leg: (12) Avulsion of toenail of left foot: (13) Hyperglycemia: (14) Abnormal LFTs: (15) DVT prophylaxis: (16) Acute renal failure: (17) Dehydration: (18) Sleep disturbance: (19) Altered mental status: (20) Hypertensive urgency: (21) Hyperglycemia due to type 2 diabetes mellitus: Supervising Physician Co-Signing Physician Notes I personally examined the patient and verified all alvarez points of history and exam, discussed case, and agree with decision making with Dr Moffett. feeling ok. no new complaints other than feeling a little sore upper abdomen lower chest. Vitals noted, in general he is awake and alert and pleasant. HEENT normocephalic atraumatic mucous membranes moist. 96% with NC intermediate out of his nose. lungs unlabored no accessory muscle use. Skin shows no rashes no pallor or icterus. 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 mild epigastric tenderness no guarding no rebound Fallfortunately no new stroke. 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 Altered mental statusappears to be delirium (metabolic encephalopathy related to pneumonia and/or rhabdomyolysis/dehydration) versus dementia, versus elements of both. Continue to treat underlying causes for delirium, continue supportive care and reorientation. MRI brain with significant chronic vascular disease does plead heavily towards at least a strong picture of chronicity upper abdominal pain - ?nonspecific - ?mild indigestion. watchful waiting/serial exams Pneumoniagiven that he was down and may have had a stroke certainly we have concern about aspiration pneumonia. improving - finish out course of antibiotics - unasyn for now, anticipate change to augmentin in near future Dispositionfor SNF once bed available. Subjective Doing okay today. Had the one incident overnight where he felt increasingly off balance, did not lose consciousness, fall, or hit head. After this incident, he acknowledges that he should go to short term nursing rehabilitation in order to get him stronger on his feet. Review of Systems Review of Systems: Unobtainable due to cognitive status Physical Exam Respiratory: normal respiratory effort, lungs clear to auscultation Cardiovascular: RRR, no murmur, no edema Neurologic: patellar DTR's 2+ bilat, sensation intact and PERRL, EOMI, accommodation nl, no face palsy, no dysarthria no focal motor deficits Psychiatric: A+Ox3, euthymic affect Orientation: alert, oriented to person and cooperative; + not oriented to place and + not oriented to time Results & Data Vital Signs (Past 12 Hours) Vital Signs Temp Pulse Pulse Pulse Resp BP BP 02/23/19 16:40 78 02/23/19 15:24 36.4 C L 70 19 172/70 H 02/23/19 11:30 36.7 C 61 18 157/80 H 02/23/19 08:52 82 160/68 H 02/23/19 08:23 79 02/23/19 07:00 36.7 C 76 20 201/76 H 222/100 H Pulse Ox 02/23/19 16:40 02/23/19 15:24 96 02/23/19 11:30 94 02/23/19 08:52 02/23/19 08:23 02/23/19 07:00 96 Laboratory Results 02/23/19 02/23/19 02/23/19 Range/Units 16:39 11:40 07:45 WBC (4.8-10.8) K/uL RBC (4.7-6.1) M/uL Hgb (14.0-18.0) g/dL Hct (42-52) % MCV (80-100) fL MCH (25-34) pg MCHC (32-36) g/dL RDW Std Deviation (36.4-46.3) fL RDW Coeff of Sadaf (11.5-14.5) % Plt Count (130-400) K/uL MPV (7.4-10.4) fL Sodium (136-145) mmol/L Potassium (3.5-5.1) mmol/L Chloride (98-107) mmol/L Carbon Dioxide (21-32) mmol/L Anion Gap (3-11) BUN (7-18) mg/dl Creatinine (0.6-1.4) mg/dl Est Cr Clr Drug Dosing ml/min Est GFR ( Amer) Est GFR (Non-Af Amer) BUN/Creatinine Ratio (10-20) Glucose (70-99) mg/dl POC Glucose 118 H 194 H 111 H (70-99) Calcium (8.5-10.1) mg/dl Total Bilirubin (0.2-1) mg/dl GGT (3-70) U/L AST (15-37) U/L ALT (12-78) U/L Alkaline Phosphatase (45-117) U/L Total Protein (6.4-8.2) gm/dl Albumin (3.4-5.0) gm/dl Globulin (2.5-4.0) gm/dl Albumin/Globulin Ratio (0.9-2) Specimen Hemolysis Hepatitis A IgM Ab (NON-REACTIVE) Hep B Core IgM Ab (NON-REACTIVE) 02/23/19 02/23/19 02/22/19 Range/Units 06:11 06:11 21:29 WBC 10.83 H (4.8-10.8) K/uL RBC 4.42 L (4.7-6.1) M/uL Hgb 13.8 L (14.0-18.0) g/dL Hct 39.9 L (42-52) % MCV 90.3 (80-100) fL MCH 31.2 (25-34) pg MCHC 34.6 (32-36) g/dL RDW Std Deviation 41.6 (36.4-46.3) fL RDW Coeff of Sadaf 12.5 (11.5-14.5) % Plt Count 235 (130-400) K/uL MPV 10.4 (7.4-10.4) fL Sodium 139 (136-145) mmol/L Potassium 3.8 (3.5-5.1) mmol/L Chloride 102 (98-107) mmol/L Carbon Dioxide 31 (21-32) mmol/L Anion Gap 6.0 (3-11) BUN 59 H (7-18) mg/dl Creatinine 2.17 H D (0.6-1.4) mg/dl Est Cr Clr Drug Dosing 30.8 ml/min Est GFR ( Amer) 34.0 Est GFR (Non-Af Amer) 29.3 BUN/Creatinine Ratio 27.4 H (10-20) Glucose 130 H (70-99) mg/dl POC Glucose 176 H (70-99) Calcium 8.7 (8.5-10.1) mg/dl Total Bilirubin 0.8 (0.2-1) mg/dl GGT (3-70) U/L AST 141 H (15-37) U/L ALT 107 H (12-78) U/L Alkaline Phosphatase 95 (45-117) U/L Total Protein 6.6 (6.4-8.2) gm/dl Albumin 2.8 L (3.4-5.0) gm/dl Globulin 3.8 (2.5-4.0) gm/dl Albumin/Globulin Ratio 0.7 L (0.9-2) Specimen Hemolysis Hepatitis A IgM Ab (NON-REACTIVE) Hep B Core IgM Ab (NON-REACTIVE) 02/22/19 02/22/19 Range/Units 05:32 05:32 WBC (4.8-10.8) K/uL RBC (4.7-6.1) M/uL Hgb (14.0-18.0) g/dL Hct (42-52) % MCV (80-100) fL MCH (25-34) pg MCHC (32-36) g/dL RDW Std Deviation (36.4-46.3) fL RDW Coeff of Sadaf (11.5-14.5) % Plt Count (130-400) K/uL MPV (7.4-10.4) fL Sodium (136-145) mmol/L Potassium (3.5-5.1) mmol/L Chloride (98-107) mmol/L Carbon Dioxide (21-32) mmol/L Anion Gap (3-11) BUN (7-18) mg/dl Creatinine (0.6-1.4) mg/dl Est Cr Clr Drug Dosing ml/min Est GFR ( Amer) Est GFR (Non-Af Amer) BUN/Creatinine Ratio (10-20) Glucose (70-99) mg/dl POC Glucose (70-99) Calcium (8.5-10.1) mg/dl Total Bilirubin (0.2-1) mg/dl GGT 15 (3-70) U/L AST (15-37) U/L ALT (12-78) U/L Alkaline Phosphatase (45-117) U/L Total Protein (6.4-8.2) gm/dl Albumin (3.4-5.0) gm/dl Globulin (2.5-4.0) gm/dl Albumin/Globulin Ratio (0.9-2) Specimen Hemolysis Hepatitis A IgM Ab NON-REACTIVE (NON-REACTIVE) Hep B Core IgM Ab NON-REACTIVE (NON-REACTIVE) Medications Administered Current Inpatient Medications Amlodipine Besylate (Norvasc) 10 mg PO QAM [facility] Stop: 03/24/19 08:59 Last Admin: 02/23/19 07:34 Dose: 10 mg Documented by: Amoxicillin/Clavulanate Potassium (Augmentin 875mg) 1 tab PO BIDM [facility] Stop: 03/01/19 16:59 Last Admin: 02/23/19 16:23 Dose: 1 tab Documented by: Aspirin (Ecotrin Ectab) 81 mg PO QAM [facility] Stop: 03/23/19 08:59 Last Admin: 02/23/19 07:34 Dose: 81 mg Documented by: Bacitracin (Bacitracin) 1 appln EXT BID [facility] Stop: 03/22/19 20:59 Last Admin: 02/23/19 07:34 Dose: 1 appln Documented by: Carvedilol (Coreg) 6.25 mg PO BID [facility] Stop: 03/25/19 08:59 Last Admin: 02/23/19 08:50 Dose: 6.25 mg Documented by: Dextrose (Dextrose 50%) 25 - 50 ml IV UD PRN; Protocol PRN Reason: Hypoglycemia Protocol Stop: 03/22/19 18:58 Glucagon (Glucagen) 1 mg SQ UD PRN; Protocol PRN Reason: Hypoglycemia Protocol Stop: 03/22/19 18:58 Glucose (Glucose 40%) 15 - 30 gm PO UD PRN; Protocol PRN Reason: Hypoglycemia Protocol Stop: 03/22/19 18:58 Glucose (Dex4 Glucose) 4 - 8 tabs PO UD PRN; Protocol PRN Reason: Hypoglycemia Protocol Stop: 03/22/19 18:58 Heparin Sodium (Porcine) (Heparin Sodium (Porcine)) 5,000 units SQ Q8 [facility] Stop: 03/22/19 21:59 Last Admin: 02/23/19 14:45 Dose: 5,000 units Documented by: Hydralazine HCl (Apresoline) 10 mg PO Q6H PRN PRN Reason: Hypertension Stop: 03/23/19 18:46 Last Admin: 02/23/19 07:34 Dose: 10 mg Documented by: Sodium Chloride (Nss 1000ml) 1,000 mls @ 125 mls/hr IV .Q8H [facility] Stop: 03/22/19 18:58 Last Admin: 02/23/19 11:04 Dose: 125 mls/hr Documented by: Insulin Aspart (Novolog Flexpen) 0 units SC ACHS [facility] Stop: 03/22/19 20:59 Last Admin: 02/23/19 12:02 Dose: 5 units Documented by: Insulin Glargine (Lantus Solostar Pen) 10 units SQ DAILY [facility] Stop: 03/23/19 08:59 Last Admin: 02/23/19 08:50 Dose: 10 units Documented by: Miscellaneous (Carbohydrates For Hypoglycemia) 15 - 30 gm PO UD PRN PRN Reason: Hypoglycemia Protocol Stop: 03/22/19 18:58 Miscellaneous Information (Pharmacist Discharge Med Rec Consult) 1 ea N/A UD PRN PRN Reason: Consult Stop: 03/22/19 18:58 Ondansetron HCl (Zofran) 4 mg IV Q4H PRN PRN Reason: Nausea And Vomiting Stop: 03/22/19 18:58 Pantoprazole Sodium (Protonix) 40 mg PO DAILYBB [facility] Stop: 03/23/19 06:29 Last Admin: 02/23/19 06:02 Dose: 40 mg Documented by: Quetiapine Fumarate (Seroquel) 25 mg PO BID PRN PRN Reason: Agitation Stop: 03/23/19 17:49 Sodium Chloride ([place] Nasal) 2 sprays [place] TID PRN PRN Reason: Nasal Congestion Stop: 03/22/19 18:58 Zolpidem Tartrate (Ambien) 5 mg PO HS [facility] Stop: 03/22/19 20:59 Last Admin: 02/22/19 21:28 Dose: 5 mg Documented by: Resident Activity Tracking Resident Involvement: Resident Care Provided Care Provided: Adult Hospital Medicine (1) Hyperglycemia due to type 2 diabetes mellitus 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 use: without computer terminal operator use Qualified Code(s): E11.65 - Type 2 diabetes mellitus with hyperglycemia (2) Acute renal failure Acute renal failure type: unspecified Qualified Code(s): N17.9 - Acute kidney failure, unspecified (3) Rhabdomyolysis Rhabdomyolysis type: non-traumatic Qualified Code(s): M62.82 - Rhabdomyolysis (4) Altered mental status Altered mental status type: disorientation Qualified Code(s): R41.0 - Disorientation, unspecified (5) Head injury Encounter type: initial encounter Qualified Code(s): S09.90XA - Unspecified injury of head, initial encounter (6) RLL pneumonia Pneumonia type: due to unspecified organism Qualified Code(s): J18.1 - Lobar pneumonia, unspecified organism (7) Injury of left leg Encounter type: initial encounter Qualified Code(s): S89.92XA - Unspecified injury of left lower leg, initial encounter
--- NOTE | 2019-02-23 18:35 | Billing Data ---
Coding Level of Care Code 21574 Subseq Hosp Care Lvl 2
[2019-02-23] MEDS: ZOLPIDEM TARTRATE 5 MG TAB PO SCH (21:04)
[2019-02-24] MEDS: HydrALAZINE 10 MG TAB PO PRN (01:52)
[2019-02-24 06:11] LABS: Basophils # (auto) 0.03 K/uL (0-0.2); Basophils % (auto) 0.3 %; Eosinophils # (auto) 0.29 K/uL (0-0.5); Eosinophils % (auto) 2.9 %; Hematocrit (blood only) 41.8 % (42-52); Hemoglobin 14.4 g/dL (14.0-18.0); Immature Granulocytes # (auto) 0.06 K/uL (0.00-0.02); Immature Granulocytes % (auto) 0.6 %; Lymphocytes # (auto) 0.98 K/uL (1.2-3.4); Lymphocytes % (auto) 9.7 %; Mean Corpuscular Hemoglobin 31.3 pg (25-34); Mean Corpuscular Hgb Conc 34.4 g/dL (32-36); Mean Corpuscular Volume 90.9 fL (80-100); Monocytes # (auto) 1.09 K/uL (0.11-0.59); Monocytes % (auto) 10.8 %; Neutrophils # (auto) 7.63 K/uL (1.4-6.5); Neutrophils % (auto) 75.7 %; Platelet Count 243 K/uL (130-400); RDW Coefficient of Variation 12.5 % (11.5-14.5); RDW Standard Deviation 41.5 fL (36.4-46.3); White Blood Count 10.08 K/uL (4.8-10.8)
[2019-02-24] MEDS: HEPARIN SOD 5,000 UNIT/0.5 ML VIAL SQ SCH ×3 (06:11→13:33)
[2019-02-24] MEDS: PANTOprazole 40 MG TAB PO SCH (06:12)
[2019-02-24 06:33] LABS: Calcium 9.3 mg/dl (8.5-10.1); Creatinine Clr Calc Pharmacy 37.5 ml/min; Est GFR (African American) 43.2; Est GFR (Non-African American) 37.3; Potassium 3.7 mmol/L (3.5-5.1)
[2019-02-24] MEDS ORDERED: CHLORTHALIDONE 25 MG TAB PO STA (07:27)
[2019-02-24] MEDS: carvediloL 6.25 MG TAB PO SCH (08:02)
[2019-02-24] MEDS: AMOXICILLIN/CLAVULANATE 875 MG TAB PO SCH (08:02)
[2019-02-24] MEDS: AMLODIPINE BESYLATE 5 MG TAB PO SCH (08:03)
[2019-02-24] MEDS: ASPIRIN 81 MG ECTAB PO SCH (08:03)
[2019-02-24] MEDS: BACITRACIN OINT 15 GM TUBE EXT SCH (08:05)
[2019-02-24] MEDS: INSULIN GLARGINE SOLOSTAR 100 UNITS/ML 3 ML PEN SQ SCH (08:08)
[2019-02-24] MEDS: INSULIN ASPART 100 UNITS/ML 3 ML PEN SC SCH ×2 (08:11→13:32)
[2019-02-24] MEDS ORDERED: carvediloL 12.5 MG TAB PO SCH (09:00)
--- NOTE | 2019-02-24 15:51 | Discharge Summary ---
Date of Service February 24, 2019 Admission HPI Per Admitting Provider This is a 73 yo M with PMHx of CAD, AAA, hx of HTN, HLD, DM II, CKD stage III, COPD, cerebrovascular disease, s/p stroke and dementia who presents from home after family found the patient at home wedged between bed and wall. It is unknown as far as the amount of time the patient has been in this position. Family, daughter and ex- at bedside, last saw the patient on Friday. He reports that his landlord saw him to get the mail either yesterday or the to the day before but they cannot confirm. Today they decided to go over and visit him, where they found him naked lying on the bedroom floor with his head and one arm senior care under the bed. His head was wrapped up in a blanket as if he could not get it off of himself. They also note that he lives in a small trailer, and that the kitchen table was pushed way out of place, a heater was in a different room, and the blanket which was wrapped around his head, is normally hanging in a doorway to prevent cold drafts into the other end of his home. They note that since he had a CVA event in October this past summer, he has had worsening dementia-like symptoms where he does not make sense and is easily forgetful occasionally. He was agitated at that time, and even became combative with his confusion during his hospital stay then. At baseline he functions very independently as he lives at home alone, is able to manage all his medications by himself, and able to participate in ADLs without difficulty. He currently is unable to answer my questions in regards to events because he cannot recall anything. When asked if anything hurts, he answers with "My pride." He denies any other acute complaints. Pt found to be in acute rhabdomyolysis, TIMOTHY, and with elevated troponin, WBC and LFTs upon arrival. CT of the head is negative. Other imaging results are negative for acute trauma/fractures. Principal Diagnosis Altered Mental Status Discharge Exam Respiratory normal respiratory effort, lungs clear to auscultation Cardiovascular RRR, no murmur, no edema Neurologic patellar DTR's 2+ bilat, sensation intact and PERRL, EOMI, accommodation nl, no face palsy, no dysarthria no focal motor deficits Psychiatric Orientation: alert, oriented to person and cooperative; + not oriented to place and + not oriented to time Discharge Data Allergies Allergy/AdvReac Type Severity Reaction Status Date / Time No Known Allergies Allergy Verified 12/15/18 11:19 Consultations 02/20/19 16:08 ED Decision to Admit Stat 02/20/19 18:59 Consult Case Management - Discharge Planning Routine Consult Neurology Routine Ordered Studies 02/20/19 14:47 CT abd pelvis wo con Stat CT cervical spine wo con Stat CT head/brain wo con Stat 02/22/19 18:12 MR brain wo con Routine Hospital Course (1) Status post fall: 73 year old male with past medical history of HTN, DMII, AAA, CAD s/p CABG, acute renal failure with baseline (cr. 1.3) lives alone with last visit from family 5 days prior, but mailman came by 1-2 days prior, found to have elevated white count with concern for pneumonia, elevated transaminases, elevated downtrending troponin, elevated CK, and elevated Cr. S/P fall unclear cause, down for approx. 1 day. - Hip, Femur, and Cervical spine imaging negative for fracture - CT head: No acute intracranial findings - MRI did not demonstrate any acute intracranial abnormalities - patient has no memory of the event AMS concern for TIA vs. encephalopathy - patients mentation has improved, was oriented and had goal directed conversation - consulted neurology: MRI did not demonstrate any acute intracranial abnormalities Concern for pneumonia CXR right basilar opacity - complete course of PO Augmentin - pharmacy consulted for dosing given cr. clearance of 20 - currently afebrile and normal heart rate, oxygen saturation 95 % on room air this morning - WBC downtrending Elevated transaminase level - normal prior to admission, could be secondary to Rhabdomyolysis vs. HTN w/ end organ damage - AST: 321 ALT: 141 - no reported alcohol use DMII - ISS while inpatient Acute on chronic kidney disease in setting of rhabdomyolysis - baseline Cr. 1.3, has been >4 in the past - currently cr. 2.17 and downtrending over the day - continue fluids, continue to monitor - ordered intake and output and daily weight Rhabdomyolysis - elevated CK, downtrending - continue fluids HTN - >200 systolic improved through the day - continue Amlodipine 10mg daily - continue Chlorthalidone 12.5mg daily (2) Elevated transaminase level: (3) Hypoxia: (4) Rhabdomyolysis: (5) RLL pneumonia: (6) TIMOTHY (acute kidney injury): (7) Elevated troponin: (8) Abnormal ECG: (9) Acute dehydration: (10) Head injury: (11) Injury of left leg: (12) Avulsion of toenail of left foot: (13) Hyperglycemia: (14) Abnormal LFTs: (15) DVT prophylaxis: (16) Acute renal failure: (17) Dehydration: (18) Sleep disturbance: (19) Altered mental status: (20) Hypertensive urgency: (21) Hyperglycemia due to type 2 diabetes mellitus: Total Time Total Time Spent Total Time Spent (In Minutes): <30 minutes Discharge Plan Discharge Items Patient Disposition: Transfer Correction Fac Reason For Visit: RHABDOMYOLYSIS, TIMOTHY Discharge Diagnosis: Altered Mental Status Activity: Per Instructions section Non-emergency contact: Primary Care Provider Call non-emergency contact if: your symptoms worsen Follow-up/Referrals: Breann Orr MD [Primary Care Provider] - Diet: Carb Consistent or DM2 Addtl Attending Provider Instructions: You were admitted following an unknown period of time being down in your home, and have had continued decreased knowledge of where you are and your surroundings while in the hospital. In order to best provide care for you given the concern for fall, in talks with your family the decision was made to transfer for you to [facility] for better care of your needs at this time. It is important that the course of antibiotics be completed, and you are being sent with a prescription for the final three days needed for treatment. Additionally, you have an increased dose of your Norvasc, and a new medicine called Chlorthalidone, which together should help improve your blood pressure control. Pending Studies at Discharge: No Stand-Alone Forms: My [facility] Skilled Items Patient informed of condition?: Yes DNR: Yes Discharge Level of Care: Skilled Communicable Disease: No Discharge Prognosis: Stable Lines: None Urinary Catheter: No Medications and DC Order Prescriptions: New amoxicillin-pot clavulanate 875-125 mg Tablet 1 tab PO BIDM 3 Days Qty: 6 RF: 0 amlodipine [Norvasc] 5 mg Tablet 10 mg PO QAM 30 Days Qty: 60 RF: 0 chlorthalidone 25 mg tablet 12.5 mg PO DAILY 30 Days Qty: 15 RF: 0 Continued glimepiride 2 mg Tablet 2 mg PO QAM RF: 0 hydroxyzine HCl 25 mg tablet 25 mg PO QAM RF: 0 Jardiance 25 mg tablet 25 mg PO DAILY RF: 0 zolpidem 5 mg tablet 5 mg PO HS RF: 0 Basagldae VasquezPen U-100 Insulin 100 unit/mL (3 mL) insulin pen 20 unit subcut DAILY RF: 0 atorvastatin 40 mg Tablet 40 mg PO QPM RF: 0 metformin 850 mg Tablet 850 mg PO QAM RF: 0 pantoprazole 40 mg Tablet,Delayed Release (Dr/Ec) 40 mg PO DAILYBB RF: 0 sodium chloride [Saline Mist] 0.65 % aerosol,spray 2 spry WOODROW TID PRN (Reason: Nasal Congestion) RF: 0 Discontinued amlodipine 5 mg tablet 5 mg PO DAILY Qty: 30 RF: 0 Discharge Orders: Discharge Order (Routine); Ordered 02/24/19 Ordered By: Darrian Moffett Admission Data Admit Date/Time: 02/20/19 17:06 Attending Provider: Theron Gaviria Admit Provider: Leanne Minor Primary Care Provider: Breann Orr Other Providers: Leanne Minor ; Denise Scott ; Carolynn Prieto ; Stefano, ; Jeromy Genao at [place] Other Interventions: Discharge Summary Assessment (RN) Last Done: 02/24/19 14:54 DC Date/Time DO NOT enter until pt leaves facility: 02/24/19 16:26 Supervising Physician Co-Signing Physician Notes I personally examined the patient and verified all alvarez points of history and exam, discussed case, and agree with decision making with Dr Moffett. feeling ok. no new complaints, a little more confused today wonders when he's going to get oil delivered. Vitals noted, in general he is awake and alert and pleasant. HEENT normocephalic atraumatic mucous membranes moist. breathing unlabored no accessory muscle use. Skin shows no rashes no pallor or icterus. 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 Fallfortunately no new stroke. 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 Altered mental statusappears to be delirium (metabolic encephalopathy related to pneumonia and/or rhabdomyolysis/dehydration) versus dementia, versus elements of both. Continue to treat underlying causes for delirium, continue supportive care and reorientation. MRI brain with significant chronic vascular disease does plead heavily towards at least a strong picture of chronicity Pneumoniagiven that he was down and may have had a stroke certainly we have concern about aspiration pneumonia. improving - finish out course of antibiotics with augmentin Dispositionfor SNF. Resident Activity Tracking Resident Involvement: Resident Care Provided Care Provided: Adult Hospital Medicine
--- NOTE | 2019-02-24 19:25 | Billing Data ---
Coding Level of Care Code D/C Day Management <30 mins
== END 2019-02-24 16:26 | DRG 193 ==
LOC: ED 14:25 → SUATTDRO 17:06 → 2N 17:06

== ENCOUNTER 2021-03-04 11:56 | Inpatient (IN) ==
[2021-03-04 13:58] LABS: Basophils # (auto) 0.01 K/uL (0-0.2); Basophils % (auto) 0.1 %; Hematocrit (blood only) 43.3 % (42-52); Immature Granulocytes # (auto) 0.05 K/uL (0.00-0.02); Immature Granulocytes % (auto) 0.5 %; Lymphocytes # (auto) 0.78 K/uL (1.2-3.4); Lymphocytes % (auto) 7.6 %; Mean Corpuscular Hemoglobin 32.4 pg (25-34); Mean Corpuscular Hgb Conc 34.6 g/dL (32-36); Mean Corpuscular Volume 93.5 fL (80-100); Mean Platelet Volume 11.1 fL (7.4-10.4); Monocytes # (auto) 1.47 K/uL (0.11-0.59); Monocytes % (auto) 14.3 %; Neutrophils # (auto) 7.99 K/uL (1.4-6.5); Neutrophils % (auto) 77.5 %; Platelet Count 162 K/uL (130-400); RDW Coefficient of Variation 13.3 % (11.5-14.5); RDW Standard Deviation 45.6 fL (36.4-46.3); Red Blood Count 4.63 M/uL (4.7-6.1)
[2021-03-04] MEDS: SODIUM CHLORIDE 0.9% 1000ML 1,000 ML IV SCH ×2 (14:03→22:07)
--- NOTE | 2021-03-04 14:33 | XRay Report ---
XR chest 1V portable HISTORY: 75 years-old Male cough, hypoxia acute cough with hypoxia COMPARISON: Chest radiograph 02/20/2019 TECHNIQUE: Portable AP view of the chest FINDINGS: Cardiac silhouette is enlarged. Right greater left bibasilar and right midlung interstitial coarsenin g. No pneumothorax, pleural effusion or lobar airspace consolidation. Degenerative changes of the anthony ulders and spine. IMPRESSION: Right greater than left bibasilar predominant interstitial coarsening is suspicious for a n infectious or inflammatory pneumonitis. ACT 112: Negative or not required by law. The above report was generated using voice recognition software. It may contain grammatical, syntax o r spelling errors. Electronically signed by: Jalil Martin M.D. 03/04/2021 2:31 PM
[2021-03-04 14:34] LABS: Albumin Globulin Ratio 0.7 (0.9-2); Albumin Level 3.1 gm/dl (3.4-5.0); Bilirubin,Total 0.7 mg/dl (0.2-1); Calcium 8.3 mg/dl (8.5-10.1); Creatinine Clr Calc Pharmacy 13.6 ml/min; Est GFR (African American) 12.1 ml/min; Est GFR (Non-African American) 10.4 ml/min; Globulin 4.5 gm/dl (2.5-4.0); Magnesium 1.4 mg/dl (1.8-2.4); Potassium 5.9 mmol/L (3.5-5.1); Total Protein 7.6 gm/dl (6.4-8.2); Troponin I 0.047 ng/ml (0-0.045)
[2021-03-04] MEDS ORDERED: CALCIUM GLUCONATE 1,000 MG/60 ML BAG IV STA (14:36)
[2021-03-04] MEDS ORDERED: ALBUT/IPRATROP 3MG/0.5MG NEB 3 ML VIAL NEB STA (14:36)
[2021-03-04] MEDS: MAGNESIUM SULFATE / D5W 1 GM/100 ML BAG IV SCH ×2 (14:50→15:06)
--- NOTE | 2021-03-04 15:55 | Emergency Department Note ---
History of Present Illness General Chief complaint: Illness Time Seen by Provider: 03/04/21 12:56 Source: patient Mode of arrival: ambulatory Limitations: no limitations History of Present Illness Provider complaint: weakness, cough, diarrhea Onset (ago): day(s) 1 Maximum Pain Intensity: 4 Treatments prior to arrival: none This is a 75 yo presents emerge department via EMS after family states he was weak, with diarrhea, and a cough, and fell in the bathroom last night. Patient denies any fall, does admit to cough and diarrhea which began yesterday. Patient denies syncopal event although states he has been feeling weak and more fatigued. Patient denies any known sick contact, states he does live with family. Patient denies any recent change in medication. Patient denies vomiting. Does state he has intermittent right upper quadrant and epigastric abdominal pain. He denies any black or bloody stools. He denies fevers or chills. Patient states he is a reformed smoker, denies use of oxygen at home. Patient states he has had prior strokes. EMS reports he was hypoxic on their arrival 88%, was placed on 2 L via nasal cannula and did improve. Pt seen during a time of high acuity and national emergency pandemic while wearing PPE. Home Medications Medication Instructions Recorded Confirmed Type potassium chloride 20 mEq 20 meq PO DAILY #90 tab 04/17/20 02/08/21 Rx tablet,extended release furosemide 20 mg tablet 20 mg PO DAILY #30 tab 07/24/20 03/04/21 Rx eszopiclone 2 mg tablet See Rx Instructions .ROUTE 09/25/20 02/08/21 Rx .COMPLEX #30 tablet empagliflozin 25 mg tablet 25 mg PO DAILY #90 tab 10/16/20 03/04/21 Rx (Jardiance) amlodipine 10 mg tablet 10 mg PO DAILY #90 tab 10/23/20 03/04/21 Rx atorvastatin 40 mg tablet 40 mg PO QPM #90 tab 10/23/20 03/04/21 Rx glimepiride 2 mg tablet 4 mg PO QAM #180 tab 10/23/20 03/04/21 Rx lisinopril 40 mg tablet 40 mg PO DAILY #90 tab 10/23/20 03/04/21 Rx pantoprazole 40 mg tablet,delayed 40 mg PO DAILY #90 tab 10/23/20 03/04/21 Rx release Allergies Allergy/AdvReac Type Severity Reaction Status Date / Time No Known Allergies Allergy Verified 02/08/21 15:09 Past Med/Surg History Medical History AAA (abdominal aortic aneurysm) "s/p repair" Blind right eye CAD (coronary artery disease) Cancer Cerebrovascular disease, arteriosclerotic, post-stroke CKD (chronic kidney disease), stage III COPD, moderate Diabetes DM type 2 (diabetes mellitus, type 2) Dysphagia Hemiplegia History of Helicobacter pylori infection Hypertension PUD (peptic ulcer disease) PVD (peripheral vascular disease) Sleep disturbance TIA (transient ischemic attack) Urinary symptom or sign Surgical History H/O aorto-femoral bypass H/O colonoscopy with polypectomy History of esophagogastroduodenoscopy diagnostic History of incision and drainage "evacuation of the left neck postop hematoma ()" S/P AAA repair S/P carotid endarterectomy "bilateral" Family History Other Family history non-contributory No pertinent family history Denies family history of Ovarian cancer Prostate cancer Myocardial infarction Breast cancer Colorectal cancer Social History Smoking Status: Never smoker Second Hand Exposure: No; Hx Alcohol Use: No Hx Substance Use: No Preferred Language: Latvian Communication Ability: Effective Visual Impairment: Partially Limited Environmental Health And Safety Intern Required: No Beliefs That Will Affect Care: None marital status: Current Living Situation: Alone current occupational status: retired How many Children do You have: 2 Feels Safe at Home: Yes Childhood Exposure to Second-Hand Smoke: No caffeine: Yes Dental Care, Regularly: No Physical Activity Frequency: Does not Exercise Seatbelt Use: always Sunscreen Use: No Assistive Devices: Oxygen - Continuous Review of Systems A total of 10 systems reviewed and were otherwise negative All systems reviewed & are unremarkable except as noted in HPI & below Physical Exam Vital Signs Vital Signs - 24 hr 03/04/21 12:14 03/04/21 12:25 03/04/21 12:30 Temperature 37.0 C Temperature Source Oral Pulse Rate 94 H 87 96 H Pulse Rate [Right Finger] Pulse Rate from SpO2 Sensor 94 H Pulse Rhythm Regular Pulse Strength Normal Respiratory Rate 21 20 24 Respiratory Effort / Characteristics Non-Labored Respiratory Depth Normal Blood Pressure 167/86 H 167/86 H Blood Pressure Mean 113 113 Blood Pressure Position Sitting Pulse Oximetry 97 96 Oxygen Delivery Method Nasal Cannula Oxygen Flow Rate 3 Sepsis Recent Fever Within 48 Hours No Sepsis New/Unexplained Change in Mental Status N/A Sepsis Action Taken by Nursing No Action Required 03/04/21 13:00 03/04/21 13:33 03/04/21 13:34 Temperature Temperature Source Pulse Rate 96 H Pulse Rate [Right Finger] Pulse Rate from SpO2 Sensor 96 H Pulse Rhythm Pulse Strength Respiratory Rate 23 24 Respiratory Effort / Characteristics Respiratory Depth Blood Pressure Blood Pressure Mean Blood Pressure Position Pulse Oximetry 94 89 L 92 Oxygen Delivery Method Nasal Cannula Nasal Cannula Oxygen Flow Rate 2 6 Sepsis Recent Fever Within 48 Hours Sepsis New/Unexplained Change in Mental Status Sepsis Action Taken by Nursing 03/04/21 14:00 03/04/21 14:30 03/04/21 14:48 Temperature Temperature Source Pulse Rate 97 H 101 H Pulse Rate [Right Finger] 97 H Pulse Rate from SpO2 Sensor 98 H Pulse Rhythm Pulse Strength Respiratory Rate 21 26 H 22 Respiratory Effort / Characteristics Spontaneous Respiratory Depth Blood Pressure Blood Pressure Mean Blood Pressure Position Pulse Oximetry 92 93 Oxygen Delivery Method Nasal Cannula Oxygen Flow Rate 6 4 Sepsis Recent Fever Within 48 Hours Sepsis New/Unexplained Change in Mental Status Sepsis Action Taken by Nursing 03/04/21 15:00 03/04/21 15:30 03/04/21 16:00 Temperature Temperature Source Pulse Rate 98 H 100 H 99 H Pulse Rate [Right Finger] Pulse Rate from SpO2 Sensor 99 H 99 H 98 H Pulse Rhythm Pulse Strength Respiratory Rate 28 H 27 H 18 Respiratory Effort / Characteristics Respiratory Depth Blood Pressure 165/84 H Blood Pressure Mean 111 Blood Pressure Position Pulse Oximetry 91 92 91 Oxygen Delivery Method Oxygen Flow Rate 6 Sepsis Recent Fever Within 48 Hours Sepsis New/Unexplained Change in Mental Status Sepsis Action Taken by Nursing GENERAL: alert, ill appearing, well nourished, no distress, non-toxic, pt sitting in a chair trying to use urinal EYE EXAM: normal conjunctiva, PERRL and EOM's grossly intact OROPHARYNX: no exudate, no erythema, lips, buccal mucosa, and tongue normal and mucous membranes are moist NECK: supple, no nuchal rigidity, no adenopathy, non-tender LUNGS: Decreased to auscultation. Normal chest wall mechanics, no w/r/r, no tachypnea or retractions HEART: no murmurs, S1 normal and S2 normal ABDOMEN: abdomen soft, non-tender, normo-active bowel sounds, no masses, no rebound or guarding. BACK: Back is symmetrical on inspection and there is no deformity, no midline tenderness, no CVA tenderness. SKIN: no rashes and no bruising UPPER EXTREMITIES: upper extremities are grossly normal. FROM, nml pulses b/l. LOWER EXTREMITIES: No pitting edema. FROM, nml pulses b/l. Dried fecal material noted to the distal right lower extremity. NEURO EXAM: Normal sensorium, cranial nerves II-XII grossly intact, normal speech, no gross weakness of arms, no gross weakness of legs. Gross sensation intact. Course Administered Medications Amlodipine Besylate (Amlodipine Besylate 5 Mg Tab) 10 mg PO DAILY ROBERT Stop: 04/04/21 08:59 Last Admin: 03/06/21 08:22 Dose: 10 mg Documented by: [id number] Admin: 03/05/21 08:50 Dose: 10 mg Documented by: [id number] Atorvastatin Calcium (Atorvastatin 40 Mg Tab) 40 mg PO QPM ROBERT Stop: 04/03/21 21:59 Last Admin: 03/05/21 21:52 Dose: 40 mg Documented by: [id number] Admin: 03/04/21 22:38 Dose: 40 mg Documented by: [id number] Heparin Sodium (Porcine) (Heparin Sod 5,000 Unit/0.5 Ml Vial) 5,000 units SQ Q12 ROBERT Stop: 04/03/21 21:59 Last Admin: 03/06/21 08:22 Dose: 5,000 units Documented by: [id number] Admin: 03/05/21 21:52 Dose: 5,000 units Documented by: [id number] Admin: 03/05/21 08:52 Dose: 5,000 units Documented by: [id number] Admin: 03/04/21 22:37 Dose: 5,000 units Documented by: [id number] Dexamethasone 6 mg/ Syringe 1.5 mls @ 1 mls/min IV Q24H ROBERT Stop: 04/04/21 08:59 Last Admin: 03/06/21 08:35 Dose: 1 mls/min Documented by: [id number] Admin: 03/05/21 08:52 Dose: 1 mls/min Documented by: [id number] Remdesivir 100 mg/ Sodium (Chloride) 250 mls @ 250 mls/hr IV Q24H [facility]; Protocol Stop: 03/08/21 12:59 Last Infusion: 03/05/21 15:45 Dose: 0 mls/hr Documented by: [id number] Admin: 03/05/21 13:30 Dose: 250 mls/hr Documented by: [id number] Insulin Aspart (Insulin Aspart 100 Units/Ml 3 Ml Pen) 0 units SC ACHS [facility] Stop: 04/03/21 21:29 Last Admin: 03/06/21 08:28 Dose: Not Given Documented by: [id number] Cosigned by: [id number] Admin: 03/05/21 21:16 Dose: 4 units Documented by: [id number] Cosigned by: [id number] Admin: 03/05/21 17:30 Dose: 3 units Documented by: [id number] Cosigned by: [id number] Admin: 03/05/21 12:45 Dose: 4 units Documented by: [id number] Cosigned by: [id number] Admin: 03/05/21 08:50 Dose: 1 units Documented by: [id number] Cosigned by: [id number] Admin: 03/04/21 22:27 Dose: 3 units Documented by: [id number] Cosigned by: [id number] Insulin Glargine (Insulin Glargine Solostar 100 Units/Ml 3 Ml Pen) 10 units SC BID [facility] Stop: 04/03/21 21:59 Last Admin: 03/06/21 08:28 Dose: 10 units Documented by: [id number] Cosigned by: [id number] Admin: 03/05/21 21:16 Dose: 10 units Documented by: [id number] Cosigned by: [id number] Admin: 03/05/21 08:50 Dose: 10 units Documented by: [id number] Cosigned by: [id number] Admin: 03/04/21 22:27 Dose: 10 units Documented by: [id number] Cosigned by: [id number] Insulin Human NPH (Insulin Human Nph) 18 units SC DAILY [facility] Stop: 04/04/21 08:59 Last Admin: 03/06/21 08:33 Dose: Not Given Documented by: [id number] Admin: 03/05/21 08:50 Dose: 18 units Documented by: [id number] Cosigned by: [id number] Pantoprazole Sodium (Pantoprazole 40 Mg Tab) 40 mg PO DAILY ROBERT Stop: 04/04/21 08:59 Last Admin: 03/06/21 08:23 Dose: 40 mg Documented by: [id number] Admin: 03/05/21 08:50 Dose: 40 mg Documented by: [id number] Patiromer (Patiromer Calcium Sorbitex 8.4 Gm Pack) 8.4 gm PO DAILY@1500 ROBERT Stop: 04/04/21 14:59 Last Admin: 03/05/21 16:30 Dose: 8.4 gm Documented by: [id number] Quetiapine Fumarate (Quetiapine Fumarate 25 Mg Tablet) 25 mg PO HS ROBERT Stop: 04/03/21 21:59 Last Admin: 03/05/21 21:52 Dose: 25 mg Documented by: [id number] Admin: 03/04/21 22:38 Dose: 25 mg Documented by: [id number] Sodium Chloride (Sodium Chloride 0.9% 10ml Flush) 30 ml IV DAILY@1200 ROBERT Stop: 03/08/21 12:01 Last Admin: 03/05/21 15:30 Dose: 30 ml Documented by: [id number] Admin: 03/04/21 22:07 Dose: Not Given Documented by: [id number] Discontinued Medications Albuterol (Albut/Ipratrop 3mg/0.5mg Neb 3 Ml Vial) 3 ml NEB NOW STA Stop: 03/04/21 14:37 Last Admin: 03/04/21 14:45 Dose: 3 ml Documented by: [id number] Dexamethasone (Dexamethasone Sod Inj 4 Mg/Ml Vial) Confirm Administered Dose 8 mg .ROUTE .STK-MED ONE Stop: 03/04/21 16:22 Last Admin: 03/04/21 17:29 Dose: Not Given Documented by: [id number] Sodium Chloride (Nss 1000ml) 1,000 mls @ 125 mls/hr IV .Q8H ROBERT Stop: 04/03/21 13:29 Last Admin: 03/04/21 22:07 Dose: Not Given Documented by: [id number] Infusion: 03/04/21 20:17 Dose: 0 mls/hr Documented by: [id number] Admin: 03/04/21 14:03 Dose: 125 mls/hr Documented by: [id number] Magnesium Sulfate/Dextrose (Magnesium Sulfate / D5w) 1 gm in 100 mls @ 100 mls/hr IV Q1H ROBERT Stop: 03/04/21 16:35 Last Infusion: 03/04/21 16:06 Dose: 0 mls/hr Documented by: [id number] Admin: 03/04/21 15:06 Dose: 100 mls/hr Documented by: [id number] Infusion: 03/04/21 15:06 Dose: 100 mls/hr Documented by: [id number] Admin: 03/04/21 14:50 Dose: 100 mls/hr Documented by: [id number] Calcium Gluconate () 1,000 mg in 60 mls @ 240 mls/hr IV NOW STA Stop: 03/04/21 14:50 Last Infusion: 03/04/21 15:05 Dose: 0 mls/hr Documented by: [id number] Admin: 03/04/21 14:50 Dose: 240 mls/hr Documented by: [id number] Dexamethasone 6 mg/ Syringe 1.5 mls @ 1 mls/min IV ONE ONE Stop: 03/04/21 16:08 Last Admin: 03/04/21 17:35 Dose: 1 mls/min Documented by: [id number] Remdesivir 200 mg/ Sodium (Chloride) 250 mls @ 125 mls/hr IV ONE STA; Protocol Stop: 03/04/21 18:26 Last Infusion: 03/04/21 19:39 Dose: 0 mls/hr Documented by: [id number] Admin: 03/04/21 17:35 Dose: 125 mls/hr Documented by: [id number] Lactated Ringer's (Lr) 1,000 mls @ 80 mls/hr IV .[id number] ROBERT Stop: 04/03/21 21:29 Last Infusion: 03/05/21 11:40 Dose: 0 mls/hr Documented by: [id number] Admin: 03/04/21 22:21 Dose: 80 mls/hr Documented by: [id number] Sodium Bicarbonate 150 meq/ (Sterile Water) 1,150 mls @ 80 mls/hr IV .[id number] ROBERT Stop: 03/06/21 11:00 Last Admin: 03/06/21 08:21 Dose: 80 mls/hr Documented by: [id number] Infusion: 03/06/21 03:53 Dose: 80 mls/hr Documented by: [id number] Admin: 03/05/21 13:30 Dose: 80 mls/hr Documented by: [id number] Critical Care Time Critical Care Time: Yes Total Critical Care Time: 42 Critical care of 42 min performed to assess and manage high likelihood of life- threatening TIMOTHY and hyperkalemia, involving labs and imaging performed with assessment to evaluate weakness and COVID-19 diagnosis with frequent reassessment. This time includes bedside time, treatment discussions with patient/family/consultants, documentation time and excludes procedure time. Medical Decision Making Differential Diagnosis Differential diagnoses includes but is not limited to pneumonia, bronchitis, COPD/Asthma exacerbation, pneumothorax, pulmonary embolism, congestive heart failure, acute coronary syndrome Medical Records Attestation: I reviewed the patient's medical records. Home Medications Current Medication List: was personally reviewed by me Laboratory Data Attestation: I reviewed the patient's lab results. Result diagrams: 03/06/21 06:21 03/06/21 06:21 Lab Results 03/04/21 03/04/21 03/04/21 Range/Units 12:29 12:29 12:29 WBC 10.30 (4.8-10.8) K/uL RBC 4.63 L (4.7-6.1) M/uL Hgb 15.0 (14.0-18.0) g/dL Hct 43.3 (42-52) % MCV 93.5 (80-100) fL MCH 32.4 (25-34) pg MCHC 34.6 (32-36) g/dL RDW Std Deviation 45.6 (36.4-46.3) fL RDW Coeff of Sadaf 13.3 (11.5-14.5) % Plt Count 162 (130-400) K/uL MPV 11.1 H (7.4-10.4) fL Immature Gran % (Auto) 0.5 % Neut % (Auto) 77.5 % Lymph % (Auto) 7.6 % [place] % (Auto) 14.3 % Eos % (Auto) 0.0 % Baso % (Auto) 0.1 % Neut # (Auto) 7.99 H (1.4-6.5) K/uL Lymph # (Auto) 0.78 L (1.2-3.4) K/uL [place] # (Auto) 1.47 H (0.11-0.59) K/uL Eos # (Auto) 0.00 (0-0.5) K/uL Baso # (Auto) 0.01 (0-0.2) K/uL Immature Gran # (Auto) 0.05 H (0.00-0.02) K/uL Sodium 130 L (136-145) mmol/L Potassium 5.9 H (3.5-5.1) mmol/L Chloride 96 L (98-107) mmol/L Carbon Dioxide 18 L (21-32) mmol/L Anion Gap 16.0 H (3-11) BUN 111 H (7-18) mg/dl Creatinine 5.05 H* (0.6-1.4) mg/dl Est Cr Clr Drug Dosing 13.6 ml/min Est GFR ( Amer) 12.1 ml/min Est GFR (Non-Af Amer) 10.4 ml/min BUN/Creatinine Ratio 22.0 H (10-20) Glucose 117 H (70-99) mg/dl Calcium 8.3 L (8.5-10.1) mg/dl Magnesium 1.4 L (1.8-2.4) mg/dl Total Bilirubin 0.7 (0.2-1) mg/dl AST 24 (15-37) U/L ALT 30 (12-78) U/L Alkaline Phosphatase 104 (45-117) U/L Total Creatine Kinase 320 H (39-308) U/L Troponin I 0.047 H* (0-0.045) ng/ml Total Protein 7.6 (6.4-8.2) gm/dl Albumin 3.1 L (3.4-5.0) gm/dl Globulin 4.5 H (2.5-4.0) gm/dl Albumin/Globulin Ratio 0.7 L (0.9-2) Lipase 276 (73-393) U/L SARS-CoV-2 (PCR) POSITIVE A* (Negative) Imaging Data Radiologist's Impression: Chest X-Ray 03/04/21 13:28 XR chest 1V portable HISTORY: 75 years-old Male cough, hypoxia acute cough with hypoxia COMPARISON: Chest radiograph 02/20/2019 TECHNIQUE: Portable AP view of the chest FINDINGS: Cardiac silhouette is enlarged. Right greater left bibasilar and right midlung interstitial coarsening. No pneumothorax, pleural effusion or lobar airspace consolidation. Degenerative changes of the shoulders and spine. IMPRESSION: Right greater than left bibasilar predominant interstitial coarsening is suspicious for an infectious or inflammatory pneumonitis. ACT 112: Negative or not required by law. The above report was generated using voice recognition software. It may contain grammatical, syntax or spelling errors. Electronically signed by: Jalil Martin M.D. 03/04/2021 2:31 PM ECG Data Attestation: I personally reviewed and interpreted this ECG as follows: Indication: + SOB/dyspnea Rate (beats per minute): 93 Rhythm: + normal sinus ECG Intervals/blocks: + Normal QRS and + Normal QT ECG [place]: + Normal ECG ST segments: + Normal ST segments MDM Narrative This is a 75-year-old male who presents the emergency room due to weakness, possible fall, and worsening cough. Patient states he is a former smoker and does not wear oxygen at home. Patient states he "feels terrible". Patient was noted to be hypoxic by EMS and on our trial of room air here was 88%. Patient placed on 2 L via nasal cannula with improvement. Labs drawn and sent, chest x- ray performed, nasal swab for Covid added. Patient denied any known sick contact and does live with family. Patient made hemodynamically stable otherwise although was found to be Covid positive. Chest x-ray consistent with Covid infection. Given patient's history of underlying COPD I suspect the acute infection on top of his longstanding COPD is exacerbating his work of breathing and leading to increased hypoxia. Patient also found to have TIMOTHY on top of his known CKD. Patient had been started on IV fluids initially as he appeared clinically dehydrated, these were slowed to a maintenance rate. Patient was given IV calcium as a precaution due to the hyperkalemia. He was also given a DuoNeb treatment for his COPD and dyspnea. Patient had no findings on telemetry or EKG of hyperkalemia and I suspect that is due to the new TIMOTHY as well as his underlying dehydration. Patient was noted to have an elevated troponin, denies chest pain and no EKG findings suggestive of ACS. I suspect this is more likely secondary to his TIMOTHY and concurrent infection. Case was discussed with [facility], Dr. Oreilly for additional inpatient management. An order was placed for continuous cardiac monitoring. The monitor shows a rate of _86_ with _normal sinus_ rhythm. Impression & Plan Generalized weakness, COPD, moderate, Dehydration, Hypoxia, TIMOTHY (acute kidney injury), Elevated troponin, COVID-19, Hyperkalemia Discharge Plan Visit Data Chief Complaint: Illness ED Provider: Carolyn Rider Discharge Problem: Generalized weakness, COPD, moderate, Dehydration, Hypoxia, TIMOTHY (acute kidney injury), Elevated troponin, COVID-19, Hyperkalemia Patient Disposition: Admitted As Inpatient Discharge Instructions Interventions: ED Discharge Assessment Last Done: 03/04/21 20:24
[2021-03-04] MEDS ORDERED: dexAMETHasone 6 MG in SYRINGE 0 ML IV ONE (16:07)
[2021-03-04] MEDS ORDERED: DEXAMETHASONE SOD INJ 4 MG/ML VIAL ONE (16:21)
[2021-03-04] MEDS ORDERED: REMDESIVIR 200 MG in SODIUM CHLORIDE 0.9% 210 ML IV STA (16:27)
--- NOTE | 2021-03-04 16:40 | History & Physical Report ---
Date of Service March 04, 2021 Assessment & Plan (1) Acute respiratory failure with hypoxia: Plan: Patient presents with acute respiratory failure hypoxia secondary to Covid pneumonia. Patient also has acute renal failure. Patient will be given intravenous fluids although usually not typical with Covid pneumonia due to his markedly worsened renal failure. Patient started on remdesivir as his first day known ill seems to be somewhere around February 28. I spoke to his family there is no other ill contacts. The patient was vaccinated in May 2020. Patient is started on dexamethasone in the ER and will be maintained on dexamethasone. (2) TIMOTHY (acute kidney injury): Plan: Patient with known bilateral renal artery stenosis with atrophic left kidney typically followed by Dr. Orlando nephrology however he typically has BUN/creatinine around 42 and 2 today is markedly worse he has have some mild hyperkalemia and acidemia with his bicarbonate being 18. Patient be given potassium air no acute changes on his EKG of hyperkalemia at this time will follow his potassium and have Dr. Lainez from nephrology reevaluate Patient will have his lisinopril held as well as his furosemide (3) Elevated troponin: Plan: Patient has a history of elevated troponin patient had troponins drawn February 20 and which all are mildly elevated. Certainly Covid carditis could be causing this. We will follow serial troponins no acute current of injury is seen. A type II or demand ischemia event could be it had because of his low oxygen level (4) COPD, moderate: Plan: With prehospital moderate COPD diagnosis (5) DM type 2 (diabetes mellitus, type 2): Plan: Patient with type 2 diabetes usually on glimepiride and Jardiance. These will be held patient will be on sliding scale but NPH insulin will be used for coverage of his dexamethasone (6) DVT prophylaxis: Plan: Heparin will be used for DVT prevention because of his renal failure Plan: Patient we offered Seroquel for sleep History of Present Illness Primary Care Provider: Breann Orr MD Patient presents with increased coughing and shortness of breath reportedly is been sick since Friday at home. He was sleeping and can get out of bed. Family checked on him yesterday and then again today he looked worse today and was referred to the ER was found of Covid pneumonia and worsening acute on chronic kidney injury. Allergies Allergy/AdvReac Type Severity Reaction Status Date / Time No Known Allergies Allergy Verified 02/08/21 15:09 Home Medications Medication Instructions Recorded Confirmed Type potassium chloride 20 mEq 20 meq PO DAILY #90 tab 04/17/20 02/08/21 Rx tablet,extended release furosemide 20 mg tablet 20 mg PO DAILY #30 tab 07/24/20 03/04/21 Rx eszopiclone 2 mg tablet See Rx Instructions .ROUTE 09/25/20 02/08/21 Rx .COMPLEX #30 tablet empagliflozin 25 mg tablet 25 mg PO DAILY #90 tab 10/16/20 03/04/21 Rx (Jardiance) amlodipine 10 mg tablet 10 mg PO DAILY #90 tab 10/23/20 03/04/21 Rx atorvastatin 40 mg tablet 40 mg PO QPM #90 tab 10/23/20 03/04/21 Rx glimepiride 2 mg tablet 4 mg PO QAM #180 tab 10/23/20 03/04/21 Rx lisinopril 40 mg tablet 40 mg PO DAILY #90 tab 10/23/20 03/04/21 Rx pantoprazole 40 mg tablet,delayed 40 mg PO DAILY #90 tab 10/23/20 03/04/21 Rx release Past Med/Surg History Medical History AAA (abdominal aortic aneurysm) "s/p repair" Blind right eye CAD (coronary artery disease) Cancer Cerebrovascular disease, arteriosclerotic, post-stroke CKD (chronic kidney disease), stage III COPD, moderate Diabetes DM type 2 (diabetes mellitus, type 2) Dysphagia Hemiplegia History of Helicobacter pylori infection Hypertension PUD (peptic ulcer disease) PVD (peripheral vascular disease) Sleep disturbance TIA (transient ischemic attack) Urinary symptom or sign Surgical History H/O aorto-femoral bypass H/O colonoscopy with polypectomy History of esophagogastroduodenoscopy diagnostic History of incision and drainage "evacuation of the left neck postop hematoma ()" S/P AAA repair S/P carotid endarterectomy "bilateral" Family History Other Family history non-contributory No pertinent family history Denies family history of Ovarian cancer Prostate cancer Myocardial infarction Breast cancer Colorectal cancer Social History Smoking Status: Never smoker Second Hand Exposure: No; Hx Alcohol Use: No (unknown pt responsive to stimuli only) Hx Substance Use: No (unknown pt responsive to stimuli only) Preferred Language: Malaysian Communication Ability: Effective Visual Impairment: Partially Limited Income Tax Investigator Required: No Beliefs That Will Affect Care: None marital status: Current Living Situation: Alone current occupational status: retired How many Children do You have: 2 Feels Safe at Home: Yes Childhood Exposure to Second-Hand Smoke: No caffeine: Yes Dental Care, Regularly: No Physical Activity Frequency: Does not Exercise Seatbelt Use: always Sunscreen Use: No Assistive Devices: None Review of Systems Review of Systems: Mild distress and fatigue no headache, baseline right eye blindness no speech or swallowing issues no chest pain, pressure or palpitations shortness of breath, non productive cough no abdominal pain, nausea or vomiting, diarrhea or constipation no dysuria, hematuria or frequency no focal joint pain le swelling no back pain, CVA tenderness or radicular pain no bruising, bleeding or rashes no focal signs of weakness or numbness or altered sensation no complaints of anxiety or depression.. Physical Exam Physical Exam: The patient appeared chronically ill and fatigued Vital signs as documented. Head exam is normocephalic atraumatic right eye strabismus Neck is without JVD, thyromegaly, or carotid bruits. Lungs are bilateral rales, Cardiac exam, Rhythm is regular.. jay Abdominal exam reveals normal bowel sounds, soft non tender, no masses Extremities are1+ b/l edematous and both pedal pulses are present Neurologic exam is alert and oriented, right eye blindness no gross focal loss Skin is without bruises or rashes Psychologically is without concerns for anxiety or depression.. Results & Data Results & Data ([facility]) Vital Signs (Past 12 Hours) Vital Signs Temp Pulse Pulse Resp BP Pulse Ox 03/04/21 14:48 97 H 22 93 03/04/21 13:00 96 H 23 94 03/04/21 12:30 96 H 24 167/86 H 03/04/21 12:25 98.6 F 87 20 167/86 H 96 03/04/21 12:14 94 H 21 97 Diagnostic Findings Chest x-ray performed 03/04/2021 right greater than left bibasilar predominant interstitial coarsening suspicious for inflammatory pneumonitis ECG Additional Comments: EKG shows sinus rhythm no acute ST or T wave changes Code Status & VTE Plan VTE Prophylaxis Plan VTE Prophylaxis will be ordered: Yes PG Care Time/CCT Total # of Minutes Spent Total Time Spent with Patient: Total time spent is greater than 50% in coordination of care (as documented) at patient's floor/unit and/or counseling patient: Coding Level of Care Code 64078 Initial Inpt Care Lvl 3 Diagnoses TIMOTHY (acute kidney injury) N17.9 Elevated troponin R79.89 DVT prophylaxis Z29.9 COPD, moderate J44.9 DM type 2 (diabetes mellitus, type 2) E11.9 Acute respiratory failure with hypoxia J96.01
[2021-03-04 18:04] LABS: Appearance Urine Cloudy (Clear); Bacteria Urine Automated Negative (Negative); Bilirubin Urine Negative (Negative); Blood Urine 1+ (Negative); Color Urine Yellow; Glucose Urine UA 2+ (Negative); Ketones Urine Trace (Negative); Leukocyte Esterase Urine Negative (Negative); Nitrite Urine Negative (Negative); Protein Urine 1+ (Negative); RBC Urine Automated 0-4 /hpf (0-4); Specific Gravity Urine 1.018 (1.000-1.030); Urobilinogen Urine Negative (Negative)
[2021-03-04] MEDS ORDERED: LANTUS PER UNIT CHARGE SQ SCH (21:00)
[2021-03-04] MEDS ORDERED: ONDANSETRON INJ 2 MG/ML 2 ML VIAL IV PRN (21:16)
[2021-03-04] MEDS ORDERED: CARBOHYDRATES FOR HYPOGLYCEMIA PO PRN (21:16)
[2021-03-04] MEDS ORDERED: GLUCOSE 10 TABS/TUBE PO PRN (21:16)
[2021-03-04] MEDS ORDERED: GLUCOSE 40% GEL 15 GM TUBE PO PRN (21:16)
[2021-03-04] MEDS ORDERED: DEXTROSE 50% 50 ML SYRINGE IV PRN (21:16)
[2021-03-04] MEDS ORDERED: ACETAMINOPHEN 325 MG TAB PO PRN (21:16)
[2021-03-04] MEDS ORDERED: GLUCAGON FOR INJ 1 MG VIAL SQ PRN (21:16)
[2021-03-04] MEDS ORDERED: LACTATED RINGER'S 1,000 ML IV SCH (21:30)
[2021-03-04] MEDS: SODIUM CHLORIDE 0.9% 10ML FLUSH IV SCH (22:07)
[2021-03-04] MEDS: INSULIN ASPART 100 UNITS/ML 3 ML PEN SC SCH (22:27)
[2021-03-04] MEDS: INSULIN GLARGINE SOLOSTAR 100 UNITS/ML 3 ML PEN SC SCH (22:27)
[2021-03-04] MEDS: HEPARIN SOD 5,000 UNIT/0.5 ML VIAL SQ SCH (22:37)
[2021-03-04] MEDS: QUEtiapine FUMARATE 25 MG TABLET PO SCH (22:38)
[2021-03-04] MEDS: ATORVASTATIN 40 MG TAB PO SCH (22:38)
[2021-03-05 07:52] LABS: Albumin Level 2.9 gm/dl (3.4-5.0); BUN Creatinine Ratio 30.1 (10-20); Bilirubin Direct 0.2 mg/dl (0-0.2); Calcium 8.6 mg/dl (8.5-10.1); Creatinine Clr Calc Pharmacy 18.6 ml/min; Est GFR (African American) 16.3 ml/min; Est GFR (Non-African American) 14.1 ml/min; Magnesium 2.5 mg/dl (1.8-2.4); Potassium 5.9 mmol/L (3.5-5.1)
[2021-03-05 07:55] LABS: Bilirubin,Total 0.6 mg/dl (0.2-1); Total Protein 7.1 gm/dl (6.4-8.2)
[2021-03-05 08:11] LABS: Estimated Average Glucose 186 mg/dl; Hemoglobin A1C 8.1 % (4.5-5.6)
[2021-03-05] MEDS ORDERED: Nursing to Pharmacy Communication SCH (08:45)
[2021-03-05] MEDS: amLODIPine BESYLATE 5 MG TAB PO SCH (08:50)
[2021-03-05] MEDS: INSULIN HUMAN NPH SC SCH (08:50)
[2021-03-05] MEDS: INSULIN GLARGINE SOLOSTAR 100 UNITS/ML 3 ML PEN SC SCH ×2 (08:50→21:16)
[2021-03-05] MEDS: INSULIN ASPART 100 UNITS/ML 3 ML PEN SC SCH ×4 (08:50→21:16)
[2021-03-05] MEDS: PANTOprazole 40 MG TAB PO SCH (08:50)
[2021-03-05] MEDS: HEPARIN SOD 5,000 UNIT/0.5 ML VIAL SQ SCH ×2 (08:52→21:52)
[2021-03-05] MEDS: dexAMETHasone 6 MG in SYRINGE 0 ML IV SCH (08:52)
[2021-03-05] MEDS ORDERED: PATIROMER CALCIUM SORBITEX 8.4 GM PACK PO SCH (09:00)
--- NOTE | 2021-03-05 09:29 | Hospitalist Progress Note ---
Date of Service March 05, 2021 Assessment & Plan (1) Acute respiratory failure with hypoxia: Plan: due to COVID pneumonia, no distress titrated down to 5L from 6L, he says he does not feel short of breath saturation goal is 90% minimal cough, always has a dry cough from years of smoking (2) Pneumonia due to COVID-19 virus: Plan: dexamethasone 6mg IV daily x 10 days try to wean oxygen as tolerated no dyspnea or work of breathing which is a good sign (3) TIMOTHY (acute kidney injury): Plan: Patient with known bilateral renal artery stenosis with atrophic left kidney typically followed by Dr. Orlando dehydrated from diarrhea and poor oral intake for a few days Cr was 5.0, down to 3.94, making urine, K is 5.9 and HCO3 is 15 change to sodium bicarb drip, stop LR follow BMP d/w Dr. Lainez, appreciate his help holding lisinopril and Lasix (4) Elevated troponin: Plan: troponin was 0.04 and now 0.03, no concerns for ACS, no chest pain likely related to Cr of 5.0 on admission (5) COPD, moderate: Plan: With prehospital moderate COPD diagnosis oxygen saturation goal of 90% (6) DM type 2 (diabetes mellitus, type 2): Plan: Patient with type 2 diabetes usually on glimepiride and Jardiance, hold these will use NPH insulin with dexamethasone and will use Novolog SS (7) DVT prophylaxis: Plan: Heparin will be used for DVT prevention because of his renal failure Plan: Patient we offered Seroquel for sleep Admission and Anticipated Discharge Date Admission Date: March 04, 2021 Subjective patient states that he is feeling better, still not hungry or thirsty says he is breathing comfortably, has a dry cough but that is chronic "smoker's cough" no fever/chills reviewed chart and labs, Cr improved from 5 to 3.94, CO2 is 15 and K is 5.9 d/w Dr. Lainez, he is going to change fluids from LR to sodium bicarb to get K down and treat acidosis I was able to wean oxygen to 5L while in the room discussed that he will likely be here the rest of the week to recover he lives alone so will likely get therapy to see him once oxygen down a little further spoke with RN about the plan Review of Systems Review of Systems: All systems reviewed & are unremarkable except as noted in Subjective Gastrointestinal: + early satiety; no abdominal pain, no nausea, no vomiting, no constipation and no diarrhea/loose stools Results & Data Results & Data ([facility] [place]) Vital Signs (Past 12 Hours) Vital Signs Temp Pulse Pulse Pulse Resp BP Pulse Ox 03/05/21 07:11 36.7 C 87 20 115/61 92 03/05/21 03:49 36.6 C 88 16 121/86 97 03/05/21 00:00 91 H 03/04/21 23:17 36.6 C 94 H 18 125/72 92 Laboratory Results Laboratory Results - last 24 hr 03/04/21 03/04/21 03/04/21 12:29 12:29 12:29 WBC 10.30 RBC 4.63 L Hgb 15.0 Hct 43.3 MCV 93.5 MCH 32.4 MCHC 34.6 RDW Std Deviation 45.6 RDW Coeff of Sadaf 13.3 Plt Count 162 MPV 11.1 H Immature Gran % (Auto) 0.5 Neut % (Auto) 77.5 Lymph % (Auto) 7.6 [place] % (Auto) 14.3 Eos % (Auto) 0.0 Baso % (Auto) 0.1 Neut # (Auto) 7.99 H Lymph # (Auto) 0.78 L [place] # (Auto) 1.47 H Eos # (Auto) 0.00 Baso # (Auto) 0.01 Immature Gran # (Auto) 0.05 H Sodium 130 L Potassium 5.9 H Chloride 96 L Carbon Dioxide 18 L Anion Gap 16.0 H BUN 111 H Creatinine 5.05 H* Est Cr Clr Drug Dosing 13.6 Est GFR ( Amer) 12.1 Est GFR (Non-Af Amer) 10.4 BUN/Creatinine Ratio 22.0 H Glucose 117 H POC Glucose Estimat Average Glucose Hemoglobin A1c Calcium 8.3 L Magnesium 1.4 L Total Bilirubin 0.7 Direct Bilirubin AST 24 ALT 30 Alkaline Phosphatase 104 Total Creatine Kinase 320 H Troponin I 0.047 H* Total Protein 7.6 Albumin 3.1 L Globulin 4.5 H Albumin/Globulin Ratio 0.7 L Lipase 276 Urine Color Urine Appearance Urine pH Ur Specific [place] Urine Protein Urine Glucose (UA) Urine Ketones Urine Blood Urine Nitrite Urine Bilirubin Urine Urobilinogen Ur Leukocyte Esterase Urine WBC (Auto) Urine RBC (Auto) U Hyaline Cast (Auto) U Epithel Cells (Auto) Urine Bacteria (Auto) Urine Yeast SARS-CoV-2 (PCR) POSITIVE A* 03/04/21 03/04/21 03/04/21 17:38 21:19 22:24 WBC RBC Hgb Hct MCV MCH MCHC RDW Std Deviation RDW Coeff of Sadaf Plt Count MPV Immature Gran % (Auto) Neut % (Auto) Lymph % (Auto) [place] % (Auto) Eos % (Auto) Baso % (Auto) Neut # (Auto) Lymph # (Auto) [place] # (Auto) Eos # (Auto) Baso # (Auto) Immature Gran # (Auto) Sodium Potassium Chloride Carbon Dioxide Anion Gap BUN Creatinine Est Cr Clr Drug Dosing Est GFR ( Amer) Est GFR (Non-Af Amer) BUN/Creatinine Ratio Glucose POC Glucose 199 H Estimat Average Glucose Hemoglobin A1c Calcium Magnesium Total Bilirubin Direct Bilirubin AST ALT Alkaline Phosphatase Total Creatine Kinase Troponin I 0.036 Total Protein Albumin Globulin Albumin/Globulin Ratio Lipase Urine Color Yellow Urine Appearance Cloudy A Urine pH 5.0 Ur Specific [place] 1.018 Urine Protein 1+ H Urine Glucose (UA) 2+ H Urine Ketones Trace H Urine Blood 1+ H Urine Nitrite Negative Urine Bilirubin Negative Urine Urobilinogen Negative Ur Leukocyte Esterase Negative Urine WBC (Auto) 1-5 Urine RBC (Auto) 0-4 U Hyaline Cast (Auto) 1-5 U Epithel Cells (Auto) 5-10 H Urine Bacteria (Auto) Negative Urine Yeast Not Reportable SARS-CoV-2 (PCR) 03/05/21 03/05/21 03/05/21 06:44 06:44 08:05 WBC RBC Hgb Hct MCV MCH MCHC RDW Std Deviation RDW Coeff of Sadaf Plt Count MPV Immature Gran % (Auto) Neut % (Auto) Lymph % (Auto) [place] % (Auto) Eos % (Auto) Baso % (Auto) Neut # (Auto) Lymph # (Auto) [place] # (Auto) Eos # (Auto) Baso # (Auto) Immature Gran # (Auto) Sodium 133 L Potassium 5.9 H Chloride 104 Carbon Dioxide 15 L Anion Gap 14.0 H BUN 119 H Creatinine 3.94 H D Est Cr Clr Drug Dosing 18.6 Est GFR ( Amer) 16.3 Est GFR (Non-Af Amer) 14.1 BUN/Creatinine Ratio 30.1 H Glucose 170 H POC Glucose 146 H Estimat Average Glucose 186 Hemoglobin A1c 8.1 H Calcium 8.6 Magnesium 2.5 H Total Bilirubin 0.6 Direct Bilirubin 0.2 AST 24 ALT 28 Alkaline Phosphatase 92 Total Creatine Kinase Troponin I Total Protein 7.1 Albumin 2.9 L Globulin Albumin/Globulin Ratio Lipase Urine Color Urine Appearance Urine pH Ur Specific [place] Urine Protein Urine Glucose (UA) Urine Ketones Urine Blood Urine Nitrite Urine Bilirubin Urine Urobilinogen Ur Leukocyte Esterase Urine WBC (Auto) Urine RBC (Auto) U Hyaline Cast (Auto) U Epithel Cells (Auto) Urine Bacteria (Auto) Urine Yeast SARS-CoV-2 (PCR) Medications Administered Current Inpatient Medications Acetaminophen (Acetaminophen 325 Mg Tab) 650 mg PO Q4H PRN PRN Reason: Pain or Fever Stop: 04/03/21 21:15 Amlodipine Besylate (Amlodipine Besylate 5 Mg Tab) 10 mg PO DAILY ROBERT Stop: 04/04/21 08:59 Last Admin: 03/05/21 08:50 Dose: 10 mg Documented by: Atorvastatin Calcium (Atorvastatin 40 Mg Tab) 40 mg PO QPM ROBERT Stop: 04/03/21 21:59 Last Admin: 03/04/21 22:38 Dose: 40 mg Documented by: Dextrose (Dextrose 50% 50 Ml Syringe) 25 - 50 ml IV UD PRN; Protocol PRN Reason: Hypoglycemia Protocol Stop: 04/03/21 21:15 Glucagon (Glucagon For Inj 1 Mg Vial) 1 mg SQ UD PRN; Protocol PRN Reason: Hypoglycemia Protocol Stop: 04/03/21 21:15 Glucose (Glucose 10 Tabs/Tube) 4 - 8 tabs PO UD PRN; Protocol PRN Reason: Hypoglycemia Protocol Stop: 04/03/21 21:15 Glucose (Glucose 40% Gel 15 Gm Tube) 15 - 30 gm PO UD PRN; Protocol PRN Reason: Hypoglycemia Protocol Stop: 04/03/21 21:15 Heparin Sodium (Porcine) (Heparin Sod 5,000 Unit/0.5 Ml Vial) 5,000 units SQ Q12 ROBERT Stop: 04/03/21 21:59 Last Admin: 03/05/21 08:52 Dose: 5,000 units Documented by: Dexamethasone 6 mg/ Syringe 1.5 mls @ 1 mls/min IV Q24H ROBERT Stop: 04/04/21 08:59 Last Admin: 03/05/21 08:52 Dose: 1 mls/min Documented by: Remdesivir 100 mg/ Sodium (Chloride) 250 mls @ 250 mls/hr IV Q24H [facility]; Protocol Stop: 03/08/21 12:59 Lactated Ringer's (Lr) 1,000 mls @ 80 mls/hr IV .[id number] [facility] Stop: 04/03/21 21:29 Last Admin: 03/04/21 22:21 Dose: 80 mls/hr Documented by: Insulin Aspart (Insulin Aspart 100 Units/Ml 3 Ml Pen) 0 units SC ACHS ROBERT Stop: 04/03/21 21:29 Last Admin: 03/04/21 22:27 Dose: 3 units Documented by: Insulin Glargine (Insulin Glargine Solostar 100 Units/Ml 3 Ml Pen) 10 units SC BID [facility] Stop: 04/03/21 21:59 Last Admin: 03/04/21 22:27 Dose: 10 units Documented by: Insulin Human NPH (Insulin Human Nph) 18 units SC DAILY [facility] Stop: 04/04/21 08:59 Miscellaneous (Carbohydrates For Hypoglycemia ) 15 - 30 gm PO UD PRN PRN Reason: Hypoglycemia Protocol Stop: 04/03/21 21:15 Ondansetron HCl (Ondansetron Inj 2 Mg/Ml 2 Ml Vial) 4 mg IV Q6H PRN PRN Reason: Nausea Stop: 04/03/21 21:15 Pantoprazole Sodium (Pantoprazole 40 Mg Tab) 40 mg PO DAILY ROBERT Stop: 04/04/21 08:59 Last Admin: 03/05/21 08:50 Dose: 40 mg Documented by: Patiromer (Patiromer Calcium Sorbitex 8.4 Gm Pack) 8.4 gm PO DAILY@1500 [facility] Stop: 04/04/21 14:59 Quetiapine Fumarate (Quetiapine Fumarate 25 Mg Tablet) 25 mg PO HS ROBERT Stop: 04/03/21 21:59 Last Admin: 03/04/21 22:38 Dose: 25 mg Documented by: Sodium Chloride (Sodium Chloride 0.9% 10ml Flush) 30 ml IV DAILY@1200 [facility] Stop: 03/08/21 12:01 Last Admin: 03/04/21 22:07 Dose: Not Given Documented by: PG Care Time/CCT Total # of Minutes Spent Total Time Spent with Patient: Total time spent is greater than 50% in coordination of care (as documented) at patient's floor/unit and/or counseling patient: Coding Level of Care Code 90965 Subseq Hosp Care Lvl 3 Diagnoses Acute respiratory failure with hypoxia J96.01 TIMOTHY (acute kidney injury) N17.9 Elevated troponin R79.89 COPD, moderate J44.9 DM type 2 (diabetes mellitus, type 2) E11.9 DVT prophylaxis Z29.9 Pneumonia due to COVID-19 virus U07.1; J12.82
--- NOTE | 2021-03-05 11:34 | Nephrology Consultation ---
Date of Consultation March 05, 2021 Assessment & Plan (1) TIMOTHY (acute kidney injury): * TIMOTHY due to dehydration in the setting of viral pneumonia, ALVIN inhibitor and diuretic therapy * Hold Lisinopril and Furosemide * Agree w/ cautious hydration * Will change from LR to sterile water w/ 150 mEq NaHCO3 to correct hyperkalemia and metabolic acidosis * Monitor PRP, UO (2) CKD (chronic kidney disease), stage III: * Mr. Michel has CKD on the basis of large vessel renal vascular disease. He has documented atrophy of the L kidney and > 60% stenosis of R renal artery * 07/02 SIEP/UIEP were negative for monoclonal protein * Baseline Cr is 2.0 (3) Pneumonia due to COVID-19 virus: * 07/02 Nephrology note indicates patient has been vaccinated against COVID * On Remdesivir, Dexamethasone History of Present Illness Reason for Consultation: TIMOTHY/CKD, hyperkalemia Attending Physician: Cesar Bolden, History of Present Illness Mr. Michel is a 75 year old white male who is seen at the request of Dr. Oreilly for evaluation of TIMOTHY/CKD, hyperkalemia. Medical records in the EMR were reviewed today and are summarized as follows: Mr. Michel has CKD on the basis of large vessel renal vascular disease. His primary Fare Register Repairer is Dr. Orlando. Baseline Cr is 2.0. Renal imaging 05/04 revealed R paprxf74.4 cm, L kidney 9.2 cm. Doppler revealed > 60% stenosis or R renal artery w/ RAR 5.3. L renal artery was poorly visualized but RAR was reported to be 1.8. Blood pressure has been well controlled and kidney function had been stable. Mr. Michel has recieved the COVID vaccine. He was admitted last evening with hypoxemia/COVID pneumonia and TIMOTHY/CKD. CXR revealed bibasilar coarsening suggestive of viral pneumonitis. Remdesivir and IV Dexamethasone were started. Mr. Michel requires O2 at 6L/min NC. Lisinopril was held and IV hydration provided. Cr has improved from 5.0 on admission to 3.9. UO was only 325 cc overnight. K remains mildly elevated at 5.9. Allergies Allergy/AdvReac Type Severity Reaction Status Date / Time No Known Allergies Allergy Verified 02/08/21 15:09 Home Medications Medication Instructions Recorded Confirmed Type potassium chloride 20 mEq 20 meq PO DAILY #90 tab 04/17/20 02/08/21 Rx tablet,extended release furosemide 20 mg tablet 20 mg PO DAILY #30 tab 07/24/20 03/04/21 Rx eszopiclone 2 mg tablet See Rx Instructions .ROUTE 09/25/20 02/08/21 Rx .COMPLEX #30 tablet empagliflozin 25 mg tablet 25 mg PO DAILY #90 tab 10/16/20 03/04/21 Rx (Jardiance) amlodipine 10 mg tablet 10 mg PO DAILY #90 tab 10/23/20 03/04/21 Rx atorvastatin 40 mg tablet 40 mg PO QPM #90 tab 10/23/20 03/04/21 Rx glimepiride 2 mg tablet 4 mg PO QAM #180 tab 10/23/20 03/04/21 Rx lisinopril 40 mg tablet 40 mg PO DAILY #90 tab 10/23/20 03/04/21 Rx pantoprazole 40 mg tablet,delayed 40 mg PO DAILY #90 tab 10/23/20 03/04/21 Rx release Patient History Medical History AAA (abdominal aortic aneurysm) "s/p repair" Blind right eye CAD (coronary artery disease) Cancer Cerebrovascular disease, arteriosclerotic, post-stroke CKD (chronic kidney disease), stage III COPD, moderate Diabetes DM type 2 (diabetes mellitus, type 2) Dysphagia Hemiplegia History of Helicobacter pylori infection Hypertension PUD (peptic ulcer disease) PVD (peripheral vascular disease) Sleep disturbance TIA (transient ischemic attack) Urinary symptom or sign Surgical History H/O aorto-femoral bypass H/O colonoscopy with polypectomy History of esophagogastroduodenoscopy diagnostic History of incision and drainage "evacuation of the left neck postop hematoma ()" S/P AAA repair S/P carotid endarterectomy "bilateral" Family History Other Family history non-contributory No pertinent family history Denies family history of Ovarian cancer Prostate cancer Myocardial infarction Breast cancer Colorectal cancer Social History Smoking Status: Never smoker Second Hand Exposure: No; Hx Alcohol Use: No Hx Substance Use: No Preferred Language: Macedonian Communication Ability: Effective Visual Impairment: Partially Limited Sunday School Missionary Required: No Beliefs That Will Affect Care: None marital status: Current Living Situation: Alone current occupational status: retired How many Children do You have: 2 Feels Safe at Home: Yes Childhood Exposure to Second-Hand Smoke: No caffeine: Yes Dental Care, Regularly: No Physical Activity Frequency: Does not Exercise Seatbelt Use: always Sunscreen Use: No Assistive Devices: Oxygen - Continuous Review of Systems Constitutional: no fever Eyes: no problem reported Ear, Nose, Mouth, Throat: no problem reported Respiratory: + cough and + dyspnea Cardiovascular: no chest pain, no palpitations and no edema Gastrointestinal: no abdominal pain Genitourinary: no dysuria, no urinary hesitancy or no hematuria Musculoskeletal: no back pain Integumentary: no rash Neurologic: no confusion Physical Exam Constitutional: + ill appearing and + obese Eyes: PERRL, conjunctivae normal, anicteric sclerae ENMT: external ear and nose normal, oropharynx normal Neck: trachea midline, no thyromegaly Respiratory: Auscultation: + crackles (at bases bilaterally) Cardiovascular: RRR, no murmur, no edema Gastrointestinal (Abdomen): normal bowel sounds, soft, nontender, no hepatosplenomegaly Skin: no rashes, warm and dry Neurologic: awake; not confused Results & Data ([facility]) Vital Signs (Past 12 Hours) Vital Signs Temp Pulse Pulse Pulse Resp BP Pulse Ox 03/05/21 07:11 36.7 C 87 20 115/61 92 03/05/21 03:49 36.6 C 88 16 121/86 97 03/05/21 00:00 91 H 03/04/21 23:17 36.6 C 94 H 18 125/72 92 Laboratory Results Laboratory Tests 06/28/20 03/04/21 03/04/21 08:00 12:29 17:38 WBC 10.30 Hgb 15.0 Hct 43.3 Plt Count 162 Sodium Potassium Chloride Carbon Dioxide BUN Creatinine Glucose Urine Color Yellow Urine Appearance Cloudy A Urine pH 5.0 Urine Protein 1+ H Urine Glucose (UA) 2+ H Urine Blood 1+ H Urine Nitrite Negative Urine WBC (Auto) 1-5 Urine RBC (Auto) 0-4 Protein/Creatinin Ratio 0.3 H 03/05/21 06:44 WBC Hgb Hct Plt Count Sodium 133 L Potassium 5.9 H Chloride 104 Carbon Dioxide 15 L BUN 119 H Creatinine 3.94 H D Glucose 170 H Urine Color Urine Appearance Urine pH Urine Protein Urine Glucose (UA) Urine Blood Urine Nitrite Urine WBC (Auto) Urine RBC (Auto) Protein/Creatinin Ratio PG Care Time/CCT Total # of Minutes Spent Total Time Spent with Patient: Total time spent is greater than 50% in coordination of care (as documented) at patient's floor/unit and/or counseling patient: Coding Level of Care Code 47963 Inpt Consult Level 5 Diagnoses TIMOTHY (acute kidney injury) N17.9 CKD (chronic kidney disease), stage III N18.3 Pneumonia due to COVID-19 virus U07.1; J12.82
[2021-03-05] MEDS: SODIUM BICARBONATE 8.4% 150 MEQ in WATER, STERILE 1,000 ML IV SCH (13:30)
[2021-03-05] MEDS: REMDESIVIR 100 MG in SODIUM CHLORIDE 0.9% 230 ML IV SCH (13:30)
[2021-03-05] MEDS: SODIUM CHLORIDE 0.9% 10ML FLUSH IV SCH (15:30)
[2021-03-05] MEDS: PATIROMER CALCIUM SORBITEX 8.4 GM PACK PO SCH (16:30)
[2021-03-05] MEDS: ATORVASTATIN 40 MG TAB PO SCH (21:52)
[2021-03-05] MEDS: QUEtiapine FUMARATE 25 MG TABLET PO SCH (21:52)
--- NOTE | 2021-03-06 05:36 | Electrocardiogram Report ---
Test Reason : Blood Pressure : / mmHG Vent. Rate : 093 BPM Atrial Rate : 093 BPM P-R Int : 194 ms QRS Dur : 094 ms QT Int : 346 ms P-R-T Axes : 088 037 085 degrees QTc Int : 430 ms Normal sinus rhythm Possible Inferior infarct (cited on or before 05-FEB-2017) Cannot rule out Anterior infarct , age undetermined Abnormal ECG When compared with ECG of 20-FEB-2019 14:38, T wave inversion no longer evident in Lateral leads Confirmed by Joe Guzman ([id number]) on 03/06/2021 5:35:45 AM Referred By: REFERRED SELF Confirmed By:Joe Guzman
[2021-03-06 06:52] LABS: Hematocrit (blood only) 41.1 % (42-52); Hemoglobin 14.7 g/dL (14.0-18.0); Mean Corpuscular Hemoglobin 32.4 pg (25-34); Mean Corpuscular Hgb Conc 35.8 g/dL (32-36); Mean Corpuscular Volume 90.5 fL (80-100); Mean Platelet Volume 10.5 fL (7.4-10.4); Platelet Count 191 K/uL (130-400); RDW Coefficient of Variation 13.4 % (11.5-14.5); RDW Standard Deviation 44.1 fL (36.4-46.3); Red Blood Count 4.54 M/uL (4.7-6.1); White Blood Count 5.65 K/uL (4.8-10.8)
[2021-03-06 07:19] LABS: Albumin Level 2.8 gm/dl (3.4-5.0); BUN Creatinine Ratio 34.4 (10-20); Bilirubin Direct 0.2 mg/dl (0-0.2); Calcium 8.4 mg/dl (8.5-10.1); Est GFR (Non-African American) 17.2 ml/min; Magnesium 2.2 mg/dl (1.8-2.4); Potassium 5.2 mmol/L (3.5-5.1)
[2021-03-06 07:21] LABS: Bilirubin,Total 0.6 mg/dl (0.2-1); Total Protein 7.1 gm/dl (6.4-8.2)
[2021-03-06] MEDS: SODIUM BICARBONATE 8.4% 150 MEQ in WATER, STERILE 1,000 ML IV SCH (08:21)
[2021-03-06] MEDS: amLODIPine BESYLATE 5 MG TAB PO SCH (08:22)
[2021-03-06] MEDS: HEPARIN SOD 5,000 UNIT/0.5 ML VIAL SQ SCH ×2 (08:22→21:33)
[2021-03-06] MEDS: PANTOprazole 40 MG TAB PO SCH (08:23)
[2021-03-06] MEDS: INSULIN GLARGINE SOLOSTAR 100 UNITS/ML 3 ML PEN SC SCH ×2 (08:28→21:32)
[2021-03-06] MEDS: INSULIN ASPART 100 UNITS/ML 3 ML PEN SC SCH ×4 (08:28→21:32)
[2021-03-06] MEDS: INSULIN HUMAN NPH SC SCH (08:33)
[2021-03-06] MEDS: dexAMETHasone 6 MG in SYRINGE 0 ML IV SCH (08:35)
--- NOTE | 2021-03-06 08:58 | XRay Report ---
XR chest 1V portable CLINICAL HISTORY: Cough and hypoxia. Evaluate for pneumonia. COMPARISON STUDY: 03/04/2021 TECHNIQUE: 1 view of the chest FINDINGS: Single frontal view of the chest demonstrates the cardiomediastinal silhouette to be within normal li mits. Compared to the previous examination, there is again a decreased inspiratory effort with elevat ion of hemidiaphragms and crowding the bronchovascular markings at the lung bases. Prominence of inte rstitial markings is also seen at the lung bases, right greater than left. However, no confluent alve olar opacities are seen. The upper lungs are clear. These findings could be chronic in nature. There is no evidence for pleural effusion. There is no evidence for vascular congestion. There is no acute osseous pathology. IMPRESSION: Decreased inspiration with prominence of the interstitial markings again seen at the lung bases, right greater than left. This could be chronic in nature as described. No confluent alveolar opacities are identified. ACT 112: Negative or not required by law. Electronically signed by: Luis Noel M.D. 03/06/2021 8:57 AM
--- NOTE | 2021-03-06 10:25 | Nephrology Progress Note ---
Date of Service March 06, 2021 Assessment & Plan (1) TIMOTHY (acute kidney injury): Plan: * TIMOTHY due to dehydration in the setting of viral pneumonia, ALVIN inhibitor and diuretic therapy * Cr has improved from 5.0 to 3.3 (baseline 2.0) and K has improved from 5.9 to 5.3 following IV NaHCO3 infusion * Patient appears clinically euvolemic. He is nonoliguric (1400 cc UO last 24 hours) * NaHCO3 infusion to complete this morning. Will then hold IVF and encourage oral hydration * Hold Lisinopril and Furosemide * Monitor PRP, UO (2) CKD (chronic kidney disease), stage III: Plan: * Mr. iMchel has CKD on the basis of large vessel renal vascular disease. He has documented atrophy of the L kidney and > 60% stenosis of R renal artery * 07/02 SIEP/UIEP were negative for monoclonal protein * Baseline Cr is 2.0 (3) Pneumonia due to COVID-19 virus: Plan: * 07/02 Nephrology note indicates patient has been vaccinated against COVID * On Remdesivir, Dexamethasone Admission and Anticipated Discharge Date Admission Date: March 04, 2021 Subjective Mr. Michel was evaluated in his hospital room this morning. He was sitting up in a chair breathing easily on O2 at 4L/min NC. He denied fever or angina. Review of Systems Constitutional: no fever Eyes: no problem reported Ear, Nose, Mouth, Throat: no problem reported Respiratory: + cough and + dyspnea Cardiovascular: no chest pain, no palpitations and no edema Gastrointestinal: no abdominal pain Genitourinary: no dysuria, no urinary hesitancy or no hematuria Musculoskeletal: no back pain Integumentary: no rash Neurologic: no confusion Physical Exam Constitutional: + ill appearing and + obese Eyes: PERRL, conjunctivae normal, anicteric sclerae ENMT: external ear and nose normal, oropharynx normal Neck: trachea midline, no thyromegaly Respiratory: Auscultation: + crackles (at bases bilaterally) Cardiovascular: RRR, no murmur, no edema Gastrointestinal (Abdomen): normal bowel sounds, soft, nontender, no hepatosplenomegaly Skin: no rashes, warm and dry Neurologic: awake; not confused Results & Data ([facility]) Vital Signs (Past 12 Hours) Vital Signs Temp Pulse Pulse Resp BP Pulse Ox 03/06/21 07:32 97 H 18 137/99 93 03/06/21 04:08 36.9 C 90 20 147/79 H 93 03/05/21 23:19 36.6 C 83 20 150/78 H 91 Laboratory Results Laboratory Tests 03/06/21 03/06/21 06:21 06:21 WBC 5.65 Hgb 14.7 Hct 41.1 L Plt Count 191 Sodium 136 Potassium 5.2 H Chloride 104 Carbon Dioxide 18 L BUN 115 H Creatinine 3.33 H D Glucose 146 H Albumin 2.8 L PG Care Time/CCT Total # of Minutes Spent Total Time Spent with Patient: Total time spent is greater than 50% in coordination of care (as documented) at patient's floor/unit and/or counseling patient: Coding Level of Care Code 13111 Subseq Hosp Care Lvl 3 Diagnoses TIMOTHY (acute kidney injury) N17.9 CKD (chronic kidney disease), stage III N18.3 Pneumonia due to COVID-19 virus U07.1; J12.82
[2021-03-06] MEDS: REMDESIVIR 100 MG in SODIUM CHLORIDE 0.9% 230 ML IV SCH (11:55)
--- NOTE | 2021-03-06 12:48 | Hospitalist Progress Note ---
Date of Service March 06, 2021 Assessment & Plan (1) Acute respiratory failure with hypoxia: Plan: due to COVID pneumonia, no distress stable on 4L, he says he does not feel short of breath saturation goal is 90% minimal cough, always has a dry cough from years of smoking told him he can stop the flutter valve as this is just giving him a dry cough (2) Pneumonia due to COVID-19 virus: Plan: dexamethasone 6mg IV daily x 10 days, day 3 Remdesivir day 3 try to wean oxygen as tolerated no dyspnea or work of breathing which is a good sign (3) TIMOTHY (acute kidney injury): Plan: Patient with known bilateral renal artery stenosis with atrophic left kidney typically followed by Dr. Orlando dehydrated from diarrhea and poor oral intake for a few days prior to admission baseline Cr is 2.0 Cr was 5.0, down to 3.3 today, making urine, K is 5.2 and HCO3 is up to 18 stop sodium bicarb drip, encourage oral intake follow BMP daily d/w Dr. Lainez, appreciate his help holding lisinopril and Lasix for now (4) Elevated troponin: Plan: troponin was 0.04 and now 0.03, no concerns for ACS, no chest pain likely related to Cr of 5.0 on admission (5) COPD, moderate: Plan: With prehospital moderate COPD diagnosis oxygen saturation goal of 90% (6) DM type 2 (diabetes mellitus, type 2): Plan: Patient with type 2 diabetes usually on glimepiride and Jardiance, hold these will use NPH insulin with dexamethasone and will use Novolog SS monitor for hypoglycemia, no episodes (7) DVT prophylaxis: Plan: Heparin will be used for DVT prevention because of his renal failure Plan: Patient we offered Seroquel for sleep Admission and Anticipated Discharge Date Admission Date: March 04, 2021 Subjective patient feeling better, breathing well on 4L, making a lot of urine appetite is intact, making a lot of urine Cr is down to 3.3, K is coming down to near normal, HCO3 is up appreciate note from Dr. Lainez, can stop fluids, encourage oral intake, he is non oliguric discussed with patient that he will be here a few more days to watch renal function, titrate down on oxygen Review of Systems Review of Systems: All systems reviewed & are unremarkable except as noted in Subjective Physical Exam Physical Exam: General: well developed, well nourished, elderly male, no acute distress, comfortable Neck: supple, trachea midline, normal thyroid Lungs: clear to auscultation bilaterally, normal respiratory effort, no accessory muscle use, no distress Heart: regular S1 and S2, no murmur, peripheral pulses normal, capillary refill normal, no edema Abdomen: soft, NT, ND, + BS, no hepatomegaly, normal to percussion Extremities: normal in appearance, no cyanosis, no petechiae, strength is 5/5 bilaterally Neuro: awake, cooperative, moves all extremities, no focal motor deficits, CN II-XII intact, sensation in extremities intact, normal speech Skin: warm, dry, no rash, normal turgor Psych: Awake, alert oriented x 3, euthymic affect Results & Data Results & Data ([facility]) Vital Signs (Past 12 Hours) Vital Signs Temp Pulse Pulse Resp BP Pulse Ox 03/06/21 08:00 96 H 03/06/21 07:32 97 H 18 137/99 93 03/06/21 04:08 36.9 C 90 20 147/79 H 93 Laboratory Results Laboratory Results - last 24 hr 03/05/21 03/05/21 03/06/21 16:02 20:09 06:21 WBC 5.65 RBC 4.54 L Hgb 14.7 Hct 41.1 L MCV 90.5 MCH 32.4 MCHC 35.8 RDW Std Deviation 44.1 RDW Coeff of Sadaf 13.4 Plt Count 191 MPV 10.5 H Sodium Potassium Chloride Carbon Dioxide Anion Gap BUN Creatinine Est Cr Clr Drug Dosing Est GFR ( Amer) Est GFR (Non-Af Amer) BUN/Creatinine Ratio Glucose POC Glucose 195 H 201 H Calcium Magnesium Total Bilirubin Direct Bilirubin AST ALT Alkaline Phosphatase Total Protein Albumin 03/06/21 03/06/21 03/06/21 06:21 07:34 11:58 WBC RBC Hgb Hct MCV MCH MCHC RDW Std Deviation RDW Coeff of Sadaf Plt Count MPV Sodium 136 Potassium 5.2 H Chloride 104 Carbon Dioxide 18 L Anion Gap 14.0 H BUN 115 H Creatinine 3.33 H D Est Cr Clr Drug Dosing 22.0 Est GFR ( Amer) 20.0 Est GFR (Non-Af Amer) 17.2 BUN/Creatinine Ratio 34.4 H Glucose 146 H POC Glucose 135 H 161 H Calcium 8.4 L Magnesium 2.2 Total Bilirubin 0.6 Direct Bilirubin 0.2 AST 27 ALT 34 Alkaline Phosphatase 92 Total Protein 7.1 Albumin 2.8 L Medications Administered Current Inpatient Medications Acetaminophen (Acetaminophen 325 Mg Tab) 650 mg PO Q4H PRN PRN Reason: Pain or Fever Stop: 04/03/21 21:15 Amlodipine Besylate (Amlodipine Besylate 5 Mg Tab) 10 mg PO DAILY ROBERT Stop: 04/04/21 08:59 Last Admin: 03/06/21 08:22 Dose: 10 mg Documented by: Atorvastatin Calcium (Atorvastatin 40 Mg Tab) 40 mg PO QPM ROBERT Stop: 04/03/21 21:59 Last Admin: 03/05/21 21:52 Dose: 40 mg Documented by: Dextrose (Dextrose 50% 50 Ml Syringe) 25 - 50 ml IV UD PRN; Protocol PRN Reason: Hypoglycemia Protocol Stop: 04/03/21 21:15 Glucagon (Glucagon For Inj 1 Mg Vial) 1 mg SQ UD PRN; Protocol PRN Reason: Hypoglycemia Protocol Stop: 04/03/21 21:15 Glucose (Glucose 10 Tabs/Tube) 4 - 8 tabs PO UD PRN; Protocol PRN Reason: Hypoglycemia Protocol Stop: 04/03/21 21:15 Glucose (Glucose 40% Gel 15 Gm Tube) 15 - 30 gm PO UD PRN; Protocol PRN Reason: Hypoglycemia Protocol Stop: 04/03/21 21:15 Heparin Sodium (Porcine) (Heparin Sod 5,000 Unit/0.5 Ml Vial) 5,000 units SQ Q12 ROBERT Stop: 04/03/21 21:59 Last Admin: 03/06/21 08:22 Dose: 5,000 units Documented by: Dexamethasone 6 mg/ Syringe 1.5 mls @ 1 mls/min IV Q24H ROBERT Stop: 04/04/21 08:59 Last Admin: 03/06/21 08:35 Dose: 1 mls/min Documented by: Remdesivir 100 mg/ Sodium (Chloride) 250 mls @ 250 mls/hr IV Q24H ROBERT; Protocol Stop: 03/08/21 12:59 Last Admin: 03/06/21 11:55 Dose: 250 mls/hr Documented by: Insulin Aspart (Insulin Aspart 100 Units/Ml 3 Ml Pen) 0 units SC ACHS ROBERT Stop: 04/03/21 21:29 Last Admin: 03/06/21 08:28 Dose: Not Given Documented by: Insulin Glargine (Insulin Glargine Solostar 100 Units/Ml 3 Ml Pen) 10 units SC BID [facility] Stop: 04/03/21 21:59 Last Admin: 03/06/21 08:28 Dose: 10 units Documented by: Insulin Human NPH (Insulin Human Nph) 18 units SC DAILY [facility] Stop: 04/04/21 08:59 Last Admin: 03/06/21 08:33 Dose: Not Given Documented by: Miscellaneous (Carbohydrates For Hypoglycemia ) 15 - 30 gm PO UD PRN PRN Reason: Hypoglycemia Protocol Stop: 04/03/21 21:15 Ondansetron HCl (Ondansetron Inj 2 Mg/Ml 2 Ml Vial) 4 mg IV Q6H PRN PRN Reason: Nausea Stop: 04/03/21 21:15 Pantoprazole Sodium (Pantoprazole 40 Mg Tab) 40 mg PO DAILY [facility] Stop: 04/04/21 08:59 Last Admin: 03/06/21 08:23 Dose: 40 mg Documented by: Patiromer (Patiromer Calcium Sorbitex 8.4 Gm Pack) 8.4 gm PO DAILY@1500 [facility] Stop: 04/04/21 14:59 Last Admin: 03/05/21 16:30 Dose: 8.4 gm Documented by: Quetiapine Fumarate (Quetiapine Fumarate 25 Mg Tablet) 25 mg PO HS [facility] Stop: 04/03/21 21:59 Last Admin: 03/05/21 21:52 Dose: 25 mg Documented by: Sodium Chloride (Sodium Chloride 0.9% 10ml Flush) 30 ml IV DAILY@1200 [facility] Stop: 03/08/21 12:01 Last Admin: 03/05/21 15:30 Dose: 30 ml Documented by: PG Care Time/CCT Total # of Minutes Spent Total Time Spent with Patient: Total time spent is greater than 50% in coordination of care (as documented) at patient's floor/unit and/or counseling patient: Coding Level of Care Code 18964 Subseq Hosp Care Lvl 3 Diagnoses Acute respiratory failure with hypoxia J96.01 Pneumonia due to COVID-19 virus U07.1; J12.82 TIMOTHY (acute kidney injury) N17.9 Elevated troponin R79.89 COPD, moderate J44.9 DM type 2 (diabetes mellitus, type 2) E11.9 DVT prophylaxis Z29.9
[2021-03-06] MEDS: SODIUM CHLORIDE 0.9% 10ML FLUSH IV SCH (12:58)
[2021-03-06] MEDS: PATIROMER CALCIUM SORBITEX 8.4 GM PACK PO SCH (17:37)
[2021-03-06] MEDS ORDERED: MELATONIN 3 MG TAB PO PRN (19:09)
[2021-03-06] MEDS: QUEtiapine FUMARATE 25 MG TABLET PO SCH (21:34)
[2021-03-06] MEDS: ATORVASTATIN 40 MG TAB PO SCH (21:34)
--- NOTE | 2021-03-07 07:35 | Hospitalist Progress Note ---
Date of Service March 07, 2021 Assessment & Plan (1) Acute respiratory failure with hypoxia: Plan: due to COVID pneumonia, no distress titrated down ,he does not feel short of breath saturation goal is 90% minimal cough, always has a dry cough from years of smoking (2) Pneumonia due to COVID-19 virus: Plan: dexamethasone 6mg IV daily, redmdesiver given cautiously with renal failure no dyspnea or work of breathing which is a good sign (3) TIMOTHY (acute kidney injury): Plan: Patient with known bilateral renal artery stenosis with atrophic left kidney typically followed by Dr. Orlando dehydrated from diarrhea and poor oral intake for a few days Cr down , making urine, appreciate Dr Mcpherson help holding lisinopril and Lasix (4) Elevated troponin: Plan: troponin was 0.04 and now 0.03, no concerns for ACS, no chest pain likely related to Cr of 5.0 on admission type 2 mi ruled out (5) COPD, moderate: Plan: With prehospital moderate COPD diagnosis oxygen saturation goal of 90% (6) DM type 2 (diabetes mellitus, type 2): Plan: Patient with type 2 diabetes usually on glimepiride and Jardiance, hold these will use NPH insulin with dexamethasone and will use Novolog SS (7) DVT prophylaxis: Plan: Heparin will be used for DVT prevention because of his renal failure Admission and Anticipated Discharge Date Admission Date: March 04, 2021 Subjective pt is improving complains of going to the bathroom too much slightly hyperkalemic today, creatinine is stable today in the 3.3 range Review of Systems Review of Systems: Mild distress and fatigue no headache, no visual changes no speech or swallowing issues no chest pain, pressure or palpitations Persistent but improving shortness of breath, non productive cough no abdominal pain, nausea or vomiting, diarrhea or constipation no dysuria, hematuria or frequency no focal joint pain or swelling no back pain, CVA tenderness or radicular pain no bruising, bleeding or rashes no focal signs of weakness or numbness or altered sensation no complaints of anxiety or depression.. Physical Exam Physical Exam: The patient appeared well nourished and normally developed. Vital signs as documented. Head exam is normocephalic atraumatic Neck is without JVD, thyromegaly, or carotid bruits. Lungs are bilateral rales, decreased breath sounds at the bases Cardiac exam, Rhythm is regular.. No murmurs, rubs or gallops. Abdominal exam reveals normal bowel sounds, soft non tender, no masses Extremities are trace edematous and both pedal pulses are present Neurologic exam is alert and oriented, no focal loss of strength or sensation Skin is without bruises or rashes Psychologically is without concerns for anxiety or depression.. Results & Data Results & Data ([facility]) Vital Signs (Past 12 Hours) Vital Signs Temp Pulse Resp BP Pulse Ox 03/07/21 03:00 97.9 F 88 19 147/77 H 94 03/06/21 23:11 97.7 F 89 21 140/87 91 PG Care Time/CCT Total # of Minutes Spent Total Time Spent with Patient: Total time spent is greater than 50% in coordination of care (as documented) at patient's floor/unit and/or counseling patient: Coding Level of Care Code 81560 Subseq Hosp Care Lvl 2 Diagnoses Acute respiratory failure with hypoxia J96.01 Pneumonia due to COVID-19 virus U07.1; J12.82 TIMOTHY (acute kidney injury) N17.9 Elevated troponin R79.89 COPD, moderate J44.9 DM type 2 (diabetes mellitus, type 2) E11.9 DVT prophylaxis Z29.9
[2021-03-07 07:59] LABS: Albumin Level 3.2 gm/dl (3.4-5.0); BUN Creatinine Ratio 35.9 (10-20); Bilirubin,Total 0.6 mg/dl (0.2-1); Calcium 9.3 mg/dl (8.5-10.1); Creatinine Clr Calc Pharmacy 21.8 ml/min; Est GFR (African American) 19.8 ml/min; Est GFR (Non-African American) 17.1 ml/min; Magnesium 2.2 mg/dl (1.8-2.4); Potassium 5.4 mmol/L (3.5-5.1)
[2021-03-07] MEDS: PANTOprazole 40 MG TAB PO SCH (08:27)
[2021-03-07] MEDS: amLODIPine BESYLATE 5 MG TAB PO SCH (08:27)
[2021-03-07] MEDS: HEPARIN SOD 5,000 UNIT/0.5 ML VIAL SQ SCH ×2 (08:27→20:35)
[2021-03-07] MEDS ORDERED: PATIROMER CALCIUM SORBITEX 8.4 GM PACK PO ONE ×2 (08:30→18:45)
[2021-03-07] MEDS: INSULIN GLARGINE SOLOSTAR 100 UNITS/ML 3 ML PEN SC SCH ×2 (08:33→20:36)
[2021-03-07] MEDS: INSULIN HUMAN NPH SC SCH (08:34)
[2021-03-07] MEDS: dexAMETHasone 6 MG in SYRINGE 0 ML IV SCH (08:39)
[2021-03-07] MEDS: INSULIN ASPART 100 UNITS/ML 3 ML PEN SC SCH ×4 (09:14→20:35)
--- NOTE | 2021-03-07 09:44 | Nephrology Progress Note ---
Date of Service March 07, 2021 Assessment & Plan (1) TIMOTHY (acute kidney injury): Plan: * TIMOTHY due to dehydration in the setting of viral pneumonia, ALVIN inhibitor and diuretic therapy * Cr has improved from 5.0 to 3.3 (baseline 2.0) and K has improved from 5.9 to 5.4 following IV NaHCO3 infusion * Patient appears clinically euvolemic. He is nonoliguric (789 cc UO last 24 hours) * Hold IVF and encourage oral hydration * Hold Lisinopril and Furosemide * Will provide one dose Patiromer this morning to help correct serum potassium * Monitor PRP, UO (2) CKD (chronic kidney disease), stage III: Plan: * Mr. Michel has CKD on the basis of large vessel renal vascular disease. He has documented atrophy of the L kidney and > 60% stenosis of R renal artery * 07/02 SIEP/UIEP were negative for monoclonal protein * Baseline Cr is 2.0 (3) Pneumonia due to COVID-19 virus: Plan: * 07/02 Nephrology note indicates patient has been vaccinated against COVID * On Remdesivir, Dexamethasone Admission and Anticipated Discharge Date Admission Date: March 04, 2021 Subjective Mr. Michel was evaluated in his hospital room this morning. He was breathing easily on O2 at 4L/min NC. He denied fever or angina. Review of Systems Constitutional: no fever Eyes: no problem reported Ear, Nose, Mouth, Throat: no problem reported Respiratory: + cough and + dyspnea Cardiovascular: no chest pain, no palpitations and no edema Gastrointestinal: no abdominal pain Genitourinary: no dysuria, no urinary hesitancy or no hematuria Musculoskeletal: no back pain Integumentary: no rash Neurologic: no confusion Physical Exam Constitutional: + ill appearing and + obese Eyes: PERRL, conjunctivae normal, anicteric sclerae ENMT: external ear and nose normal, oropharynx normal Neck: trachea midline, no thyromegaly Respiratory: Auscultation: + crackles (at bases bilaterally) Cardiovascular: RRR, no murmur, no edema Gastrointestinal (Abdomen): normal bowel sounds, soft, nontender, no hepatosplenomegaly Skin: no rashes, warm and dry Neurologic: awake; not confused Results & Data ([facility]) Vital Signs (Past 12 Hours) Vital Signs Temp Pulse Pulse Resp BP Pulse Ox 03/07/21 07:53 36.5 C 93 H 20 153/83 H 91 03/07/21 03:00 36.6 C 88 19 147/77 H 94 03/06/21 23:11 36.5 C 89 21 140/87 91 Laboratory Results Laboratory Tests 03/07/21 06:21 Sodium 132 L Potassium 5.4 H Chloride 100 Carbon Dioxide 23 BUN 120 H Creatinine 3.35 H PG Care Time/CCT Total # of Minutes Spent Total Time Spent with Patient: Total time spent is greater than 50% in coordination of care (as documented) at patient's floor/unit and/or counseling patient: Coding Level of Care Code 95172 Subseq Hosp Care Lvl 3 Diagnoses TIMOTHY (acute kidney injury) N17.9 CKD (chronic kidney disease), stage III N18.3 Pneumonia due to COVID-19 virus U07.1; J12.82
[2021-03-07] MEDS: PATIROMER CALCIUM SORBITEX 8.4 GM PACK PO SCH (10:11)
[2021-03-07] MEDS ORDERED: INSULIN HUMAN NPH SC ONE (12:18)
[2021-03-07] MEDS: REMDESIVIR 100 MG in SODIUM CHLORIDE 0.9% 230 ML IV SCH (12:45)
[2021-03-07] MEDS: SODIUM CHLORIDE 0.9% 10ML FLUSH IV SCH (13:30)
[2021-03-07] MEDS: ATORVASTATIN 40 MG TAB PO SCH (20:34)
[2021-03-07] MEDS: QUEtiapine FUMARATE 25 MG TABLET PO SCH (20:35)
[2021-03-08 06:56] LABS: Hematocrit (blood only) 43.7 % (42-52); Hemoglobin 15.7 g/dL (14.0-18.0); Mean Corpuscular Hemoglobin 32.6 pg (25-34); Mean Corpuscular Hgb Conc 35.9 g/dL (32-36); Mean Corpuscular Volume 90.9 fL (80-100); Mean Platelet Volume 10.5 fL (7.4-10.4); Platelet Count 237 K/uL (130-400); RDW Coefficient of Variation 13.5 % (11.5-14.5); RDW Standard Deviation 45.4 fL (36.4-46.3); Red Blood Count 4.81 M/uL (4.7-6.1); White Blood Count 7.15 K/uL (4.8-10.8)
[2021-03-08 07:27] LABS: BUN Creatinine Ratio 42.6 (10-20); Calcium 9.3 mg/dl (8.5-10.1); Est GFR (African American) 29.5 ml/min; Est GFR (Non-African American) 25.5 ml/min; Potassium 5.4 mmol/L (3.5-5.1)
[2021-03-08] MEDS: amLODIPine BESYLATE 5 MG TAB PO SCH (09:16)
[2021-03-08] MEDS: dexAMETHasone 6 MG in SYRINGE 0 ML IV SCH (09:16)
[2021-03-08] MEDS: HEPARIN SOD 5,000 UNIT/0.5 ML VIAL SQ SCH ×2 (09:17→19:37)
[2021-03-08] MEDS: PANTOprazole 40 MG TAB PO SCH (09:17)
[2021-03-08] MEDS: PATIROMER CALCIUM SORBITEX 8.4 GM PACK PO SCH (09:29)
[2021-03-08] MEDS: INSULIN ASPART 100 UNITS/ML 3 ML PEN SC SCH ×4 (09:39→20:36)
[2021-03-08] MEDS: INSULIN HUMAN NPH SC SCH (09:39)
[2021-03-08] MEDS: INSULIN GLARGINE SOLOSTAR 100 UNITS/ML 3 ML PEN SC SCH ×2 (09:39→20:36)
--- NOTE | 2021-03-08 11:23 | Nephrology Progress Note ---
Date of Service March 08, 2021 Assessment & Plan (1) TIMOTHY (acute kidney injury): (2) Hyperkalemia: (3) COVID-19: Plan: Acute kidney injury in the setting of covert 90 pneumonia, volume depletion, creatinine was above 5, continues to improve down to 2.5, close to his baseline of around 2. has been having mild hyperkalemia but potassium stable. Blood pressure slightly elevated. Overall doing much better. less oxygen requirement. --overall clinically improving, continue med renal function continues to improve. Monitor with daily renal panel. --low K diet will follow Admission and Anticipated Discharge Date Admission Date: March 04, 2021 Winsome Blum is was seen and evaluated in his room this morning. He is doing much better, appetite improved, denies any shortness of breath. Blood pressure slightly elevated this morning. Renal function continues to improve, creatinine down to 2.5, Potassium still staying slightly high at 5 0.4. Review of Systems Review of Systems: Detailed review of systems otherwise unremarkable. Physical Exam Constitutional: WD/WN, vitals as above no acute distress Eyes: + anicteric sclerae ENMT: Ears: no hearing impairment and no external ear abnormality Nose: nasal mucous membranes not dry Neck: normal visual inspection Respiratory: normal respiratory effort; no respiratory distress Auscultation: + diminished lung sounds Cardiovascular: Rate/Rhythm: regular rate and regular rhythm Heart Sounds: normal S1 and normal S2 Extremities: no edema Skin: normal turgor; no rashes Neurologic: no focal motor deficits and not confused Psychiatric: Orientation: alert and oriented x 3 Results & Data ([facility]) Vital Signs (Past 12 Hours) Vital Signs Temp Pulse Pulse Resp BP Pulse Ox 03/08/21 07:14 36.4 C L 100 H 19 158/99 H 90 03/08/21 03:50 36.5 C 101 H 20 128/84 92 PG Care Time/CCT Total # of Minutes Spent Total Time Spent with Patient: Total time spent is greater than 50% in coordination of care (as documented) at patient's floor/unit and/or counseling patient: Coding Level of Care Code 77966 Subseq Hosp Care Lvl 3 Diagnoses TIMOTHY (acute kidney injury) N17.9 Hyperkalemia E87.5 COVID-19 U07.1
[2021-03-08] MEDS: REMDESIVIR 100 MG in SODIUM CHLORIDE 0.9% 230 ML IV SCH (12:33)
[2021-03-08] MEDS: SODIUM CHLORIDE 0.9% 10ML FLUSH IV SCH (13:48)
--- NOTE | 2021-03-08 15:30 | Hospitalist Progress Note ---
Date of Service March 08, 2021 Assessment & Plan (1) Acute respiratory failure with hypoxia: Plan: due to COVID pneumonia, no distress titrated down ,he does not feel short of breath saturation goal is 90% minimal cough, always has a dry cough from years of smoking (2) Pneumonia due to COVID-19 virus: Plan: dexamethasone 6mg IV daily, redmdesiver given cautiously with renal failure no dyspnea or work of breathing which is a good sign (3) TIMOTHY (acute kidney injury): Plan: Patient with known bilateral renal artery stenosis with atrophic left kidney typically followed by Dr. Orlando dehydrated from diarrhea and poor oral intake for a few days Cr approaching near baseline appreciate nephrology help holding lisinopril and Lasix (4) Elevated troponin: Plan: troponin was 0.04 and now 0.03, no concerns for ACS, no chest pain felt secondary to renal failure likely related to Cr of 5.0 on admission type 2 mi ruled out (5) COPD, moderate: Plan: With prehospital moderate COPD diagnosis oxygen saturation goal of 90% (6) DM type 2 (diabetes mellitus, type 2): Plan: Patient with type 2 diabetes usually on glimepiride and Jardiance, hold these will use NPH insulin with dexamethasone and will use Novolog SS (7) DVT prophylaxis: Plan: Heparin will be used for DVT prevention because of his renal failure Admission and Anticipated Discharge Date Admission Date: March 04, 2021 Subjective Pt is doing much better, appetite improved, no diarrhea, no shortness of breath, creatinine down to 2.5, Potassium still staying slightly high at 5.4 did receive patiromer earlier. Review of Systems Review of Systems: moderate distress and fatigue no headache, no visual changes no speech or swallowing issues no chest pain, pressure or palpitations Persistent but continues improving shortness of breath, non productive cough no abdominal pain, nausea or vomiting, diarrhea or constipation no dysuria, hematuria or frequency no focal joint pain or swelling no back pain, CVA tenderness or radicular pain no bruising, bleeding or rashes no focal signs of weakness or numbness or altered sensation no complaints of anxiety or depression.. Physical Exam Physical Exam: The patient appeared well nourished and normally developed. he looks markedly deconditioined Vital signs as documented. Head exam is normocephalic atraumatic Neck is without JVD, thyromegaly, or carotid bruits. Lungs are bilateral rales, decreased breath sounds at the bases Cardiac exam, Rhythm is regular.. No murmurs, rubs or gallops. Abdominal exam reveals normal bowel sounds, soft non tender, no masses Extremities are trace edematous and both pedal pulses are present Neurologic exam is alert and oriented, no focal loss of strength or sensation Skin is without bruises or rashes Psychologically is without concerns for anxiety or depression.. Results & Data Results & Data ([facility]) Vital Signs (Past 12 Hours) Vital Signs Temp Pulse Pulse Resp BP Pulse Ox 03/08/21 15:10 97.7 F 80 20 129/63 94 03/08/21 11:47 97.5 F L 94 H 18 133/91 96 03/08/21 07:14 97.5 F L 100 H 19 158/99 H 90 03/08/21 03:50 97.7 F 101 H 20 128/84 92 PG Care Time/CCT Total # of Minutes Spent Total Time Spent with Patient: Total time spent is greater than 50% in coordination of care (as documented) at patient's floor/unit and/or counseling patient: Coding Level of Care Code 74193 Subseq Hosp Care Lvl 2 Diagnoses Acute respiratory failure with hypoxia J96.01 Pneumonia due to COVID-19 virus U07.1; J12.82 TIMOTHY (acute kidney injury) N17.9 Elevated troponin R79.89 COPD, moderate J44.9 DM type 2 (diabetes mellitus, type 2) E11.9 DVT prophylaxis Z29.9
[2021-03-08] MEDS: ATORVASTATIN 40 MG TAB PO SCH (19:37)
[2021-03-08] MEDS: QUEtiapine FUMARATE 25 MG TABLET PO SCH (19:37)
[2021-03-09] MEDS: amLODIPine BESYLATE 5 MG TAB PO SCH (09:02)
[2021-03-09] MEDS: PANTOprazole 40 MG TAB PO SCH (09:02)
[2021-03-09] MEDS: dexAMETHasone 6 MG in SYRINGE 0 ML IV SCH (09:03)
[2021-03-09] MEDS: HEPARIN SOD 5,000 UNIT/0.5 ML VIAL SQ SCH ×2 (09:03→20:20)
[2021-03-09] MEDS: PATIROMER CALCIUM SORBITEX 8.4 GM PACK PO SCH (09:13)
[2021-03-09] MEDS: INSULIN GLARGINE SOLOSTAR 100 UNITS/ML 3 ML PEN SC SCH ×2 (09:49→21:55)
[2021-03-09] MEDS: INSULIN ASPART 100 UNITS/ML 3 ML PEN SC SCH ×4 (09:49→20:21)
[2021-03-09] MEDS: INSULIN HUMAN NPH SC SCH (09:49)
--- NOTE | 2021-03-09 11:25 | Nephrology Progress Note ---
Date of Service March 09, 2021 Assessment & Plan (1) TIMOTHY (acute kidney injury): (2) Hyperkalemia: (3) COVID-19: Plan: Acute kidney injury in the setting of covert 90 pneumonia, volume depletion, creatinine was above 5, continues to improve down to 2.5, close to his baseline of around 2. has been having mild hyperkalemia but potassium stable. Blood pressure slightly elevated. Overall doing much better. less oxygen requirement. --overall clinically improving. Monitor with daily renal panel. --low K diet will follow Admission and Anticipated Discharge Date Admission Date: March 04, 2021 Winsome Blum overall doing well, no lab this am, vital sign stable. Results & Data ([facility]) Vital Signs (Past 12 Hours) Vital Signs Temp Pulse Pulse Pulse Resp BP Pulse Ox 03/09/21 07:24 36.6 C 89 18 142/89 H 93 03/09/21 04:14 36.8 C 85 18 159/95 H 95 03/09/21 00:00 74 03/08/21 23:27 36.8 C 94 H 18 144/90 H 93 PG Care Time/CCT Total # of Minutes Spent Total Time Spent with Patient: Total time spent is greater than 50% in coordination of care (as documented) at patient's floor/unit and/or counseling patient: Coding Level of Care Code 83789 Subseq Hosp Care Lvl 2 Diagnoses TIMOTHY (acute kidney injury) N17.9 Hyperkalemia E87.5 COVID-19 U07.1
--- NOTE | 2021-03-09 16:30 | Hospitalist Progress Note ---
Date of Service March 09, 2021 Assessment & Plan (1) Acute respiratory failure with hypoxia: Plan: due to COVID pneumonia, no distress titrated down ,he does not feel short of breath saturation goal is 90% now on 2 L minimal cough, always has a dry cough from years of smoking will have 2 step 03/10 as trying to get home off oxygen to avoid trip hazard long tubing would be but in the end with tobacco exposure may need home oxygen for chronic lung issues (2) Pneumonia due to COVID-19 virus: Plan: dexamethasone 6mg IV daily, redmdesiver given cautiously with renal failure no dyspnea or work of breathing which is a good sign (3) TIMOTHY (acute kidney injury): Plan: resolved Patient with known bilateral renal artery stenosis with atrophic left kidney typically followed by Dr. Orlando dehydrated from diarrhea and poor oral intake for a few days Cr approaching near baseline appreciate nephrology help holding lisinopril and Lasix, bp has been acceptable (4) Elevated troponin: Plan: troponin was 0.04 and now 0.03, no concerns for ACS, no chest pain felt secondary to renal failure likely related to Cr of 5.0 on admission type 2 mi ruled out (5) COPD, moderate: Plan: With prehospital moderate COPD diagnosis oxygen saturation goal of 90% (6) DM type 2 (diabetes mellitus, type 2): Plan: Patient with type 2 diabetes usually on glimepiride and Jardiance, hold these will use NPH insulin with dexamethasone and will use Novolog SS (7) DVT prophylaxis: Plan: Heparin will be used for DVT prevention because of his renal failure Admission and Anticipated Discharge Date Admission Date: March 04, 2021 Subjective pt has improved greatly does have lowering oxygen needs and some ambulatory challenges but PT feels can go home, will keep another day to see if we can stop oxygen as the tubing would be a trip hazard for him and he lives alone Review of Systems Review of Systems: mild distress and fatigue no headache, no visual changes no speech or swallowing issues no chest pain, pressure or palpitations improving shortness of breath, resolved cough, now back to baseline cough no abdominal pain, nausea or vomiting, diarrhea or constipation no dysuria, hematuria or frequency no focal joint pain or swelling no back pain, CVA tenderness or radicular pain no bruising, bleeding or rashes no focal signs of weakness or numbness or altered sensation no complaints of anxiety or depression.. Physical Exam Physical Exam: The patient appeared well nourished and normally developed. he looks markedly deconditioined but preformed well with PT Vital signs as documented. Head exam is normocephalic atraumatic Neck is without JVD, thyromegaly, or carotid bruits. Lungs are with clearing bilateral rales, decreased breath sounds at the bases Cardiac exam, Rhythm is regular.. No murmurs, rubs or gallops. Abdominal exam reveals normal bowel sounds, soft non tender, no masses Extremities are trace edematous and both pedal pulses are present Neurologic exam is alert and oriented, no focal loss of strength or sensation Skin is without bruises or rashes Psychologically is without concerns for anxiety or depression.. Results & Data Results & Data ([facility]) Vital Signs (Past 12 Hours) Vital Signs Temp Pulse Pulse Resp BP Pulse Ox Pulse Ox 03/09/21 15:44 98.1 F 86 20 138/77 90 03/09/21 13:08 91 03/09/21 12:08 97.9 F 88 20 122/75 92 03/09/21 07:24 97.9 F 89 18 142/89 H 93 Pulse Ox Pulse Ox 03/09/21 15:44 03/09/21 13:08 93 77 L 03/09/21 12:08 03/09/21 07:24 PG Care Time/CCT Total # of Minutes Spent Total Time Spent with Patient: Total time spent is greater than 50% in coordination of care (as documented) at patient's floor/unit and/or counseling patient: Coding Level of Care Code 23030 Subseq Hosp Care Lvl 2 Diagnoses Acute respiratory failure with hypoxia J96.01 Pneumonia due to COVID-19 virus U07.1; J12.82 TIMOTHY (acute kidney injury) N17.9 Elevated troponin R79.89 COPD, moderate J44.9 DM type 2 (diabetes mellitus, type 2) E11.9 DVT prophylaxis Z29.9
[2021-03-09] MEDS: QUEtiapine FUMARATE 25 MG TABLET PO SCH (20:20)
[2021-03-09] MEDS: ATORVASTATIN 40 MG TAB PO SCH (20:20)
[2021-03-10 06:26] LABS: Hematocrit (blood only) 48.9 % (42-52); Hemoglobin 17.5 g/dL (14.0-18.0); Mean Corpuscular Hemoglobin 32.9 pg (25-34); Mean Corpuscular Hgb Conc 35.8 g/dL (32-36); Mean Corpuscular Volume 91.9 fL (80-100); Mean Platelet Volume 10.9 fL (7.4-10.4); Platelet Count 215 K/uL (130-400); RDW Coefficient of Variation 13.2 % (11.5-14.5); RDW Standard Deviation 44.5 fL (36.4-46.3); Red Blood Count 5.32 M/uL (4.7-6.1); White Blood Count 9.53 K/uL (4.8-10.8)
[2021-03-10 07:02] LABS: Albumin Level 3.3 gm/dl (3.4-5.0); BUN Creatinine Ratio 42.1 (10-20); Calcium 9.8 mg/dl (8.5-10.1); Creatinine Clr Calc Pharmacy 34.9 ml/min; Est GFR (African American) 35.9 ml/min; Phosphorus 3.8 mg/dl (2.5-4.9); Potassium 5.1 mmol/L (3.5-5.1)
[2021-03-10] MEDS: PANTOprazole 40 MG TAB PO SCH (08:31)
[2021-03-10] MEDS: dexAMETHasone 6 MG in SYRINGE 0 ML IV SCH (08:31)
[2021-03-10] MEDS: amLODIPine BESYLATE 5 MG TAB PO SCH (08:31)
[2021-03-10] MEDS: INSULIN ASPART 100 UNITS/ML 3 ML PEN SC SCH ×3 (08:31→17:12)
[2021-03-10] MEDS: HEPARIN SOD 5,000 UNIT/0.5 ML VIAL SQ SCH (08:33)
[2021-03-10] MEDS: INSULIN HUMAN NPH SC SCH (08:33)
[2021-03-10] MEDS: INSULIN GLARGINE SOLOSTAR 100 UNITS/ML 3 ML PEN SC SCH (08:33)
[2021-03-10] MEDS: PATIROMER CALCIUM SORBITEX 8.4 GM PACK PO SCH (09:46)
--- NOTE | 2021-03-10 12:07 | Nephrology Progress Note ---
Date of Service March 10, 2021 Assessment & Plan (1) TIMOTHY (acute kidney injury): (2) Hyperkalemia: (3) COVID-19: Plan: Acute kidney injury in the setting of covert 90 pneumonia, volume depletion, creatinine was above 5, continues to improve down to 2.5, close to his baseline of around 2. has been having mild hyperkalemia but potassium stable. Blood pressure slightly elevated. Overall doing much better. less oxygen requirement. Renal function continues to improve, creatinine down to 2.1, electrolyte acceptable. Blood pressure well controlled, volume status acceptable. --overall clinically improving. Monitor with daily renal panel, Expect renal function to stay relatively stable close to baseline and continue to improve --low K diet will sign off however, will be available if any further assistance needed. Once discharged he can follow with Dr. Orlando as an outpatient as his regular schedule. Admission and Anticipated Discharge Date Admission Date: March 04, 2021 Winsome Blum was seen and examined this morning. Overall he is feeling much better, denied any shortness of breath, no fever or chills. Appetite improved. Has been voiding normally. Blood pressure, volume status acceptable. Renal function continues to improve, creatinine down to 2.1, electrolyte acceptable. Review of Systems Review of Systems: Detailed review of systems otherwise unremarkable. Physical Exam Constitutional: WD/WN, vitals as above no acute distress Eyes: + anicteric sclerae ENMT: Ears: no hearing impairment and no external ear abnormality Nose: nasal mucous membranes not dry Neck: normal visual inspection Respiratory: normal respiratory effort; no respiratory distress Auscultation: + diminished lung sounds Cardiovascular: Rate/Rhythm: regular rate and regular rhythm Heart Sounds: normal S1 and normal S2 Extremities: no edema Skin: normal turgor; no rashes Neurologic: no focal motor deficits and not confused Psychiatric: Orientation: alert and oriented x 3 Results & Data ([facility]) Vital Signs (Past 12 Hours) Vital Signs Temp Pulse Pulse Pulse Pulse Pulse Pulse 03/10/21 11:27 112 H 128 H 110 H 107 H 03/10/21 11:00 36.7 C 106 H 03/10/21 07:47 100 H 03/10/21 07:00 36.7 C 88 03/10/21 02:50 37.0 C 89 Resp Resp Resp Resp Resp BP Pulse Ox 03/10/21 11:27 20 20 20 20 03/10/21 11:00 19 136/78 90 03/10/21 07:47 03/10/21 07:00 17 149/84 H 90 03/10/21 02:50 20 136/78 95 Pulse Ox Pulse Ox Pulse Ox Pulse Ox 03/10/21 11:27 94 90 93 86 L 03/10/21 11:00 03/10/21 07:47 03/10/21 07:00 03/10/21 02:50 PG Care Time/CCT Total # of Minutes Spent Total Time Spent with Patient: Total time spent is greater than 50% in coordination of care (as documented) at patient's floor/unit and/or counseling patient: Coding Level of Care Code 57668 Subseq Hosp Care Lvl 3 Diagnoses TIMOTHY (acute kidney injury) N17.9 Hyperkalemia E87.5 COVID-19 U07.1
[2021-03-10 15:51] VITALS: BP 130/76; TEMP 97.9; O2SAT 90
[2021-03-10 15:56] VITALS: PULSE 89
--- NOTE | 2021-03-13 08:54 | Discharge Summary ---
Date of Service March 10, 2021 Admission HPI Per Admitting Provider Patient presents with increased coughing and shortness of breath reportedly is been sick since Friday at home. He was sleeping and can get out of bed. Family checked on him yesterday and then again today he looked worse today and was referred to the ER was found of Covid pneumonia and worsening acute on chronic kidney injury. Principal Diagnosis Acute kidney injury on CKD, hyperkalemia COVID 19 infection Discharge Exam General: well developed, well nourished, elderly male, no acute distress, comfortable Neck: supple, trachea midline, normal thyroid Lungs: clear to auscultation bilaterally, normal respiratory effort, no accessory muscle use, no distress Heart: regular S1 and S2, no murmur, peripheral pulses normal, capillary refill normal, no edema Abdomen: soft, NT, ND, + BS, no hepatomegaly, normal to percussion Extremities: normal in appearance, no cyanosis, no petechiae, strength is 5/5 bilaterally Neuro: awake, cooperative, moves all extremities, no focal motor deficits, CN II-XII intact, sensation in extremities intact, normal speech Skin: warm, dry, no rash, normal turgor Psych: Awake, alert oriented x 3, euthymic affect Discharge Data Allergies Allergy/AdvReac Type Severity Reaction Status Date / Time No Known Allergies Allergy Verified 02/08/21 15:09 Consultations 03/04/21 21:16 Consult Nephrology Routine Hospital Course (1) Acute respiratory failure with hypoxia: due to COVID pneumonia, no distress titrated down ,he does not feel short of breath saturation goal is 90% now on 2 L minimal cough, always has a dry cough from years of smoking 2 step on day of discharge, he needs home oxygen, 1L at rest and 1L on exertion CM arranged for home oxygen he was feeling well, no dyspnea (2) Pneumonia due to COVID-19 virus: dexamethasone 6mg IV daily, redmdesiver given cautiously with renal failure no dyspnea or work of breathing which is a good sign complete course of dexamethasone at home, only needs 3 more days stay well nourished and well hydrated he is independent in the room, cleared by PT to go home recommend Xarelto 10mg daily x 30 days to help prevent DVT as he is recovering (3) TIMOTHY (acute kidney injury): resolved, Cr back to baseline, K is normal, making urine (non-oliguric) Patient with known bilateral renal artery stenosis with atrophic left kidney typically followed by Dr. Orlando dehydrated from diarrhea and poor oral intake for a few days appreciate nephrology help resume Lasix and lisinopril (4) Elevated troponin: troponin was 0.04 and now 0.03, no concerns for ACS, no chest pain felt secondary to renal failure likely related to Cr of 5.0 on admission type 2 mi ruled out (5) COPD, moderate: With prehospital moderate COPD diagnosis oxygen saturation goal of 90% will be on 1L at rest and 1L on exertion, suspect he may have needed this prior to admission (6) DM type 2 (diabetes mellitus, type 2): Patient with type 2 diabetes usually on glimepiride and Jardiance, resume on discharge (7) DVT prophylaxis: Heparin will be used for DVT prevention because of his renal failure Total Time Total Time Spent Total Time Spent (In Minutes): 33 minutes Discharge Plan Discharge Items Patient Disposition: Home - Self-Care Reason For Visit: ILLNESS Discharge Diagnosis: COVID 19 Acute kidney injury on chronic kidney disease Condition on Discharge: Good Goals: stay well nourished, well hydrated gradually increase activity Activity: Resume your previous activity Driving/Machine Use: no driving for 2 weeks or until cleared by PCP Weightbearing: Full weightbearing Non-emergency contact: Primary Care Provider Call non-emergency contact if: you have any medication questions and your symptoms worsen Follow-up/Referrals: Darwin Orlando DO [Physician] - (2-3 weeks) Breann Orr MD [Primary Care Provider] - (one week) Diet: Carb Consistent or DM2 and Low Potassium (2gm) Addtl Attending Provider Instructions: Medications: - DEXAMETHASONE: 6mg daily for 3 more days then stop, this will complete 10 days total treatment - XARELTO: 10mg daily for 30 days to help prevent blood clots while recovering from COVID - LISINOPRIL: reduce to 20mg from 40mg, you can cut the 40mg tablets in half all of your typical home medications, you can resume taking them tomorrow Acute kidney injury on CKD: creatinine is back to normal, 2.1 today, electrolytes stable, making urine you should follow up with Dr. Orlando in 2-3 weeks continue prior home medications, start Lasix tomorrow and please reduce lisinopril to 20mg from 40mg COVID 19: responded well to dexamethasone, never needed more than 6L of oxygen down to 1L at rest and 1L on exertion, arrange for home oxygen make sure you stay well nourished and well hydrated recommend taking Xarelto 10mg daily to help prevent blood clots, take this for 30 days, start tomorrow follow a low carbohydrate diet, especially the next 3 days on steroids Pending Studies at Discharge: No Stand-Alone Forms: [facility] Medications and DC Order Prescriptions: New lisinopril 20 mg tablet 20 mg PO DAILY Qty: 30 RF: 2 Xarelto 10 mg tablet 10 mg PO DAILY 30 Days Qty: 30 RF: 0 Continued potassium chloride 20 mEq tablet extended release 20 meq PO DAILY Qty: 90 RF: 1 Hold Instructions: Home Medication placed on hold at Doctor's office furosemide 20 mg tablet 20 mg PO DAILY Qty: 30 RF: 11 eszopiclone 2 mg tablet See Rx Instructions .ROUTE .COMPLEX Qty: 30 RF: 5 Hold Instructions: ?hallucinations Jardiance 25 mg tablet 25 mg PO DAILY Qty: 90 RF: 1 amlodipine 10 mg tablet 10 mg PO DAILY Qty: 90 RF: 1 atorvastatin 40 mg tablet 40 mg PO QPM Qty: 90 RF: 1 glimepiride 2 mg tablet 4 mg PO QAM Qty: 180 RF: 1 pantoprazole 40 mg tablet,delayed release (DR/EC) 40 mg PO DAILY Qty: 90 RF: 1 Discontinued lisinopril 40 mg tablet 40 mg PO DAILY Qty: 90 RF: 1 Discharge Orders: Discharge Order (Routine); Ordered 03/10/21 Ordered By: Cesar Donovan/Other Patient Handouts: A1C, Managing Type 2 Diabetes Admission Data Admit Date/Time: 03/04/21 16:27 Attending Provider: Cesar Bolden Admit Provider: Yuan Oreilly Primary Care Provider: Breann Orr Other Providers: Derian Lainez Other Interventions: Discharge Summary Assessment (RN) Last Done: 03/10/21 15:55 Coding Level of Care Code D/C DAY MANAGEMENT >30 MINS Diagnoses Acute respiratory failure with hypoxia J96.01 Pneumonia due to COVID-19 virus U07.1; J12.82 TIMOTHY (acute kidney injury) N17.9 Elevated troponin R79.89 COPD, moderate J44.9 DM type 2 (diabetes mellitus, type 2) E11.9 DVT prophylaxis Z29.9
== END 2021-03-10 18:46 | disposition home or self-care (01) | DRG 177 ==
LOC: ED 11:56 → EDINP 16:27 → SUATTDRO 16:27 → 2E 20:24

== ENCOUNTER 2021-08-03 13:29 | Inpatient (IN) ==
[2021-08-03] MEDS ORDERED: PIPERACILLIN/TAZOBACTAM 4.5 GM/120 ML BAG IV ONE (14:09)
[2021-08-03] MEDS ORDERED: PIPERACILL/TAZOBAC CONSULT ACTIVE PRN (14:09)
--- NOTE | 2021-08-03 14:10 | XRay Report ---
XR chest 1V portable CLINICAL HISTORY: Dyspnea COMPARISON STUDY: Chest radiograph March 06, 2021. FINDINGS: There is no pneumothorax. Small bilateral pleural effusions are noted. Interstitial thicken ing represents pulmonary edema. Bilateral mid and lower lung airspace opacities are also present. Car diac size is at upper limits of normal. IMPRESSION: 1. Findings consistent with moderate interstitial pulmonary edema. Small bilateral pleural effusions. 2. Bilateral mid and lower lung airspace opacities which could reflect alveolar pulmonary edema or le ss likely a superimposed infectious process. Radiographic follow up is recommended to ensure resoluti on. ACT 112: Negative or not required by law. Electronically signed by: Dewey Diaz M.D. 08/03/2021 2:08 PM
[2021-08-03] MEDS ORDERED: SODIUM CHLORIDE 0.9% 1000ML 1,000 ML IV SCH (14:20)
[2021-08-03 14:23] LABS: Basophils # (auto) 0.02 K/uL (0-0.2); Basophils % (auto) 0.2 %; Eosinophils # (auto) 0.05 K/uL (0-0.5); Eosinophils % (auto) 0.5 %; Hematocrit (blood only) 45.7 % (42-52); Immature Granulocytes # (auto) 0.09 K/uL (0.00-0.02); Immature Granulocytes % (auto) 0.8 %; Lymphocytes # (auto) 1.26 K/uL (1.2-3.4); Lymphocytes % (auto) 11.4 %; Mean Corpuscular Hemoglobin 31.4 pg (25-34); Mean Corpuscular Hgb Conc 32.8 g/dL (32-36); Mean Corpuscular Volume 95.6 fL (80-100); Mean Platelet Volume 9.7 fL (7.4-10.4); Monocytes # (auto) 1.06 K/uL (0.11-0.59); Monocytes % (auto) 9.6 %; Neutrophils # (auto) 8.57 K/uL (1.4-6.5); Neutrophils % (auto) 77.5 %; Platelet Count 360 K/uL (130-400); RDW Coefficient of Variation 13.6 % (11.5-14.5); RDW Standard Deviation 46.9 fL (36.4-46.3); Red Blood Count 4.78 M/uL (4.7-6.1); White Blood Count 11.05 K/uL (4.8-10.8)
--- NOTE | 2021-08-03 14:23 | Emergency Department Note ---
History of Present Illness General Chief complaint: Shortness of Breath/Dyspnea Stated complaint: WEAKNESS, HYPOXIA History of Present Illness 75-year-old male presents to the ED with a chief complaint of shortness of breath and weakness. The patient reports that over the past week he has been increasingly short of breath especially with exertion. He has also developed a new cough productive of white sputum. He states that he is too weak to walk. Denies any additional complaints. No chest pains. No headaches. No abdominal pains. No nausea, vomiting or diarrhea. Nothing makes it better. Home Medications Medication Instructions Recorded Confirmed Type ciprofloxacin HCl 500 mg tablet 500 mg PO BID #14 tab 04/02/21 06/21/21 Rx amlodipine 10 mg tablet 10 mg PO DAILY #90 tab 04/10/21 06/21/21 Rx atorvastatin 40 mg tablet 40 mg PO QPM #90 tab 04/10/21 06/21/21 Rx empagliflozin 25 mg tablet 25 mg PO DAILY #90 tab 04/10/21 06/21/21 Rx (Jardiance) furosemide 20 mg tablet 20 mg PO DAILY #30 tab 04/10/21 06/21/21 Rx glimepiride 2 mg tablet 4 mg PO QAM #180 tab 04/10/21 06/21/21 Rx lisinopril 20 mg tablet 20 mg PO DAILY #30 tab 04/10/21 06/21/21 Rx pantoprazole 40 mg tablet,delayed 40 mg PO DAILY #90 tab 04/10/21 06/21/21 Rx release Allergies Allergy/AdvReac Type Severity Reaction Status Date / Time No Known Allergies Allergy Verified 06/21/21 12:37 Past Med/Surg History Medical History AAA (abdominal aortic aneurysm) "s/p repair" TIMOTHY (acute kidney injury) TIMOTHY (acute kidney injury) Blind right eye CAD (coronary artery disease) Cancer Cerebrovascular disease, arteriosclerotic, post-stroke CKD (chronic kidney disease), stage III COPD, moderate Dehydration Diabetes DM type 2 (diabetes mellitus, type 2) Dysphagia Elevated troponin Generalized weakness Hemiplegia History of Helicobacter pylori infection Hyperkalemia Hypertension PUD (peptic ulcer disease) PVD (peripheral vascular disease) Sleep disturbance TIA (transient ischemic attack) Urinary symptom or sign Surgical History H/O aorto-femoral bypass H/O colonoscopy with polypectomy History of esophagogastroduodenoscopy diagnostic History of incision and drainage "evacuation of the left neck postop hematoma ()" S/P AAA repair S/P carotid endarterectomy "bilateral" Family History Other Family history non-contributory No pertinent family history Denies family history of Ovarian cancer Prostate cancer Myocardial infarction Breast cancer Colorectal cancer Social History Smoking Status: Former smoker Second Hand Exposure: No; Hx Alcohol Use: No Hx Substance Use: No Preferred Language: Bulgarian Communication Ability: Effective Visual Impairment: Partially Limited 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: No Beliefs That Will Affect Care: None marital status: Current Living Situation: Alone current occupational status: retired How many Children do You have: 2 Feels Safe at Home: Yes Childhood Exposure to Second-Hand Smoke: No caffeine: Yes Dental Care, Regularly: No Physical Activity Frequency: Does not Exercise Seatbelt Use: always Sunscreen Use: No Assistive Devices: None Review of Systems A total of 10 systems reviewed and were otherwise negative Physical Exam Vital Signs Vital Signs - 24 hr 08/03/21 13:32 08/03/21 13:33 08/03/21 13:40 Temperature 36.7 C Temperature Source Oral Pulse Rate 90 Pulse Rate from SpO2 Sensor Respiratory Rate 22 Respiratory Effort / Characteristics Labored Blood Pressure 159/74 H Blood Pressure Mean 102 Pulse Oximetry 73 L 91 Oxygen Delivery Method Room Air Nasal Cannula Nasal Cannula Oxygen Flow Rate 4 4 Sepsis Recent Fever Within 48 Hours No Sepsis New/Unexplained Change in Mental Status No Sepsis Action Taken by Nursing No Action Required 08/03/21 14:30 08/03/21 14:45 Temperature Temperature Source Pulse Rate 97 H 95 H Pulse Rate from SpO2 Sensor 171 H 94 H Respiratory Rate 27 H 23 Respiratory Effort / Characteristics Blood Pressure 170/73 H 179/82 H Blood Pressure Mean 105 114 Pulse Oximetry 80 L 95 Oxygen Delivery Method Nasal Cannula Non-rebreather Oxygen Flow Rate 6 15 Sepsis Recent Fever Within 48 Hours Sepsis New/Unexplained Change in Mental Status Sepsis Action Taken by Nursing CONSTITUTIONAL/VITAL SIGNS: Reviewed / noted above. GENERAL: Non-toxic in appearance. Generalized weakness. INTEGUMENTARY: Warm, dry, and [place]. HEAD: Normocephalic. EYES: without scleral icterus or trauma. ENT/OROPHARYNX: clear and moist. LYMPHADENOPATHY/NECK: Is supple without lymphadenopathy or meningismus. RESPIRATORY: Clear to auscultation bilaterally but diminished No increased work of breathing. CARDIOVASCULAR: Regular rate and rhythm. GI/ABDOMEN: Soft and nontender. No organomegaly or pulsatile mass. EXTREMITIES: Warm and well perfused. BACK: No CVA tenderness. NEUROLOGICAL: Intact without focal deficits. PSYCHIATRIC: normal affect. MUSCULOSKELETAL: Normally developed with good muscle tone. TRIAGE NURSING DOCUMENTATION REVIEWED. Course Administered Medications Discontinued Medications Albuterol (Albut/Ipratrop 3mg/0.5mg Neb 3 Ml Vial) 3 ml NEB NOW STA; Protocol Stop: 08/03/21 14:50 Last Admin: 08/03/21 14:54 Dose: 3 ml Documented by: [id number] Aspirin (Aspirin Chew 324 Mg) 324 mg PO NOW STA Stop: 08/03/21 14:55 Last Admin: 08/03/21 15:03 Dose: 324 mg Documented by: [id number] Furosemide (Furosemide 40 Mg/4 Ml Vial) 40 mg IV ONE ONE Stop: 08/03/21 14:50 Last Admin: 08/03/21 14:54 Dose: 40 mg Documented by: [id number] Piperacillin Sod/Tazobactam Sod (Zosyn) 4.5 gm in 120 mls @ 240 mls/hr IV NOW ONE Stop: 08/03/21 14:38 Last Infusion: 08/03/21 15:04 Dose: 0 mls/hr Documented by: [id number] Admin: 08/03/21 14:33 Dose: 240 mls/hr Documented by: [id number] Sodium Chloride (Nss 1000ml) 1,000 mls @ 999 mls/hr IV .Q1H1M ROBERT Stop: 08/03/21 15:20 Last Admin: 08/03/21 14:41 Dose: Not Given Documented by: [id number] Medical Decision Making Differential Diagnosis The differential was considered includes acute myocardial infarction, acute coronary syndrome, myocarditis, pericarditis, pericardial effusions /tamponad, esophageal perforation, pulmonary embolism, pneumonia, pneumothorax, cardiomyopathy, congestive heart, anemia , COPD/asthma exacerbation. Medical Records Attestation: I reviewed the patient's medical records. Home Medications Current Medication List: was personally reviewed by me Laboratory Data Attestation: I reviewed the patient's lab results. Result diagrams: 08/03/21 13:17 08/03/21 13:17 Lab Results 08/03/21 08/03/21 08/03/21 Range/Units 13:17 13:17 13:17 WBC 11.05 H (4.8-10.8) K/uL RBC 4.78 (4.7-6.1) M/uL Hgb 15.0 (14.0-18.0) g/dL Hct 45.7 (42-52) % MCV 95.6 (80-100) fL MCH 31.4 (25-34) pg MCHC 32.8 (32-36) g/dL RDW Std Deviation 46.9 H (36.4-46.3) fL RDW Coeff of Sadaf 13.6 (11.5-14.5) % Plt Count 360 (130-400) K/uL MPV 9.7 (7.4-10.4) fL Immature Gran % (Auto) 0.8 % Neut % (Auto) 77.5 % Lymph % (Auto) 11.4 % [place] % (Auto) 9.6 % Eos % (Auto) 0.5 % Baso % (Auto) 0.2 % Neut # (Auto) 8.57 H (1.4-6.5) K/uL Lymph # (Auto) 1.26 (1.2-3.4) K/uL [place] # (Auto) 1.06 H (0.11-0.59) K/uL Eos # (Auto) 0.05 (0-0.5) K/uL Baso # (Auto) 0.02 (0-0.2) K/uL Immature Gran # (Auto) 0.09 H (0.00-0.02) K/uL PT 11.0 (9.0-12.0) Seconds INR 1.0 (0.9-1.1) APTT 25.6 (21.0-31.0) Seconds PTT Ratio 0.9 VBG pH (7.36-7.41) VBG pCO2 (38-50) mmHg VBG pO2 mmHg VBG HCO3 mmol/L VBG O2 Saturation % VBG Base Excess mEq/L Barometric Pressure mm/Hg Sodium (136-145) mmol/L Potassium (3.5-5.1) mmol/L Chloride (98-107) mmol/L Carbon Dioxide (21-32) mmol/L Anion Gap (3-11) BUN (6-23) mg/dl Creatinine (0.6-1.4) mg/dl Est Cr Clr Drug Dosing ml/min Est GFR ( Amer) ml/min Est GFR (Non-Af Amer) ml/min BUN/Creatinine Ratio (10-20) Glucose (70-99(Fasting)) mg/dl Lactate (0.4-2.0) mmol/L Calcium (8.5-10.1) mg/dl Magnesium (1.7-2.4) mg/dl Total Bilirubin (0.2-1.0) mg/dl AST (13-39) U/L ALT (7-52) U/L Alkaline Phosphatase (34-104) U/L Troponin I High Sens 753.6 H* (0-20) pg/ml Total Protein (6.0-8.3) gm/dl Albumin (3.4-5.0) gm/dl Globulin (2.5-4.0) gm/dl Albumin/Globulin Ratio (0.9-2) Urine Color Urine Appearance (Clear) Urine pH (4.5-7.5) Ur Specific [place] (1.000-1.030) Urine Protein (Negative) Urine Glucose (UA) (Negative) Urine Ketones (Negative) Urine Blood (Negative) Urine Nitrite (Negative) Urine Bilirubin (Negative) Urine Urobilinogen (Negative) Ur Leukocyte Esterase (Negative) SARS-CoV-2 (PCR) (Negative) Influenza Type A (PCR) (Neg) Influenza Type B (PCR) (Neg) RSV (RT-PCR) (Neg) 08/03/21 08/03/21 08/03/21 Range/Units 13:17 13:57 14:01 WBC (4.8-10.8) K/uL RBC (4.7-6.1) M/uL Hgb (14.0-18.0) g/dL Hct (42-52) % MCV (80-100) fL MCH (25-34) pg MCHC (32-36) g/dL RDW Std Deviation (36.4-46.3) fL RDW Coeff of Sadaf (11.5-14.5) % Plt Count (130-400) K/uL MPV (7.4-10.4) fL Immature Gran % (Auto) % Neut % (Auto) % Lymph % (Auto) % [place] % (Auto) % Eos % (Auto) % Baso % (Auto) % Neut # (Auto) (1.4-6.5) K/uL Lymph # (Auto) (1.2-3.4) K/uL [place] # (Auto) (0.11-0.59) K/uL Eos # (Auto) (0-0.5) K/uL Baso # (Auto) (0-0.2) K/uL Immature Gran # (Auto) (0.00-0.02) K/uL PT (9.0-12.0) Seconds INR (0.9-1.1) APTT (21.0-31.0) Seconds PTT Ratio VBG pH (7.36-7.41) VBG pCO2 (38-50) mmHg VBG pO2 mmHg VBG HCO3 mmol/L VBG O2 Saturation % VBG Base Excess mEq/L Barometric Pressure mm/Hg Sodium 136 (136-145) mmol/L Potassium 4.3 (3.5-5.1) mmol/L Chloride 96 L (98-107) mmol/L Carbon Dioxide 31 (21-32) mmol/L Anion Gap 9 (3-11) BUN 42 H (6-23) mg/dl Creatinine 2.09 H (0.6-1.4) mg/dl Est Cr Clr Drug Dosing 36.1 ml/min Est GFR ( Amer) 35.1 ml/min Est GFR (Non-Af Amer) 30.3 ml/min BUN/Creatinine Ratio 20.1 H (10-20) Glucose 222 H (70-99(Fasting)) mg/dl Lactate 1.3 (0.4-2.0) mmol/L Calcium 9.6 (8.5-10.1) mg/dl Magnesium 2.1 (1.7-2.4) mg/dl Total Bilirubin 1.1 H (0.2-1.0) mg/dl AST 15 (13-39) U/L ALT 20 (7-52) U/L Alkaline Phosphatase 133 H (34-104) U/L Troponin I High Sens (0-20) pg/ml Total Protein 7.5 (6.0-8.3) gm/dl Albumin 4.1 (3.4-5.0) gm/dl Globulin 3.4 (2.5-4.0) gm/dl Albumin/Globulin Ratio 1.2 (0.9-2) Urine Color Urine Appearance (Clear) Urine pH (4.5-7.5) Ur Specific [place] (1.000-1.030) Urine Protein (Negative) Urine Glucose (UA) (Negative) Urine Ketones (Negative) Urine Blood (Negative) Urine Nitrite (Negative) Urine Bilirubin (Negative) Urine Urobilinogen (Negative) Ur Leukocyte Esterase (Negative) SARS-CoV-2 (PCR) NEGATIVE (Negative) Influenza Type A (PCR) Negative (Neg) Influenza Type B (PCR) Negative (Neg) RSV (RT-PCR) Negative (Neg) 08/03/21 08/03/21 Range/Units 14:08 14:42 WBC (4.8-10.8) K/uL RBC (4.7-6.1) M/uL Hgb (14.0-18.0) g/dL Hct (42-52) % MCV (80-100) fL MCH (25-34) pg MCHC (32-36) g/dL RDW Std Deviation (36.4-46.3) fL RDW Coeff of Sadaf (11.5-14.5) % Plt Count (130-400) K/uL MPV (7.4-10.4) fL Immature Gran % (Auto) % Neut % (Auto) % Lymph % (Auto) % [place] % (Auto) % Eos % (Auto) % Baso % (Auto) % Neut # (Auto) (1.4-6.5) K/uL Lymph # (Auto) (1.2-3.4) K/uL [place] # (Auto) (0.11-0.59) K/uL Eos # (Auto) (0-0.5) K/uL Baso # (Auto) (0-0.2) K/uL Immature Gran # (Auto) (0.00-0.02) K/uL PT (9.0-12.0) Seconds INR (0.9-1.1) APTT (21.0-31.0) Seconds PTT Ratio VBG pH 7.42 H (7.36-7.41) VBG pCO2 47 (38-50) mmHg VBG pO2 42 mmHg VBG HCO3 30 mmol/L VBG O2 Saturation 75.6 % VBG Base Excess 4.2 mEq/L Barometric Pressure 741.7 mm/Hg Sodium (136-145) mmol/L Potassium (3.5-5.1) mmol/L Chloride (98-107) mmol/L Carbon Dioxide (21-32) mmol/L Anion Gap (3-11) BUN (6-23) mg/dl Creatinine (0.6-1.4) mg/dl Est Cr Clr Drug Dosing ml/min Est GFR ( Amer) ml/min Est GFR (Non-Af Amer) ml/min BUN/Creatinine Ratio (10-20) Glucose (70-99(Fasting)) mg/dl Lactate (0.4-2.0) mmol/L Calcium (8.5-10.1) mg/dl Magnesium (1.7-2.4) mg/dl Total Bilirubin (0.2-1.0) mg/dl AST (13-39) U/L ALT (7-52) U/L Alkaline Phosphatase (34-104) U/L Troponin I High Sens (0-20) pg/ml Total Protein (6.0-8.3) gm/dl Albumin (3.4-5.0) gm/dl Globulin (2.5-4.0) gm/dl Albumin/Globulin Ratio (0.9-2) Urine Color Yellow Urine Appearance Clear (Clear) Urine pH 5.0 (4.5-7.5) Ur Specific [place] 1.016 (1.000-1.030) Urine Protein Negative (Negative) Urine Glucose (UA) 3+ H (Negative) Urine Ketones Negative (Negative) Urine Blood Negative (Negative) Urine Nitrite Negative (Negative) Urine Bilirubin Negative (Negative) Urine Urobilinogen Negative (Negative) Ur Leukocyte Esterase Negative (Negative) SARS-CoV-2 (PCR) (Negative) Influenza Type A (PCR) (Neg) Influenza Type B (PCR) (Neg) RSV (RT-PCR) (Neg) Imaging Data Radiologist's Impression: Chest X-Ray 08/03/21 13:48 XR chest 1V portable CLINICAL HISTORY: Dyspnea COMPARISON STUDY: Chest radiograph March 06, 2021. FINDINGS: There is no pneumothorax. Small bilateral pleural effusions are noted. Interstitial thickening represents pulmonary edema. Bilateral mid and lower lung airspace opacities are also present. Cardiac size is at upper limits of normal. IMPRESSION: 1. Findings consistent with moderate interstitial pulmonary edema. Small bilateral pleural effusions. 2. Bilateral mid and lower lung airspace opacities which could reflect alveolar pulmonary edema or less likely a superimposed infectious process. Radiographic follow up is recommended to ensure resolution. ACT 112: Negative or not required by law. Electronically signed by: Dewey Diaz M.D. 08/03/2021 2:08 PM ECG Data Attestation: I personally reviewed and interpreted this ECG as follows: Additional Comments: Twelve-lead EKG: Per my interpretation shows a normal sinus rhythm at a rate of 96. No ST elevation. No PVCs. Normal QTC. MDM Narrative 75-year-old male presents with increased shortness of breath over the past week as well as a new cough productive of white sputum and generalized weakness to the point where he is unable to walk. His vital signs reveal hypertension. He requires at least 4 L of oxygen nasal cannula for maintaining oxygen saturations above 90%. He does have oxygen at home about 2 L that he uses a few hours a day since he had COVID a couple of months ago. The patient's chest x-ray today s hows findings consistent with pulmonary edema and an infectious process was felt to be less likely although based on the patient's symptoms that are progressively worsened over the past week, pneumonia is a possibility as well. The patient is currently not having chest pains. His troponin was elevated. A VBG was normal. COVID test was negative. BUN and creatinine are at baseline. CBC was unremarkable. EKG shows normal sinus rhythm at a rate of 96 without acute ischemic changes. The patient was treated with an albuterol nebulizer treatment. He was also given aspirin p.o. He was given IV Lasix as well as IV Zosyn. He was not given any IV fluids because of the congestive heart failure changes on x-ray. Impression & Plan Hypoxia, Non-ST elevation (NSTEMI) myocardial infarction, Pneumonia Discharge Plan Visit Data Chief Complaint: Shortness of Breath/Dyspnea Stated Complaint: WEAKNESS, HYPOXIA ED Provider: Darwin Reyez Discharge Problem: Hypoxia, Non-ST elevation (NSTEMI) myocardial infarction, Pneumonia Patient Disposition: Being Evaluated by Hospitalist Forms Stand Alone Forms: My [facility], Virtual Emergency Department, Important Visit Information Prescriptions Prescriptions: No Action ciprofloxacin HCl 500 mg tablet 500 mg PO BID Qty: 14 RF: 0 amlodipine 10 mg tablet 10 mg PO DAILY Qty: 90 RF: 1 atorvastatin 40 mg tablet 40 mg PO QPM Qty: 90 RF: 1 Jardiance 25 mg tablet 25 mg PO DAILY Qty: 90 RF: 1 furosemide 20 mg tablet 20 mg PO DAILY Qty: 30 RF: 11 glimepiride 2 mg tablet 4 mg PO QAM Qty: 180 RF: 1 lisinopril 20 mg tablet 20 mg PO DAILY Qty: 30 RF: 2 Hold Instructions: Home Medication placed on hold at Doctor's office pantoprazole 40 mg tablet,delayed release (DR/EC) 40 mg PO DAILY Qty: 90 RF: 1 Referrals Referrals: Breann Orr MD [Primary Care Provider] -
[2021-08-03 14:25] LABS: Partial Thromboplastin Ratio 0.9; Partial Thromboplastin Time 25.6 Seconds (21.0-31.0)
[2021-08-03 14:27] LABS: Base Excess VBG 4.2 mEq/L; Oxygen Saturation VBG 75.6 %; pH VBG 7.42 (7.36-7.41)
[2021-08-03 14:36] LABS: Albumin Globulin Ratio 1.2 (0.9-2); Albumin Level 4.1 gm/dl (3.4-5.0); BUN Creatinine Ratio 20.1 (10-20); Bilirubin,Total 1.1 mg/dl (0.2-1.0); Calcium 9.6 mg/dl (8.5-10.1); Creatinine Clr Calc Pharmacy 36.1 ml/min; Est GFR (African American) 35.1 ml/min; Est GFR (Non-African American) 30.3 ml/min; Globulin 3.4 gm/dl (2.5-4.0); Magnesium 2.1 mg/dl (1.7-2.4); Potassium 4.3 mmol/L (3.5-5.1); Total Protein 7.5 gm/dl (6.0-8.3)
[2021-08-03] MEDS ORDERED: FUROSEMIDE 40 MG/4 ML VIAL IV ONE ×2 (14:49→20:46)
[2021-08-03] MEDS ORDERED: ALBUT/IPRATROP 3MG/0.5MG NEB 3 ML VIAL NEB STA ×2 (14:49→16:16)
[2021-08-03 14:54] LABS: Appearance Urine Clear (Clear); Bilirubin Urine Negative (Negative); Blood Urine Negative (Negative); Color Urine Yellow; Glucose Urine UA 3+ (Negative); Ketones Urine Negative (Negative); Leukocyte Esterase Urine Negative (Negative); Nitrite Urine Negative (Negative); Protein Urine Negative (Negative); Specific Gravity Urine 1.016 (1.000-1.030); Urobilinogen Urine Negative (Negative)
[2021-08-03] MEDS ORDERED: ASPIRIN CHEW 324 MG PO STA (14:54)
[2021-08-03 15:02] LABS: Influenza A virus by PCR Negative (Neg); Influenza B virus by PCR Negative (Neg); RSV by PCR Negative (Neg); SARS CoV2 RNA(COVID-19) InHosp NEGATIVE (Negative)
--- NOTE | 2021-08-03 16:38 | History & Physical Report ---
Date of Service August 03, 2021 Assessment & Plan (1) Hypoxia: Plan: Hypoxia with respiratory failure with P:F ratio of 70 on 15L NRB - DDX- PE vs. Pulmonary edema vs. COPD vs. bacterial or viral - He is not hypercarbic and is not overtly bronchospastic- continue with albuterol nebs - Lasix given 40mg by EMD- 550 ml out already- repeat tonight at 2000- ECHO in am evaluate MR - Does not appear infectious without fevers, WBC at 11, PCT 0.13 will hold further antibiotics - BNP and HsCTNI elevated- diurese to continue - no current role for steroid - CTA of the chest pending- bilateral pleural effusion - LT>RT with atelectasis - HFNC for comfort as he did not like the NRB- he may benefit from CPAP/BIPAP overnight - this is ordered if he can tolerate (2) Pleural effusion: Plan: Left > Right pleural effusion with atelectasis- as per HPI history of VATS on the right - diurese as above - Continue with nebulizer and pulmonary toileting for atelectasis - POCUS shows small pocket of simple effusion on the left side- no acute need for drainage - follow (3) CHF (congestive heart failure): Plan: HFpEF noted on ECHO from 2018 with moderate MR - Repeat ECHO in the morning - Has some component of acute heart failure - Diurese as above- follow oxygenation needs (4) Hyperlipidemia: Plan: Continue statin control Bp significant history of arterial disease (5) COPD, moderate: Plan: It Re-institute Albuterol nebs for 24 hours- last pulmonary visit available for review is from 2009 - History of VATS as well with pleural effusion around 2009- and is without PFTs - as above he is not hypercarbic but wheezing with exertion (6) CKD (chronic kidney disease), stage III: Plan: CKD III - stable and actually 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 - Will follow with BMPs following contrast for CTA of the chest - Avoid further nephrotoxic medications - 60% SARAH follows with nephrology (7) DM type 2 (diabetes mellitus, type 2): Plan: Insulin sliding scale- Aspart with CF of 20 and 1:12 carb ratio (8) Renal artery stenosis: Plan: As above (9) Mitral regurgitation: Plan: Follow with ECHO as above- Continue BB and diurese as above- murmur is grade II- but may be contributing to the above (10) Hypertension: Plan: Continue amlodopine and lisinopril History of Present Illness Primary Care Provider: Breann Orr MD [id number] with medical history of: COVID 19 (03/04), COPD, CKD, HLD, HTN, CVA, CEA bilateral, AAA repair, PAD with fem pop bypass 2003, VATS in 2009 for parapneumonic effusion on the RIGHT, and renal artery stenosis DM II. Patient comes to the [facility] today for complaints of lower leg weakness and increase in dyspnea and needing to use his home oxygen all night. Patient endorses that everything seemed to start on Friday after he got done visiting with his daughter, he went back in the house attempted to take off his slippers and fell backwards and was unable to get up, and since then he has had difficulty breathing to where he feels he gets very dyspneic gong to the bathroom ~ 50 feet and back he starts wheezing and not being able to breathe, he has to sit down and put his oxygen on and after a "a few minutes" his symptoms resolve. The patient endorses a cough that is thick and white, he normally has a cough and also endorses that he had right sided pain pleuritic rib pain that he has had for years but noticed it get worse over this week. He is on oxygen following his COVID infection in February it appears. He also carries a diagnosis of COPD and appears to not be on any inhalers at home and he also states that he does not take any. He has stopped smoking. In the [facility] the patient had CXR done, Routine labs performed and a VBG. His labs had mild leukocytosis, VBG was without acidosis or hypercarbia. He has an elevated HScTNI and BNP. CXR is with bilateral mid-lower lobe opacities- he was given 40mg IV lasix and started on Zosyn by [facility]. Hospitalist service was consulted for admission. Patient was evaluated and was on 15L NRB with Spo2 97%, he was not tachypneic and mildly tachycardic. He was transitioned to NC at 6L while we were talking and noted decrease in his oxygen saturation to 84% he again was not overtly tachypenic or conversationally short of breath. He diuresed 550 ml of urine while in the room. He is not moving much air to appreciate lung sounds throughout. Lower extremities are without edema, he was able to stand up at the bedside to use the urinal and is without any complaints of chest pain. Will obtain ABG, give another nebulizer treatment, CTA of the chest to rule out PE and will place on HFNC. Procalcitonin is pending as well as repeat HScTNI- ECG is comparable to his one from 2019. Admit to PCU, place on HFNC, continue to diurese tonight, PCT pending +/- ABX therapy, and further therapy based of CTA of the chest. His interpretation of time is a bit off when referring to his past history and hospitalizations, as he has some mention of dementia/delirium through his chart, ? medical compliance. COVID, Influinza A/B, RSV- NEGATIVE on ADMISSION Allergies Allergy/AdvReac Type Severity Reaction Status Date / Time No Known Allergies Allergy Verified 06/21/21 12:37 Home Medications Medication Instructions Recorded Confirmed Type amlodipine 10 mg tablet 10 mg PO DAILY #90 tab 04/10/21 08/03/21 Rx atorvastatin 40 mg tablet 40 mg PO QPM #90 tab 04/10/21 08/03/21 Rx empagliflozin 25 mg tablet 25 mg PO DAILY #90 tab 04/10/21 08/03/21 Rx (Jardiance) furosemide 20 mg tablet 20 mg PO DAILY #30 tab 04/10/21 08/03/21 Rx glimepiride 2 mg tablet 4 mg PO QAM #180 tab 04/10/21 08/03/21 Rx lisinopril 20 mg tablet 20 mg PO DAILY #30 tab 04/10/21 08/03/21 Rx pantoprazole 40 mg tablet,delayed 40 mg PO DAILY #90 tab 04/10/21 08/03/21 Rx release potassium chloride 20 mEq 20 meq PO DAILY 08/03/21 08/03/21 History tablet,extended release(part/cryst) Past Med/Surg History Medical History AAA (abdominal aortic aneurysm) "s/p repair" TIMOTHY (acute kidney injury) TIMOTHY (acute kidney injury) Blind right eye CAD (coronary artery disease) Cancer Cerebrovascular disease, arteriosclerotic, post-stroke CKD (chronic kidney disease), stage III COPD, moderate Dehydration Diabetes DM type 2 (diabetes mellitus, type 2) Dysphagia Elevated troponin Generalized weakness Hemiplegia History of Helicobacter pylori infection Hyperkalemia Hypertension PUD (peptic ulcer disease) PVD (peripheral vascular disease) Sleep disturbance TIA (transient ischemic attack) Urinary symptom or sign Surgical History H/O aorto-femoral bypass H/O colonoscopy with polypectomy History of esophagogastroduodenoscopy diagnostic History of incision and drainage "evacuation of the left neck postop hematoma ()" S/P AAA repair S/P carotid endarterectomy "bilateral" Family History Other Family history non-contributory No pertinent family history Denies family history of Ovarian cancer Prostate cancer Myocardial infarction Breast cancer Colorectal cancer Social History Smoking Status: Current every day smoker Second Hand Exposure: No; Do You Dip or Chew Tobacco: No; Tobacco Cessation Education Requested by Patient: No Hx Alcohol Use: No Hx Substance Use: No Preferred Language: Colombian Communication Ability: Effective Visual Impairment: Partially Limited 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: No Beliefs That Will Affect Care: None marital status: Current Living Situation: Alone current occupational status: retired How many Children do You have: 2 Other Information That Helps Us Care for You: No Feels Safe at Home: Yes Childhood Exposure to Second-Hand Smoke: No caffeine: Yes Dental Care, Regularly: No Physical Activity Frequency: Does not Exercise Seatbelt Use: always Sunscreen Use: No Assistive Devices: Denture - Upper, Denture - Lower and Glasses Review of Systems Review of Systems: REVIEW OF SYSTEMS: Constitutional: No fever, sweats or chills Eyes: No diplopia, no worsening or blurred vision ENT: normal hearing, no trouble swallowing Respiratory: (+) dyspnea at rest or on exertion, cough, sputum, pleuritic chest pain Cardiovascular: No chest pain, tightness or palpitations Abdomen: No pain, nausea, vomiting, diarrhea or constipation Musculoskeletal: No joint pain, calf pain, swelling Neurologic: (+) weakness, to legs felling easily fatigued, numbness/tingling, or balance problems Psychiatric: No anxiety or depression Skin: No rash or itch Physical Exam Physical Exam: PHYSICAL EXAM: General: awake, alert, no apparent distress Head: Normocephalic, atraumatic ENT: PERRL, EOMI, no pharyngeal exudate, mucous membranes moist Neuro: AAO x 3, speech clear and appropriate, strength intact bilaterally 5/5, sensation intact and equal all extremities and dermatomes, no pronator drift Chest: equal rise and fall of the chest, no accessory muscle use at rest, no heaves or thrills, poor air movement throughout- follow after nebulizer- Cardiac: Regular rate and rhythm, telemetry reviewed, skin warm dry, cap refill <3 seconds, peripheral pules +2 no JVD, grade II systolic murmur best heard at left midcalvicular, no JVD, no edema GI: NABS x 4 quadrants, soft, nontender to palpation, no rebound, guarding or tenderness : Spontaneously voiding, no pain, no CVA tenderness, Extremities: Normal inspection, no peripheral edema or erythema, calfs nontender to palpation Psych: Normal mood and affect Skin: no rash or erythema Results & Data Results & Data ([facility]) Vital Signs (Past 12 Hours) Vital Signs Temp Pulse Resp BP Pulse Ox 08/03/21 14:45 95 H 23 179/82 H 95 08/03/21 14:30 97 H 27 H 170/73 H 80 L 08/03/21 13:33 91 08/03/21 13:32 36.7 C 90 22 159/74 H 73 L Laboratory Results Abnormal lab results 08/03/21 08/03/21 08/03/21 Range/Units 13:17 13:17 13:17 WBC 11.05 H (4.8-10.8) K/uL RDW Std Deviation 46.9 H (36.4-46.3) fL Neut # (Auto) 8.57 H (1.4-6.5) K/uL Shannon # (Auto) 1.06 H (0.11-0.59) K/uL Immature Gran # (Auto) 0.09 H (0.00-0.02) K/uL POC pO2 (80-95) mmHg POC HCO3 (19-24) franklin/L POC Total CO2 (24-31) mmol/L POC Base Excess (-9-1.8) franklin/L VBG pH (7.36-7.41) Chloride 96 L (98-107) mmol/L BUN 42 H (6-23) mg/dl Creatinine 2.09 H (0.6-1.4) mg/dl BUN/Creatinine Ratio 20.1 H (10-20) Glucose 222 H (70-99(Fasting)) mg/dl Total Bilirubin 1.1 H (0.2-1.0) mg/dl Alkaline Phosphatase 133 H (34-104) U/L Troponin I High Sens 753.6 H* (0-20) pg/ml B-Natriuretic Peptide (0-100) pg/ml Urine Glucose (UA) (Negative) 08/03/21 08/03/21 08/03/21 Range/Units 14:08 14:42 15:17 WBC (4.8-10.8) K/uL RDW Std Deviation (36.4-46.3) fL Neut # (Auto) (1.4-6.5) K/uL Shannon # (Auto) (0.11-0.59) K/uL Immature Gran # (Auto) (0.00-0.02) K/uL POC pO2 (80-95) mmHg POC HCO3 (19-24) franklin/L POC Total CO2 (24-31) mmol/L POC Base Excess (-9-1.8) franklin/L VBG pH 7.42 H (7.36-7.41) Chloride (98-107) mmol/L BUN (6-23) mg/dl Creatinine (0.6-1.4) mg/dl BUN/Creatinine Ratio (10-20) Glucose (70-99(Fasting)) mg/dl Total Bilirubin (0.2-1.0) mg/dl Alkaline Phosphatase (34-104) U/L Troponin I High Sens (0-20) pg/ml B-Natriuretic Peptide 1052 H (0-100) pg/ml Urine Glucose (UA) 3+ H (Negative) 08/03/21 Range/Units 16:29 WBC (4.8-10.8) K/uL RDW Std Deviation (36.4-46.3) fL Neut # (Auto) (1.4-6.5) K/uL Shannon # (Auto) (0.11-0.59) K/uL Immature Gran # (Auto) (0.00-0.02) K/uL POC pO2 72 L (80-95) mmHg POC HCO3 30 H (19-24) franklin/L POC Total CO2 32 H (24-31) mmol/L POC Base Excess 6.0 H (-9-1.8) franklin/L VBG pH (7.36-7.41) Chloride (98-107) mmol/L BUN (6-23) mg/dl Creatinine (0.6-1.4) mg/dl BUN/Creatinine Ratio (10-20) Glucose (70-99(Fasting)) mg/dl Total Bilirubin (0.2-1.0) mg/dl Alkaline Phosphatase (34-104) U/L Troponin I High Sens (0-20) pg/ml B-Natriuretic Peptide (0-100) pg/ml Urine Glucose (UA) (Negative) Diagnostic Findings Chest X-Ray 08/03/21 13:48 XR chest 1V portable CLINICAL HISTORY: Dyspnea COMPARISON STUDY: Chest radiograph March 06, 2021. FINDINGS: There is no pneumothorax. Small bilateral pleural effusions are noted. Interstitial thickening represents pulmonary edema. Bilateral mid and lower lung airspace opacities are also present. Cardiac size is at upper limits of normal. IMPRESSION: 1. Findings consistent with moderate interstitial pulmonary edema. Small bilateral pleural effusions. 2. Bilateral mid and lower lung airspace opacities which could reflect alveolar pulmonary edema or less likely a superimposed infectious process. Radiographic follow up is recommended to ensure resolution. ACT 112: Negative or not required by law. Electronically signed by: Dewey Diaz M.D. 08/03/2021 2:08 PM Medications Administered Home Medications amlodipine 10 mg tablet 10 mg PO DAILY #90 tab 04/10/21 [Rx Confirmed 08/03/21] atorvastatin 40 mg tablet 40 mg PO QPM #90 tab 04/10/21 [Rx Confirmed 08/03/21] empagliflozin 25 mg tablet (Jardiance) 25 mg PO DAILY #90 tab 04/10/21 [Rx Confirmed 08/03/21] furosemide 20 mg tablet 20 mg PO DAILY #30 tab 04/10/21 [Rx Confirmed 08/03/21] glimepiride 2 mg tablet 4 mg PO QAM #180 tab 04/10/21 [Rx Confirmed 08/03/21] lisinopril 20 mg tablet 20 mg PO DAILY #30 tab 04/10/21 [Rx Confirmed 08/03/21] pantoprazole 40 mg tablet,delayed release 40 mg PO DAILY #90 tab 04/10/21 [Rx Confirmed 08/03/21] potassium chloride 20 mEq tablet,extended release(part/cryst) 20 meq PO DAILY 08/03/21 [History Confirmed 08/03/21] Active Medications Miscellaneous Information (Piperacill/Tazobac Consult Active) 1 ea N/A UD PRN PRN Reason: Consult Stop: 09/02/21 14:08 Discontinued Medications Albuterol (Albut/Ipratrop 3mg/0.5mg Neb 3 Ml Vial) 3 ml NEB NOW STA; Protocol Stop: 08/03/21 14:50 Last Admin: 08/03/21 14:54 Dose: 3 ml Documented by: [id number] Albuterol (Albut/Ipratrop 3mg/0.5mg Neb 3 Ml Vial) 3 ml NEB NOW STA; Protocol Stop: 08/03/21 16:17 Last Admin: 08/03/21 16:34 Dose: 3 ml Documented by: [id number] Aspirin (Aspirin Chew 324 Mg) 324 mg PO NOW STA Stop: 08/03/21 14:55 Last Admin: 08/03/21 15:03 Dose: 324 mg Documented by: [id number] Furosemide (Furosemide 40 Mg/4 Ml Vial) 40 mg IV ONE ONE Stop: 08/03/21 14:50 Last Admin: 08/03/21 14:54 Dose: 40 mg Documented by: [id number] Piperacillin Sod/Tazobactam Sod (Zosyn) 4.5 gm in 120 mls @ 240 mls/hr IV NOW ONE Stop: 08/03/21 14:38 Last Infusion: 08/03/21 15:04 Dose: 0 mls/hr Documented by: [id number] Admin: 08/03/21 14:33 Dose: 240 mls/hr Documented by: [id number] Sodium Chloride (Nss 1000ml) 1,000 mls @ 999 mls/hr IV .Q1H1M ROBERT Stop: 08/03/21 15:20 Last Admin: 08/03/21 14:41 Dose: Not Given Documented by: [id number] ECG Additional Comments: Normal sinus rhythm Possible Left atrial enlargement Nonspecific ST and T wave abnormality Abnormal ECG When compared with ECG of 04-MAR-2021 12:09, Minimal criteria for Anterior infarct are no longer Present Borderline criteria for Inferior infarct are no longer Present ST now depressed in Lateral leads Nonspecific T wave abnormality now evident in Inferior leads Code Status & VTE Plan Code Status CODE: DNR/DNI VTE: SCDS, VTE Prophylaxis Plan VTE Prophylaxis will be ordered: Yes Supervising Physician Co-Signing Physician Notes I supervised COLBY Mendoza on this admission. I interviewed and examined the patient independently of him. The plan is as written in his note except for any following changes/exceptions: None 75yo M w/ hx of Covid who presents with hypoxemia. The patient presents with increasing leg weakness and shortness of breath. Seen after another breathing treatment and being put on high-flow, and he reports he is actually feeling pretty well. CT chest indicates that pulmonary edema may be playing largest role with infection a lower concern. Will work up CHF work-up with diuresis, echo. Will also treat with nebulizers, though ABG indicates pure hypoxemia rather than hypercarbia as etiology. PG Care Time/CCT Total # of Minutes Spent Total Time Spent with Patient: Total time spent is greater than 50% in coordination of care (as documented) at patient's floor/unit and/or counseling patient: Coding Level of Care Code 42277 Initial Inpt Care Lvl 3 Diagnoses Hypoxia R09.02 Renal artery stenosis I70.1 Hyperlipidemia E78.5 CKD (chronic kidney disease), stage III N18.3 DM type 2 (diabetes mellitus, type 2) E11.9 COPD, moderate J44.9 CHF (congestive heart failure) I50.9 Mitral regurgitation I34.0 Hypertension I10 Pleural effusion J90
--- NOTE | 2021-08-03 16:42 | Electrocardiogram Report ---
Test Reason : Blood Pressure : / mmHG Vent. Rate : 096 BPM Atrial Rate : 096 BPM P-R Int : 190 ms QRS Dur : 104 ms QT Int : 360 ms P-R-T Axes : 058 046 036 degrees QTc Int : 454 ms Normal sinus rhythm Possible Left atrial enlargement Nonspecific ST and T wave abnormality Abnormal ECG When compared with ECG of 04-MAR-2021 12:09, Minimal criteria for Anterior infarct are no longer Present Borderline criteria for Inferior infarct are no longer Present ST now depressed in Lateral leads Nonspecific T wave abnormality now evident in Inferior leads Confirmed by Bishop Germain ([id number]) on 08/03/2021 4:42:36 PM Referred By: REFERRED SELF Confirmed By:Sim Germain
[2021-08-03 16:49] LABS: iSTAT Arterial Blood Gas HCO3 30 meg/L (19-24); iSTAT Arterial Blood Gas pCO2 46 mmHg (35-46); iSTAT Arterial Blood Gas pH 7.43 (7.35-7.45); iSTAT Arterial Blood Gas pO2 72 mmHg (80-95); iSTAT Carbon Dioxide 32 mmol/L (24-31); iSTAT Hematocrit 44 % (42-52); iSTAT Potassium 3.7 mmol/L (3.3-5.0); iSTAT Sodium 136 mmol/L (135-144)
[2021-08-03] MEDS ORDERED: OPTIRAY 320 125ml IV ONE (17:16)
--- NOTE | 2021-08-03 17:32 | CT Scan Report ---
CT ANGIOGRAPHY OF THE CHEST, PULMONARY EMBOLUS PROTOCOL CLINICAL HISTORY: Shortness of breath. Evaluate for pulmonary embolus. COMPARISON STUDY: Chest CT February 02, 2010. Chest radiograph August 03, 2021. TECHNIQUE: Following IV administration of 96 mL of Optiray, helical axial images of the chest were ob tained utilizing the pulmonary embolus protocol. Maximal intensity projections and sagittal and olga nal reformats were viewed on an independent 3D workstation. IV contrast was administered without com plication. Automated exposure control was utilized for the study. A dose lowering technique was uti lized adhering to the principles of ALARA. CT DOSE: 657.64 mGy.cm FINDINGS: No pulmonary emboli identified although the segmental and subsegmental pulmonary arteries are suboptimally assessed due to respiratory motion. There is no thoracic aortic dissection. Moderate coronary artery calcification is noted. There is mild cardiomegaly. There is apparent mild circumfer ential wall thickening of the distal esophagus. Mildly enlarged mediastinal lymph nodes are present. Index AP window lymph node on axial image 183 of 293 measures 1.5 cm in short axis diameter. There is no pneumothorax. Moderate left and small right pleural effusions are noted. Associated subpleural le ft lower lobe opacity favors atelectasis. Moderate emphysema is noted. Lungs are suboptimally assesse d due to respiratory motion artifact. Interlobular septal thickening is noted. IMPRESSION: 1. No pulmonary emboli identified although segmental and subsegmental pulmonary arteries suboptimally assessed due to respiratory motion. 2. Moderate left and small right pleural effusions. Associated left lower lobe opacity favors atelect asis. 3. Interstitial pulmonary edema. 4. Emphysema. 5. Apparent mild circumferential wall thickening of the distal esophagus which is nonspecific but may reflect esophagitis ACT 112: Negative or not required by law. Electronically signed by: Dewey Diaz M.D. 08/03/2021 5:30 PM
[2021-08-03] MEDS ORDERED: GLUCOSE 10 TABS/TUBE PO PRN (17:41)
[2021-08-03] MEDS ORDERED: GLUCOSE 40% GEL 15 GM TUBE PO PRN (17:41)
[2021-08-03] MEDS ORDERED: GLUCAGON FOR INJ 1 MG VIAL SQ PRN (17:41)
[2021-08-03] MEDS ORDERED: CARBOHYDRATES FOR HYPOGLYCEMIA PO PRN (17:41)
[2021-08-03] MEDS ORDERED: DEXTROSE 50% 50 ML SYRINGE IV PRN (17:41)
[2021-08-03] MEDS: INSULIN ASPART PER UNIT SC SCH (20:00)
[2021-08-03] MEDS: ATORVASTATIN 40 MG TAB PO SCH (20:08)
[2021-08-03] MEDS: ALBUT/IPRATROP 3MG/0.5MG NEB 3 ML VIAL NEB SCH (23:11)
[2021-08-04 01:21] LABS: Basophils # (auto) 0.03 K/uL (0-0.2); Basophils % (auto) 0.3 %; Eosinophils # (auto) 0.08 K/uL (0-0.5); Eosinophils % (auto) 0.7 %; Hematocrit (blood only) 43.2 % (42-52); Hemoglobin 14.4 g/dL (14.0-18.0); Immature Granulocytes # (auto) 0.07 K/uL (0.00-0.02); Immature Granulocytes % (auto) 0.6 %; Lymphocytes # (auto) 1.11 K/uL (1.2-3.4); Lymphocytes % (auto) 9.6 %; Mean Corpuscular Hemoglobin 31.4 pg (25-34); Mean Corpuscular Hgb Conc 33.3 g/dL (32-36); Mean Corpuscular Volume 94.1 fL (80-100); Mean Platelet Volume 9.2 fL (7.4-10.4); Monocytes # (auto) 1.44 K/uL (0.11-0.59); Monocytes % (auto) 12.5 %; Neutrophils # (auto) 8.79 K/uL (1.4-6.5); Neutrophils % (auto) 76.3 %; Platelet Count 324 K/uL (130-400); RDW Coefficient of Variation 13.6 % (11.5-14.5); RDW Standard Deviation 45.9 fL (36.4-46.3); Red Blood Count 4.59 M/uL (4.7-6.1); White Blood Count 11.52 K/uL (4.8-10.8)
[2021-08-04 02:02] LABS: BUN Creatinine Ratio 18.8 (10-20); Calcium 9.4 mg/dl (8.5-10.1); Creatinine Clr Calc Pharmacy 30.1 ml/min; Magnesium 1.9 mg/dl (1.7-2.4); Potassium 3.4 mmol/L (3.5-5.1); Troponin I High Sensitivity 1438.1 pg/ml (0-20)
[2021-08-04] MEDS: ALBUT/IPRATROP 3MG/0.5MG NEB 3 ML VIAL NEB SCH ×3 (07:23→22:10)
[2021-08-04 08:21] LABS: Estimated Average Glucose 206 mg/dl; Hemoglobin A1C 8.8 % (4.5-5.6)
[2021-08-04] MEDS: PANTOprazole 40 MG TAB PO SCH (08:29)
[2021-08-04] MEDS: lisinopril 20 MG TAB PO SCH (08:29)
[2021-08-04] MEDS: amLODIPine BESYLATE 5 MG TAB PO SCH (08:30)
[2021-08-04] MEDS: INSULIN ASPART PER UNIT SC SCH ×4 (08:45→20:12)
--- NOTE | 2021-08-04 10:16 | XCELERA ---
[id number]
--- NOTE | 2021-08-04 18:16 | Hospitalist Progress Note ---
Date of Service August 04, 2021 Assessment & Plan (1) Hypoxia: Plan: Acute hypoxic respiratory failure, mostly secondary to volume overload in the setting of advanced chronic kidney disease stage IV and diastolic heart Baseline creatinine is around 2 Calculated GFR is around 30 Patient responded to Lasix Still hypoxic but has improvement Use oxygen at home Resume Lasix 40 mg twice daily BMP tomorrow Echocardiogram showed preserved ejection fraction, left ventricular hypertrophy (2) Pleural effusion: Plan: L secondary to above (3) CHF (congestive heart failure): Plan: Echocardiogram showed preserved ejection fraction, left ventricular hypertrophy possible component of thoracic heart failure (4) Hyperlipidemia: Plan: Continue statin control Bp significant history of arterial disease (5) COPD, moderate: Plan: It Re-institute Albuterol nebs for 24 hours- last pulmonary visit available for review is from 2009 - History of VATS as well with pleural effusion around 2009- and is without PFTs - as above he is not hypercarbic but wheezing with exertion (6) CKD (chronic kidney disease), stage III: Plan: Calculated GFR is about 30/25 Has history of renal artery (7) DM type 2 (diabetes mellitus, type 2): Plan: Insulin sliding scale- Aspart with CF of 20 and 1:12 carb ratio (8) Renal artery stenosis: Plan: As above (9) Mitral regurgitation: (10) Hypertension: Plan: Continue amlodopine and lisinopril Admission and Anticipated Discharge Date Admission Date: August 03, 2021 Subjective 75YOM with medical history of: COVID 19 (03/04), COPD, CKD, HLD, HTN, CVA, CEA bilateral, AAA repair, PAD with fem pop bypass 2003, VATS in 2009 for parapneumonic effusion on the RIGHT, and renal artery stenosis DM II admitted with shortness of breath and needing to use his home oxygen all night. Patient endorses that everything seemed to start on Friday after he got done visiting with his daughter, he went back in the house attempted to take off his slippers and fell backwards and was unable to get up, and since then he has had difficulty breathing to where he feels he gets very dyspneic gong to the bathroom ~ 50 feet and back he starts wheezing and not being able to breathe, The patient endorses a cough that is thick and white, he normally has a cough and also endorses that he had right sided pain pleuritic rib pain that he has had for years but noticed it get worse over this week. He is on oxygen following his COVID infection in February it appears. He also carries a diagnosis of COPD and appears to not be on any inhalers at home and he also states that he does not take any. He has stopped smoking. In the EMD the patient had CXR done, Routine labs performed and a VBG. His labs had mild leukocytosis, VBG was without acidosis or hypercarbia. He has an elevated HScTNI and BNP. CXR is with bilateral mid-lower lobe opacities- he was given 40mg IV lasix and started on Zosyn by EMD. Patient was evaluated and was on 15L NRB with Spo2 97%, he was not tachypneic and mildly tachycardic. He wa not moving much air to appreciate lung sounds throughout. Today patient feels significantly better lungs are clear to auscultation, patient is 77 , Patient of stage IV chronic kidney disease with baseline creatinine around 2, Review of Systems Review of Systems: General: No malaise no weakness Neck: No tenderness no pain HEENT: No eye discharge no ear discharge Chest: No chest pain, no palpitation GI: Not distended, no nausea no vomiting Extremities: No edema no tenderness Neurology: No headache no weakness Psychiatric: No depression no anxiety Physical Exam Physical Exam: PHYSICAL EXAM: General: awake, alert, no apparent distress Head: Normocephalic, atraumatic ENT: PERRL, EOMI, no pharyngeal exudate, mucous membranes moist Neuro: AAO x 3, speech clear and appropriate, strength intact bilaterally 5/5, sensation intact and equal all extremities and dermatomes, no pronator drift Chest: equal rise and fall of the chest, no accessory muscle use at rest, no heaves or thrills, poor air movement throughout- follow after nebulizer- Cardiac: Regular rate and rhythm, telemetry reviewed, skin warm dry, cap refill <3 seconds, peripheral pules +2 no JVD, grade II systolic murmur best heard at left midcalvicular, no JVD, no edema GI: NABS x 4 quadrants, soft, nontender to palpation, no rebound, guarding or tenderness : Spontaneously voiding, no pain, no CVA tenderness, Extremities: Normal inspection, no peripheral edema or erythema, calfs nontender to palpation Psych: Normal mood and affect Skin: no rash or erythema Results & Data Results & Data ([facility]) Vital Signs (Past 12 Hours) Vital Signs Temp Pulse Pulse Resp BP Pulse Ox 08/04/21 16:00 36.9 C 97 H 16 124/63 93 08/04/21 15:13 80 08/04/21 15:07 81 20 90 08/04/21 12:00 37.1 C 93 H 16 141/62 H 93 08/04/21 08:00 37.4 C 97 H 92 H 19 154/81 H 96 08/04/21 07:23 94 PG Care Time/CCT Total # of Minutes Spent Total Time Spent with Patient: Total time spent is greater than 50% in coordination of care (as documented) at patient's floor/unit and/or counseling patient: Coding Level of Care Code 57012 Subseq Hosp Care Lvl 3 Diagnoses Hypoxia R09.02 Pleural effusion J90 CHF (congestive heart failure) I50.9 Hyperlipidemia E78.5 COPD, moderate J44.9 CKD (chronic kidney disease), stage III N18.3 DM type 2 (diabetes mellitus, type 2) E11.9 Renal artery stenosis I70.1 Mitral regurgitation I34.0 Hypertension I10
[2021-08-04] MEDS: FUROSEMIDE 40 MG/4 ML VIAL IV SCH (20:16)
[2021-08-04] MEDS: ATORVASTATIN 40 MG TAB PO SCH (20:17)
[2021-08-05] MEDS: MELATONIN 3 MG TAB PO PRN ×2 (00:01→23:23)
[2021-08-05 06:42] LABS: Calcium 8.8 mg/dl (8.5-10.1); Creatinine Clr Calc Pharmacy 18.8 ml/min; Est GFR (African American) 16.4 ml/min; Est GFR (Non-African American) 14.1 ml/min; Magnesium 2.1 mg/dl (1.7-2.4); Potassium 3.4 mmol/L (3.5-5.1)
[2021-08-05 06:46] LABS: Basophils # (auto) 0.02 K/uL (0-0.2); Basophils % (auto) 0.2 %; Eosinophils % (auto) 1.7 %; Hematocrit (blood only) 40.3 % (42-52); Hemoglobin 13.3 g/dL (14.0-18.0); Immature Granulocytes # (auto) 0.06 K/uL (0.00-0.02); Immature Granulocytes % (auto) 0.5 %; Lymphocytes % (auto) 10.7 %; Mean Corpuscular Hemoglobin 31.6 pg (25-34); Mean Corpuscular Volume 95.7 fL (80-100); Mean Platelet Volume 9.6 fL (7.4-10.4); Monocytes # (auto) 1.63 K/uL (0.11-0.59); Monocytes % (auto) 13.4 %; Neutrophils # (auto) 8.91 K/uL (1.4-6.5); Neutrophils % (auto) 73.5 %; Platelet Count 337 K/uL (130-400); RDW Standard Deviation 48.2 fL (36.4-46.3); Red Blood Count 4.21 M/uL (4.7-6.1); White Blood Count 12.12 K/uL (4.8-10.8)
[2021-08-05] MEDS: ALBUT/IPRATROP 3MG/0.5MG NEB 3 ML VIAL NEB SCH ×3 (06:57→22:09)
[2021-08-05] MEDS: amLODIPine BESYLATE 5 MG TAB PO SCH (08:06)
[2021-08-05] MEDS: PANTOprazole 40 MG TAB PO SCH (08:06)
[2021-08-05] MEDS: lisinopril 20 MG TAB PO SCH (08:06)
[2021-08-05] MEDS: FUROSEMIDE 40 MG/4 ML VIAL IV SCH ×2 (08:06→16:50)
[2021-08-05] MEDS: INSULIN ASPART PER UNIT SC SCH ×4 (08:18→20:10)
--- NOTE | 2021-08-05 14:43 | XRay Report ---
XR chest 2V PA/lateral HISTORY: Follow-up chest x-ray. Hypoxia COMPARISON: Chest CT 08/03/2021. FINDINGS: The lungs are hyperexpanded with mild apical predominant emphysematous changes. No pneumoth orax. The heart remains mildly enlarged. Small bilateral pleural effusions and bibasilar airspace opa cities have improved. The interstitial pulmonary edema has also improved in the interval. Calcificati ons again noted within the aortic knob. IMPRESSION: Interval improvement in the interstitial pulmonary edema, bibasilar airspace opacities, and small issac ateral pleural effusions. ACT 112: Negative or not required by law. Electronically signed by: Ethan Gilmore M.D. 08/05/2021 2:41 PM
--- NOTE | 2021-08-05 17:20 | Hospitalist Progress Note ---
Date of Service August 05, 2021 Assessment & Plan (1) Hypoxia: Plan: Acute hypoxic respiratory failure, required 15 L of oxygen Initial thought was this is secondary to volume overload given CT a finding -Started on Lasix after initial improvement but oxygen requirement got down to 4 L Again today oxygen requirement went up again to 12 L Pending creatinine is trending up Hold Lasix Baseline creatinine is around 2 Calculated GFR is around 30 No PE on CTA -Possible history of COPD No wheezing on exam Follow-up chest x-ray today on 08/05 showed improvement in lung congestion -Evidence of pulmonary hypertension on echo -Will ask for pulmonary consult and nephrology consult BMP tomorrow Echocardiogram showed preserved ejection fraction, left ventricular hypertrophy -Negative COVID test, negative influenza type a and type B, negative RSV (2) Pleural effusion: Plan: L secondary to above (3) CHF (congestive heart failure): Plan: Echocardiogram showed preserved ejection fraction, left ventricular hypertrophy , no comment for diastolic heart failure (4) Hyperlipidemia: Plan: Continue statin control Bp significant history of arterial disease (5) COPD, moderate: Plan: - History of VATS as well with pleural effusion around 2009- and is without PFTs -Currently patient has no wheezing on exam (6) CKD (chronic kidney disease), stage III: Plan: Calculated GFR is about 30/25 Has history of renal artery stenosis (7) DM type 2 (diabetes mellitus, type 2): Plan: Insulin sliding scale- Aspart with CF of 20 and 1:12 carb ratio Poorly controlled Add Lantus 20 With (8) Renal artery stenosis: Plan: As above (9) Mitral regurgitation: (10) Hypertension: Plan: Continue amlodopine Stop lisinopril (11) TIMOTHY (acute kidney injury): Plan: Stop lisinopril Stop Lasix Admission and Anticipated Discharge Date Admission Date: August 03, 2021 Subjective 75YOM with medical history of: COVID 19 (03/04), COPD, CKD, HLD, HTN, CVA, CEA bilateral, AAA repair, PAD with fem pop bypass 2003, VATS in 2009 for parapneumonic effusion on the RIGHT, and renal artery stenosis DM II admitted with shortness of breath and needing to use his home oxygen all night. Patient endorses that everything seemed to start on Friday after he got done visiting with his daughter, he went back in the house attempted to take off his slippers and fell backwards and was unable to get up, and since then he has had difficulty breathing to where he feels he gets very dyspneic gong to the bathroom ~ 50 feet and back he starts wheezing and not being able to breathe, The patient endorses a cough that is thick and white, he normally has a cough and also endorses that he had right sided pain pleuritic rib pain that he has had for years but noticed it get worse over this week. He is on oxygen following his COVID infection in February it appears. He also carries a diagnosis of COPD and appears to not be on any inhalers at home and he also states that he does not take any. He has stopped smoking. In the EMD the patient had CXR done, Routine labs performed and a VBG. His labs had mild leukocytosis, VBG was without acidosis or hypercarbia. He has an elevated HScTNI and BNP. CXR is with bilateral mid-lower lobe opacities- he was given 40mg IV lasix and started on Zosyn by EMD. Patient was evaluated and was on 15L NRB with Spo2 97%, he was not tachypneic and mildly tachycardic. He wa not moving much air to appreciate lung sounds throughout. Today patient feels significantly better lungs are clear to auscultation, patient is 77 , Patient of stage IV chronic kidney disease with baseline creatinine around 2, Review of Systems Review of Systems: General: No malaise no weakness Neck: No tenderness no pain HEENT: No eye discharge no ear discharge Chest: No chest pain, no palpitation GI: Not distended, no nausea no vomiting Extremities: No edema no tenderness Neurology: No headache no weakness Psychiatric: No depression no anxiety Results & Data Results & Data ([facility]) Vital Signs (Past 12 Hours) Vital Signs Temp Pulse Pulse Resp BP Pulse Ox 08/05/21 15:49 36.8 C 84 22 123/60 87 L 08/05/21 15:14 86 20 92 08/05/21 14:51 82 08/05/21 11:08 36.6 C 78 17 116/57 L 91 08/05/21 08:00 80 08/05/21 07:32 36.6 C 86 20 108/67 90 08/05/21 06:58 81 20 94 PG Care Time/CCT Total # of Minutes Spent Total Time Spent with Patient: Total time spent is greater than 50% in coordination of care (as documented) at patient's floor/unit and/or counseling patient: Coding Level of Care Code 62136 Subseq Hosp Care Lvl 3 Diagnoses Hypoxia R09.02 Pleural effusion J90 CHF (congestive heart failure) I50.9 Hyperlipidemia E78.5 COPD, moderate J44.9 CKD (chronic kidney disease), stage III N18.3 DM type 2 (diabetes mellitus, type 2) E11.9 Renal artery stenosis I70.1 Mitral regurgitation I34.0 Hypertension I10 TIMOTHY (acute kidney injury) N17.9
[2021-08-05] MEDS: INSULIN GLARGINE SOLOSTAR 100 UNITS/ML 3 ML PEN SC SCH (20:11)
[2021-08-05] MEDS: ATORVASTATIN 40 MG TAB PO SCH (20:22)
[2021-08-06 06:48] LABS: Basophils # (auto) 0.02 K/uL (0-0.2); Basophils % (auto) 0.2 %; Eosinophils # (auto) 0.21 K/uL (0-0.5); Eosinophils % (auto) 1.8 %; Hematocrit (blood only) 39.1 % (42-52); Hemoglobin 12.9 g/dL (14.0-18.0); Immature Granulocytes # (auto) 0.03 K/uL (0.00-0.02); Immature Granulocytes % (auto) 0.3 %; Lymphocytes # (auto) 1.01 K/uL (1.2-3.4); Lymphocytes % (auto) 8.7 %; Mean Corpuscular Hemoglobin 31.3 pg (25-34); Mean Corpuscular Volume 94.9 fL (80-100); Mean Platelet Volume 9.6 fL (7.4-10.4); Monocytes # (auto) 1.76 K/uL (0.11-0.59); Monocytes % (auto) 15.1 %; Neutrophils # (auto) 8.63 K/uL (1.4-6.5); Neutrophils % (auto) 73.9 %; Platelet Count 330 K/uL (130-400); RDW Coefficient of Variation 13.9 % (11.5-14.5); RDW Standard Deviation 47.5 fL (36.4-46.3); Red Blood Count 4.12 M/uL (4.7-6.1); White Blood Count 11.66 K/uL (4.8-10.8)
[2021-08-06] MEDS: ALBUT/IPRATROP 3MG/0.5MG NEB 3 ML VIAL NEB SCH ×3 (06:56→22:23)
[2021-08-06 07:11] LABS: BUN Creatinine Ratio 17.2 (10-20); Calcium 8.7 mg/dl (8.5-10.1); Creatinine Clr Calc Pharmacy 13.8 ml/min; Est GFR (African American) 11.2 ml/min; Est GFR (Non-African American) 9.7 ml/min; Magnesium 2.1 mg/dl (1.7-2.4); Potassium 3.7 mmol/L (3.5-5.1)
[2021-08-06] MEDS: INSULIN ASPART PER UNIT SC SCH ×4 (08:00→21:06)
[2021-08-06] MEDS: amLODIPine BESYLATE 5 MG TAB PO SCH (08:01)
[2021-08-06] MEDS: PANTOprazole 40 MG TAB PO SCH (08:02)
[2021-08-06] MEDS: SODIUM CHLORIDE 0.9% 1000ML 1,000 ML IV SCH ×2 (08:07→21:58)
--- NOTE | 2021-08-06 09:36 | Ultrasound Report ---
RENAL ULTRASOUND CLINICAL HISTORY: Acute kidney injury. COMPARISON STUDY: CT of the abdomen and pelvis February 20, 2019. Renal ultrasound April 21, 2020. TECHNIQUE: Sonography of the kidneys and the urinary bladder was performed. FINDINGS: The right kidney measures 12.1 cm in maximal dimension. The left measures 9.3 cm. There is no hydronephrosis. A 1.3 cm anechoic lesion within the lower pole of the right kidney represents a cy st. No right renal calculi are identified by sonography. Marked left renal atrophy is again noted. Le ft kidney is atrophic. Ureteral jets were visualized. Bladder is suboptimally assessed given underdis tention. IMPRESSION: 1. No hydronephrosis. 2. No change in marked left renal atrophy. ACT 112: Negative or not required by law. Electronically signed by: Dewey Diaz M.D. 08/06/2021 9:35 AM
--- NOTE | 2021-08-06 10:38 | Pulmonary Consultation ---
Date of Consultation August 06, 2021 Assessment & Plan (1) Pleural effusion: (2) CHF (congestive heart failure): (3) Acute respiratory failure with hypoxia: (4) COPD, moderate: (5) DM type 2 (diabetes mellitus, type 2): Attending: Dr. Leahy Impression: 75-year-old male with past medical history of tobacco abuse and emphysema. Listed as moderate COPD but no history of PFTs. Patient was scheduled on more than one occasion but refused testing. Patient is currently not on any inhalers. Patient did have parapneumonic effusion in 2009 and had thoracentesis with Dr. Mckeon followed by VATS procedure with Dr. Jennings 2 days later. Fluid was benign. [id number] smoking history. Quit 04/28/2002. Patient presented with shortness of breath and hypoxia. Currently is on supplemental oxygen at 3 L/min via nasal cannula. Maintaining SaO2 between 88 and 91%. Patient does desaturate with conversation and any exertion. Lowest desaturation while I was with the patient was 84%. Patient recovered quickly with rest. Recommendations: 1. Bilateral pleural effusions: * Small right pleural effusion with small to moderate left pleural effusion most likely secondary to CHF (elevated p-BNP at 1052). * Bedside ultrasound reveals small pocket that is most likely amenable to thoracentesis. * Discussed risk versus benefit with patient. At this time he would like to think about procedure but is not keen on having a thoracentesis done. * Patient is aware that his creatinine has jumped and that he is not eligible for further diuretics. * Patient does remember having thoracentesis done in the past and reports that he had no difficulty. * Coags are within normal limits. Platelet count is within normal limits. Patient is not on any anticoagulation or aspirin as an outpatient. No chemical prophylaxis in the hospital at this time * I did reinforce with the patient that we are available should he decide to have the procedure performed. Blank consent form was placed on the chart * Will go back and discuss with the patient later today. 2. Probable COPD: * Patient with [id number] smoking history. He quit smoking in 2002. * Patient is not on any inhalers bronchodilators or other medications from a pulmonary standpoint at home. * Patient is refused PFTs in the past * Imaging reveals emphysema * Advised the patient of LV function testing would be appropriate and that he should think about this on discharge * Continue supplemental oxygen use to maintain SaO2 between 88 and 92% 3. Hypoxia: * Most likely multifactorial to COPD, emphysema, pleural effusion, CHF * Arterial blood gas done on admission does not reveal any hypercapnia * Previously admitted to [facility] for COVID-pneumonia in February 2021 * Discharged on supplemental oxygen 1 L at rest and 1 L with exertion * Patient has portable equipment as well as oxygen concentrator at home but does not use it on a regular basis. * Would recommend two-step prior to discharge * As listed above, patient will benefit from pulmonary function testing. If patient does agree to PFTs, we will be glad to see the patient in the outpatient clinic. If patient continues to refuse PFTs, continue to follow with primary care provider on discharge 4. History of tobacco abuse: * 28-[id number]-udup history * Quit smoking in 2002 * Continue to encourage complete abstinence from tobacco products * Encourage outpatient pulmonary function testing Thank you for including us in the care of this patient. We will see the patient later today to further discuss possibility of thoracentesis. No other pulmonary intervention at this time. Please refer to Dr. Leahy's addendum for further recommendations and corrections. Supervising Physician Co-Signing Physician Notes Patient seen and examined. Discussed with DILCIA. Agree with assessment plan as noted. Patient is supposed to be on oxygen at baseline. He has evidence of underlying obstructive lung disease on CT scan however has declined evaluation previously. No evidence of acute bronchospasm so no indication for antibiotics or steroids or inhalers currently. He does have small to moderate pleural effusion causing some compressive atelectasis and likely VQ mismatch. He is open to the prospect of thoracentesis. We will reassess in the next 24 hours and see whether or not thoracentesis may be indicated. History of Present Illness Reason for Consultation: Hypoxia, bilateral pleural effusions Requesting Physician: Dr. Alvarez Attending Physician: Antonio aMdsen MD History of Present Illness Attending: Dr. Leahy This is a 75-year-old male. 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 Patient was admitted on 08/03/2021 with shortness of breath and hypoxia. Chest x-ray revealed bilateral mid and lower lung airspace opacities reflecting alveolar pulmonary edema or infectious process as well as interstitial pulmonary edema with bilateral small pleural effusions. A CT of the chest was also performed. Revealed no evidence of pulmonary emboli. There was evidence of interstitial pulmonary edema and moderate left and small right pleural effusions. Opacities in lower lobes favored atelectasis. Patient also has demonstrated emphysema. An echocardiogram was performed and showed preserved left ventricular ejection fraction at 55 to 60%. There is no evidence of regional wall motion abnormalities. There is mild mitral regurgitation. There is also moderate concentric left ventricular hypertrophy. When compared to echocardiogram of 06/05/2020 there was no significant change. A B-type natriuretic peptide was collected and showed elevation at 1052 PG/mL (0-100). Patient was diuresed with IV furosemide and experienced an elevation of his creatinine to 5.36 mg/Jaleesa. (Baseline creatinine is about 2.0 - 2.5) patient has been followed by nephrology as an outpatient. He most recently was seen by Dr. Orlando on 06/21/2021. Patient seen and examined in room 230 bed 2 this morning. He has no acute distress. He is currently on 3 L/min via nasal cannula. He is saturating between 87 and 91%. He does become hypoxic down to approximately 84% with conversation. Patient has distant breath sounds with some bibasilar crackles. No appreciation of bronchospasm. Patient denies any acute shortness of breath. He states that people keep telling him that he is "having trouble breathing" but he does not feel any distress. When I clarify that he is hypoxic, he agrees with that but states he is asymptomatic. Patient has a recent history of COVID-19 in February 2021. At the time of his discharge he remained hypoxic and was sent home with supplemental oxygen. Requirements at that time were 1 L with rest and 1 L on exertion. Patient reports that he still has his equipment at home. He did use it on Friday to see if it would make a difference with his shortness of breath. He states that it did not. Patient also reports that he has not used it regularly for several weeks. Patient has tobacco abuse history from eighth grade until 2002. He smoked approximate 1 pack/day. 45 pack year history. He is not on any inhalers or other pulmonary treatment. He denies any significant wheezes, cough, mucus production. He denies any previous history of admission for COPD exacerbation. Patient does have a history of previous thoracentesis performed in January 2010 secondary to loculated effusion On 02/05/2010 approximate 200 mL of fluid was evacuated by Dr. Mckeon. This showed no malignant cells. Patient then underwent a VATS procedure on 02/08/2010 with pleural biopsy and partial decortication of the right lower lobe with Dr. Jennings. He has had no other pulmonary procedures since that time. Patient was seen in 2010 by Ela in the thoracic medicine sleep clinic. Patient deferred any work-up for sleep apnea or other sleep disordered breathing. Allergies Allergy/AdvReac Type Severity Reaction Status Date / Time No Known Allergies Allergy Verified 06/21/21 12:37 Home Medications Medication Instructions Recorded Confirmed Type amlodipine 10 mg tablet 10 mg PO DAILY #90 tab 04/10/21 08/03/21 Rx atorvastatin 40 mg tablet 40 mg PO QPM #90 tab 04/10/21 08/03/21 Rx empagliflozin 25 mg tablet 25 mg PO DAILY #90 tab 04/10/21 08/03/21 Rx (Jardiance) furosemide 20 mg tablet 20 mg PO DAILY #30 tab 04/10/21 08/03/21 Rx glimepiride 2 mg tablet 4 mg PO QAM #180 tab 04/10/21 08/03/21 Rx lisinopril 20 mg tablet 20 mg PO DAILY #30 tab 04/10/21 08/03/21 Rx pantoprazole 40 mg tablet,delayed 40 mg PO DAILY #90 tab 04/10/21 08/03/21 Rx release potassium chloride 20 mEq 20 meq PO DAILY 08/03/21 08/03/21 History tablet,extended release(part/cryst) Patient History Medical History AAA (abdominal aortic aneurysm) "s/p repair" TIMOTHY (acute kidney injury) TIMOTHY (acute kidney injury) Blind right eye CAD (coronary artery disease) Cancer Cerebrovascular disease, arteriosclerotic, post-stroke CKD (chronic kidney disease), stage III COPD, moderate Dehydration Diabetes DM type 2 (diabetes mellitus, type 2) Dysphagia Elevated troponin Generalized weakness Hemiplegia History of Helicobacter pylori infection Hyperkalemia Hypertension PUD (peptic ulcer disease) PVD (peripheral vascular disease) Sleep disturbance TIA (transient ischemic attack) Urinary symptom or sign Surgical History H/O aorto-femoral bypass H/O colonoscopy with polypectomy History of esophagogastroduodenoscopy diagnostic History of incision and drainage "evacuation of the left neck postop hematoma ()" S/P AAA repair S/P carotid endarterectomy "bilateral" Family History Other Family history non-contributory No pertinent family history Denies family history of Ovarian cancer Prostate cancer Myocardial infarction Breast cancer Colorectal cancer Social History Smoking Status: Current every day smoker Second Hand Exposure: No; Do You Dip or Chew Tobacco: No; Tobacco Cessation Education Requested by Patient: No Hx Alcohol Use: No Hx Substance Use: No Preferred Language: Vietnamese Communication Ability: Effective Visual Impairment: Partially Limited General Science Teacher Required: No Beliefs That Will Affect Care: None marital status: Current Living Situation: Alone current occupational status: retired How many Children do You have: 2 Other Information That Helps Us Care for You: No Feels Safe at Home: Yes Childhood Exposure to Second-Hand Smoke: No caffeine: Yes Dental Care, Regularly: No Physical Activity Frequency: Does not Exercise Seatbelt Use: always Sunscreen Use: No Assistive Devices: Walker Review of Systems Review of Systems: A total of 10 systems was reviewed and is negative other than as listed in the HPI Physical Exam Physical Exam: GENERAL : No acute distress. Pleasant EYES: No icterus, gaze not conjugate. Patient is blind in the right eye NOSE: No evidence of epistaxis. Nasal cannula is in place and secure MOUTH: No lesions or candidiasis NECK: Supple LUNGS: Bibasilar crackles. No bronchospasm. HEART: Regular, rate controlled ABDOMEN: Soft, NT, ND, BS Present EXTREMITIES: LE edema, pedal pulses intact NEURO: A&OX3 Results & Data Results & Data ([facility]) Vital Signs (Past 12 Hours) Vital Signs Temp Pulse Pulse Resp BP Pulse Ox 08/06/21 10:23 81 08/06/21 08:17 36.9 C 97 H 18 141/68 H 88 L 08/06/21 08:00 37.0 C 84 131/63 95 08/06/21 06:58 77 19 94 08/06/21 03:45 36.8 C 80 18 124/62 94 08/05/21 23:00 88 08/05/21 22:36 36.6 C 990 H 20 161/70 H 94 Critical Care Results & Data Vital Signs (Past 12 Hours) Vital Signs Temp Pulse Pulse Resp BP Pulse Ox 08/06/21 10:23 81 08/06/21 08:17 36.9 C 97 H 18 141/68 H 88 L 08/06/21 08:00 37.0 C 84 131/63 95 08/06/21 06:58 77 19 94 08/06/21 03:45 36.8 C 80 18 124/62 94 Lab & Micro Results (Past 24 Hours) RBC 4.12 M/uL (4.7-6.1) L 08/06/21 WBC 11.66 K/uL (4.8-10.8) H 08/06/21 Hgb 12.9 g/dL (14.0-18.0) L 08/06/21 Hct 39.1 % (42-52) L 08/06/21 MCV 94.9 fL (80-100) 08/06/21 MCH 31.3 pg (25-34) 08/06/21 MCHC 33.0 g/dL (32-36) 08/06/21 RDW Standard Deviation 47.5 fL (36.4-46.3) H 08/06/21 RDW Coefficient of Variation 13.9 % (11.5-14.5) 08/06/21 Plt Count 330 K/uL (130-400) 08/06/21 MPV 9.6 fL (7.4-10.4) 08/06/21 Neutrophils (%) (Auto) 73.9 % 08/06/21 Lymphocytes (%) (Auto) 8.7 % 08/06/21 Monocytes # (Auto) 1.76 K/uL (0.11-0.59) H 08/06/21 Eosinophils # (Auto) 0.21 K/uL (0-0.5) 08/06/21 Immature Granulocyte % (Auto) 0.3 % 08/06/21 Neutrophils # (Auto) 8.63 K/uL (1.4-6.5) H 08/06/21 Lymphocytes # (Auto) 1.01 K/uL (1.2-3.4) L 08/06/21 Monocytes # (Auto) 1.76 K/uL (0.11-0.59) H 08/06/21 Eosinophils # (Auto) 0.21 K/uL (0-0.5) 08/06/21 Basophils # (Auto) 0.02 K/uL (0-0.2) 08/06/21 Immature Granulocyte # (Auto) 0.03 K/uL (0.00-0.02) H 08/06/21 Na 136 mmol/L (136-145) 08/06/21 K 3.7 mmol/L (3.5-5.1) 08/06/21 Cl 93 mmol/L (98-107) L 08/06/21 CO2 27 mmol/L (21-32) 08/06/21 Anion Gap 16 (3-11) H 08/06/21 BUN 92 mg/dl (6-23) H 08/06/21 Creatinine 5.36 mg/dl (0.6-1.4) H* 08/06/21 Estimated GFR ( Amer) 11.2 ml/min 08/06/21 Estimated GFR (Non-Af Amer) 9.7 ml/min 08/06/21 BUN/Creatinine Ratio 17.2 (10-20) 08/06/21 Glu 91 mg/dl (70-99(Fasting)) 08/06/21 Ca 8.7 mg/dl (8.5-10.1) 08/06/21 Mg 2.1 mg/dl (1.7-2.4) 08/06/21 05:44 08/06/21 Calcium Level 8.7 mg/dl (8.5-10.1) 08/06/21 05:44 08/06/21 Microbiology 08/03/21 14:08 Aerobic Blood Culture - Preliminary Blood No growth in Aerobic bottle after 48 hours. Anaerobic Blood Culture - Preliminary No growth in Anaerobic bottle after 48 hours. 08/03/21 13:17 Aerobic Blood Culture - Preliminary Blood No growth in Aerobic bottle after 48 hours. Anaerobic Blood Culture - Preliminary No growth in Anaerobic bottle after 48 hours. Diagnostic Findings (Past 24 Hours) Chest X-Ray 08/05/21 12:27 XR chest 2V PA/lateral HISTORY: Follow-up chest x-ray. Hypoxia COMPARISON: Chest CT 08/03/2021. FINDINGS: The lungs are hyperexpanded with mild apical predominant emphysematous changes. No pneumothorax. The heart remains mildly enlarged. Small bilateral pleural effusions and bibasilar airspace opacities have improved. The interstitial pulmonary edema has also improved in the interval. Calcifications again noted within the aortic knob. IMPRESSION: Interval improvement in the interstitial pulmonary edema, bibasilar airspace opacities, and small bilateral pleural effusions. ACT 112: Negative or not required by law. Electronically signed by: Ethan Gilmore M.D. 08/05/2021 2:41 PM Renal Ultrasound 08/06/21 07:57 RENAL ULTRASOUND CLINICAL HISTORY: Acute kidney injury. COMPARISON STUDY: CT of the abdomen and pelvis February 20, 2019. Renal ultrasound April 21, 2020. TECHNIQUE: Sonography of the kidneys and the urinary bladder was performed. FINDINGS: The right kidney measures 12.1 cm in maximal dimension. The left measures 9.3 cm. There is no hydronephrosis. A 1.3 cm anechoic lesion within the lower pole of the right kidney represents a cyst. No right renal calculi are identified by sonography. Marked left renal atrophy is again noted. Left kidney is atrophic. Ureteral jets were visualized. Bladder is suboptimally assessed given underdistention. IMPRESSION: 1. No hydronephrosis. 2. No change in marked left renal atrophy. ACT 112: Negative or not required by law. Electronically signed by: Dewey Diaz M.D. 08/06/2021 9:35 AM I & O Totals 24 Hours 08/05/21 08/06/21 08/07/21 06:59 06:59 06:59 Intake Total 300 / 300 490 / 490 Output Total 1350 / 1350 1250 / 1250 Balance -1050 / -1050 -760 / -760 Cumulative 08/03/21 13:07 thru 08/06/21 04:29 Intake Total 1810 Output Total 4300 Balance -2490 RT Ventilator Mngmt (Last Documented) Ventilator Ordered Settings Respiratory Rate 18 08/06/21 08:17 Fraction of Inspired Oxygen 90 08/03/21 16:36 Ventilator - PT Measurements Respiratory Rate 18 PG Care Time/CCT Total # of Minutes Spent Total Time Spent with Patient: Total time spent is greater than 50% in coordination of care (as documented) at patient's floor/unit and/or counseling patient: 45 minutes independent of any procedures or follow-up visits. Coding Level of Care Code 69882 Inpt Consult Level 4 Diagnoses Pleural effusion J90 CHF (congestive heart failure) I50.9 Acute respiratory failure with hypoxia J96.01 COPD, moderate J44.9 DM type 2 (diabetes mellitus, type 2) E11.9 Time Spent (min) 45
--- NOTE | 2021-08-06 11:03 | Nephrology Consultation ---
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 Admitted with shortness of breath, initially noted to have pulmonary edema and bilateral pleural effusion received diuretics with improvement in volume status. Had CTA on admission which excluded possibility for PE. Renal function was stable was at baseline on admission but rapidly over worsened over last 3 days but has been having decent urine output, overall net negative and the no postrenal obstruction on ultrasound. Urinalysis negative for proteinuria hematuria. TIMOTHY with rapid worsening of renal function is possibly hemodynamically mediated with IV contrast exposure in the setting of diuretic use, ALVIN-inhibitor and history of renovascular disease. Concern for right renal artery stenosis remains as well. --Patient reports great urine output and overall feeling well not overly short of breath and in fact his net negative. Unclear etiology for increase accept oxygen requirement, wonder whether bilateral pleural effusion has worsen or because of underlying COPD -- would continue to hold diuretics at this time, encourage p.o. intake, monitor intake and output would keep close to net even or slightly net negative. -- will get renal artery Doppler to exclude possibility for any hemodynamically significant right renal artery stenosis. -- monitor renal function electrolyte closely, keep on low-potassium diet -- no indication for renal replacement therapy at this time Will follow Thank you for allowing me to participate in your patient's care. It was a pleasure to see Kulwant. History of Present Illness Reason for Consultation: Acute kidney injury with history of advanced CKD. Attending Physician: Antonio Madsen MD History of Present Illness Mr. Kulwant Michel is a 75-year-old male with past medical history significant for stage IIIB/4 CKD, hypertension, atherosclerotic disease, current active smoking admitted with the shortness of breath and generalized weakness. Nephrology consult was requested as she developed TIMOTHY with rapid worsening of renal f unction over 3 days. EMR records are reviewed in detail during patient's visit. Kulwant presents to ER on 08/03/21 with the c/o progressive shortness of breath over a week and generalized weakness. he also noted to have cough with whitish sputum but no fever, chills. Did not have chest pain. He has been on home oxygen since he had COVID in February. chest x-ray showed pulmonary vascular congestion and bilateral pleural effusion. CTA was done with concern for PE however it was negative for pulmonary embolism. He was given a dose of Lasix IV 40 mg and also started on Zosyn empirically for concern for underlying pneumonia with history of COPD. Initially he was requiring 15 L non-rebreather for desaturation with improvement in oxygen saturation to 97%. Has stage IIIB/4 CKD with baseline creatinine around 2.0 to 2.3 with some variability. On admission creatinine was 2.1 which has been rapidly worsening, creatinine was 2.5 on 08/04, 3.9 on 08/05 and 5.4 this morning. Urinalysis was negative for proteinuria hematuria. Renal imaging showed atrophic left kidney and no right-sided hydronephrosis. previously he was known to have 60% stenosis on right renal artery. Blood pressure has been elevated since admission which slightly improved. Lasix was stopped as he has respiratory status improved however, this morning he is O2 saturation dropped again and he was requiring 5 L of oxygen via nasal cannula. Past medical history also significant for multiple comorbidities including atherosclerotic disease, PAD s/p aortofemoral bypass, AAA repair, bilateral carotid endarterectomy, hypertension, diabetes, COPD with history of current active smoking. the no pertinent family history of COPD or ESRD. Recent 2D echo showed EF 55-60% with moderate LVH. Clinically he reports feeling well, denies any significant shortness of breath while he was sitting in bed, on oxygen 3 L via nasal cannula. He reports decent urine output in fact has been total 2.5 L net negative since admission. Denies any chest pain, nausea, vomiting or abdominal pain. Allergies Allergy/AdvReac Type Severity Reaction Status Date / Time No Known Allergies Allergy Verified 06/21/21 12:37 Home Medications Medication Instructions Recorded Confirmed Type amlodipine 10 mg tablet 10 mg PO DAILY #90 tab 04/10/21 08/03/21 Rx atorvastatin 40 mg tablet 40 mg PO QPM #90 tab 04/10/21 08/03/21 Rx empagliflozin 25 mg tablet 25 mg PO DAILY #90 tab 04/10/21 08/03/21 Rx (Jardiance) furosemide 20 mg tablet 20 mg PO DAILY #30 tab 04/10/21 08/03/21 Rx glimepiride 2 mg tablet 4 mg PO QAM #180 tab 04/10/21 08/03/21 Rx lisinopril 20 mg tablet 20 mg PO DAILY #30 tab 04/10/21 08/03/21 Rx pantoprazole 40 mg tablet,delayed 40 mg PO DAILY #90 tab 04/10/21 08/03/21 Rx release potassium chloride 20 mEq 20 meq PO DAILY 08/03/21 08/03/21 History tablet,extended release(part/cryst) Patient History Medical History AAA (abdominal aortic aneurysm) "s/p repair" TIMOTHY (acute kidney injury) TIMOTHY (acute kidney injury) Blind right eye CAD (coronary artery disease) Cancer Cerebrovascular disease, arteriosclerotic, post-stroke CKD (chronic kidney disease), stage III COPD, moderate Dehydration Diabetes DM type 2 (diabetes mellitus, type 2) Dysphagia Elevated troponin Generalized weakness Hemiplegia History of Helicobacter pylori infection Hyperkalemia Hypertension PUD (peptic ulcer disease) PVD (peripheral vascular disease) Sleep disturbance TIA (transient ischemic attack) Urinary symptom or sign Surgical History H/O aorto-femoral bypass H/O colonoscopy with polypectomy History of esophagogastroduodenoscopy diagnostic History of incision and drainage "evacuation of the left neck postop hematoma ()" S/P AAA repair S/P carotid endarterectomy "bilateral" Family History Other Family history non-contributory No pertinent family history Denies family history of Ovarian cancer Prostate cancer Myocardial infarction Breast cancer Colorectal cancer Social History Smoking Status: Current every day smoker Second Hand Exposure: No; Do You Dip or Chew Tobacco: No; Tobacco Cessation Education Requested by Patient: No Hx Alcohol Use: No Hx Substance Use: No Preferred Language: Thai Communication Ability: Effective Visual Impairment: Partially Limited 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 Physical Exam Constitutional: WD/WN, vitals as above no acute distress Eyes: + anicteric sclerae ENMT: Ears: no hearing impairment Neck: normal visual inspection Respiratory: normal respiratory effort; no respiratory distress and no cough Auscultation: + rales; no wheezes Cardiovascular: Rate/Rhythm: regular rate and regular rhythm Heart Sounds: normal S1 and normal S2 Extremities: no edema Gastrointestinal (Abdomen): Inspection/Auscultation: abdomen normal to inspection and normal bowel sounds Percussion/Palpation: abdomen soft; abdomen nontender Musculoskeletal: Extremities: extremities normal to inspection Skin: normal turgor; no rashes Neurologic: no focal motor deficits and not confused Psychiatric: Orientation: alert and oriented x 3 Affect: euthymic affect Results & Data ([facility]) Vital Signs (Past 12 Hours) Vital Signs Temp Pulse Pulse Resp BP Pulse Ox 08/06/21 10:23 81 08/06/21 08:17 36.9 C 97 H 18 141/68 H 88 L 08/06/21 08:00 37.0 C 84 131/63 95 08/06/21 06:58 77 19 94 08/06/21 03:45 36.8 C 80 18 124/62 94 PG Care Time/CCT Total # of Minutes Spent Total Time Spent with Patient: Total time spent is greater than 50% in coordination of care (as documented) at patient's floor/unit and/or counseling patient: Coding Level of Care Code 76391 Initial Inpt Care Lvl 3 Diagnoses TIMOTHY (acute kidney injury) N17.9 Pleural effusion J90 CHF (congestive heart failure) I50.9 Hypertension I10
--- NOTE | 2021-08-06 12:43 | Ultrasound Report ---
US duplex renal artery CLINICAL HISTORY: jcarlos, h/o SARAH TECHNIQUE: Real-time grayscale and color and spectral Doppler ultrasound imaging of the kidneys was p erformed. Comparison: None available at the time of this dictation. FINDINGS: RIGHT: Normal echogenicity with preserved corticomedullary differentiation. Normal cortical thickness. Right kidney measures 13.1 cm. No hydronephrosis. No convincing evidence of calculus or mass. Spectral analysis: Intrarenal resistive indices range from 0.58 to 0.67. Waveforms are normal in appearance.. Renal carmen ry patent with peak systolic velocity 73 cm/s proximally, 72 cm/s in the midportion, and 44 cm/s dist ally. Renal vein patent. LEFT: Normal echogenicity with preserved corticomedullary differentiation. Normal cortical thickness. Left kidney measures 11.3 cm. No hydronephrosis. No convincing evidence of calculus or mass. Spectral analysis: Cortical thinning is seen. The arcuate waveforms cannot be determined. The left renal artery demonstr ates a flow velocity of 56 cm/s in the midportion. Abdominal aorta: Patent. Peak systolic velocity 84 cm/s. Bladder: Normal. Bilateral ureteral jets present. Reference ranges: Normal main renal artery peak systolic velocity less than 180 cm/s. Ratio of renal artery PSV to aort ic PSV less than 3.5 equates to normal or less than 60% stenosis. Only one of the two criteria listed needs to be met for diagnosis. IMPRESSION: Velocities and resistive indices are normal and the right. On the left, there is cortical thinning co mpatible with renal atrophy. ACT 112: Negative or not required by law. Electronically signed by: Cesar Bruno M.D. 08/06/2021 12:41 PM
--- NOTE | 2021-08-06 18:13 | Hospitalist Progress Note ---
Date of Service August 06, 2021 Assessment & Plan (1) Pleural effusion: Plan: Please see the plan below (2) CHF (congestive heart failure): Plan: Plan: Acute hypoxic respiratory failure, initially required L of oxygen Initial thought was this is secondary to volume overload given the CT a finding -Started on Lasix after initial improvement , oxygen requirement got down to 4 L Again on 08/05 oxygen requirement went up again to 12 L -Today on 08/06 the oxygen requirement is down to 4 -5 Pending creatinine is trending up Lasix was held Baseline creatinine is around 2 Calculated GFR is around 30 No PE on CTA -Possible history of COPD No wheezing on exam Follow-up chest x-ray today on 08/05 showed improvement in lung congestion -no Evidence of pulmonary hypertension on echo -Creatinine jumped to 5 to Appreciate pulmonary consult Echocardiogram showed preserved ejection fraction, left ventricular hypertrophy -Negative COVID test, negative influenza type a and type B, negative RSV (3) Acute respiratory failure with hypoxia: Plan: Plan as mentioned above (4) COPD, moderate: Plan: No wheezing on exam - History of VATS as well with pleural effusion around 2009- and is without PFTs (5) DM type 2 (diabetes mellitus, type 2): (6) TIMOTHY (acute kidney injury): Plan: Creatinine jumped from 3-5 Possibly contrast-induced nephropathy Discussed with nephrology Appreciate nephrology input Order for urine osmolarity urine sodium Ordered renal ultrasound Admission and Anticipated Discharge Date Admission Date: August 03, 2021 Subjective Doing better today, oxygen requirement dropped to 5 however creatinine jumped to 5, consult with nephrology and pulmonology appreciate consults input Review of Systems Review of Systems: General: No malaise no weakness Neck: No tenderness no pain HEENT: No eye discharge no ear discharge Chest: No chest pain, no palpitation GI: Not distended, no nausea no vomiting Extremities: No edema no tenderness Neurology: No headache no weakness Psychiatric: No depression no anxiety Physical Exam Physical Exam: PHYSICAL EXAM: General: awake, alert, no apparent distress Head: Normocephalic, atraumatic ENT: PERRL, EOMI, no pharyngeal exudate, mucous membranes moist Neuro: AAO x 3, speech clear and appropriate, strength intact bilaterally 5/5, sensation intact and equal all extremities and dermatomes, no pronator drift Chest: equal rise and fall of the chest, no accessory muscle use at rest, no heaves or thrills, poor air movement throughout- follow after nebulizer- Cardiac: Regular rate and rhythm, telemetry reviewed, skin warm dry, cap refill <3 seconds, peripheral pules +2 no JVD, grade II systolic murmur best heard at left midcalvicular, no JVD, no edema GI: NABS x 4 quadrants, soft, nontender to palpation, no rebound, guarding or tenderness : Spontaneously voiding, no pain, no CVA tenderness, Extremities: Normal inspection, no peripheral edema or erythema, calfs nontender to palpation Psych: Normal mood and affect Skin: no rash or erythema Results & Data Results & Data ([facility]) Vital Signs (Past 12 Hours) Vital Signs Temp Pulse Pulse Resp BP Pulse Ox 08/06/21 16:00 36.7 C 85 58 L 18 118/61 96 08/06/21 15:04 78 20 94 08/06/21 11:30 36.5 C 61 18 101/65 97 08/06/21 10:23 81 08/06/21 08:17 36.9 C 97 H 18 141/68 H 88 L 08/06/21 08:00 37.0 C 84 131/63 95 08/06/21 06:58 77 19 94 PG Care Time/CCT Total # of Minutes Spent Total Time Spent with Patient: Total time spent is greater than 50% in coordination of care (as documented) at patient's floor/unit and/or counseling patient: Coding Level of Care Code 76713 Subseq Hosp Care Lvl 3 Diagnoses Pleural effusion J90 CHF (congestive heart failure) I50.9 Acute respiratory failure with hypoxia J96.01 COPD, moderate J44.9 DM type 2 (diabetes mellitus, type 2) E11.9 TIMOTHY (acute kidney injury) N17.9
[2021-08-06] MEDS: INSULIN GLARGINE SOLOSTAR 100 UNITS/ML 3 ML PEN SC SCH (21:16)
[2021-08-06] MEDS: ATORVASTATIN 40 MG TAB PO SCH (21:16)
[2021-08-06] MEDS: MELATONIN 3 MG TAB PO PRN (22:27)
[2021-08-07 07:04] LABS: BUN Creatinine Ratio 18.8 (10-20); Calcium 8.9 mg/dl (8.5-10.1); Est GFR (African American) 11.4 ml/min; Est GFR (Non-African American) 9.8 ml/min; Potassium 4.2 mmol/L (3.5-5.1)
[2021-08-07] MEDS: ALBUT/IPRATROP 3MG/0.5MG NEB 3 ML VIAL NEB SCH ×3 (07:05→23:38)
[2021-08-07] MEDS: INSULIN ASPART PER UNIT SC SCH ×4 (07:49→20:29)
[2021-08-07] MEDS: PANTOprazole 40 MG TAB PO SCH (07:50)
[2021-08-07] MEDS: SODIUM CHLORIDE 0.9% 1000ML 1,000 ML IV SCH ×2 (07:50→14:21)
[2021-08-07] MEDS: amLODIPine BESYLATE 5 MG TAB PO SCH (07:50)
--- NOTE | 2021-08-07 09:10 | Pulmonology Progress Note ---
Date of Service August 07, 2021 Assessment & Plan (1) Pleural effusion: (2) CHF (congestive heart failure): (3) Acute respiratory failure with hypoxia: (4) COPD, moderate: (5) DM type 2 (diabetes mellitus, type 2): Plan: Impression: 75-year-old male with past medical history of tobacco abuse and emphysema. Listed as moderate COPD but no history of PFTs. Patient was scheduled on more than one occasion but refused testing. Patient is currently not on any inhalers. Admitted with hypoxemia likely multifactorial due to combinations of COPD/emphysema as well as pleural effusion with compressive atelectasis and VQ mismatch. Recommendations: 1. Bilateral pleural effusions: Discussed with patient today. He has been aggressively diuresed to the point of worsening kidney function. He is feeling okay but I did advise him that I think a thoracentesis may result in more rapid improvement of his clinical symptoms. He understands the potential risk includi ng pneumothorax and hemothorax but is agreeable to proceed. We will set him up for diagnostic and therapeutic ultrasound-guided catheter thoracentesis later today. 2. Probable COPD: Not bronchospastic. Patient's refused PFTs previously. 3. Hypoxia: He has oxygen set up at home but apparently was not using it on a regular basis. Some of his hospitalization issues represent the acute recognit ion of chronic problems. He will need oxygen going home. He states he already has a concentrator although this should be verified prior to discharge. 4. History of tobacco abuse: Will follow with imaging postthoracentesis and characterization of pleural fluid. Feel free to contact us with additional questions in the interim. Admission and Anticipated Discharge Date Admission Date: August 03, 2021 Subjective Patient seen and examined. EMR reviewed. He sitting up eating breakfast in the chair at the bedside. He does not report any worsening of his symptoms and t hinks his breathing may actually be a little bit better. He continues to require oxygen. He is not expectorating significant phlegm. No wheezing. Review of Systems Review of Systems: All systems reviewed & are unremarkable except as noted in Subjective Physical Exam Constitutional: WD/WN, vitals as above Neck: trachea midline, no thyromegaly Respiratory: normal respiratory effort; no respiratory distress and no labored breathing Diminished breath sounds with dullness to percussion left greater than right bases Cardiovascular: RRR, no murmur, no edema Gastrointestinal (Abdomen): normal bowel sounds, soft, nontender, no hepatosplenomegaly Musculoskeletal: Extremities: extremities normal to inspection Skin: no rashes, warm and dry Neurologic: Nonfocal exam Lymphatic: no cervical lymphadenopathy Results & Data Results & Data ([facility]) Vital Signs (Past 12 Hours) Vital Signs Temp Pulse Pulse Resp BP BP Pulse Ox 08/07/21 08:00 87 08/07/21 07:11 36.8 C 82 20 159/65 H 94 08/07/21 07:06 87 22 94 08/07/21 03:08 36.7 C 83 18 163/66 H 93 08/06/21 23:14 36.9 C 86 18 152/72 H 91 08/06/21 22:23 75 20 93 Laboratory Results 08/06/21 05:44 08/07/21 05:31 PG Care Time/CCT Total # of Minutes Spent Total Time Spent with Patient: Total time spent is greater than 50% in coordination of care (as documented) at patient's floor/unit and/or counseling patient: Coding Level of Care Code 60002 Subseq Hosp Care Lvl 3 Diagnoses Pleural effusion J90 CHF (congestive heart failure) I50.9 Acute respiratory failure with hypoxia J96.01 COPD, moderate J44.9 DM type 2 (diabetes mellitus, type 2) E11.9
--- NOTE | 2021-08-07 10:35 | Nephrology Progress Note ---
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 Admitted with shortness of breath, initially noted to have pulmonary edema and bilateral pleural effusion received diuretics with improvement in volume status. Had CTA on admission which excluded possibility for PE. Renal function was stable was at baseline on admission but rapidly over worsened over last 3 days but has been having decent urine output, overall net negative and the no postrenal obstruction on ultrasound. Urinalysis negative for proteinuria hematuria. TIMOTHY with rapid worsening of renal function is possibly hemodynamically mediated with IV contrast exposure in the setting of diuretic use, ALVIN-inhibitor and history of renovascular disease. Renal artery Doppler was negative for hemodynamically significant renal artery stenosis. Has been tolerating IV fluid but no significant improvement in renal function although volume status and electrolyte remains acceptable. --Okay to continue on IV fluid for now with close monitoring of volume status and respiratory status, encourage p.o. intake, monitor intake and output would keep close to net even or slightly net negative. -- monitor renal function electrolyte closely, keep on low-potassium diet -- no indication for renal replacement therapy at this time Will follow. Admission and Anticipated Discharge Date Admission Date: August 03, 2021 Winsome Blum was seen examined this morning. Overall he is feeling well, denies any specific symptom, no shortness of breath or chest pain. Has been voiding normally, has been on IV fluid however, no further improvement in renal function, creatinine staying around 5.3, BUN 100, electrolyte acceptable. Review of Systems Review of Systems: Detail ROS was done and pertinent positives and negatives are mentioned in HPI. Physical Exam Constitutional: WD/WN, vitals as above no acute distress Eyes: + anicteric sclerae Respiratory: normal respiratory effort; no respiratory distress and no cough Auscultation: + rales Cardiovascular: Rate/Rhythm: regular rate and regular rhythm Extremities: no edema Neurologic: no focal motor deficits and not confused Psychiatric: Orientation: alert and oriented x 3 Affect: euthymic affect Results & Data ([facility]) Vital Signs (Past 12 Hours) Vital Signs Temp Pulse Pulse Resp BP BP Pulse Ox 08/07/21 08:00 87 08/07/21 07:11 36.8 C 82 20 159/65 H 94 08/07/21 07:06 87 22 94 08/07/21 03:08 36.7 C 83 18 163/66 H 93 08/06/21 23:14 36.9 C 86 18 152/72 H 91 PG Care Time/CCT Total # of Minutes Spent Total Time Spent with Patient: Total time spent is greater than 50% in coordination of care (as documented) at patient's floor/unit and/or counseling patient: Coding Level of Care Code 71273 Subseq Hosp Care Lvl 3 Diagnoses TIMOTHY (acute kidney injury) N17.9 Pleural effusion J90 CHF (congestive heart failure) I50.9 Hypertension I10
--- NOTE | 2021-08-07 14:45 | Procedure Note ---
Procedure Note Date of Service August 07, 2021 Note Limited thoracic ultrasound Senior [employer] Architect Dr. Leahy Indication: Evaluate for pleural effusion Procedure: The patient was placed seated at the bedside. Ultrasound of the bilateral hemithoraces was conducted. There was a very small left-sided effusion, too small to safely tap or sample. No significant right effusion was noted. There was a small amount of atelectasis noted at the right lung base as well. Impression: Trivial left-sided effusion with no significant right effusion and compressive atelectasis. No indication for thoracentesis currently Coding CPT Codes Pulmonary/Thoracic - Pulmonary and Thoracic: [id number] US, Chest, real time with imaging documentation ([id number]) [facility] Procedure Codes (Charges) Pulmonary/Thoracic Procedure 1: Pulmonary and Thoracic: 37643 US, Chest, real time with imaging documentation
--- NOTE | 2021-08-07 18:31 | Hospitalist Progress Note ---
Date of Service August 07, 2021 Assessment & Plan (1) Pleural effusion: Plan: Please see the plan below (2) CHF (congestive heart failure): Plan: Plan: Acute hypoxic respiratory failure, initially required 15 L of oxygen Initial thought was this is secondary to volume overload given the CT a finding -Started on Lasix after initial improvement , oxygen requirement got down to 4 L Again on 08/05 oxygen requirement went up again to 12 L -T 08/06 the oxygen requirement is down to 4 -5 Current creatinine is stable around 5 Lasix was held Baseline creatinine is around 2 Calculated GFR is around 30 No PE on CTA -Possible history of COPD No wheezing on exam Follow-up chest x-ray today on 08/05 showed improvement in lung congestion -no Evidence of pulmonary hypertension on echo -Creatinine jumped to 5 to Appreciate pulmonary consult Echocardiogram showed preserved ejection fraction, left ventricular hypertrophy -Negative COVID test, negative influenza type a and type B, negative RSV (3) Acute respiratory failure with hypoxia: Plan: The exact etiology is unclear follow-up pulmonary recommendation Attempted for thoracentesis today however there was not enough fluid for thoracentesis (4) COPD, moderate: Plan: No wheezing on exam - History of VATS as well with pleural effusion around 2009- and is without PFTs (5) DM type 2 (diabetes mellitus, type 2): (6) TIMOTHY (acute kidney injury): Plan: Creatinine jumped from 3-5 Possibly contrast-induced nephropathy Discussed with nephrology Appreciate nephrology input Order for urine osmolarity urine sodium Ordered renal ultrasound Admission and Anticipated Discharge Date Admission Date: August 03, 2021 Winsome Blum was seen examined this morning. Overall he is feeling well, denies any specific symptom, no shortness of breath or chest pain. Has been voiding normally, has been on IV fluid however, no further improvement in renal function, creatinine staying around 5.3, BUN 100, electrolyte acceptable. Review of Systems Review of Systems: General: No malaise no weakness Neck: No tenderness no pain HEENT: No eye discharge no ear discharge Chest: No chest pain, no palpitation GI: Not distended, no nausea no vomiting Extremities: No edema no tenderness Neurology: No headache no weakness Psychiatric: No depression no anxiety Physical Exam Physical Exam: PHYSICAL EXAM: General: awake, alert, no apparent distress Head: Normocephalic, atraumatic ENT: PERRL, EOMI, no pharyngeal exudate, mucous membranes moist Neuro: AAO x 3, speech clear and appropriate, strength intact bilaterally 5/5, sensation intact and equal all extremities and dermatomes, no pronator drift Chest: equal rise and fall of the chest, no accessory muscle use at rest, no heaves or thrills, poor air movement throughout- follow after nebulizer- Cardiac: Regular rate and rhythm, telemetry reviewed, skin warm dry, cap refill <3 seconds, peripheral pules +2 no JVD, grade II systolic murmur best heard at left midcalvicular, no JVD, no edema GI: NABS x 4 quadrants, soft, nontender to palpation, no rebound, guarding or tenderness : Spontaneously voiding, no pain, no CVA tenderness, Extremities: Normal inspection, no peripheral edema or erythema, calfs nontender to palpation Psych: Normal mood and affect Skin: no rash or erythema Results & Data Results & Data ([facility]) Vital Signs (Past 12 Hours) Vital Signs Temp Pulse Pulse Resp BP BP Pulse Ox 08/07/21 15:35 36.9 C 88 18 156/70 H 93 08/07/21 14:58 84 22 92 08/07/21 14:53 87 08/07/21 14:43 08/07/21 11:32 36.8 C 86 20 146/62 H 95 08/07/21 08:00 87 08/07/21 07:11 36.8 C 82 20 159/65 H 94 08/07/21 07:06 87 22 94 Pulse Ox Pulse Ox Pulse Ox 08/07/21 15:35 08/07/21 14:58 08/07/21 14:53 08/07/21 14:43 93 93 90 08/07/21 11:32 08/07/21 08:00 08/07/21 07:11 08/07/21 07:06 PG Care Time/CCT Total # of Minutes Spent Total Time Spent with Patient: Total time spent is greater than 50% in coordination of care (as documented) at patient's floor/unit and/or counseling patient: Coding Level of Care Code 87389 Subseq Hosp Care Lvl 3 Diagnoses Pleural effusion J90 CHF (congestive heart failure) I50.9 Acute respiratory failure with hypoxia J96.01 COPD, moderate J44.9 DM type 2 (diabetes mellitus, type 2) E11.9 TIMOTHY (acute kidney injury) N17.9
[2021-08-07] MEDS: ATORVASTATIN 40 MG TAB PO SCH (20:26)
[2021-08-07] MEDS: INSULIN GLARGINE SOLOSTAR 100 UNITS/ML 3 ML PEN SC SCH (20:29)
[2021-08-07] MEDS: MELATONIN 3 MG TAB PO PRN (22:30)
[2021-08-08] MEDS: SODIUM CHLORIDE 0.9% 1000ML 1,000 ML IV SCH ×2 (00:21→06:41)
[2021-08-08] MEDS: ALBUT/IPRATROP 3MG/0.5MG NEB 3 ML VIAL NEB SCH ×3 (07:07→22:36)
[2021-08-08] MEDS: INSULIN ASPART PER UNIT SC SCH ×5 (07:54→20:51)
[2021-08-08 07:55] LABS: BUN Creatinine Ratio 26.6 (10-20); Calcium 9.2 mg/dl (8.5-10.1); Creatinine Clr Calc Pharmacy 21.5 ml/min; Est GFR (African American) 19.1 ml/min; Est GFR (Non-African American) 16.5 ml/min; Potassium 4.7 mmol/L (3.5-5.1)
[2021-08-08] MEDS: amLODIPine BESYLATE 5 MG TAB PO SCH (08:38)
[2021-08-08] MEDS: PANTOprazole 40 MG TAB PO SCH (08:38)
[2021-08-08 08:57] LABS: Basophils # (auto) 0.01 K/uL (0-0.2); Basophils % (auto) 0.1 %; Eosinophils # (auto) 0.16 K/uL (0-0.5); Eosinophils % (auto) 1.7 %; Hematocrit (blood only) 41.5 % (42-52); Hemoglobin 13.8 g/dL (14.0-18.0); Immature Granulocytes # (auto) 0.04 K/uL (0.00-0.02); Immature Granulocytes % (auto) 0.4 %; Lymphocytes # (auto) 0.67 K/uL (1.2-3.4); Lymphocytes % (auto) 7.1 %; Mean Corpuscular Hemoglobin 30.7 pg (25-34); Mean Corpuscular Hgb Conc 33.3 g/dL (32-36); Mean Corpuscular Volume 92.2 fL (80-100); Mean Platelet Volume 9.8 fL (7.4-10.4); Monocytes # (auto) 1.37 K/uL (0.11-0.59); Monocytes % (auto) 14.6 %; Neutrophils # (auto) 7.14 K/uL (1.4-6.5); Neutrophils % (auto) 76.1 %; Platelet Count 325 K/uL (130-400); RDW Coefficient of Variation 13.7 % (11.5-14.5); RDW Standard Deviation 45.9 fL (36.4-46.3); White Blood Count 9.39 K/uL (4.8-10.8)
--- NOTE | 2021-08-08 10:15 | Nephrology Progress Note ---
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 Admitted with shortness of breath, initially noted to have pulmonary edema and bilateral pleural effusion received diuretics with improvement in volume status. Had CTA on admission which excluded possibility for PE. Renal function was stable was at baseline on admission but rapidly over worsened over last 3 days but has been having decent urine output, overall net negative and the no postrenal obstruction on ultrasound. Urinalysis negative for proteinuria hematuria. TIMOTHY with rapid worsening of renal function is possibly hemodynamically mediated with IV contrast exposure in the setting of diuretic use, ALVIN-inhibitor and history of renovascular disease. Renal artery Doppler was negative for hemodynamically significant renal artery stenosis. Has been tolerating IV fluid but no significant improvement in renal function although volume status and electrolyte remains acceptable. renal function started to improve, creatinine down to 3.5, electrolyte acceptable. -- Encourage p.o. intake, suggest to discontinue IV fluid, monitor intake and output would keep close to net even or slightly net negative. -- monitor renal function electrolyte closely, keep on low-potassium diet -- no indication for renal replacement therapy at this time Will follow. Admission and Anticipated Discharge Date Admission Date: August 03, 2021 Winsome Blum was seen examined this morning. Overall he is feeling well, denies SOB or chest pain. Has been voiding normally, has been on IV fluid renal function improved, creatinine down to 3.5, electrolyte acceptable. Review of Systems Review of Systems: Detail ROS was done and pertinent positives and negatives are mentioned in HPI. Physical Exam Constitutional: WD/WN, vitals as above no acute distress Eyes: + anicteric sclerae Respiratory: normal respiratory effort; no respiratory distress and no cough Auscultation: + rales Cardiovascular: Rate/Rhythm: regular rate and regular rhythm Extremities: no edema Neurologic: no focal motor deficits and not confused Psychiatric: Orientation: alert and oriented x 3 Affect: euthymic affect Results & Data ([facility]) Vital Signs (Past 12 Hours) Vital Signs Temp Pulse Pulse Resp BP Pulse Ox 08/08/21 08:00 36.9 C 82 19 163/72 H 95 08/08/21 07:22 96 H 08/08/21 07:07 94 H 22 08/08/21 02:55 36.7 C 87 18 161/66 H 93 08/08/21 00:55 90 08/07/21 23:40 79 14 96 08/07/21 22:58 36.8 C 75 18 168/84 H 97 PG Care Time/CCT Total # of Minutes Spent Total Time Spent with Patient: Total time spent is greater than 50% in coordination of care (as documented) at patient's floor/unit and/or counseling patient: Coding Level of Care Code 38514 Subseq Hosp Care Lvl 3 Diagnoses TIMOTHY (acute kidney injury) N17.9 Pleural effusion J90 CHF (congestive heart failure) I50.9 Hypertension I10
--- NOTE | 2021-08-08 10:39 | Pulmonology Progress Note ---
Date of Service August 08, 2021 Assessment & Plan (1) Pleural effusion: (2) CHF (congestive heart failure): (3) Acute respiratory failure with hypoxia: (4) COPD, moderate: (5) DM type 2 (diabetes mellitus, type 2): Plan: Attending: Dr. Leahy Impression: This is a 75-year-old male with past medical history of tobacco abuse and emphysema. Listed as moderate COPD but no history of PFTs. Patient was scheduled on more than one occasion but refused testing. Patient is currently not on any inhalers. Admitted with hypoxemia likely multifactorial due to combinations of COPD/emphysema as well as pleural effusion with compressive atelectasis and VQ mismatch. Patient was diuresed until he had a bump in his creatinine. We were consulted to evaluate for possible thoracentesis. Recommendations: 1. Bilateral pleural effusions: This appears to be related to congestive heart failure. Patient did receive diuresis to the point of acute kidney failure. Ultrasound was performed by Dr. Leahy yesterday showed very little fluid with no safe pocket for targeted thoracentesis. Patient understands that his effusions are improving and that there is not a safe option for thoracentesis. Would recommend following patient for symptomatic complaints and repeat chest x-ray should he have significant shortness of breath. In the event that the patient develops increasing pleural effusions on discharge, we would be glad to evaluate the patient for outpatient thoracentesis. 2. Probable COPD: Not bronchospastic. Patient's refused PFTs previously. Patient is not on any inhalers at home. Should the patient decide to get pulmonary function testing performed, we will be glad to follow him in the pulmonary office she did demonstrate COPD. Otherwise, suggest the patient follow-up primary care physician. 3. Hypoxia: He has oxygen set up at home but apparently was not using it on a regular basis. Some of his hospitalization issues represent the acute recognition of chronic problems. He will need oxygen going home. He states he already has a concentrator although this should be verified prior to discharge. Patient should have two-step evaluation prior to discharge for titration of supplemental oxygen. 4. History of tobacco abuse: [id number] history. Patient quit smoking in 2002. Continue to encourage complete abstinence from tobacco products. The pulmonary service will sign off at this time. Please feel free to call with further questions or concerns. Admission and Anticipated Discharge Date Admission Date: August 03, 2021 Supervising Physician Co-Signing Physician Notes Patient seen and examined. He is doing well. He appears to be approaching his baseline status. Continue supplemental oxygen. Patient's declined outpatient follow-up in the past. Would titrate oxygen to maintain saturations at or below 88%. The pleural effusion is not significant enough to require additional intervention at this time. Agree with continuing to manage volume status. Continued blood pressure management recommended. Patient appears to be approaching his baseline. Feel free to contact us if we can be of additional assistance. We will sign off for now Subjective Attending: Dr. Leahy Patient seen and examined in room 230 this morning. He was sitting bedside chair. He had demonstrated no acute distress. He was talkative and pleasant. Patient states that he is doing much better regarding his breathing. Nursing is instructed to decrease his supplemental oxygen to maintain an SaO2 of 88 to 92%. Patient is tolerating this well. Patient has no chest pain or tightness. He denies any fever. He denies any pleuritic pain. He has no other acute complaints this morning. Review of Systems Review of Systems: A total of 10 systems was reviewed and is negative other than as listed in the HPI Physical Exam Physical Exam: GENERAL : No acute distress EYES: No icterus, gaze conjugate NOSE: No evidence of epistaxis. Nasal cannula in place MOUTH: No lesions or candidiasis NECK: Supple LUNGS: Patient has some fine bibasilar crackles. He has no evidence of paradoxical chest wall movement. Breath sounds are equal bilaterally. No appreciation of significant bronchospasm. No rhonchi appreciated. HEART: Regular, rate controlled ABDOMEN: Soft, NT, ND, BS Present EXTREMITIES: Bilateral +1 LE edema, pedal pulses intact NEURO: A&OX3 Results & Data Results & Data ([facility]) Vital Signs (Past 12 Hours) Vital Signs Temp Pulse Pulse Resp BP Pulse Ox 08/08/21 08:00 36.9 C 82 19 163/72 H 95 08/08/21 07:22 96 H 08/08/21 07:07 94 H 22 08/08/21 02:55 36.7 C 87 18 161/66 H 93 08/08/21 00:55 90 08/07/21 23:40 79 14 96 08/07/21 22:58 36.8 C 75 18 168/84 H 97 Critical Care Results & Data Vital Signs (Past 12 Hours) Vital Signs Temp Pulse Pulse Resp BP Pulse Ox 08/08/21 08:00 36.9 C 82 19 163/72 H 95 08/08/21 07:22 96 H 08/08/21 07:07 94 H 22 08/08/21 02:55 36.7 C 87 18 161/66 H 93 08/08/21 00:55 90 08/07/21 23:40 79 14 96 08/07/21 22:58 36.8 C 75 18 168/84 H 97 Lab & Micro Results (Past 24 Hours) RBC 4.50 M/uL (4.7-6.1) L 08/08/21 WBC 9.39 K/uL (4.8-10.8) 08/08/21 Hgb 13.8 g/dL (14.0-18.0) L 08/08/21 Hct 41.5 % (42-52) L 08/08/21 MCV 92.2 fL (80-100) 08/08/21 MCH 30.7 pg (25-34) 08/08/21 MCHC 33.3 g/dL (32-36) 08/08/21 RDW Standard Deviation 45.9 fL (36.4-46.3) 08/08/21 RDW Coefficient of Variation 13.7 % (11.5-14.5) 08/08/21 Plt Count 325 K/uL (130-400) 08/08/21 MPV 9.8 fL (7.4-10.4) 08/08/21 Neutrophils (%) (Auto) 76.1 % 08/08/21 Lymphocytes (%) (Auto) 7.1 % 08/08/21 Monocytes # (Auto) 1.37 K/uL (0.11-0.59) H 08/08/21 Eosinophils # (Auto) 0.16 K/uL (0-0.5) 08/08/21 Immature Granulocyte % (Auto) 0.4 % 08/08/21 Neutrophils # (Auto) 7.14 K/uL (1.4-6.5) H 08/08/21 Lymphocytes # (Auto) 0.67 K/uL (1.2-3.4) L 08/08/21 Monocytes # (Auto) 1.37 K/uL (0.11-0.59) H 08/08/21 Eosinophils # (Auto) 0.16 K/uL (0-0.5) 08/08/21 Basophils # (Auto) 0.01 K/uL (0-0.2) 08/08/21 Immature Granulocyte # (Auto) 0.04 K/uL (0.00-0.02) H 08/08/21 Na 135 mmol/L (136-145) L 08/08/21 K 4.7 mmol/L (3.5-5.1) 08/08/21 Cl 101 mmol/L (98-107) 08/08/21 CO2 22 mmol/L (21-32) 08/08/21 Anion Gap 12 (3-11) H 08/08/21 BUN 92 mg/dl (6-23) H 08/08/21 Creatinine 3.46 mg/dl (0.6-1.4) H 08/08/21 Estimated GFR ( Amer) 19.1 ml/min 08/08/21 Estimated GFR (Non-Af Amer) 16.5 ml/min 08/08/21 BUN/Creatinine Ratio 26.6 (10-20) H 08/08/21 Glu 105 mg/dl (70-99(Fasting)) H 08/08/21 Ca 9.2 mg/dl (8.5-10.1) 08/08/21 Calcium Level 9.2 mg/dl (8.5-10.1) 08/08/21 06:34 08/08/21 I & O Totals 24 Hours 08/07/21 08/08/21 08/09/21 06:59 06:59 06:59 Intake Total 2186.667 / 2186.667 4241.667 / 4241.667 Output Total 1020 / 1020 1650 / 1650 Balance 1166.667 / 9315.982 4874.667 / 2591.667 Cumulative 08/03/21 13:07 thru 08/08/21 06:41 Intake Total 8238.334 Output Total 6970 Balance 1268.334 RT Ventilator Mngmt (Last Documented) Ventilator Ordered Settings Respiratory Rate 19 08/08/21 08:00 Fraction of Inspired Oxygen 90 08/03/21 16:36 Ventilator - PT Measurements Respiratory Rate 19 PG Care Time/CCT Total # of Minutes Spent Total Time Spent with Patient: Total time spent is greater than 50% in coordination of care (as documented) at patient's floor/unit and/or counseling patient: Coding Level of Care Code 28572 Subseq Hosp Care Lvl 2 Diagnoses Pleural effusion J90 CHF (congestive heart failure) I50.9 Acute respiratory failure with hypoxia J96.01 COPD, moderate J44.9 DM type 2 (diabetes mellitus, type 2) E11.9 Time Spent (min) 20
--- NOTE | 2021-08-08 18:32 | Hospitalist Progress Note ---
Date of Service August 08, 2021 Assessment & Plan (1) Acute respiratory failure with hypoxia: Plan: Patient presented to hospital with acute respiratory failure required 2 L of oxygen Etiology unclear Initially imaging studies showed some pulmonary congestion Patient started on Lasix He had some improvement Ox recommended trending down Currently patient is only 2 L oxygen His Lasix was stopped due to rising creatinine all the way up to 5 Most likely due to contrast-induced nephropathy (2) TIMOTHY (acute kidney injury): Plan: Possibly secondary to contrast-induced nephropathy Patient presented with creatinine around 3 Patient received [address] angio Consulted with nephrology Creatinine trending down Currently creatinine is around 3 which is closer to her baseline Stop IV fluid as per nephrology recommendation Check creatinine tomorrow Patient can be discharged to rehab tomorrow (3) Pleural effusion: Plan: Not enough for thoracentesis as per the pulmonology note (4) CHF (congestive heart failure): Plan: Presented to the hospital with evidence of congestive heart failure and imaging studies Received Lasix However later he was discontinued. Due to acute kidney injury most likely due to contrast induced nephropathy (5) COPD, moderate: Plan: Apparently patient refused having work-up outpatient as per my communication with consulting nephrology (6) DM type 2 (diabetes mellitus, type 2): Plan: Fairly controlled with current rate Plan: 1 Admission and Anticipated Discharge Date Admission Date: August 03, 2021 Subjective Attending: Dr. Leahy Patient seen and examined in room 230 this morning. He was sitting bedside chair. He had demonstrated no acute distress. He was talkative and pleasant. Patient states that he is doing much better regarding his breathing. Nursing is instructed to decrease his supplemental oxygen to maintain an SaO2 of 88 to 92%. Patient is tolerating this well. Patient has no chest pain or tightness. He denies any fever. He denies any pleuritic pain. He has no other acute complaints this morning. Review of Systems Review of Systems: A total of 10 systems was reviewed and is negative other than as listed in the HPI Physical Exam Physical Exam: PHYSICAL EXAM: General: awake, alert, no apparent distress Head: Normocephalic, atraumatic ENT: PERRL, EOMI, no pharyngeal exudate, mucous membranes moist Neuro: AAO x 3, speech clear and appropriate, strength intact bilaterally 5/5, sensation intact and equal all extremities and dermatomes, no pronator drift Chest: equal rise and fall of the chest, no accessory muscle use at rest, no heaves or thrills, poor air movement throughout- follow after nebulizer- Cardiac: Regular rate and rhythm, telemetry reviewed, skin warm dry, cap refill <3 seconds, peripheral pules +2 no JVD, grade II systolic murmur best heard at left midcalvicular, no JVD, no edema GI: NABS x 4 quadrants, soft, nontender to palpation, no rebound, guarding or tenderness : Spontaneously voiding, no pain, no CVA tenderness, Extremities: Normal inspection, no peripheral edema or erythema, calfs nontender to palpation Psych: Normal mood and affect Skin: no rash or erythema Results & Data Results & Data ([facility]) Vital Signs (Past 12 Hours) Vital Signs Temp Pulse Pulse Pulse Pulse Pulse Pulse 08/08/21 16:20 88 08/08/21 16:00 36.7 C 64 08/08/21 15:04 93 H 08/08/21 12:58 101 H 103 H 99 H 101 H 08/08/21 12:00 36.8 C 74 08/08/21 08:00 36.9 C 82 08/08/21 07:22 96 H 08/08/21 07:07 94 H Pulse Pulse Resp Resp Resp Resp Resp 08/08/21 16:20 08/08/21 16:00 20 08/08/21 15:04 24 08/08/21 12:58 100 H 92 H 20 20 24 20 08/08/21 12:00 18 08/08/21 08:00 19 08/08/21 07:22 08/08/21 07:07 22 Resp Resp BP Pulse Ox Pulse Ox Pulse Ox Pulse Ox 08/08/21 16:20 08/08/21 16:00 158/73 H 98 08/08/21 15:04 91 08/08/21 12:58 20 20 91 85 L 92 08/08/21 12:00 154/68 H 97 08/08/21 08:00 163/72 H 95 08/08/21 07:22 08/08/21 07:07 Pulse Ox Pulse Ox Pulse Ox 08/08/21 16:20 08/08/21 16:00 08/08/21 15:04 08/08/21 12:58 81 L 90 84 L 08/08/21 12:00 08/08/21 08:00 08/08/21 07:22 08/08/21 07:07 PG Care Time/CCT Total # of Minutes Spent Total Time Spent with Patient: Total time spent is greater than 50% in coordination of care (as documented) at patient's floor/unit and/or counseling patient: Coding Level of Care Code 02753 Subseq Hosp Care Lvl 3 Diagnoses Pleural effusion J90 CHF (congestive heart failure) I50.9 Acute respiratory failure with hypoxia J96.01 COPD, moderate J44.9 DM type 2 (diabetes mellitus, type 2) E11.9 TIMOTHY (acute kidney injury) N17.9
[2021-08-08] MEDS ORDERED: LORazepam 2 MG/1 ML VIAL IV PRN (18:43)
[2021-08-08] MEDS: ATORVASTATIN 40 MG TAB PO SCH (20:23)
[2021-08-08] MEDS: INSULIN GLARGINE SOLOSTAR 100 UNITS/ML 3 ML PEN SC SCH (20:51)
[2021-08-09] MEDS: ALBUT/IPRATROP 3MG/0.5MG NEB 3 ML VIAL NEB SCH ×3 (07:09→22:14)
[2021-08-09] MEDS: INSULIN ASPART PER UNIT SC SCH ×4 (07:40→20:49)
[2021-08-09 08:16] LABS: Hematocrit (blood only) 38.1 % (42-52); Hemoglobin 12.5 g/dL (14.0-18.0); Mean Corpuscular Hemoglobin 30.9 pg (25-34); Mean Corpuscular Hgb Conc 32.8 g/dL (32-36); Mean Corpuscular Volume 94.3 fL (80-100); Mean Platelet Volume 9.4 fL (7.4-10.4); Platelet Count 282 K/uL (130-400); RDW Coefficient of Variation 13.8 % (11.5-14.5); RDW Standard Deviation 47.7 fL (36.4-46.3); Red Blood Count 4.04 M/uL (4.7-6.1); White Blood Count 8.58 K/uL (4.8-10.8)
[2021-08-09] MEDS: amLODIPine BESYLATE 5 MG TAB PO SCH (08:40)
[2021-08-09] MEDS: PANTOprazole 40 MG TAB PO SCH (08:40)
[2021-08-09 08:45] LABS: Albumin Level 3.4 gm/dl (3.4-5.0); BUN Creatinine Ratio 29.8 (10-20); Calcium 9.3 mg/dl (8.5-10.1); Creatinine Clr Calc Pharmacy 29.1 ml/min; Est GFR (African American) 27.2 ml/min; Est GFR (Non-African American) 23.5 ml/min; Phosphorus 5.3 mg/dl (2.5-4.9); Potassium 4.8 mmol/L (3.5-5.1)
[2021-08-09 11:38] LABS: Oxygen Saturation VBG 80.2 %; pH VBG 7.36 (7.36-7.41)
--- NOTE | 2021-08-09 12:34 | Nephrology Progress Note ---
Date of Service August 09, 2021 Assessment & Plan (1) TIMOTHY (acute kidney injury): Plan: Continue improvement in serum creatinine. Non-oliguric. Volume status acceptable. Electrolytes controlled. Lisinopril held. May restart diuretics as needed to encourage slightly negative fluid balance. (2) CHF (congestive heart failure): Plan: Diuretics as needed to encourage even to slightly negative fluid balance. Document strict I/O's. Sodium restrict diet. (3) Hypertension: Plan: BP slightly elevated but acceptable. Continue to monitor. IVF stopped. Low sodium diet. Avoid restarting ALVIN for now. 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 Baseline creatinine 2.0-2.5 mg/dL. Medications appropriately dosed for kidney dysfunction. Admission and Anticipated Discharge Date Admission Date: August 03, 2021 Subjective No acute events overnight. Kulwant feels well today. He was seen and evaluate during lunch. He denies shortness of breath. Appetite is good. No urinary complaints reported. Review of Systems Review of Systems: All systems reviewed & are unremarkable except as noted in HPI & below Physical Exam Constitutional: well developed and + frail appearing; no acute distress Eyes: + anicteric sclerae; no corneal abnormality ENMT: Mouth: no oral mucosal abnormality and oral mucous membranes not dry Neck: normal visual inspection and trachea midline Respiratory: normal respiratory effort Auscultation: + rales and + wheezes Cardiovascular: Rate/Rhythm: regular rate Heart Sounds: normal S1 and normal S2 Extremities: + pedal edema Musculoskeletal: Extremities: no cyanosis and no clubbing Skin: normal turgor; no lesions Neurologic: Motor/Sensory: no tremor and no asterixis Psychiatric: Orientation: alert and oriented x 3 Results & Data ([facility]) Vital Signs (Past 12 Hours) Vital Signs Temp Pulse Pulse Resp BP Pulse Ox 08/09/21 11:30 36.8 C 81 20 157/73 H 98 08/09/21 08:00 73 08/09/21 07:57 36.7 C 89 16 168/74 H 98 08/09/21 07:11 80 20 96 08/09/21 03:36 36.8 C 82 18 188/82 H 93 Laboratory Results Laboratory Results - last 24 hr 08/08/21 08/08/21 08/09/21 16:23 20:31 07:29 WBC RBC Hgb Hct MCV MCH MCHC RDW Std Deviation RDW Coeff of Sadaf Plt Count MPV VBG pH VBG pCO2 VBG pO2 VBG HCO3 VBG O2 Saturation VBG Base Excess Sodium Potassium Chloride Carbon Dioxide Anion Gap BUN Creatinine Est Cr Clr Drug Dosing Est GFR ( Amer) Est GFR (Non-Af Amer) BUN/Creatinine Ratio Glucose POC Glucose 106 H 102 H 83 Calcium Phosphorus Albumin 08/09/21 08/09/21 08/09/21 07:59 07:59 11:15 WBC 8.58 RBC 4.04 L Hgb 12.5 L Hct 38.1 L MCV 94.3 MCH 30.9 MCHC 32.8 RDW Std Deviation 47.7 H RDW Coeff of Sadaf 13.8 Plt Count 282 MPV 9.4 VBG pH VBG pCO2 VBG pO2 VBG HCO3 VBG O2 Saturation VBG Base Excess Sodium 137 Potassium 4.8 Chloride 103 Carbon Dioxide 25 Anion Gap 9 BUN 77 H Creatinine 2.58 H D Est Cr Clr Drug Dosing 29.1 Est GFR ( Amer) 27.2 Est GFR (Non-Af Amer) 23.5 BUN/Creatinine Ratio 29.8 H Glucose 58 L POC Glucose 135 H Calcium 9.3 Phosphorus 5.3 H Albumin 3.4 08/09/21 11:26 WBC RBC Hgb Hct MCV MCH MCHC RDW Std Deviation RDW Coeff of Sadaf Plt Count MPV VBG pH Pending VBG pCO2 Pending VBG pO2 Pending VBG HCO3 Pending VBG O2 Saturation Pending VBG Base Excess Pending Sodium Potassium Chloride Carbon Dioxide Anion Gap BUN Creatinine Est Cr Clr Drug Dosing Est GFR ( Amer) Est GFR (Non-Af Amer) BUN/Creatinine Ratio Glucose POC Glucose Calcium Phosphorus Albumin PG Care Time/CCT Total # of Minutes Spent Total Time Spent with Patient: Total time spent is greater than 50% in coordination of care (as documented) at patient's floor/unit and/or counseling patient: Coding Level of Care Code 73183 Subseq Hosp Care Lvl 3 Diagnoses TIMOTHY (acute kidney injury) N17.9 CHF (congestive heart failure) I50.9 Hypertension I10 Chronic kidney disease N18.9
[2021-08-09] MEDS ORDERED: haloperidoL 1 MG TAB PO PRN (18:12)
--- NOTE | 2021-08-09 18:53 | Hospitalist Progress Note ---
Date of Service August 09, 2021 Assessment & Plan (1) Acute respiratory failure with hypoxia: Plan: likely combination of decompensated CHF + COPD overall his respiratory complaints are improved he does cont to need O2 and suspect he will have such at discharge (2) TIMOTHY (acute kidney injury): Plan: Possibly secondary to contrast-induced nephropathy Creatinine at admission was 2, quickly rising to 5.3 within 3 days Over-diuresis also possible Either way his TIMOTHY has improved nicely; creatinine down to 2.5 today Baseline creatinine appears to be the low 2's BMP in am Hold diuresis today (3) Pleural effusion: Plan: 2nd to acute/chronic diastolic CHF Effusions too small to tap (4) CHF (congestive heart failure): Plan: Acute/chronic diastolic CHF s/p diuresis Now compensated He is not on beta marysol but HRs are high enough to allow use of such holding diuretics due to #2 (5) COPD, moderate: Plan: Will need outpatient PFTs Imaging studies c/w emphysema (6) DM type 2 (diabetes mellitus, type 2): Plan: Lower lantus to 15 units from 20 units Lower novolog correction/carb ratio a1c = 8.8% (7) Acute encephalopathy: Plan: initially he likely had hospital psychosis then received ativan last pm with grogginess/sleepiness overnight mental status is improving this am hold further ativan VBG checked to ensure no hypercarbia - negative for such (8) Hypertension: Plan: amlodipine 10mg daily lisinopril on hold BPs are high - likely will use metoprolol or coreg (9) CAD (coronary artery disease): Plan: no ischemic symptoms at this time echo this admission without wall motion abnormalities (10) S/P AAA repair: (11) S/P carotid endarterectomy: (12) H/O aorto-femoral bypass: Plan: updated pt's ex- by phone this evening dispo - [facility] Admission and Anticipated Discharge Date Admission Date: August 03, 2021 Subjective last evening the patient had developed mild confusion he ultimately received ativan close to bedtime and ended up sleeping all night he was groggy this am, but awake enough to eat breakfast when I saw him late morning he awoke to his name being called and was able to talk however, he fell asleep easily he denied any specific complaints stated his "breathing was good" Review of Systems Review of Systems: gen - good appetite cv - no orthopnea pulm - no dyspnea at rest; no cough GI - no abd pain or nausea/emesis Physical Exam Physical Exam: gen - sleepy/groggy but NAD eyes - ptosis right eyelid; does not open the R eye; left eye wnl neck - no JVD heart - RRR, s1 s2 lungs - minimal end-exp wheeze, mildly decreased BS bases, no increased work of breathing abd - soft NT ND BS+ ext - no edema, pulses 2+ b/l Results & Data Results & Data ([facility]) Vital Signs (Past 12 Hours) Vital Signs Temp Pulse Pulse Resp BP Pulse Ox 08/09/21 16:07 36.9 C 84 18 151/63 H 91 08/09/21 15:25 84 08/09/21 15:02 86 18 97 08/09/21 11:30 36.8 C 81 20 157/73 H 98 08/09/21 08:00 73 08/09/21 07:57 36.7 C 89 16 168/74 H 98 08/09/21 07:11 80 20 96 Laboratory Results Laboratory Results - last 24 hr 08/08/21 08/09/21 08/09/21 20:31 07:29 07:59 WBC 8.58 RBC 4.04 L Hgb 12.5 L Hct 38.1 L MCV 94.3 MCH 30.9 MCHC 32.8 RDW Std Deviation 47.7 H RDW Coeff of Sadaf 13.8 Plt Count 282 MPV 9.4 VBG pH VBG pCO2 VBG pO2 VBG HCO3 VBG O2 Saturation VBG Base Excess Barometric Pressure Sodium Potassium Chloride Carbon Dioxide Anion Gap BUN Creatinine Est Cr Clr Drug Dosing Est GFR ( Amer) Est GFR (Non-Af Amer) BUN/Creatinine Ratio Glucose POC Glucose 102 H 83 Calcium Phosphorus Albumin 08/09/21 08/09/21 08/09/21 07:59 11:15 11:26 WBC RBC Hgb Hct MCV MCH MCHC RDW Std Deviation RDW Coeff of Sadaf Plt Count MPV VBG pH 7.36 VBG pCO2 45 VBG pO2 48 VBG HCO3 25 VBG O2 Saturation 80.2 VBG Base Excess -1.0 Barometric Pressure 736.5 Sodium 137 Potassium 4.8 Chloride 103 Carbon Dioxide 25 Anion Gap 9 BUN 77 H Creatinine 2.58 H D Est Cr Clr Drug Dosing 29.1 Est GFR ( Amer) 27.2 Est GFR (Non-Af Amer) 23.5 BUN/Creatinine Ratio 29.8 H Glucose 58 L POC Glucose 135 H Calcium 9.3 Phosphorus 5.3 H Albumin 3.4 PG Care Time/CCT Total # of Minutes Spent Total Time Spent with Patient: Total time spent is greater than 50% in coordination of care (as documented) at patient's floor/unit and/or counseling patient: Coding Level of Care Code 11563 Subseq Hosp Care Lvl 2 Diagnoses Acute respiratory failure with hypoxia J96.01 TIMOTHY (acute kidney injury) N17.9 Pleural effusion J90 CHF (congestive heart failure) I50.9 COPD, moderate J44.9 DM type 2 (diabetes mellitus, type 2) E11.9 Acute encephalopathy G93.40 Hypertension I10 CAD (coronary artery disease) I25.10 S/P AAA repair Z98.890; Z86.79 S/P carotid endarterectomy Z98.890 H/O aorto-femoral bypass Z95.828
[2021-08-09] MEDS: ATORVASTATIN 40 MG TAB PO SCH (20:48)
[2021-08-09] MEDS ORDERED: MELATONIN 3 MG TAB PO SCH (21:00)
[2021-08-09] MEDS ORDERED: INSULIN GLARGINE SOLOSTAR 100 UNITS/ML 3 ML PEN SC SCH (21:00)
[2021-08-10 05:55] LABS: Hematocrit (blood only) 38.9 % (42-52); Hemoglobin 12.6 g/dL (14.0-18.0); Mean Corpuscular Hemoglobin 31.2 pg (25-34); Mean Corpuscular Hgb Conc 32.4 g/dL (32-36); Mean Corpuscular Volume 96.3 fL (80-100); Mean Platelet Volume 9.5 fL (7.4-10.4); Platelet Count 323 K/uL (130-400); RDW Coefficient of Variation 13.5 % (11.5-14.5); RDW Standard Deviation 47.7 fL (36.4-46.3); Red Blood Count 4.04 M/uL (4.7-6.1); White Blood Count 7.18 K/uL (4.8-10.8)
[2021-08-10 06:18] LABS: Albumin Level 3.4 gm/dl (3.4-5.0); BUN Creatinine Ratio 37.8 (10-20); Calcium 9.3 mg/dl (8.5-10.1); Creatinine Clr Calc Pharmacy 40.6 ml/min; Est GFR (African American) 40.7 ml/min; Est GFR (Non-African American) 35.1 ml/min; Phosphorus 3.9 mg/dl (2.5-4.9); Potassium 5.1 mmol/L (3.5-5.1)
[2021-08-10] MEDS: ALBUT/IPRATROP 3MG/0.5MG NEB 3 ML VIAL NEB SCH ×2 (07:49→15:41)
[2021-08-10] MEDS: INSULIN ASPART PER UNIT SC SCH ×3 (08:24→17:24)
[2021-08-10] MEDS: PANTOprazole 40 MG TAB PO SCH (08:33)
[2021-08-10] MEDS: amLODIPine BESYLATE 5 MG TAB PO SCH (08:33)
--- NOTE | 2021-08-10 09:01 | Nephrology Progress Note ---
Date of Service August 10, 2021 Assessment & Plan (1) TIMOTHY (acute kidney injury): Plan: Creatinine stabilizing near baseline. Non-oliguric. Volume status acceptable. I suspect he would tolerate restarting diuretics. Electrolytes controlled. Lisinopril held. May restart diuretics as needed to encourage slightly negative fluid balance. (2) CHF (congestive heart failure): Plan: Diuretics as needed to encourage even to slightly negative fluid balance. Document strict I/O's. Sodium restrict diet. (3) Hypertension: Plan: BP slightly elevated but acceptable. Continue to monitor. Consider restarting furosemide. Low sodium diet. Avoid restarting ALVIN for now. 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 Baseline creatinine 2.0-2.5 mg/dL. Medications appropriately dosed for kidney dysfunction. Admission and Anticipated Discharge Date Admission Date: August 03, 2021 Subjective No acute events overnight. Sitting in bedside chair this AM. Overall, feels well. No acute complaints or concerns. Appetite is good. Breathing comfortably. Review of Systems Review of Systems: All systems reviewed & are unremarkable except as noted in HPI & below Physical Exam Constitutional: well developed and + frail appearing; no acute distress Eyes: + anicteric sclerae; no corneal abnormality ENMT: Mouth: no oral mucosal abnormality and oral mucous membranes not dry Neck: normal visual inspection and trachea midline Respiratory: normal respiratory effort Auscultation: + rales and + wheezes Cardiovascular: Rate/Rhythm: regular rate Heart Sounds: normal S1 and normal S2 Extremities: + pedal edema Musculoskeletal: Extremities: no cyanosis and no clubbing Skin: normal turgor; no lesions Neurologic: Motor/Sensory: no tremor and no asterixis Psychiatric: Orientation: alert and oriented x 3 Results & Data ([facility]) Vital Signs (Past 12 Hours) Vital Signs Temp Pulse Pulse Resp BP Pulse Ox 08/10/21 07:50 96 H 16 96 08/10/21 07:06 37 C 85 18 161/64 H 95 08/10/21 03:11 37 C 86 18 165/73 H 90 08/09/21 23:17 36.7 C 83 18 148/74 H 93 08/09/21 23:05 80 08/09/21 22:16 85 18 93 Laboratory Results Laboratory Results - last 24 hr 08/09/21 08/09/21 08/09/21 11:15 11:26 20:06 WBC RBC Hgb Hct MCV MCH MCHC RDW Std Deviation RDW Coeff of Sadaf Plt Count MPV VBG pH 7.36 VBG pCO2 45 VBG pO2 48 VBG HCO3 25 VBG O2 Saturation 80.2 VBG Base Excess -1.0 Barometric Pressure 736.5 Sodium Potassium Chloride Carbon Dioxide Anion Gap BUN Creatinine Est Cr Clr Drug Dosing Est GFR ( Amer) Est GFR (Non-Af Amer) BUN/Creatinine Ratio Glucose POC Glucose 135 H 163 H Calcium Phosphorus Albumin TSH 08/10/21 08/10/21 08/10/21 05:35 05:35 05:35 WBC 7.18 RBC 4.04 L Hgb 12.6 L Hct 38.9 L MCV 96.3 MCH 31.2 MCHC 32.4 RDW Std Deviation 47.7 H RDW Coeff of Sadaf 13.5 Plt Count 323 MPV 9.5 VBG pH VBG pCO2 VBG pO2 VBG HCO3 VBG O2 Saturation VBG Base Excess Barometric Pressure Sodium 138 Potassium 5.1 Chloride 105 Carbon Dioxide 24 Anion Gap 9 BUN 70 H Creatinine 1.85 H D Est Cr Clr Drug Dosing 40.6 Est GFR ( Amer) 40.7 Est GFR (Non-Af Amer) 35.1 BUN/Creatinine Ratio 37.8 H Glucose 87 POC Glucose Calcium 9.3 Phosphorus 3.9 D Albumin 3.4 TSH 2.340 08/10/21 07:15 WBC RBC Hgb Hct MCV MCH MCHC RDW Std Deviation RDW Coeff of Sadaf Plt Count MPV VBG pH VBG pCO2 VBG pO2 VBG HCO3 VBG O2 Saturation VBG Base Excess Barometric Pressure Sodium Potassium Chloride Carbon Dioxide Anion Gap BUN Creatinine Est Cr Clr Drug Dosing Est GFR ( Amer) Est GFR (Non-Af Amer) BUN/Creatinine Ratio Glucose POC Glucose 80 Calcium Phosphorus Albumin TSH PG Care Time/CCT Total # of Minutes Spent Total Time Spent with Patient: Total time spent is greater than 50% in coordination of care (as documented) at patient's floor/unit and/or counseling patient: Coding Level of Care Code 52540 Subseq Hosp Care Lvl 3 Diagnoses TIMOTHY (acute kidney injury) N17.9 CHF (congestive heart failure) I50.9 Hypertension I10 Chronic kidney disease N18.9
[2021-08-10] MEDS ORDERED: FUROSEMIDE 20 MG TAB PO SCH (10:00)
--- NOTE | 2021-08-10 17:30 | Discharge Summary ---
Date of Service date of admission - August 03, 2021 date of discharge - August 10, 2021 Admission HPI Per Admitting Provider [id number] with medical history of: COVID 19 (03/04), COPD, CKD, HLD, HTN, CVA, CEA bilateral, AAA repair, PAD with fem pop bypass 2003, VATS in 2009 for parapneumonic effusion on the RIGHT, and renal artery stenosis DM II. Patient comes to the EMD today for complaints of lower leg weakness and increase in dyspnea and needing to use his home oxygen all night. Patient endorses that everything seemed to start on Friday after he got done visiting with his daughter, he went back in the house attempted to take off his slippers and fell backwards and was unable to get up, and since then he has had difficulty breathing to where he feels he gets very dyspneic gong to the bathroom ~ 50 feet and back he starts wheezing and not being able to breathe, he has to sit down and put his oxygen on and after a "a few minutes" his symptoms resolve. The patient endorses a cough that is thick and white, he normally has a cough and also endorses that he had right sided pain pleuritic rib pain that he has had for years but noticed it get worse over this week. He is on oxygen following his COVID infection in February it appears. He also carries a diagnosis of COPD and appears to not be on any inhalers at home and he also states that he does not take any. He has stopped smoking. In the EMD the patient had CXR done, Routine labs performed and a VBG. His labs had mild leukocytosis, VBG was without acidosis or hypercarbia. He has an elevated HScTNI and BNP. CXR is with bilateral mid-lower lobe opacities- he was given 40mg IV lasix and started on Zosyn by [facility]. Hospitalist service was consulted for admission. Patient was evaluated and was on 15L NRB with Spo2 97%, he was not tachypneic and mildly tachycardic. He was transitioned to NC at 6L while we were talking and noted decrease in his oxygen saturation to 84% he again was not overtly tachypenic or conversationally short of breath. He diuresed 550 ml of urine while in the room. He is not moving much air to appreciate lung sounds throughout. Lower extremities are without edema, he was able to stand up at the bedside to use the urinal and is without any complaints of chest pain. Will obtain ABG, give another nebulizer treatment, CTA of the chest to rule out PE and will place on HFNC. Procalcitonin is pending as well as repeat HScTNI- ECG is comparable to his one from 2019. Admit to PCU, place on HFNC, continue to diurese tonight, PCT pending +/- ABX therapy, and further therapy based of CTA of the chest. His interpretation of time is a bit off when referring to his past history and hospitalizations, as he has some mention of dementia/delirium through his chart, ? medical compliance. COVID, Influinza A/B, RSV- NEGATIVE on ADMISSION Principal Diagnosis 1. acute hypoxic respiratory failure 2. acute/chronic diastolic CHF 3. COPD 4. acute kidney injury in the setting of CKD Discharge Exam gen - NAD, awake, alert eyes - ptosis right eyelid; left eye wnl neck - no JVD heart - RRR, s1 s2 lungs - minimal end-exp wheeze, mildly decreased BS bases, no increased work of breathing abd - soft NT ND BS+ ext - no edema, pulses 2+ b/l Discharge Data Allergies Allergy/AdvReac Type Severity Reaction Status Date / Time No Known Allergies Allergy Verified 06/21/21 12:37 Consultations [facility] Pulmonology [facility] Nephrology Procedures Performed Echocardiogram - * EF 55-60% * moderate LVH * no regional wall motion abnormalities * mild mitral regurgitation * no significant changes in comparison to previous echo in 2020 Ordered Studies Chest X-Ray 08/03/21 13:48 XR chest 1V portable CLINICAL HISTORY: Dyspnea COMPARISON STUDY: Chest radiograph March 06, 2021. FINDINGS: There is no pneumothorax. Small bilateral pleural effusions are noted. Interstitial thickening represents pulmonary edema. Bilateral mid and lower lung airspace opacities are also present. Cardiac size is at upper limits of normal. IMPRESSION: 1. Findings consistent with moderate interstitial pulmonary edema. Small bilateral pleural effusions. 2. Bilateral mid and lower lung airspace opacities which could reflect alveolar pulmonary edema or less likely a superimposed infectious process. Radiographic follow up is recommended to ensure resolution. ACT 112: Negative or not required by law. Electronically signed by: Dewey Diaz M.D. 08/03/2021 2:08 PM Chest CTA 08/03/21 16:15 CT ANGIOGRAPHY OF THE CHEST, PULMONARY EMBOLUS PROTOCOL CLINICAL HISTORY: Shortness of breath. Evaluate for pulmonary embolus. COMPARISON STUDY: Chest CT February 02, 2010. Chest radiograph August 03, 2021. TECHNIQUE: Following IV administration of 96 mL of Optiray, helical axial images of the chest were obtained utilizing the pulmonary embolus protocol. Maximal intensity projections and sagittal and coronal reformats were viewed on an independent 3D workstation. IV contrast was administered without complication. Automated exposure control was utilized for the study. A dose lowering technique was utilized adhering to the principles of ALARA. CT DOSE: 657.64 mGy.cm FINDINGS: No pulmonary emboli identified although the segmental and subsegmental pulmonary arteries are suboptimally assessed due to respiratory motion. There is no thoracic aortic dissection. Moderate coronary artery calcification is noted. There is mild cardiomegaly. There is apparent mild circumferential wall thickening of the distal esophagus. Mildly enlarged mediastinal lymph nodes are present. Index AP window lymph node on axial image 183 of 293 measures 1.5 cm in short axis diameter. There is no pneumothorax. Moderate left and small right pleural effusions are noted. Associated subpleural left lower lobe opacity favors atelectasis. Moderate emphysema is noted. Lungs are suboptimally assessed due to respiratory motion artifact. Interlobular septal thickening is noted. IMPRESSION: 1. No pulmonary emboli identified although segmental and subsegmental pulmonary arteries suboptimally assessed due to respiratory motion. 2. Moderate left and small right pleural effusions. Associated left lower lobe opacity favors atelectasis. 3. Interstitial pulmonary edema. 4. Emphysema. 5. Apparent mild circumferential wall thickening of the distal esophagus which is nonspecific but may reflect esophagitis ACT 112: Negative or not required by law. Electronically signed by: Dewey Diaz M.D. 08/03/2021 5:30 PM Chest X-Ray 08/05/21 12:27 XR chest 2V PA/lateral HISTORY: Follow-up chest x-ray. Hypoxia COMPARISON: Chest CT 08/03/2021. FINDINGS: The lungs are hyperexpanded with mild apical predominant emphysematous changes. No pneumothorax. The heart remains mildly enlarged. Small bilateral pleural effusions and bibasilar airspace opacities have improved. The interstitial pulmonary edema has also improved in the interval. Calcifications again noted within the aortic knob. IMPRESSION: Interval improvement in the interstitial pulmonary edema, bibasilar airspace opacities, and small bilateral pleural effusions. ACT 112: Negative or not required by law. Electronically signed by: Ethan Gilmore M.D. 08/05/2021 2:41 PM Renal Ultrasound 08/06/21 07:57 RENAL ULTRASOUND CLINICAL HISTORY: Acute kidney injury. COMPARISON STUDY: CT of the abdomen and pelvis February 20, 2019. Renal u ltrasound April 21, 2020. TECHNIQUE: Sonography of the kidneys and the urinary bladder was performed. FINDINGS: The right kidney measures 12.1 cm in maximal dimension. The left measures 9.3 cm. There is no hydronephrosis. A 1.3 cm anechoic lesion within the lower pole of the right kidney represents a cyst. No right renal calculi are identified by sonography. Marked left renal atrophy is again noted. Left kidney is atrophic. Ureteral jets were visualized. Bladder is suboptimally assessed given underdistention. IMPRESSION: 1. No hydronephrosis. 2. No change in marked left renal atrophy. ACT 112: Negative or not required by law. Electronically signed by: Dewey Diaz M.D. 08/06/2021 9:35 AM Renal Artery Duplex 08/06/21 10:59 US duplex renal artery CLINICAL HISTORY: timothy, h/o SARAH TECHNIQUE: Real-time grayscale and color and spectral Doppler ultrasound imaging of the kidneys was performed. Comparison: None available at the time of this dictation. FINDINGS: RIGHT: Normal echogenicity with preserved corticomedullary differentiation. Normal cortical thickness. Right kidney measures 13.1 cm. No hydronephrosis. No convinc ing evidence of calculus or mass. Spectral analysis: Intrarenal resistive indices range from 0.58 to 0.67. Waveforms are normal in appearance.. Renal artery patent with peak systolic velocity 73 cm/s proximally, 72 cm/s in the midportion, and 44 cm/s distally. Renal vein patent. LEFT: Normal echogenicity with preserved corticomedullary differentiation. Normal cortical thickness. Left kidney measures 11.3 cm. No hydronephrosis. No convincing evidence of calculus or mass. Spectral analysis: Cortical thinning is seen. The arcuate waveforms cannot be determined. The left renal artery demonstrates a flow velocity of 56 cm/s in the midportion. Abdominal aorta: Patent. Peak systolic velocity 84 cm/s. Bladder: Normal. Bilateral ureteral jets present. Reference ranges: Normal main renal artery peak systolic velocity less than 180 cm/s. Ratio of renal artery PSV to aortic PSV less than 3.5 equates to normal or less than 60% stenosis. Only one of the two criteria listed needs to be met for diagnosis. IMPRESSION: Velocities and resistive indices are normal and the right. On the left, there is cortical thinning compatible with renal atrophy. ACT 112: Negative or not required by law. Electronically signed by: Cesar Bruno M.D. 08/06/2021 12:41 PM Hospital Course (1) Acute respiratory failure with hypoxia: Likely combination of decompensated CHF + COPD. Former likely the main culprit while hospitalized. He received IV diuresis for his CHF. Peak O2 requirement was ~15 L O2. O2 was weaned while here and at discharge is requiring about 3 to 3.5 L O2. He will need to follow-up with [facility] for PFTs and other work-up. (2) TIMOTHY (acute kidney injury): Possibly secondary to contrast-induced nephropathy as he received IV CT contrast the day of presentation. Creatinine at admission was 2, quickly rising to 5.3 within 3 days. Over-diuresis also possible. Either way his TIMOTHY improved nicely while here with creatinine down to 1.8 on day of discharge. Baseline creatinine appears to be upper 1's to low 2's. Lisinopril & potassium supplementation were held at discharge. (3) Pleural effusion: 2nd to acute/chronic diastolic CHF. Effusions too small to intervene on while hospitalized. (4) CHF (congestive heart failure): Acute/chronic diastolic CHF. Echo during the stay with preserved EF and largely normal valve function. s/p diuresis; euvolemia achieved. Started on metoprolol 25mg twice daily. Lasix 20mg daily continued. Lisinopril held at discharge due to recent TIMOTHY as well as top-normal potassium level. (5) COPD, moderate: Will need outpatient PFTs with [facility] studies c/w emphysema He can continue on combivent until seen formally by pulmonary post-discharge (6) DM type 2 (diabetes mellitus, type 2): Hba1c = 8.8% Glimepiride stopped due to CKD and recent TIMOTHY. Jardiance stopped. Continue lantus/novolog upon discharge to rehab. (7) Acute encephalopathy: Likely hospital psychosis - resolved prior to discharge. (8) Hypertension: Continue amlodipine 10mg daily. Added metoprolol 25mg BID. Continue lasix daily. HOLD lisinopril. (9) CAD (coronary artery disease): no ischemic symptoms during the hospitalization. echo this admission without wall motion abnormalities. Continue statin, aspirin (it was unclear if he had been taking aspirin before this admission but [id number] he should be on such given his extensive cardiovascular/cerebrovascular history). Continue amlodipine. Added metoprolol tartrate 25mg BID. (10) S/P AAA repair: (11) S/P carotid endarterectomy: (12) H/O aorto-femoral bypass: (13) History of stroke: Total Time Total Time Spent Total Time Spent (In Minutes): 40 Discharge Plan Discharge Items Patient Disposition: Transfer Inpatient Rehab Fac Reason For Visit: Shortness of breath, low oxygen levels Discharge Diagnosis: 1. acute diastolic congestive heart failure - resolved 2. suspected COPD/emphysema 3. need for ongoing oxygen - 3 liters continuously - due to #2 above 4. high blood pressure 5. h/o AAA repair 6. h/o carotid endarterectomy 7. type 2 diabetes 8. h/o stroke 9. ?mild cognitive impairment? 10. chronic insomnia Activity: As commented below Activity Comment: activity as tolerated Non-emergency contact: Primary Care Provider and Insurance And Benefits Clerk Call non-emergency contact if: you have any medication questions, your symptoms worsen and you have a fever Follow-up/Referrals: Darwin Orlando DO [Physician] - (1-[address] Orlando for CKD, recent TIMOTHY, and blood pressure management) Breann Orr MD [Primary Care Provider] - (see Dr Orr upon discharge from [facility] ) Guillermo Anderson MD [Physician] - (4-6 weeks with [facility] - Dr Anderson or any available tissue technician. dx - COPD; needs PFTs, etc) Diet: Carb Consistent or DM2 and Heart Healthy Fluids: 1800ml (7 cups) Addtl Attending Provider Instructions: Mr Michel, You were hospitalized at [facility] due to weakness, difficulty breathing, and low oxygen levels. At time of admission your chest x-ray and CAT scan of the lungs showed fluid retention from congestive heart failure. You required several days of IV diuretics (lasix) to remove the excess fluid in the lungs. Your breathing did improve with the lasix. Unfortunately your kidneys became sick in the midst of your hospitalization. The kidney function deteriorated possibly due to IV contrast given for your CAT scan and/or due to diuretics. [facility] as well as [facility] nephrology for your breathing and your kidneys, respectively. [facility] has diagnosed you with COPD/emphysema from your prior tobacco use. Your CAT scan and chest x-rays show evidence of emphysema. This is likely the main reason that you need to use oxygen outside of the hospital. With respect to the kidneys your creatinine level (kidney function level) did improve with supportive care and time. Your peak creatinine level was over 5, and on day of discharge (08/10) it is 1.8. Your baseline creatinine level is about 1.8 to 2. Recommendations - 1. You need to establish care with [facility] for your suspected COPD/emphysema. They will do breathing tests and manage your condition. 2. See Dr Orlando from [facility] in 1-2 weeks. 3. repeat BMP DAILY FOR AT LEAST 2 DAYS TO ENSURE STABILITY OF CREATININE AND ELECTROLYTES. DRAW FIRST BMP ON 08/11/21. 4. supplemental NC O2 - 3 liters continuously. O2 sats 88-92% are acceptable. 5. check fingerstick blood sugars 4 times daily (before meals + bedtime). 6. AVOID ALL SEDATIVES INCLUDING ATIVAN, XANAX, HYDROXYZINE, BENADRYL, ETC THESE MEDICATIONS MAKE YOU VERY SLEEPY WHICH IN TURN CAN WORSEN YOUR BREATHING. 7. given your extensive cardiovascular history (prior carotid surgery, prior AAA surgery, prior stroke, high blood pressure, etc) please START aspirin 81mg daily. Records show that you took aspirin up until 1-2 years ago then it fell off your medication list. Again please resume baby aspirin 81mg daily. 8. STOP the following medications for now - * lisinopril * potassium supplementation * glimepiride * Jardiance 9. daily standing scale weights. If any weight gain of more than 2-3 pounds in 1-2 days please notify medical record retrieval specialist. Pending Studies at Discharge: No Stand-Alone Forms: My [facility] Skilled Items Patient informed of condition?: Yes DNR: Yes Discharge Level of Care: Acute rehab Communicable Disease: No Discharge Prognosis: Stable Lines: None Urinary Catheter: No Medications and DC Order Prescriptions: New Lantus Solostar U-100 Insulin 100 unit/mL (3 mL) Insulin Pen 10 unit SC HS Qty: 15 RF: 1 insulin aspart U-100 [Novolog U-100 Insulin aspart] 100 unit/mL Solution See Rx Instructions .ROUTE .COMPLEX Qty: 10 RF: 1 melatonin 3 mg Tablet 3 mg PO HS Qty: 30 RF: 0 metoprolol tartrate 25 mg tablet 25 mg PO BID Qty: 60 RF: 2 Combivent Respimat 20-100 mcg/actuation mist 1 puff inhalation QID Qty: 4 RF: 1 ipratropium-albuterol 0.5 mg-3 mg(2.5 mg base)/3 mL solution for nebulization 3 ml inhalation Q6H PRN (Reason: wheezing) Qty: 15 RF: 0 (DME) Oxygen Home Liters Per Minute See Rx Instructions .ROUTE .MEDSUPPLY Qty: 1 RF: 0 aspirin [Aspirin Low Dose] 81 mg tablet,delayed release (DR/EC) 81 mg PO DAILY Qty: 90 RF: 1 Continued amlodipine 10 mg tablet 10 mg PO DAILY Qty: 90 RF: 1 atorvastatin 40 mg tablet 40 mg PO QPM Qty: 90 RF: 1 furosemide 20 mg tablet 20 mg PO DAILY Qty: 30 RF: 11 pantoprazole 40 mg tablet,delayed release (DR/EC) 40 mg PO DAILY Qty: 90 RF: 1 Discontinued Jardiance 25 mg tablet 25 mg PO DAILY Qty: 90 RF: 1 glimepiride 2 mg tablet 4 mg PO QAM Qty: 180 RF: 1 lisinopril 20 mg tablet 20 mg PO DAILY Qty: 30 RF: 2 Hold Instructions: Home Medication placed on hold at Doctor's office potassium chloride 20 mEq tablet,ER particles/crystals 20 meq PO DAILY RF: 0 Discharge Orders: Discharge Order (Routine); Ordered 08/10/21 Ordered By: Jones Donovan/Other Patient Handouts: Managing Type 2 Diabetes Admission Data Admit Date/Time: 08/03/21 16:17 Attending Provider: Jones Naranjo Admit Provider: Puneet Valente Primary Care Provider: Breann Orr Other Providers: Puneet Valente ; Guillermo Anderson ; Cathryn Bernabe ; [facility] Other Interventions: Discharge Summary Assessment (RN) Last Done: 08/10/21 17:47 Coding Level of Care Code D/C DAY MANAGEMENT >30 MINS Diagnoses Acute respiratory failure with hypoxia J96.01 TIMOTHY (acute kidney injury) N17.9 Pleural effusion J90 CHF (congestive heart failure) I50.9 COPD, moderate J44.9 DM type 2 (diabetes mellitus, type 2) E11.9 Acute encephalopathy G93.40 Hypertension I10 CAD (coronary artery disease) I25.10 S/P AAA repair Z98.890; Z86.79 S/P carotid endarterectomy Z98.890 H/O aorto-femoral bypass Z95.828 History of stroke Z86.73
[2021-08-10] MEDS ORDERED: INSULIN GLARGINE SOLOSTAR 100 UNITS/ML 3 ML PEN SC SCH (21:00)
--- NOTE | 2021-08-16 12:17 | Coding Query ---
CODING QUERY To promote full compliance with coding requirements relating to patient care, provider participation is requested in all cases of manager access uncertainty. Please assist us with the question(s) below: Coding Question(s): Patient admitted with acute hypoxic respiratory failure due to both CHF and progression of COPD. The History / Physical addendum documented increased Trop likely Demand Type 2 .... Pulmonary Consult documents "small pleural effusion concerning for some compressive atelectasis, likely a VQ mismatch". Seeking to clarify the Demand Type 2 phrase. Please check below the phrase that applies to Demand Type 2 for this patient. Thanks for your help! ADDIS Phillips [facility] Physician's Response(s): Myocardial Type 2 Demand Ischemia Demand Ischemia Cannot Clinically Correlate Demand Type 2 ____x Other: Please document: _elevated troponin 2nd to myocardial demand ischemia Principal Diagnosis: "that condition established after study, to be chiefly responsible for occasioning the admission of the patient to the hospital for care." Co-Existing Principal Diagnosis: "when two or more diagnoses equally meet the criteria for principal diagnosis as determined by the circumstances of admission, diagnostic work up, and/or therapy provided, and the Alphabetic Index, Tabular List, or another coding guideline does not provide sequencing direction, any one of the diagnoses may be sequenced first." "When the physician has documented what appears to be a current diagnosis in the body of the record, but has not included the diagnosis in the final diagnostic statement, the physician should be asked whether the diagnosis should be added." (Source Coding Clinic 2 QTR90. p3-4) [facility]
== END 2021-08-10 18:26 | DRG 291 ==
LOC: ED 13:29 → 2S 16:17 → SUATTDRO 16:17 → 2S 17:19
DX: Z66 Do not resuscitate; E11.22 Type 2 diabetes mellitus with diabetic chronic kidney disease; T50.8X5A Adverse effect of diagnostic agents, initial encounter; I70.1 Atherosclerosis of renal artery; G31.84 Mild cognitive impairment of uncertain or unknown etiology; I34.0 Nonrheumatic mitral (valve) insufficiency; G47.00 Insomnia, unspecified; Z86.73 Personal history of transient ischemic attack (TIA), and cerebral infarction without residual deficits; J91.8 Pleural effusion in other conditions classified elsewhere; Y92.239 Unspecified place in hospital as the place of occurrence of the external cause; J43.9 Emphysema, unspecified; N18.4 Chronic kidney disease, stage 4 (severe); Z87.891 Personal history of nicotine dependence; G93.49 Other encephalopathy; J96.01 Acute respiratory failure with hypoxia; I50.33 Acute on chronic diastolic (congestive) heart failure; I13.0 Hypertensive heart and chronic kidney disease with heart failure and stage 1 through stage 4 chronic kidney disease, or unspecified chronic kidney disease; I24.8 Other forms of acute ischemic heart disease; I25.10 Atherosclerotic heart disease of native coronary artery without angina pectoris; N14.1 Nephropathy induced by other drugs, medicaments and biological substances; J98.11 Atelectasis; N17.9 Acute kidney failure, unspecified; Z99.81 Dependence on supplemental oxygen; Z86.16 Personal history of COVID-19; E78.5 Hyperlipidemia, unspecified

== ENCOUNTER 2023-05-11 21:11 | Observation (INO) ==
[2023-05-11 21:40] LABS: iSTAT Creatinine 1.9 mg/dl (0.6-1.3); iSTAT Hemoglobin 17.7 g/dl (14.0-18.0); iSTAT Ionized Calcium 1.17 mmol/l (1.12-1.32); iSTAT Potassium 4.3 mmol/L (3.3-5.0)
[2023-05-11] MEDS ORDERED: SODIUM CHLORIDE 0.9% 500 ML IV SCH (21:45)
[2023-05-11] MEDS ORDERED: SODIUM CHLORIDE 0.9% 500 ML IV ONE (21:45)
[2023-05-11 21:53] LABS: Basophils # (auto) 0.06 K/uL (0.00-0.20); Basophils % (auto) 0.4 %; Eosinophils % (auto) 0.6 %; Hematocrit (blood only) 51.4 % (42.0-52.0); Hemoglobin 17.8 g/dl (14.0-18.0); Immature Granulocytes % (auto) 1.2 %; Lymphocytes # (auto) 1.99 K/uL (1.20-3.40); Lymphocytes % (auto) 11.9 %; Mean Corpuscular Hgb Conc 34.6 g/dL (32.0-36.0); Mean Corpuscular Volume 92.3 fL (80.0-100.0); Mean Platelet Volume 11.1 fL (9.4-12.4); Monocytes # (auto) 1.27 K/uL (0.11-0.59); Monocytes % (auto) 7.6 %; Neutrophils # (auto) 13.13 K/uL (1.40-6.50); Neutrophils % (auto) 78.3 %; Platelet Count 208 K/uL (130-400); RDW Coefficient of Variation 12.3 % (11.5-14.5); RDW Standard Deviation 41.6 fL (36.4-46.3); Red Blood Count 5.57 M/uL (4.70-6.10); White Blood Count 16.75 K/ul (4.8-10.8)
[2023-05-11 22:05] LABS: Base Excess VBG 8.1 mEq/L; HCO3 VBG 33 mmol/L; Oxygen Saturation VBG < 60.0 %; PCO2 VBG 48 mmHg (38-50); PO2 VBG 29 mmHg; pH VBG 7.45 (7.36-7.41)
[2023-05-11 22:21] LABS: Partial Thromboplastin Ratio 0.9; Partial Thromboplastin Time 25 Seconds (21-31); Prothrombin Time 10.9 Seconds (9.0-12.0)
--- NOTE | 2023-05-11 22:27 | Emergency Department Note ---
History of Present Illness General Chief complaint: Syncope Stated complaint: Syncope, Arms Tingling Time Seen by Provider: 05/11/23 21:25 History of Present Illness This 77-year-old male presents the ER for increasing weakness today who apparently passed out the other day. Patient states he was too weak to get off the couch to get some water. His ex- was concerned and called EMS. Patient has chest pain, dyspnea, headache, fever, chills, cough, congestion, abdominal pain, vomiting, diarrhea. Patient is unsure how long he passed out on . Patient is requesting water at this time. Home Medications Medication Instructions Recorded Confirmed Type Oxygen Home #1 ea 08/10/21 04/28/23 Rx melatonin 3 mg tablet 3 mg PO HS #30 tabs 08/10/21 04/28/23 Rx aspirin 81 mg tablet,delayed 81 mg PO DAILY #90 tabs 09/05/21 04/28/23 Rx release (Hola Low Dose Aspirin) metformin 500 mg tablet 500 mg PO DAILY #30 tabs 12/04/21 04/28/23 Rx empagliflozin 25 mg tablet 25 mg PO DAILY #90 tabs 10/03/22 04/28/23 Rx (Jardiance) amlodipine 10 mg tablet 10 mg PO DAILY #90 tabs 11/15/22 04/28/23 Rx glimepiride 4 mg tablet 4 mg PO DAILY #90 tabs 11/22/22 04/28/23 Rx pantoprazole 40 mg tablet,delayed 40 mg PO DAILY #90 tabs 03/10/23 04/28/23 Rx release furosemide 40 mg tablet 40 mg PO DAILY #90 tabs 03/17/23 04/28/23 Rx metoprolol tartrate 50 mg tablet 50 mg PO BID #180 tabs 03/17/23 04/28/23 Rx atorvastatin 40 mg tablet 40 mg PO QPM #90 tabs 03/21/23 04/28/23 Rx diphenhydramine HCl 25 mg capsule 25 mg PO HS PRN Sleep 04/23/23 04/28/23 History (ZzzQuil) doxylamine succinate 25 mg tablet 25 mg PO HS PRN Sleep 04/23/23 04/28/23 History (Unisom (doxylamine)) prednisone 20 mg tablet See Rx Instructions PO .COMPLEX 04/28/23 04/28/23 Rx #30 tabs Allergies Allergy/AdvReac Type Severity Reaction Status Date / Time No Known Allergies Allergy Verified 04/28/23 10:50 Past Med/Surg History Medical History Hyperlipidemia Encounter for screening for malignant neoplasm of rectum Encounter for screening for malignant neoplasm of colon Acute encephalopathy TIMOTHY (acute kidney injury) Mitral regurgitation Hyperkalemia TIMOTHY (acute kidney injury) Generalized weakness Acute respiratory failure with hypoxia Renal artery stenosis Urinary symptom or sign Elevated troponin Dehydration Sleep disturbance Diabetes Blind right eye PUD (peptic ulcer disease) History of Helicobacter pylori infection CAD (coronary artery disease) AAA (abdominal aortic aneurysm) "s/p repair" DM type 2 (diabetes mellitus, type 2) CKD (chronic kidney disease), stage III COPD, moderate Hemiplegia Dysphagia Cerebrovascular disease, arteriosclerotic, post-stroke TIA (transient ischemic attack) PVD (peripheral vascular disease) Hypertension Cancer Surgical History History of esophagogastroduodenoscopy diagnostic H/O colonoscopy with polypectomy History of incision and drainage "evacuation of the left neck postop hematoma ()" H/O aorto-femoral bypass S/P carotid endarterectomy "bilateral" S/P AAA repair Family History Other Family history non-contributory No pertinent family history Denies family history of Ovarian cancer Prostate cancer Myocardial infarction Breast cancer Colorectal cancer Social History Smoking Status: Former smoker Tobacco Type: Cigarettes Second Hand Exposure: No; Do You Dip or Chew Tobacco: No; Hx Alcohol Use: No Hx Substance Use: No Preferred Language: Pashto Communication Ability: Effective Visual Impairment: Partially Limited Hearing Ability: Normal Tafe Registrar Required: No Beliefs That Will Affect Care: None marital status: Current Living Situation: Alone current occupational status: retired How many Children do You have: 2 Feels Safe at Home: Yes Childhood Exposure to Second-Hand Smoke: No Diet: regular caffeine: Yes Dental Care, Regularly: No Physical Activity Frequency: Does not Exercise Seatbelt Use: sometimes Sunscreen Use: No Assistive Devices: Walker Review of Systems A total of 10 systems reviewed and were otherwise negative Physical Exam Vital Signs Vital Signs - 24 hr 05/11/23 21:18 05/11/23 21:24 05/11/23 22:14 Temperature 36.9 C Temperature Source Oral Pulse Rate 87 89 76 Pulse Rate from SpO2 Sensor 51 L Pulse Rhythm Regular Pulse Strength Normal Respiratory Rate 18 19 Respiratory Effort / Characteristics Non-Labored Spontaneous Respiratory Depth Normal Respiratory Pattern Regular Blood Pressure 173/114 H 205/105 H Blood Pressure Mean 133 138 Blood Pressure Position Sitting Pulse Oximetry 98 94 Oxygen Delivery Method Room Air Room Air Sepsis Recent Fever Within 48 Hours No Sepsis New/Unexplained Change in Mental Status N/A Sepsis Action Taken by Nursing No Action Required 05/11/23 22:34 05/11/23 22:49 05/11/23 23:01 Temperature Temperature Source Pulse Rate 73 75 78 Pulse Rate from SpO2 Sensor 73 75 79 Pulse Rhythm Pulse Strength Respiratory Rate 21 17 15 Respiratory Effort / Characteristics Respiratory Depth Respiratory Pattern Blood Pressure 246/95 H 213/106 H 243/128 H Blood Pressure Mean 145 141 166 Blood Pressure Position Pulse Oximetry 95 92 96 Oxygen Delivery Method Room Air Room Air Room Air Sepsis Recent Fever Within 48 Hours Sepsis New/Unexplained Change in Mental Status Sepsis Action Taken by Nursing 05/11/23 23:03 05/11/23 23:05 05/11/23 23:30 Temperature Temperature Source Pulse Rate 81 94 H 74 Pulse Rate from SpO2 Sensor Pulse Rhythm Pulse Strength Respiratory Rate 18 21 Respiratory Effort / Characteristics Respiratory Depth Respiratory Pattern Blood Pressure 205/105 H 205/105 H 208/97 H Blood Pressure Mean 138 134 Blood Pressure Position Pulse Oximetry 96 94 Oxygen Delivery Method Room Air Room Air Sepsis Recent Fever Within 48 Hours Sepsis New/Unexplained Change in Mental Status Sepsis Action Taken by Nursing VITALS: Vitals are noted on the nurse's note and reviewed by myself. Vital signs stable. GENERAL: Pleasant gentleman, in no acute distress, nondiaphoretic, well- developed well-nourished. SKIN: The skin was without rashes, erythema, edema, or bruising. There is no tenting of the skin. Capillary reflex less than 2 seconds. HEAD: Normocephalic atraumatic. EARS: External auditory canals clear EYES: Pupils equal round and reactive to light and accommodation. Right eye blind. Conjunctivae without injection, sclerae without icterus. Extraocular movements intact. NOSE: Patent, no discharge. MOUTH: Mucous membranes mildly dry. Pharynx without erythema or exudate. Uvula midline. Airway patent. Tongue does not deviate. NECK: Supple without nuchal rigidity. No lymphadenopathy. No thyromegaly. Cervical spine is nontender. No JVD. HEART: Regular rate and rhythm LUNGS: Clear to auscultation bilaterally without wheezes, rales or rhonchi. No retractions or accessory muscle use. ABDOMEN: Positive bowel sounds x 4. Normal tympanic percussion. Soft, nontender, without masses or organomegaly. Florence sign negative. No guarding or rebound tenderness. No CVA tenderness MUSCULOSKELETAL: No muscle atrophy, erythema, or edema noted. NEURO: Patient was alert and oriented to person place and time. Normal sensation to light and sharp touch. No focal neurological deficits. Course Administered Medications Discontinued Medications Amlodipine Besylate (Amlodipine Besylate 5 Mg Tab) 10 mg PO NOW ONE Stop: 05/11/23 22:52 Last Admin: 05/11/23 23:05 Dose: 10 mg Documented By: SHERIDAN Sodium Chloride (Nss) 500 mls @ 999 mls/hr IV .Q31M ROBERT Stop: 05/11/23 22:15 Last Infusion: 05/11/23 22:23 Dose: Infused Documented By: Admin: 05/11/23 21:55 Dose: 999 mls/hr Documented By: DWAYNE Sodium Chloride (Nss) 500 mls @ 999 mls/hr IV .Q31M ONE Stop: 05/11/23 22:15 Last Infusion: 05/11/23 22:51 Dose: Infused Documented By: Admin: 05/11/23 22:15 Dose: 999 mls/hr Documented By: DWAYNE Insulin Human Regular (Novolin-R Insulin Per Unit Charge) 10 units IV NOW STA Stop: 05/11/23 22:52 Last Admin: 05/11/23 23:06 Dose: 10 units Documented By: SHERIDAN Co-signed By: DWAYNE Metoprolol Tartrate (Metoprolol Tartrate 1 Mg/Ml Vial) 5 mg IV NOW STA Stop: 05/11/23 22:52 Last Admin: 05/11/23 23:05 Dose: 5 mg Documented By: SHERIDAN Metoprolol Tartrate (Metoprolol Tartrate 50 Mg Tab) 50 mg PO NOW STA Stop: 05/11/23 22:52 Last Admin: 05/11/23 23:05 Dose: 50 mg Documented By: SHERIDAN Medical Decision Making Medical Records Attestation: I reviewed the patient's medical records. Home Medications Current Medication List: was personally reviewed by me Laboratory Data Attestation: I reviewed the patient's lab results. 05/11/23 21:30 05/11/23 21:30 Lab Results 05/11/23 05/11/23 05/11/23 Range/Units 21:26 21:30 21:50 WBC 16.75 H (4.8-10.8) K/ul RBC 5.57 (4.70-6.10) M/uL Hgb 17.8 (14.0-18.0) g/dl POC Hgb 17.7 (14.0-18.0) g/dl Hct 51.4 (42.0-52.0) % POC Hct 52 (42-52) % MCV 92.3 (80.0-100.0) fL MCH 32.0 (25.0-34.0) pg MCHC 34.6 (32.0-36.0) g/dL RDW Std Deviation 41.6 (36.4-46.3) fL RDW Coeff of Sadaf 12.3 (11.5-14.5) % Plt Count 208 (130-400) K/uL MPV 11.1 (9.4-12.4) fL Immature Gran % (Auto) 1.2 % Neut % (Auto) 78.3 % Lymph % (Auto) 11.9 % [place] % (Auto) 7.6 % Eos % (Auto) 0.6 % Baso % (Auto) 0.4 % Neut # (Auto) 13.13 H (1.40-6.50) K/uL Lymph # (Auto) 1.99 (1.20-3.40) K/uL [place] # (Auto) 1.27 H (0.11-0.59) K/uL Eos # (Auto) 0.10 (0.00-0.50) K/uL Baso # (Auto) 0.06 (0.00-0.20) K/uL Immature Gran # (Auto) 0.20 (0.01-0.20) K/uL PT 10.9 (9.0-12.0) Seconds INR 1.0 (0.9-1.1) APTT 25 (21-31) Seconds PTT Ratio 0.9 VBG pH 7.45 H (7.36-7.41) VBG pCO2 48 (38-50) mmHg VBG pO2 29 mmHg VBG HCO3 33 mmol/L VBG O2 Saturation < 60.0 % VBG Base Excess 8.1 mEq/L POC Sodium 134 L (135-144) mmol/L Sodium 132 L (136-145) mmol/L POC Potassium 4.3 (3.3-5.0) mmol/L Potassium 4.1 (3.5-5.1) mmol/L POC Chloride 94 L (101-112) mmol/L Chloride 93 L (98-107) mmol/L Carbon Dioxide 29 (21-32) mmol/L POC Total CO2 30 (24-31) mmol/L Anion Gap 10 (3-11) POC Anion Gap 16.0 (16-25) mmol/L POC BUN 46 H (7-18) mg/dl BUN 48 H (6-23) mg/dl Creatinine 1.76 H (0.6-1.4) mg/dl POC Creatinine 1.9 H (0.6-1.3) mg/dl Est Cr Clr Drug Dosing 35.7 ml/min Est GFR ( Amer) 42.6 ml/min Est GFR (Non-Af Amer) 36.7 ml/min BUN/Creatinine Ratio 27.3 H (10-20) Glucose 466 H* (70-99(Fasting)) mg/dl POC Glucose (70-99) mg/dl POC Glucose (other) 462 H* (70-99) mg/dl Lactate 1.8 (0.4-2.0) mmol/L Calcium 9.9 (8.6-10.3) mg/dl POC Ioniz Calcium Mary 1.17 (1.12-1.32) mmol/l Magnesium 1.9 (1.7-2.4) mg/dl Total Bilirubin 1.8 H (0.2-1.0) mg/dl Direct Bilirubin 0.3 H (0-0.2) mg/dl AST 17 (13-39) U/L ALT 24 (7-52) U/L Alkaline Phosphatase 109 H (34-104) U/L Total Creatine Kinase 24 L (30-223) U/L Troponin I High Sens 37.8 H (0-20) pg/ml Total Protein 7.2 (6.0-8.3) gm/dl Albumin 4.0 (3.4-5.0) gm/dl Procalcitonin 0.05 (0-0.5) ng/ml TSH 0.970 (0.300-4.500) uIu/ml Urine Color Urine Appearance (Clear) Urine pH (4.5-7.5) Ur Specific [place] (1.000-1.030) Urine Protein (Negative) Urine Glucose (UA) (Negative) Urine Ketones (Negative) Urine Blood (Negative) Urine Nitrite (Negative) Urine Bilirubin (Negative) Urine Urobilinogen (Negative) Ur Leukocyte Esterase (Negative) Urine RBC (0-4) /hpf Urine WBC (0-5) /hpf Ur Epithelial Cells (0-5) /lpf Urine Bacteria (Negative) Adenovirus (PCR) (NotDetected) B. pertussis DNA (PCR) (NotDetected) B.parapertussis DNA PCR (NotDetected) C. pneumoniae DNA (PCR) (NotDetected) Coronavirus OC43 (PCR) (NotDetected) Coronavirus HKU1 (PCR) (NotDetected) Coronavirus 229E (PCR) (NotDetected) SARS-CoV-2 (PCR) (NotDetected) Coronavirus NL63 (PCR) (NotDetected) Human Metapneumovir PCR (NotDetected) Influenza Type A (PCR) (NotDetected) Influenza Type B (PCR) (NotDetected) M. pneumoniae (PCR) (NotDetected) Parainfluenza 1 (PCR) (NotDetected) Parainfluenza 2 (PCR) (NotDetected) Parainfluenza 3 (PCR) (NotDetected) Parainfluenza 4 (PCR) (NotDetected) RSV (PCR) (NotDetected) Entero/Rhino (PCR) (NotDetected) 05/11/23 05/11/23 05/11/23 Range/Units 22:15 22:53 23:02 WBC (4.8-10.8) K/ul RBC (4.70-6.10) M/uL Hgb (14.0-18.0) g/dl POC Hgb (14.0-18.0) g/dl Hct (42.0-52.0) % POC Hct (42-52) % MCV (80.0-100.0) fL MCH (25.0-34.0) pg MCHC (32.0-36.0) g/dL RDW Std Deviation (36.4-46.3) fL RDW Coeff of Sadaf (11.5-14.5) % Plt Count (130-400) K/uL MPV (9.4-12.4) fL Immature Gran % (Auto) % Neut % (Auto) % Lymph % (Auto) % [place] % (Auto) % Eos % (Auto) % Baso % (Auto) % Neut # (Auto) (1.40-6.50) K/uL Lymph # (Auto) (1.20-3.40) K/uL [place] # (Auto) (0.11-0.59) K/uL Eos # (Auto) (0.00-0.50) K/uL Baso # (Auto) (0.00-0.20) K/uL Immature Gran # (Auto) (0.01-0.20) K/uL PT (9.0-12.0) Seconds INR (0.9-1.1) APTT (21-31) Seconds PTT Ratio VBG pH (7.36-7.41) VBG pCO2 (38-50) mmHg VBG pO2 mmHg VBG HCO3 mmol/L VBG O2 Saturation % VBG Base Excess mEq/L POC Sodium (135-144) mmol/L Sodium (136-145) mmol/L POC Potassium (3.3-5.0) mmol/L Potassium (3.5-5.1) mmol/L POC Chloride (101-112) mmol/L Chloride (98-107) mmol/L Carbon Dioxide (21-32) mmol/L POC Total CO2 (24-31) mmol/L Anion Gap (3-11) POC Anion Gap (16-25) mmol/L POC BUN (7-18) mg/dl BUN (6-23) mg/dl Creatinine (0.6-1.4) mg/dl POC Creatinine (0.6-1.3) mg/dl Est Cr Clr Drug Dosing ml/min Est GFR ( Amer) ml/min Est GFR (Non-Af Amer) ml/min BUN/Creatinine Ratio (10-20) Glucose (70-99(Fasting)) mg/dl POC Glucose 327 H* (70-99) mg/dl POC Glucose (other) (70-99) mg/dl Lactate (0.4-2.0) mmol/L Calcium (8.6-10.3) mg/dl POC Ioniz Calcium Mary (1.12-1.32) mmol/l Magnesium (1.7-2.4) mg/dl Total Bilirubin (0.2-1.0) mg/dl Direct Bilirubin (0-0.2) mg/dl AST (13-39) U/L ALT (7-52) U/L Alkaline Phosphatase (34-104) U/L Total Creatine Kinase (30-223) U/L Troponin I High Sens (0-20) pg/ml Total Protein (6.0-8.3) gm/dl Albumin (3.4-5.0) gm/dl Procalcitonin (0-0.5) ng/ml TSH (0.300-4.500) uIu/ml Urine Color Yellow Urine Appearance Slightly Cloudy (Clear) Urine pH 5.5 (4.5-7.5) Ur Specific [place] 1.010 (1.000-1.030) Urine Protein 1+ H (Negative) Urine Glucose (UA) 2+ H (Negative) Urine Ketones Negative (Negative) Urine Blood 1+ H (Negative) Urine Nitrite Negative (Negative) Urine Bilirubin Negative (Negative) Urine Urobilinogen Negative (Negative) Ur Leukocyte Esterase Negative (Negative) Urine RBC 0-4 (0-4) /hpf Urine WBC 0-5 (0-5) /hpf Ur Epithelial Cells 0-5 (0-5) /lpf Urine Bacteria Negative (Negative) Adenovirus (PCR) Not Detected (NotDetected) B. pertussis DNA (PCR) Not Detected (NotDetected) B.parapertussis DNA PCR Not Detected (NotDetected) C. pneumoniae DNA (PCR) Not Detected (NotDetected) Coronavirus OC43 (PCR) Not Detected (NotDetected) Coronavirus HKU1 (PCR) Not Detected (NotDetected) Coronavirus 229E (PCR) Not Detected (NotDetected) SARS-CoV-2 (PCR) Not Detected (NotDetected) Coronavirus NL63 (PCR) Not Detected (NotDetected) Human Metapneumovir PCR Not Detected (NotDetected) Influenza Type A (PCR) Not Detected (NotDetected) Influenza Type B (PCR) Not Detected (NotDetected) M. pneumoniae (PCR) Not Detected (NotDetected) Parainfluenza 1 (PCR) Not Detected (NotDetected) Parainfluenza 2 (PCR) Not Detected (NotDetected) Parainfluenza 3 (PCR) Not Detected (NotDetected) Parainfluenza 4 (PCR) Not Detected (NotDetected) RSV (PCR) Not Detected (NotDetected) Entero/Rhino (PCR) Not Detected (NotDetected) 05/11/23 Range/Units 23:57 WBC (4.8-10.8) K/ul RBC (4.70-6.10) M/uL Hgb (14.0-18.0) g/dl POC Hgb (14.0-18.0) g/dl Hct (42.0-52.0) % POC Hct (42-52) % MCV (80.0-100.0) fL MCH (25.0-34.0) pg MCHC (32.0-36.0) g/dL RDW Std Deviation (36.4-46.3) fL RDW Coeff of Sadaf (11.5-14.5) % Plt Count (130-400) K/uL MPV (9.4-12.4) fL Immature Gran % (Auto) % Neut % (Auto) % Lymph % (Auto) % [place] % (Auto) % Eos % (Auto) % Baso % (Auto) % Neut # (Auto) (1.40-6.50) K/uL Lymph # (Auto) (1.20-3.40) K/uL [place] # (Auto) (0.11-0.59) K/uL Eos # (Auto) (0.00-0.50) K/uL Baso # (Auto) (0.00-0.20) K/uL Immature Gran # (Auto) (0.01-0.20) K/uL PT (9.0-12.0) Seconds INR (0.9-1.1) APTT (21-31) Seconds PTT Ratio VBG pH (7.36-7.41) VBG pCO2 (38-50) mmHg VBG pO2 mmHg VBG HCO3 mmol/L VBG O2 Saturation % VBG Base Excess mEq/L POC Sodium (135-144) mmol/L Sodium (136-145) mmol/L POC Potassium (3.3-5.0) mmol/L Potassium (3.5-5.1) mmol/L POC Chloride (101-112) mmol/L Chloride (98-107) mmol/L Carbon Dioxide (21-32) mmol/L POC Total CO2 (24-31) mmol/L Anion Gap (3-11) POC Anion Gap (16-25) mmol/L POC BUN (7-18) mg/dl BUN (6-23) mg/dl Creatinine (0.6-1.4) mg/dl POC Creatinine (0.6-1.3) mg/dl Est Cr Clr Drug Dosing ml/min Est GFR ( Amer) ml/min Est GFR (Non-Af Amer) ml/min BUN/Creatinine Ratio (10-20) Glucose (70-99(Fasting)) mg/dl POC Glucose 217 H (70-99) mg/dl POC Glucose (other) (70-99) mg/dl Lactate (0.4-2.0) mmol/L Calcium (8.6-10.3) mg/dl POC Ioniz Calcium Mary (1.12-1.32) mmol/l Magnesium (1.7-2.4) mg/dl Total Bilirubin (0.2-1.0) mg/dl Direct Bilirubin (0-0.2) mg/dl AST (13-39) U/L ALT (7-52) U/L Alkaline Phosphatase (34-104) U/L Total Creatine Kinase (30-223) U/L Troponin I High Sens (0-20) pg/ml Total Protein (6.0-8.3) gm/dl Albumin (3.4-5.0) gm/dl Procalcitonin (0-0.5) ng/ml TSH (0.300-4.500) uIu/ml Urine Color Urine Appearance (Clear) Urine pH (4.5-7.5) Ur Specific [place] (1.000-1.030) Urine Protein (Negative) Urine Glucose (UA) (Negative) Urine Ketones (Negative) Urine Blood (Negative) Urine Nitrite (Negative) Urine Bilirubin (Negative) Urine Urobilinogen (Negative) Ur Leukocyte Esterase (Negative) Urine RBC (0-4) /hpf Urine WBC (0-5) /hpf Ur Epithelial Cells (0-5) /lpf Urine Bacteria (Negative) Adenovirus (PCR) (NotDetected) B. pertussis DNA (PCR) (NotDetected) B.parapertussis DNA PCR (NotDetected) C. pneumoniae DNA (PCR) (NotDetected) Coronavirus OC43 (PCR) (NotDetected) Coronavirus HKU1 (PCR) (NotDetected) Coronavirus 229E (PCR) (NotDetected) SARS-CoV-2 (PCR) (NotDetected) Coronavirus NL63 (PCR) (NotDetected) Human Metapneumovir PCR (NotDetected) Influenza Type A (PCR) (NotDetected) Influenza Type B (PCR) (NotDetected) M. pneumoniae (PCR) (NotDetected) Parainfluenza 1 (PCR) (NotDetected) Parainfluenza 2 (PCR) (NotDetected) Parainfluenza 3 (PCR) (NotDetected) Parainfluenza 4 (PCR) (NotDetected) RSV (PCR) (NotDetected) Entero/Rhino (PCR) (NotDetected) Imaging Data Attestation: I personally reviewed and interpreted this imaging study as follows: Radiologist's Impression: Head CT 05/11/23 21:42 Exam(s): CT HEAD Without Contrast EXAM: CT Head Without Intravenous Contrast CLINICAL HISTORY: Reason for exam: ams, tongue deviates to the Right. TECHNIQUE: Axial computed tomography images of the head/brain without intravenous contrast. Automated exposure control was utilized for the study. A dose lowering technique was utilized adhering to the principles of ALARA. COMPARISON: No relevant prior studies available. FINDINGS: No acute intracranial hemorrhage. No midline shift or mass effect. The territorial frank-white matter differentiation is maintained throughout. Age-related cerebral volume loss. Periventricular and subcortical white matter hypoattenuation, consistent with chronic microangiopathy. Phthisis bulbi right eye. The calvarium is intact. The visualized paranasal sinuses and mastoid air cells are grossly clear. IMPRESSION: No acute intracranial hemorrhage, midline shift, or mass effect. Electronically signed by: Sampson Restrepo MD 05/11/23 22:41 PM MDM Narrative Prior records/ancillary studies reviewed and summarized above. Nursing notes reviewed. Additional history obtained from nursing. The patient's history was concerning for increasing weakness. Differential diagnosis: Etiologies such as metabolic, infection, hypo/hyperglycemia, electrolyte abnormalities, cardiac sources, intracerebral event, toxicologic, neurologic, as well as others were entertained. Physical examination: As above. ER treatment provided: IV Lock An order was placed for continuous cardiac monitoring. The monitor shows a rate of 60-100 with a sinus rhythm per my interpretation. IV fluids, insulin, metoprolol p.o. and IV were ordered. Patient apparently is not been taking his medicines for the past few days On reassessment the patient felt better. Diagnostics interpretation by me: ECG: Ordered for weakness EKG: Normal sinus, Q waves in inferior leads, no acute ST-T wave changes, rate 88. Impression normal sinus rhythm with Q waves in inferior leads independently interpreted by myself The labs Independently Interpreted by myself revealed leukocytosis Blood cultures pending. Negative lactic VBG reviewed Hyperglycemia and repeat blood sugar was improved after fluids and insulin Imaging studies: Chest x-ray with no acute consolidation, pneumothorax or free air per my independent interpretation Head CT was reviewed and read by radiology as above and was negative for acute new findings Consultation: A consultation was placed with the hospitalist. The case was discussed and diagnostics were reviewed. The patient was evaluated in the ER for further treatment. Exam and history seem consistent with weakness with hyperglycemia and elevated blood pressure. Patient apparently has not been taking his medications. He states has been too weak. Apparently he fell on or passed out he is not quite sure. Patient states today he was too weak to get off the couch to get something to drink. Patient denies chest pain, dyspnea, numbness, tingling, localized weakness. Patient states his right eye is normal little droopy as he is blind in along with his tongue Sticks to the right. by the evaluation outlined above emergent etiologies such as infection, intracerebral event, toxologic, neurologic, metabolic, as well as others were deemed relatively unlikely. The pt informed about the findings as listed above. All questions were answered and pleased with the treatment. The chart was completed utilizing [employer] Speech voice recognition software. Grammatical errors, random word insertions, pronoun errors, and incomplete sentences are an occassional consequence of this system due to software limitations, ambient noise, and hardware issues. Any formal questions or concerns about the content, text, or information contained within the body of this dictation should be directly addressed to the physician clinical assistant professor for clarification. Impression & Plan Weakness, Elevated troponin, Acute hyperglycemia Discharge Plan Visit Data Chief Complaint: Syncope Stated Complaint: Syncope, Arms Tingling ED Provider: Thad Barnes ED Midlevel Provider: Lilia Morales Discharge Problem: Weakness, Elevated troponin, Acute hyperglycemia Patient Disposition: Admitted As Inpatient Condition: Fair Forms Stand Alone Forms: [facility] Ticket [employer] Prescriptions Prescriptions: No Action Jardiance 25 mg tablet 25 mg PO DAILY Qty: 90 1RF amlodipine 10 mg tablet 10 mg PO DAILY Qty: 90 1RF glimepiride 4 mg tablet 4 mg PO DAILY Qty: 90 2RF pantoprazole 40 mg tablet,delayed release (DR/EC) 40 mg PO DAILY Qty: 90 1RF Rx Instructions: 30 minutes prior to meal metoprolol tartrate 50 mg tablet 50 mg PO BID Qty: 180 1RF furosemide 40 mg tablet 40 mg PO DAILY Qty: 90 1RF atorvastatin 40 mg tablet 40 mg PO QPM Qty: 90 1RF aspirin [Hola Low Dose Aspirin] 81 mg tablet,delayed release (DR/EC) 81 mg PO DAILY Qty: 90 1RF metformin 500 mg tablet 500 mg PO DAILY Qty: 30 4RF prednisone 20 mg tablet See Rx Instructions PO .COMPLEX Qty: 30 0RF Rx Instructions: 3 tabs PO daily X 5 days, then 2 tabs PO daily X 5 days, then 1 tab PO daily X 5 days, then stop. melatonin 3 mg Tablet 3 mg PO HS Qty: 30 0RF (DME) Oxygen Home Liters Per Minute See Rx Instructions .ROUTE .MEDSUPPLY Qty: 1 0RF Rx Instructions: 3 liters NC O2 continuously diphenhydramine HCl [ZzzQuil] 25 mg Capsule 25 mg PO HS PRN (Reason: Sleep) Unisom (doxylamine) 25 mg Tablet 25 mg PO HS PRN (Reason: Sleep) Referrals Referrals: Breann Orr MD [Primary Care Provider] -
[2023-05-11 22:29] LABS: Appearance Urine Slightly Cloudy (Clear); Bilirubin Urine Negative (Negative); Blood Urine 1+ (Negative); Color Urine Yellow; Glucose Urine UA 2+ (Negative); Ketones Urine Negative (Negative); Leukocyte Esterase Urine Negative (Negative); Nitrite Urine Negative (Negative); Protein Urine 1+ (Negative); Urobilinogen Urine Negative (Negative); pH Urine 5.5 (4.5-7.5)
[2023-05-11 22:39] LABS: BUN Creatinine Ratio 27.3 (10-20); Bilirubin Direct 0.3 mg/dl (0-0.2); Bilirubin,Total 1.8 mg/dl (0.2-1.0); Calcium 9.9 mg/dl (8.6-10.3); Creatinine Clr Calc Pharmacy 35.7 ml/min; Est GFR (African American) 42.6 ml/min; Est GFR (Non-African American) 36.7 ml/min; Magnesium 1.9 mg/dl (1.7-2.4); Potassium 4.1 mmol/L (3.5-5.1); Thyroid Stimulating Hormone 0.97 uIu/ml (0.300-4.500); Total Protein 7.2 gm/dl (6.0-8.3); Troponin I High Sensitivity 37.8 pg/ml (0-20)
--- NOTE | 2023-05-11 22:42 | CT Scan Report ---
Exam(s): CT HEAD Without Contrast EXAM: CT Head Without Intravenous Contrast CLINICAL HISTORY: Reason for exam: ams, tongue deviates to the Right. TECHNIQUE: Axial computed tomography images of the head/brain without intravenous contrast. Automated exposure control was utilized for the study. A dose lowering technique was utilized adhering to the principles of ALARA. COMPARISON: No relevant prior studies available. FINDINGS: No acute intracranial hemorrhage. No midline shift or mass effect. The territorial frank-white matter differentiation is maintained throughout. Age-related cerebral volume loss. Periventricular and subcortical white matter hypoattenuation, consistent with chronic microangiopathy. Phthisis bulbi right eye. The calvarium is intact. The visualized paranasal sinuses and mastoid air cells are grossly clear. IMPRESSION: No acute intracranial hemorrhage, midline shift, or mass effect. Electronically signed by: Samposn Restrepo MD 05/11/23 22:41 PM
[2023-05-11 22:45] LABS: Bacteria Urine Negative (Negative); Epithelial Cell Urine 0-5 /lpf (0-5); RBC Urine 0-4 /hpf (0-4); WBC Urine 0-5 /hpf (0-5)
[2023-05-11] MEDS ORDERED: METOPROLOL TARTRATE 1 MG/ML VIAL IV STA (22:51)
[2023-05-11] MEDS ORDERED: amLODIPine BESYLATE 5 MG TAB PO ONE (22:51)
[2023-05-11] MEDS ORDERED: NovoLIN-R INSULIN PER UNIT CHARGE IV STA (22:51)
[2023-05-11] MEDS ORDERED: METOPROLOL TARTRATE 50 MG TAB PO STA (22:51)
[2023-05-11 23:46] LABS: Adenovirus PCR Not Detected (NotDetected); Bordetella parapertussis PCR Not Detected (NotDetected); Bordetella pertussis PCR Not Detected (NotDetected); Chlamydia pneumoniae PCR Not Detected (NotDetected); Coronavirus 229E PCR Not Detected (NotDetected); Coronavirus CoV-2 (COVID19)PCR Not Detected (NotDetected); Coronavirus HKU1 PCR Not Detected (NotDetected); Coronavirus NL63 PCR Not Detected (NotDetected); Coronavirus OC43PCR Not Detected (NotDetected); Human Metapneumovirus PCR Not Detected (NotDetected); Influenza A PCR Not Detected (NotDetected); Influenza B PCR Not Detected (NotDetected); Mycoplasma pneumoniae PCR Not Detected (NotDetected); Parainfluenza Virus 1 PCR Not Detected (NotDetected); Parainfluenza Virus 2 PCR Not Detected (NotDetected); Parainfluenza Virus 3 PCR Not Detected (NotDetected); Parainfluenza Virus 4 PCR Not Detected (NotDetected); Respiratory Syncytial VirusPCR Not Detected (NotDetected); Rhinovirus/Enterovirus PCR Not Detected (NotDetected)
--- NOTE | 2023-05-12 00:43 | Emergency Department Note ---
ED Visit Note I was consulted by the Advanced Practice Provider. I personally made/approved the management plan and take responsibility for the patient management. I performed a substantive portion of the visit. This includes the aspects of: [-History/Physical/Personally seeing the patient] [-MDM] [-I independently interpreted the following studies:][Studies and results] [-I consulted with] [who recommended,] [- >50% time spent by physician] .
--- NOTE | 2023-05-12 01:07 | History & Physical Report ---
Date of Service May 12, 2023 Assessment & Plan (1) Acute hyperglycemia: (2) Elevated troponin: (3) Weakness: (4) Erosive (osteo)arthritis: (5) Neck pain, acute: (6) Hyperlipidemia: Plan Hyperglycemia | Type 2 Diabetes Mellitus -Blood sugar of 462 on arrival, suspect secondary to noncompliance and recent steroid taper. Likely main factor in patient's presenting confusion/weakness -Received 10u insulin in ED, repeat BSG of 217 after insulin administration. -Held home meds (metformin, glimepiride), sliding scale insulin ordered while inpatient -HgbA1C ordered with a.m. labs Hypertensive Urgency -Per patient, has not taken his medication for several days -BP elevated to >200s systolic since arrival, per chart review last BP at PCP was 181/62 so likely is chronically elevated -Will resume home medications: Amlodipine 10mg, Metoprolol Tartrate 50mg BID Confusion/Weakness -History of CVA -Suspect his earlier confusion and weakness were secondary to his hyperglycemic state -A&O x4 at present -WBC elevated on arrival, no obvious infection at this time. Will repeat a.m. CBC -Will order PT/OT evals Elevated Troponin -No active chest pain -Initial Trop 37.8, repeat at 34.9 GERD -Continue home PPI Erosive OA -Denies any current exacerbation of pain, felt that the steroid course was helpful -Referral to pain management recently placed by PCP Hx of CVA -Continue home statin CKD Stage III -Cr of 1.76 on arrival -Trend BMP daily Admit to med tele, observation Code Status: DNR/DNI Diet: Carb consistent, heart healthy VTE Prophylaxis: Heparin History of Present Illness Primary Care Provider: Breann Orr MD Kulwant Michel is a 77 year-old male who who presented to the hospital via EMS after being found confused and "passed out." He has a past medical history of T2DM, COPD, HTN, erosive osteoarthritis, right eye blindness, CKD stage III, HLD, prior CVA and multiple TIAs. He states that he has not been taking his home medications for a few days, but prior to that had been compliant with medication. He was recently diagnosed with erosive osteoarthritis and was put on a prednisone taper which was completed in the past week. On admission, patient states he is feeling better. He denies any current chest pain, shortness of breath, abdominal pain, or changes in bowel/bladder habits. He states that he lives alone and has a walker at home but "doesn't use it." He notes he does get dizzy at times when moving from sitting to standing but otherwise ambulates without difficulty. ED Course: -CT head without acute abnormalities -2L NSS, 10u insulin -Metoprolol, Amlodipine 10mg Allergies Allergy/AdvReac Type Severity Reaction Status Date / Time No Known Allergies Allergy Verified 05/12/23 00:28 Home Medications Medication Instructions Recorded Confirmed Type Oxygen Home #1 ea 08/10/21 05/12/23 Rx melatonin 3 mg tablet 3 mg PO HS #30 tabs 08/10/21 05/12/23 Rx aspirin 81 mg tablet,delayed 81 mg PO DAILY #90 tabs 09/05/21 05/12/23 Rx release (Hola Low Dose Aspirin) metformin 500 mg tablet 500 mg PO DAILY #30 tabs 12/04/21 05/12/23 Rx empagliflozin 25 mg tablet 25 mg PO DAILY #90 tabs 10/03/22 05/12/23 Rx (Jardiance) amlodipine 10 mg tablet 10 mg PO DAILY #90 tabs 11/15/22 05/12/23 Rx glimepiride 4 mg tablet 4 mg PO DAILY #90 tabs 11/22/22 05/12/23 Rx pantoprazole 40 mg tablet,delayed 40 mg PO DAILY #90 tabs 03/10/23 05/12/23 Rx release furosemide 40 mg tablet 40 mg PO DAILY #90 tabs 03/17/23 05/12/23 Rx metoprolol tartrate 50 mg tablet 50 mg PO BID #180 tabs 03/17/23 05/12/23 Rx atorvastatin 40 mg tablet 40 mg PO QPM #90 tabs 03/21/23 05/12/23 Rx diphenhydramine HCl 25 mg capsule 25 mg PO HS PRN Sleep 04/23/23 05/12/23 History (ZzzQuil) doxylamine succinate 25 mg tablet 25 mg PO HS PRN Sleep 04/23/23 05/12/23 History (Unisom (doxylamine)) Past Med/Surg History Medical History Hyperlipidemia Encounter for screening for malignant neoplasm of rectum Encounter for screening for malignant neoplasm of colon Acute encephalopathy TIMOTHY (acute kidney injury) Mitral regurgitation Hyperkalemia TIMOTHY (acute kidney injury) Generalized weakness Acute respiratory failure with hypoxia Renal artery stenosis Urinary symptom or sign Elevated troponin Dehydration Sleep disturbance Diabetes Blind right eye PUD (peptic ulcer disease) History of Helicobacter pylori infection CAD (coronary artery disease) AAA (abdominal aortic aneurysm) "s/p repair" DM type 2 (diabetes mellitus, type 2) CKD (chronic kidney disease), stage III COPD, moderate Hemiplegia Dysphagia Cerebrovascular disease, arteriosclerotic, post-stroke TIA (transient ischemic attack) PVD (peripheral vascular disease) Hypertension Cancer Surgical History History of esophagogastroduodenoscopy diagnostic H/O colonoscopy with polypectomy History of incision and drainage "evacuation of the left neck postop hematoma ()" H/O aorto-femoral bypass S/P carotid endarterectomy "bilateral" S/P AAA repair Family History Other Family history non-contributory No pertinent family history Denies family history of Ovarian cancer Prostate cancer Myocardial infarction Breast cancer Colorectal cancer Social History Smoking Status: Former smoker Tobacco Type: Cigarettes Second Hand Exposure: No; Do You Dip or Chew Tobacco: No; Hx Alcohol Use: No Hx Substance Use: No Preferred Language: Ukrainian Communication Ability: Effective Visual Impairment: Partially Limited Hearing Ability: Normal Vending Machine Filler Required: No Beliefs That Will Affect Care: None marital status: Current Living Situation: Alone current occupational status: retired How many Children do You have: 2 Feels Safe at Home: Yes Childhood Exposure to Second-Hand Smoke: No Diet: regular caffeine: Yes Dental Care, Regularly: No Physical Activity Frequency: Does not Exercise Seatbelt Use: sometimes Sunscreen Use: No Assistive Devices: Walker Review of Systems Review of Systems: as per above Physical Exam Constitutional: WD/WN, vitals as above Eyes: Right eyelid slightly drooped. L conjunctiva without abnormalities. ENMT: Ears: no external ear abnormality Nose: no external nose abnormality Moist mucous membranes Respiratory: normal respiratory effort, lungs clear to auscultation Cardiovascular: Rate/Rhythm: regular rate and regular rhythm No lower extremity edema Gastrointestinal (Abdomen): normal bowel sounds, soft, nontender, no hepatos plenomegaly Musculoskeletal: moves all limbs independently Skin: no rashes, warm and dry Psychiatric: A+Ox3, euthymic affect Results & Data Results & Data Vital Signs (Past 12 Hours) Vital Signs Temp Pulse Resp BP Pulse Ox O2 Del Method 05/12/23 00:31 70 14 220/118 H 94 Room Air 05/12/23 00:00 69 17 201/96 H 95 Room Air 05/11/23 23:30 74 21 208/97 H 94 Room Air 05/11/23 23:05 94 H 205/105 H 05/11/23 23:03 81 18 205/105 H 96 Room Air 05/11/23 23:01 78 15 243/128 H 96 Room Air 05/11/23 22:49 75 17 213/106 H 92 Room Air 05/11/23 22:34 73 21 246/95 H 95 Room Air 05/11/23 22:14 76 19 205/105 H 94 Room Air 05/11/23 21:24 36.9 C 89 18 173/114 H 98 Room Air 05/11/23 21:18 87 Resident Activity Tracking Resident Involvement: Resident Care Provided Care Provided: Adult Hospital Medicine (6) Hyperlipidemia Hyperlipidemia type: mixed hyperlipidemia Qualified Code(s): E78.2 - Mixed hyperlipidemia
[2023-05-12] MEDS ORDERED: DEXTROSE 50% 50 ML SYRINGE IV PRN (03:28)
[2023-05-12] MEDS ORDERED: GLUCAGON FOR INJ 1 MG VIAL SQ PRN (03:28)
[2023-05-12] MEDS ORDERED: GLUCOSE 10 TAB/TUBE PO PRN (03:28)
[2023-05-12] MEDS ORDERED: CARBOHYDRATES FOR HYPOGLYCEMIA PO PRN (03:28)
[2023-05-12] MEDS ORDERED: GLUCOSE 40% GEL 15 GM TUBE PO PRN (03:28)
[2023-05-12 04:40] LABS: Albumin Level 3.6 gm/dl (3.4-5.0); Bilirubin,Total 1.6 mg/dl (0.2-1.0); Calcium 9.3 mg/dl (8.6-10.3); Potassium 3.8 mmol/L (3.5-5.1)
[2023-05-12 04:46] LABS: Albumin Globulin Ratio 1.3 (0.9-2); BUN Creatinine Ratio 29.5 (10-20); Creatinine Clr Calc Pharmacy 45.2 ml/min; Est GFR (African American) 56.7 ml/min; Est GFR (Non-African American) 48.9 ml/min; Globulin 2.8 gm/dl (2.5-4.0); Total Protein 6.4 gm/dl (6.0-8.3)
[2023-05-12 05:04] LABS: Basophils # (auto) 0.06 K/uL (0.00-0.20); Basophils % (auto) 0.4 %; Eosinophils % (auto) 1.2 %; Hematocrit (blood only) 49.4 % (42.0-52.0); Hemoglobin 17.8 g/dl (14.0-18.0); Immature Granulocytes # (auto) 0.21 K/uL (0.01-0.20); Immature Granulocytes % (auto) 1.3 %; Lymphocytes # (auto) 1.56 K/uL (1.20-3.40); Lymphocytes % (auto) 9.6 %; Mean Corpuscular Hemoglobin 32.5 pg (25.0-34.0); Mean Corpuscular Volume 90.1 fL (80.0-100.0); Mean Platelet Volume 11.2 fL (9.4-12.4); Monocytes # (auto) 1.37 K/uL (0.11-0.59); Monocytes % (auto) 8.4 %; Neutrophils % (auto) 79.1 %; Platelet Count 157 K/uL (130-400); RDW Coefficient of Variation 12.1 % (11.5-14.5); RDW Standard Deviation 40.1 fL (36.4-46.3); Red Blood Count 5.48 M/uL (4.70-6.10)
[2023-05-12] MEDS ORDERED: PANTOprazole 40 MG TAB PO SCH (06:30)
--- NOTE | 2023-05-12 06:58 | XRay Report ---
XR chest 1V portable HISTORY: 77 years-old Male Sepsis acute sepsis COMPARISON: 09/28/2021 TECHNIQUE: AP view of the chest FINDINGS: Cardiomediastinal and hilar silhouettes are within normal limits. Atherosclerosis of the aorta. Emphy sema. No pneumothorax, pleural effusion or airspace consolidation. Chronic interstitial coarsening of the lung bases. IMPRESSION: Emphysema without acute process of the chest. ACT 112: Negative or not required by law. The above report was generated using voice recognition software. It may contain grammatical, syntax o r spelling errors. Electronically signed by: Jalil Martin M.D. 05/12/2023 6:57 AM
[2023-05-12 07:02] LABS: Estimated Average Glucose 232 mg/dl; Hemoglobin A1C 9.7 % (4.5-5.6)
[2023-05-12] MEDS ORDERED: amLODIPine BESYLATE 5 MG TAB PO SCH (09:00)
[2023-05-12] MEDS ORDERED: ASPIRIN 81 MG ECTAB PO SCH (09:00)
[2023-05-12] MEDS ORDERED: METOPROLOL TARTRATE 50 MG TAB PO SCH (09:00)
[2023-05-12] MEDS ORDERED: LANTUS PER UNIT CHARGE SQ SCH (09:00)
[2023-05-12] MEDS ORDERED: FUROSEMIDE 40 MG TAB PO SCH (09:00)
[2023-05-12] MEDS ORDERED: HEPARIN SOD 5,000 UNIT/0.5 ML VIAL SQ SCH (09:00)
[2023-05-12] MEDS: INSULIN ASPART PER UNIT CHARGE SC SCH ×2 (09:20→13:10)
--- NOTE | 2023-05-12 09:46 | Electrocardiogram Report ---
Test Reason : Blood Pressure : / mmHG Vent. Rate : 088 BPM Atrial Rate : 088 BPM P-R Int : 158 ms QRS Dur : 106 ms QT Int : 382 ms P-R-T Axes : 077 054 063 degrees QTc Int : 462 ms Normal sinus rhythm Inferior infarct , age undetermined Abnormal ECG When compared with ECG of 03-AUG-2021 13:39, Inferior infarct is now Present Nonspecific T wave abnormality, improved in Inferior leads Confirmed by Luis Melgar ([id number]) on 05/12/2023 9:45:50 AM Referred By: REFERRED SELF Confirmed By:Luis Melgar
--- NOTE | 2023-05-12 12:47 | Discharge Summary ---
Date of Service May 12, 2023 Admission HPI Per Admitting Provider Kulwant Michel is a 77 year-old male who who presented to the hospital via EMS after being found confused and "passed out." He has a past medical history of T2DM, COPD, HTN, erosive osteoarthritis, right eye blindness, CKD stage III, HLD, prior CVA and multiple TIAs. He states that he has not been taking his home medications for a few days, but prior to that had been compliant with medication. He was recently diagnosed with erosive osteoarthritis and was put on a prednisone taper which was completed in the past week. On admission, patient states he is feeling better. He denies any current chest pain, shortness of breath, abdominal pain, or changes in bowel/bladder habits. He states that he lives alone and has a walker at home but "doesn't use it." He notes he does get dizzy at times when moving from sitting to standing but otherwise ambulates without difficulty. ED Course: -CT head without acute abnormalities -2L NSS, 10u insulin -Metoprolol, Amlodipine 10mg Admission Exam Per Admitting Provider Constitutional: WD/WN, vitals as above Eyes: Right eyelid slightly drooped. L conjunctiva without abnormalities. ENMT: Ears: no external ear abnormality Nose: no external nose abnormality Moist mucous membranes Respiratory: normal respiratory effort, lungs clear to auscultation Cardiovascular: Rate/Rhythm: regular rate and regular rhythm No lower extremity edema Gastrointestinal (Abdomen): normal bowel sounds, soft, nontender, no hepatosplenomegaly Musculoskeletal: moves all limbs independently Skin: no rashes, warm and dry Psychiatric: A+Ox3, euthymic affect Principal Diagnosis Hyperglycemia Discharge Exam Constitutional: well-appearing, no acute distress HEENT: NCAT, no conjunctival injection CV: regular rhythm, no murmur appreciated, extremities well-perfused, no LE edema Resp: CTABL, no wheezes/rales/rhonchi appreciated, no increased work of breathing GI: soft, nondistended, nontender, BS normoactive MSK: no gross deformities appreciated Skin: warm, dry, no rash appreciated Neuro: alert, oriented, no focal neurologic deficit appreciated Discharge Data Allergies Allergy/AdvReac Type Severity Reaction Status Date / Time No Known Allergies Allergy Verified 05/12/23 00:28 Consultations 05/11/23 23:25 ED Decision to Admit Stat Ordered Studies 05/11/23 21:42 CT head/brain wo con Stat Hospital Course (1) Acute hyperglycemia: (2) Elevated troponin: (3) Weakness: (4) Erosive (osteo)arthritis: (5) Neck pain, acute: (6) Hyperlipidemia: Plan Hyperglycemia | Type 2 Diabetes Mellitus -Blood sugar of 462 on arrival, suspect secondary to noncompliance and recent steroid taper. Likely main factor in patient's presenting confusion/weakness -Received 10u insulin in ED, repeat BSG of 217 after insulin administration. -Held home meds (metformin, glimepiride), sliding scale insulin ordered while inpatient -HgbA1C 7.3 Hypertensive Urgency -Per patient, has not taken his medication for several days -BP elevated to >200s systolic since arrival, per chart review last BP at PCP was 181/62 so likely is chronically elevated -Will resume home medications: Amlodipine 10mg, Metoprolol Tartrate 50mg BID Confusion/Weakness -History of CVA -Suspect his earlier confusion and weakness were secondary to his hyperglycemic state -A&O x4 at present -WBC elevated on arrival, no obvious infection at this time. Will repeat a.m. CBC Elevated Troponin -No active chest pain -Initial Trop 37.8, repeat at 34.9 GERD -Continue home PPI Erosive OA -Denies any current exacerbation of pain, felt that the steroid course was helpful -Referral to pain management recently placed by PCP Hx of CVA -Continue home statin CKD Stage III -Cr of 1.76 on arrival-->1.39 after fluids Admit to med tele, observation Code Status: DNR/DNI Diet: Carb consistent, heart healthy VTE Prophylaxis: Heparin Total Time Total Time Spent Total Time Spent (In Minutes): <30 Discharge Plan Discharge Items Patient Disposition: Home - Self-Care Reason For Visit: HYPERGLYCEMIA AND HYPERTENSION Discharge Diagnosis: Hyperglycemia Condition on Discharge: Fair Activity: Resume your previous activity Non-emergency contact: Primary Care Provider Call non-emergency contact if: you have any medication questions, your symptoms worsen and you have a fever Follow-up/Referrals: Breann Orr MD [Primary Care Provider] - Diet: Carb Consistent or DM2 and Heart Healthy Addtl Attending Provider Instructions: You were admitted to the hospital for high blood sugar. You were treated with insulin and IV fluids. When you return home please be sure to take all diabetes and high blood pressure medications as prescribed. In the future, you should try to avoid taking steroids as they can increase your blood sugar. A discharge summary will be sent to your primary care physician to ensure continuity of care. Please bring this discharge summary with you to your next office appointment so that your provider can review it at that time. Follow-up appointments: Make a follow-up appointment with your PCP within the next week. It is very important that you follow up with them shortly after discharge from the hospital. Keep all your follow-up appointments as already scheduled. If you cannot make an appointment, notify your provider. Medications: Your medication list has been reviewed and reconciled upon discharge to ensure accuracy and continuity of care. An updated list of all your medications is included with your hospital discharge paperwork. Please review this list closely, and make note of any changes. If you have any issues filling these prescriptions, please call [phone] and ask to leave a message for Dr. Romeo Pablo. Take your medications as instructed; do not skip a dose of your medicines. Make sure all of your doctors know every medicine you are taking (including peqc-mrd-gfijydv medicines, vitamins, and supplements). Call your primary care provider before taking any new medicines (including oobk-tku-icjzrnx medicines, vitamins, and supplements), because some of these may interact with your current medications, or may make your symptoms worse. Tell your primary care provider if you cannot afford your medications. CONTACT YOUR PRIMARY CARE PROVIDER if you experience any of the following: Increased thirst or urination Dizziness or weakness Difficulty following your treatment plan, or difficulty taking medications CALL 911 OR GO TO THE EMERGENCY DEPARTMENT if you experience any of the following: Sudden, severe abdominal pain or nausea/vomiting Severe chest pain, or chest pain that radiates (moves) to your jaw or arm Sudden, severe shortness of breath or difficulty breathing Thank you for allowing us to participate in your care. Pending Studies at Discharge: No Stand-Alone Forms: [facility], Smoking Cessation Medications and DC Order Prescriptions: Continued Jardiance 25 mg tablet 25 mg PO DAILY Qty: 90 1RF amlodipine 10 mg tablet 10 mg PO DAILY Qty: 90 1RF glimepiride 4 mg tablet 4 mg PO DAILY Qty: 90 2RF pantoprazole 40 mg tablet,delayed release (DR/EC) 40 mg PO DAILY Qty: 90 1RF Rx Instructions: 30 minutes prior to meal metoprolol tartrate 50 mg tablet 50 mg PO BID Qty: 180 1RF furosemide 40 mg tablet 40 mg PO DAILY Qty: 90 1RF atorvastatin 40 mg tablet 40 mg PO QPM Qty: 90 1RF aspirin [Hola Low Dose Aspirin] 81 mg tablet,delayed release (DR/EC) 81 mg PO DAILY Qty: 90 1RF metformin 500 mg tablet 500 mg PO DAILY Qty: 30 4RF melatonin 3 mg Tablet 3 mg PO HS Qty: 30 0RF (DME) Oxygen Home Liters Per Minute See Rx Instructions .ROUTE .MEDSUPPLY Qty: 1 0RF Rx Instructions: 3 liters NC O2 continuously diphenhydramine HCl [ZzzQuil] 25 mg Capsule 25 mg PO HS PRN (Reason: Sleep) Unisom (doxylamine) 25 mg Tablet 25 mg PO HS PRN (Reason: Sleep) Discharge Orders: Discharge Order (Routine); Ordered 05/12/23 Ordered By: Romeo Pablo Admission Data Admit Date/Time: 05/12/23 01:01 Attending Provider: Theron Gaviria Admit Provider: Katiuska Abarca Primary Care Provider: Breann Orr Other Providers: Jorge Agee Other Interventions: Discharge Summary Assessment (RN) Last Done: 05/12/23 14:59 Supervising Physician Co-Signing Physician Notes I personally examined the patient and verified all alvarez points of history and exam, discussed case, and agree with decision making with Dr Pablo feeling better would like to go home notes that he's getting around about the same as he does at home vitals noted nad heent nc at mmm strabismus R eye. slowly sits up on his own (while discussing that this is what he does at home ever since his stroke) then after sitting for a while, steadily stands (and then stands at side of bed for a while again noting that this is what he does at home since his stroke) takes a few steps - notes he's at his baseline level of strength and balance hyperglycemic dehydration - fluid status improved, sugars improved. would like to go home. stable for home. inciting event appears to have been sugar response to steroids - now completed. home w close outpt f/u. otherwise as above
--- NOTE | 2023-05-12 18:35 | Billing Data ---
Date of Service May 12, 2023 Coding Level of Care Code 02873 IN/OBS DISCH 30 MIN/LESS
[2023-05-12] MEDS ORDERED: MELATONIN 3 MG TAB PO SCH (21:00)
[2023-05-12] MEDS ORDERED: ATORVASTATIN 40 MG TAB PO SCH (21:00)
== END 2023-05-12 15:00 | disposition home or self-care (01) ==
LOC: EDINP 21:11 → ED 21:11 → SUATTDRO 05-12 01:01 → EDINP 05-12 03:27